=== PATIENT | female | born 1960 | race Caucasian/White ===

== ENCOUNTER 2021-12-14 20:55 | Emergency (ER) | payer SELFPAY ==
[2021-12-14 21:01] VITALS: BP 117/77; PULSE 108; RESP 16; TEMP 36.4; O2SAT 98
[2021-12-15 01:24] VITALS: BP 124/79; PULSE 97; RESP 16; TEMP 36.4; O2SAT 97
[2021-12-15 01:31] LABS: Basophils # 0.1 10^3/uL (0.0-0.1); Basophils % 0.5 %; Eosinophils # 0.2 10^3/uL (0.0-0.8); Eosinophils % 1.4 %; Hematocrit 46.3 % (37.0-47.0); Hemoglobin 15.1 g/dL (11.5-15.3); Lymphocytes # 2.2 10^3/uL (0.8-4.8); Lymphocytes % 14.5 %; Mean Corpuscular HGB Conc 32.6 g/dL (30.0-36.0); Mean Corpuscular Hemoglobin 29.4 pg (28.0-34.0); Mean Corpuscular Volume 90.3 fl (81-99); Mean Platelet Volume 8.7 fL (7.4-10.4); Monocytes # 1.1 10^3/uL (0.2-0.9); Neutrophils # 11.69 10^3/uL (1.8-7.7); Neutrophils % 76.3 %; Nucleated Red Blood Cells % 0 %; Platelet Count 501 10^3/cmm (130-400); Red Blood Count 5.13 10^6/uL (4.1-5.3); Red Cell Distribution Width 14.4 % (12.1-15.1); White Blood Count 15.3 10^3/uL (4.0-10.0)
--- NOTE | 2021-12-15 01:33 | ED_ITS ---
HPI - Abdominal Pain General: Chief Complaint: Abdominal Pain Stated Complaint: ABD Pain Time Seen by Provider: 12/15/21 01:08 History of Present Illness: Ms Monroy is a 61-year-old lady without reported significant past medical history presents to the emergency department due to abdominal pain. She reports a longstanding history of intermittent abdominal pain though this is perhaps become worse especially over the past few days. She endorses typically worse pain after eating mostly in the epigastric region though it sometimes in the flanks or other portions of her abdomen. Symptoms initially were intermittent however become more frequent and more intense and more constant recently. Associated nausea and change in bowel habits. Denies known history of abdominal surgeries or previous GI work-up. No other specific changes in health, exacerbating, or alleviating factors identified. Onset (ago): month(s) Pain Consistency: intermittent Location: Diffuse Severity: severe Quality: cramping and aching Exacerbating factors: eating Relieving factors: nothing Associated Symptoms: Reports change in bowel habits and nausea Review of Systems General: Reports: 10 or more systems reviewed and unremarkable except in HPI and below GI: Reports: nausea and change in bowel habits PFSH ED PFSH: Medical History No significant past medical history Surgical History No significant past surgical history Social History Smoking and tobacco status: current every day smoker Physical Exam Const: COMMON NORMALS: alert GENERAL APPEARANCE: cooperative and well de veloped HENMT: COMMON NORMALS: normocephalic and atraumatic HEAD & SCALP: normocephalic and atraumatic Eye: COMMON NORMALS: conjunctivae normal CONJUNCTIVA: Yes conjunctivae normal SCLERA: sclerae normal Neck/C-Spine: COMMON NORMALS: supple GENERAL: Yes trachea midline Resp: COMMON NORMALS: clear to auscultation bilaterally EFFORT & INSPECTION: Yes able to speak in complete sentences AUSCULTATION: clear to auscultation bilaterally Cardio: COMMON NORMALS: regular rhythm RATE: tachycardic RHYTHM: regular rhythm GI: COMMON NORMALS: Soft to palpation PALPATION: Yes Soft to palpation, Yes Tenderness to palpation present (GI), No Guarding due to palpation present (GI) and No Rigid due to palpation Extremity: GENERAL: Yes normal exam except as noted and No edema Neuro: COMMON NORMALS: moves all extremities SENSORIUM/ORIENTATION: Yes alert and No Orientation impaired Psych: COMMON NORMALS: mental status grossly normal and Normal thought process present THOUGHT PROCESS: Normal thought process present Course Vital Signs: Vital signs: Vital Signs Temperature 97.6 F 12/15/21 05:14 Pulse Rate 90 12/15/21 05:14 Respiratory Rate 16 12/15/21 05:14 Blood Pressure 115/70 12/15/21 05:14 Pulse Oximetry 98 12/15/21 05:14 Oxygen Delivery Me thod 12/15/21 01:24 MDM - Abdominal Pain Medical Decision Making 61-year-old lady presenting with abdominal pain. Exam as above. Mild tachycardia though patient is nontoxic in appearance. Leukocytosis, normal hemoglobin. Mild panel without acute electrolyte derangement. No UTI. CT with evidence of bowel thickening in the terminal ileum, ileocecal junction, and cecum. Discussed radiology read with general surgery on-call however given overall clinical picture and history is much more consistent with colitis and any other finding. Discussed results of ED evaluation with patient he was i mproved. Satisfactory for outpatient management with strict return precautions given. Patient comfortable with plan. Medical Records I reviewed the patient's medical records. Lab Data I reviewed the patient's lab results. : 12/15/21 01:16 12/15/21 02:22 Labs/Radiology: Radiology Impressions Abdomen/Pelvis CT 12/15/21 02:24 IMPRESSION: 1. There is enhancement and bowel wall thickening of the terminal ileum, ileocecal junction and cecum possibly representing inflammatory changes and typhlitis although an infiltrative mass such as lymphoma cannot be entirely excluded. 2. There are mildly dilated small bowel loops containing fluid and air fluid levels and some desiccated bowel contents distally may represent ileus although partial small bowel obstruction cannot be entirely excluded. Laboratory Results WBC 15.3 10^3/uL (4.0-10.0) H 12/15/21 01:16 RBC 5.13 10^6/uL (4.1-5.3) 12/15/21 01:16 Hgb 15.1 g/dL (11.5-15.3) 12/15/21 01:16 Hct 46.3 % (37.0-47.0) 12/15/21 01:16 MCV 90.3 fl (81-99) 12/15/21 01:16 MCH 29.4 pg (28.0-34.0) 12/15/21 01:16 MCHC 32.6 g/dL (30.0-36.0) 12/15/21 01:16 RDW 14.4 % (12.1-15.1) 12/15/21 01:16 Plt Count 501 10^3/cmm (130-400) H 12/15/21 01:16 MPV 8.7 fL (7.4-10.4) 12/15/21 01:16 Neut % (Auto) 76.3 % 12/15/21 01:16 Lymph % (Auto) 14.5 % 12/15/21 01:16 [place] % (Auto) 7.0 % 12/15/21 01:16 Eos % (Auto) 1.4 % 12/15/21 01:16 Baso % (Auto) 0.5 % 12/15/21 01:16 Neut # (Auto) 11.69 10^3/uL (1.8-7.7) H 12/15/21 01:16 Lymph # (Auto) 2.2 10^3/uL (0.8-4.8) 12/15/21 01:16 [place] # (Auto) 1.1 10^3/uL (0.2-0.9) H 12/15/21 01:16 Eos # (Auto) 0.2 10^3/uL (0.0-0.8) 12/15/21 01:16 Baso # (Auto) 0.1 10^3/uL (0.0-0.1) 12/15/21 01:16 Nucleated RBC % (auto) 0 % 12/15/21 01:16 Nucleated RBCs # 0.0 /100WBC 12/15/21 01:16 Sodium 136 mmol/L (136-145) 12/15/21 02:22 Potassium 3.9 mmol/L (3.5-5.1) 12/15/21 02:22 Chloride 104 mmol/L (98-107) 12/15/21 02:22 Carbon Dioxide 22 mmol/L (22-29) 12/15/21 02:22 Anion Gap 13.9 (5-19) 12/15/21 02:22 BUN 7 mg/dL (8-23) L 12/15/21 02:22 Creatinine 0.6 mg/dL (0.5-0.9) 12/15/21 02:22 GFR Calculation 101.6 mL/min (90-130) 12/15/21 02:22 Glucose 107 mg/dL (65-115) 12/15/21 02:22 Calculated Osmolality 280 mOsm/kg (285-295) L 12/15/21 02:22 Calcium 8.4 mg/dL (8.5-10.5) L 12/15/21 02:22 Total Bilirubin 0.3 mg/dL (0.15-1.2) 12/15/21 02:22 AST 14 U/L (0-32) 12/15/21 02:22 ALT 8 U/L (0-33) 12/15/21 02:22 Alkaline Phosphatase 99 U/L (35-105) 12/15/21 02:22 Total Protein 6.5 g/dL (6.6-8.7) L 12/15/21 02:22 Albumin 3.3 g/dL (3.5-5.2) L 12/15/21 02:22 Globulin 3.2 g/dL (1.3-4.6) 12/15/21 02:22 Lipase 12 U/L (13-60) L 12/15/21 02:22 Urine Color Yellow (Yellow) 12/15/21 03:33 Urine Appearance Clear (CLEAR) 12/15/21 03:33 Urine pH 5 (5-7) 12/15/21 03:33 Ur Specific [place] 1.015 (1.005-1.030) 12/15/21 03:33 Urine Protein Neg (Negative) 12/15/21 03:33 Urine Glucose (UA) Norm (Normal) 12/15/21 03:33 Urine Ketones 1+ (Negative) H 12/15/21 03:33 Urine Blood Neg (Negative) 12/15/21 03:33 Urine Nitrate Negative (Negative) 12/15/21 03:33 Urine Bilirubin Neg (Negative) 12/15/21 03:33 Urine Urobilinogen Norm mg/dL (Negative) 12/15/21 03:33 Ur Leukocyte Esterase Trace (Negative) H 12/15/21 03:33 Urine RBC 0-4 /hpf (0-2) H 12/15/21 03:33 Urine WBC 0-4 /hpf (0-5) H 12/15/21 03:33 Ur Squamous Epith Cells 0-4 /hpf (0-5) H 12/15/21 03:33 Amorphous Sediment 1+ /hpf 12/15/21 03:33 Urine Bacteria Trace /hpf (NONE) 12/15/21 03:33 Urine Mucus 1+ /hpf 12/15/21 03:33 Discharge Plan Discharge Patient Disposition: Home Clinical Impression: Abdominal pain, Colitis Prescriptions: New ondansetron 4 mg tablet,disintegrating 4 mg PO Q8H PRN (Reason: nausea and vomiting) Qty: 15 0RF oxycodone 5 mg tablet 5 mg PO Q4H PRN (Reason: pain) Qty: 24 0RF ciprofloxacin HCl 500 mg tablet 500 mg PO BID Qty: 20 0RF Discharge Orders: Discharge ED (Routine); Ordered 12/15/21 Ordered By: Blas Oseguera Discharge Diet: Clear Liquid Discharge Activity: Increase activity as tolerated Patient Instructions: Abdominal Pain (ED), Colitis (ED), Opioid Safety Activity Restrictions/Additional Instructions: Thank you for visiting the emergency department. You were seen and evaluated for abdominal pain. The exact cause of your symptoms is unclear though as discussed you do have inflammatory changes around the junction of the small and large intestine. These may be infectious given your worsening symptoms and therefore I will treat you with antibiotics. Additionally I will prescribe antinausea medication and pain medication. You may use [id number] medications as well however please do not exceed the daily recommended dosage and please keep in mind that many namebrand medications contain the same active ingredients. I will message case management for follow-up with primary care provider and follow-up with a physician for consideration of endoscopy. Return to the emergency department for worsening symptoms or anything else that you are concerned about a feel needs emergency department evaluation. Coding Level of Care Code ED Scientific Manager for [employer] Exam Comprehensive
[2021-12-15] MEDS: morphine 4 mg/mL SDV 1 mL IVP (01:54)
[2021-12-15] MEDS: sodium chloride 0.9% 1,000 ML 999 ML IV (01:54)
[2021-12-15] MEDS: ondansetron 2 mg/ML SDV 2 mL 4 MG IVP (01:54)
[2021-12-15] MEDS: lidocaine 2% viscous 15 ML, aluminum-mag hydrox-simethicon 30 ML, sucralfate oral liq 1 GM PO (01:55)
--- NOTE | 2021-12-15 02:24 | CTR_ITS ---
PROCEDURE INFORMATION: Exam: CT Abdomen And Pelvis With Contrast Exam date and time: 12/15/2021 3:03 AM Age: 61 years old Clinical indication: Abdominal pain; Generalized; Patient HX: C/O diffuse abd pain. Worsens in epigastric region after eating. ; Additional info: Generalized abd pain, worsened with eating, epigastric worse TECHNIQUE: Imaging protocol: Computed tomography of the abdomen and pelvis with contrast. Radiation optimization: All CT scans at this facility use at least one of these dose optimization techniques: automated exposure control; mA and/or kV adjustment per patient size (includes targeted exams where dose is matched to clinical indication); or iterative reconstruction. Contrast material: OMNI 350; Contrast volume: 80 ml; Contrast route: INTRAVENOUS (IV); COMPARISON: No relevant prior studies available. RADIATION DOSE METRICS: Total DLP (mGy-cm): 285.62 FINDINGS: Liver: Focal hypoattenuation seen adjacent to the falciform fissure compatible with focal fatty infiltration. Gallbladder and bile ducts: Normal. No calcified stones. No ductal dilation. Pancreas: Normal. No ductal dilation. Spleen: Normal. No splenomegaly. Adrenal glands: Normal. No mass. Kidneys and ureters: Normal. No hydronephrosis. Stomach and bowel: There are mildly dilated small bowel loops present containing fluid and air fluid levels and some desiccated bowel contents within the terminal ileum, findings compatible with ileus. An early partial small bowel obstruction cannot be entirely excluded. There is thickening and enhancement the cecal bowel wall possibly representing inflammatory mass and typhlitis. However a solid cecal mass cannot be excluded. Additionally, there is mild bowel wall thickening of the ileocecal junction. This finding raises some suspicion for an infiltrative mass such as lymphoma. Appendix: No evidence of appendicitis. Intraperitoneal space: Unremarkable. No free air. No significant fluid collection. Vasculature: Unremarkable. No abdominal aortic aneurysm. Lymph nodes: See Stomach and bowel finding. Urinary bladder: Unremarkable as visualized. Reproductive: Unremarkable as visualized. Bones/joints: Unremarkable. No acute fracture. Soft tissues: Unremarkable. CT/CT abdomen pelvis w con* [id number] IMPRESSION: 1. There is enhancement and bowel wall thickening of the terminal ileum, ileocecal junction and cecum possibly representing inflammatory changes and typhlitis although an infiltrative mass such as lymphoma cannot be entirely excluded. 2. There are mildly dilated small bowel loops containing fluid and air fluid levels and some desiccated bowel contents distally may represent ileus although partial small bowel obstruction cannot be entirely excluded.
[2021-12-15 02:54] LABS: Alanine Aminotransferase 8 U/L (0-33); Albumin Level 3.3 g/dL (3.5-5.2); Alkaline Phosphatase 99 U/L (35-105); Anion Gap 13.9 (5-19); Aspartate Amino Transferase 14 U/L (0-32); Blood Urea Nitrogen 7 mg/dL (8-23); Calcium 8.4 mg/dL (8.5-10.5); Carbon Dioxide 22 mmol/L (22-29); Chloride 104 mmol/L (98-107); Globulin 3.2 g/dL (1.3-4.6); Glomerular Filtration Rate 101.6 mL/min (90-130); Glucose 107 mg/dL (65-115); Lipase 12 U/L (13-60); Osmolality Calculated 280 mOsm/kg (285-295); Potassium 3.9 mmol/L (3.5-5.1); Sodium 136 mmol/L (136-145); Total Bilirubin 0.3 mg/dL (0.15-1.2); Total Protein 6.5 g/dL (6.6-8.7)
[2021-12-15] MEDS: iohexol 350 mg/mL 100 mL Btl IV (03:05)
[2021-12-15 03:55] LABS: Bilirubin Urine Neg (Negative); Blood Urine Neg (Negative); Glucose Urine UA Norm (Normal); Ketones Urine 1+ (Negative); Leukocyte Esterase Urine Trace (Negative); Nitrate Urine Negative (Negative); Protein Urine Neg (Negative); Specific Gravity, Urine 1.015 (1.005-1.030); Urine Appearance Clear (CLEAR); Urine Color Yellow (Yellow); Urobilinogen Urine Norm (Negative); pH Urine 5 (5-7)
[2021-12-15 03:56] LABS: Add Urine Culture? No; Add Urine Microscopic? YES; Amorphous Sediment Urine 1+ /hpf; Bacteria Urine TRACE /hpf; Mucus Urine 1+ /hpf; RBC Urine 0-4 /hpf (0-2); Squamous Epithelial Cell Urine 0-4 /hpf (0-5); WBC Urine 0-4 /hpf (0-5)
[2021-12-15 05:14] VITALS: BP 115/70; PULSE 90; RESP 16; TEMP 36.4; O2SAT 98
== END 2021-12-15 05:15 | disposition home or self-care (01) ==
PROVIDERS: Emergency Provider Emergency Medicine
DX: R10.9 Unspecified abdominal pain (principal); K52.9 Noninfective gastroenteritis and colitis, unspecified
CPT/HCPCS: 74177; 80053; 81001; 83690; 85025; 96361; 96374; 96375; 99285; J2270; J2405; J7030; Q9967

== ENCOUNTER 2022-01-21 22:22 | Emergency (ER) | payer SELFPAY ==
[2022-01-21 22:34] VITALS: BP 104/72; PULSE 111; RESP 18; TEMP 36.8; O2SAT 97; BMI 16.4
--- NOTE | 2022-01-21 23:06 | XRR_ITS ---
PROCEDURE INFORMATION: Exam: XR Abdomen Exam date and time: 01/21/2022 11:12 PM Age: 61 years old Clinical indication: Abdominal pain; Generalized; Additional info: Abd pain TECHNIQUE: Imaging protocol: Radiologic exam of the abdomen. Views: Frontal supine view of the abdomen. 1 View. COMPARISON: CT abdomen pelvis w con* [id number] 12/15/2021 3:03 AM FINDINGS: Gastrointestinal tract: Bowel gas pattern is unremarkable. No sign of obstruction. Intraperitoneal space: No gross free air. Evaluation for free air is limited in the supine position. Bones/joints: Bones are unremarkable. XR/XR KUB [id number] IMPRESSION: No acute findings.
--- NOTE | 2022-01-21 23:12 | W.ED.ABDPA2 ---
HPI - Abdominal Pain General: Chief Complaint: Abdominal Pain Stated Complaint: ABD Pain Time Seen by Provider: 01/21/22 23:02 History of Present Illness: 61-year-old female comes in today for complaints of generalized abdominal pain. Patient states she has had this abdominal pain for about 1 year but it is worsened over the last 2 months. Patient was seen last month and was diagnosed with colitis with recommendations for follow-up for further evaluation and treatment due to the abnormalities on her CT scan. Patient reports that she has been unable to get follow-up appointment due to lack of insurance. Patient appears nontoxic. Patient denies any chronic medical problems. Patient denies any alcohol or drug use. Patient does use Tylenol routinely for her pain. Associated Symptoms: Reports nausea; Denies constipation, diarrhea, fever(s) and vomiting Review of Systems Const: Denies: fever(s) Card: Denies: chest pain Resp: Denies: dyspnea GI: Reports: abdominal pain and nausea; Denies: vomiting, diarrhea or constipation : Denies: difficulty voiding PFSH ED PFSH: Medical History No significant past medical history Surgical History No significant past surgical history Social History Smoking and tobacco status: current every day smoker Physical Exam Const: COMMON NORMALS: alert HENMT: COMMON NORMALS: normocephalic HEAD & SCALP: normocephalic Neck/C-Spine: COMMON NORMALS: full ROM and no meningeal signs Resp: COMMON NORMALS: normal respiratory effort and clear to auscultation bilaterally AUSCULTATION: clear to auscultation bilaterally Cardio: COMMON NORMALS: regular rate and regular rhythm RATE: regular rate RHYTHM: regular rhythm GI: COMMON NORMALS: Soft to palpation AUSCULTATION: Yes normoactive bowel sounds PALPATION: Yes Soft to palpation and Yes Tenderness to palpation present (GI) (Generalized) : COMMON NORMALS: Yes no CVA tenderness BLADDER/KIDNEY EXAM: Yes no CVA tenderness Back/Pelvis: COMMON NORMALS: no CVA tenderness Extremity: COMMON NORMALS: no pedal edema Neuro: SENSORIUM/ORIENTATION: Yes alert MENINGEAL SIGNS: Yes no meningeal signs Skin: COMMON NORMALS: turgor normal GENERAL SKIN EXAM: turgor normal Course Vital Signs: Vital signs: Vital Signs Temperature 98.2 F 01/21/22 22:34 Pulse Rate 111 H 01/21/22 22:34 Respiratory Rate 15 01/21/22 23:33 Blood Pressure 104/72 01/21/22 22:34 Pulse Oximetry 97 01/21/22 22:34 Oxygen Delivery Me thod 01/21/22 22:34 MDM - Abdominal Pain Medical Decision Making Patient comes in tonight for complaints of abdominal pain. Patient been here about 1 month ago for similar pain. Patient reports no improvement or worsening pain. Patient states that when she come off the antibiotic she had gradual worsening of symptoms. On exam abdomen soft with some generalized tenderness. Normoactive bowel sounds. Vital signs are unremarkable. Differential diagnosis includes bowel obstruction, colitis, constipation, diverticulitis, obstruction. KUB noted no obstruction. CBC had some mild leukocytosis. CMP was unremarkable. Review of the abdominal CT from last night suggested possible colitis but a mass or carcinoma could not be ruled out. Recommend patient follow-up with specialist for colonoscopy for further evaluation and treatment. Patient has not had a colonoscopy since turning 50. Patient was written for Cipro for 7 more days, and given some hydrocodone for her pain. Patient reported understanding agreed to plan. Lab Data : 01/21/22 23:36 01/21/22 23:36 Labs/Radiology: Radiology Impressions KUB X-Ray 01/21/22 23:06 IMPRESSION: No acute findings. Laboratory Results WBC 12.8 10^3/uL (4.0-10.0) H 01/21/22 23:36 RBC 4.42 10^6/uL (4.1-5.3) 01/21/22 23:36 Hgb 13.0 g/dL (11.5-15.3) 01/21/22 23:36 Hct 39.2 % (37.0-47.0) 01/21/22 23:36 MCV 88.7 fl (81-99) 01/21/22 23:36 MCH 29.4 pg (28.0-34.0) 01/21/22 23:36 MCHC 33.2 g/dL (30.0-36.0) 01/21/22 23:36 RDW 13.3 % (12.1-15.1) 01/21/22 23:36 Plt Count 552 10^3/cmm (130-400) H 01/21/22 23:36 MPV 9.1 fL (7.4-10.4) 01/21/22 23:36 Neut % (Auto) 69.2 % 01/21/22 23:36 Lymph % (Auto) 19.3 % 01/21/22 23:36 [place] % (Auto) 8.7 % 01/21/22 23:36 Eos % (Auto) 1.8 % 01/21/22 23:36 Baso % (Auto) 0.5 % 01/21/22 23:36 Neut # (Auto) 8.86 10^3/uL (1.8-7.7) H 01/21/22 23:36 Lymph # (Auto) 2.5 10^3/uL (0.8-4.8) 01/21/22 23:36 [place] # (Auto) 1.1 10^3/uL (0.2-0.9) H 01/21/22 23:36 Eos # (Auto) 0.2 10^3/uL (0.0-0.8) 01/21/22 23:36 Baso # (Auto) 0.1 10^3/uL (0.0-0.1) 01/21/22 23:36 Nucleated RBC % (auto) 0 % 01/21/22 23:36 Nucleated RBCs # 0.0 /100WBC 01/21/22 23:36 Sodium 140 mmol/L (136-145) 01/21/22 23:36 Potassium 3.7 mmol/L (3.5-5.1) 01/21/22 23:36 Chloride 106 mmol/L (98-107) 01/21/22 23:36 Carbon Dioxide 21 mmol/L (22-29) L 01/21/22 23:36 Anion Gap 16.7 (5-19) 01/21/22 23:36 BUN 9 mg/dL (8-23) 01/21/22 23:36 Creatinine 0.5 mg/dL (0.5-0.9) 01/21/22 23:36 GFR Calculation 125.4 mL/min (90-130) 01/21/22 23:36 Glucose 115 mg/dL (65-115) 01/21/22 23:36 Calculated Osmolality 290 mOsm/kg (285-295) 01/21/22 23:36 Calcium 9.3 mg/dL (8.5-10.5) 01/21/22 23:36 Total Bilirubin 0.2 mg/dL (0.15-1.2) 01/21/22 23:36 AST 12 U/L (0-32) 01/21/22 23:36 ALT 6 U/L (0-33) 01/21/22 23:36 Alkaline Phosphatase 108 U/L (35-105) H 01/21/22 23:36 Total Protein 7.1 g/dL (6.6-8.7) 01/21/22 23:36 Albumin 3.4 g/dL (3.5-5.2) L 01/21/22 23:36 Globulin 3.7 g/dL (1.3-4.6) 01/21/22 23:36 Lipase 11 U/L (13-60) L 01/21/22 23:36 Discharge Plan Discharge Patient Disposition: Home Clinical Impression: Colitis Abdominal pain Qualifiers: Abdominal location: generalized Qualified Code(s): R10.84 - Generalized abdominal pain Condition: Stable Prescriptions: New hydrocodone-acetaminophen 5-325 mg tablet 1 tab PO Q6H PRN (Reason: pain) Qty: 10 0RF Continued ciprofloxacin HCl 500 mg tablet 500 mg PO BID Qty: 14 0RF ondansetron 4 mg tablet,disintegrating 4 mg PO Q8H PRN (Reason: nausea and vomiting) Qty: 15 0RF Discontinued oxycodone 5 mg tablet 5 mg PO Q4H PRN (Reason: pain) Qty: 24 0RF Discharge Orders: Discharge ED (Routine); Ordered 01/22/22 Ordered By: Juvenal Gee Discharge Diet: Advance as tolerated Discharge Activity: Increase activity as tolerated Patient Instructions: Abdominal Pain (ED), Opioid Safety Activity Restrictions/Additional Instructions: Start the clear liquid diet until the abdominal pain starts to resolve. Increase diet then as tolerated. Use hydrocodone as needed for severe pain. Follow-up with primary care in 1 week for recheck. Case management will contact you regarding follow-up appointment with surgeon or specialist for colonoscopy. Coding Level of Care Code ED Data Analytics Specialist for [facility] Exam Comprehensive
[2022-01-21 23:33] VITALS: RESP 15
[2022-01-21] MEDS: ondansetron 2 mg/ML SDV 2 mL 4 MG IVP (23:33)
[2022-01-21] MEDS: morphine 4 mg/mL SDV 1 mL IVP (23:33)
[2022-01-21] MEDS: sodium chloride 0.9% 500 ML 999 ML IV (23:34)
[2022-01-22 00:03] LABS: Basophils # 0.1 10^3/uL (0.0-0.1); Basophils % 0.5 %; Eosinophils # 0.2 10^3/uL (0.0-0.8); Eosinophils % 1.8 %; Hematocrit 39.2 % (37.0-47.0); Lymphocytes # 2.5 10^3/uL (0.8-4.8); Lymphocytes % 19.3 %; Mean Corpuscular HGB Conc 33.2 g/dL (30.0-36.0); Mean Corpuscular Hemoglobin 29.4 pg (28.0-34.0); Mean Corpuscular Volume 88.7 fl (81-99); Mean Platelet Volume 9.1 fL (7.4-10.4); Monocytes # 1.1 10^3/uL (0.2-0.9); Monocytes % 8.7 %; Neutrophils # 8.86 10^3/uL (1.8-7.7); Neutrophils % 69.2 %; Nucleated Red Blood Cells % 0 %; Platelet Count 552 10^3/cmm (130-400); Red Blood Count 4.42 10^6/uL (4.1-5.3); Red Cell Distribution Width 13.3 % (12.1-15.1); White Blood Count 12.8 10^3/uL (4.0-10.0)
[2022-01-22 00:06] LABS: Alanine Aminotransferase 6 U/L (0-33); Albumin Level 3.4 g/dL (3.5-5.2); Alkaline Phosphatase 108 U/L (35-105); Anion Gap 16.7 (5-19); Aspartate Amino Transferase 12 U/L (0-32); Blood Urea Nitrogen 9 mg/dL (8-23); Calcium 9.3 mg/dL (8.5-10.5); Carbon Dioxide 21 mmol/L (22-29); Chloride 106 mmol/L (98-107); Globulin 3.7 g/dL (1.3-4.6); Glomerular Filtration Rate 125.4 mL/min (90-130); Glucose 115 mg/dL (65-115); Lipase 11 U/L (13-60); Osmolality Calculated 290 mOsm/kg (285-295); Potassium 3.7 mmol/L (3.5-5.1); Sodium 140 mmol/L (136-145); Total Bilirubin 0.2 mg/dL (0.15-1.2); Total Protein 7.1 g/dL (6.6-8.7)
[2022-01-22 00:25] VITALS: BP 104/72; PULSE 88; RESP 17; O2SAT 95
--- NOTE | 2022-01-22 15:51 | DCPLANNER ---
Addendum entered by Erin Marroquin 02/22/22 07:33: resident services manager received the following message from the general surgery clinic regarding follow up appointment: Patient is in the process of FA as of right now. Patient Will contact us once everything goes thru Catie Deng completed item. On Mon 9:06a Jan 29, 2022 Catie Deng (Covering For: Family Law Paralegal Front Off) Wrote To: Family Law Paralegal Front Off Patient is aware to speak to FA prior to us scheduling an appointment. Transferred to patient financial 01/29 and she will call us to schedule an appointment Original Note: resident services manager had message to schedule a follow up appointment for patient with general surgery. resident services manager sent patients information to the front office of general surgery. Patients information will be printed and reviewed. Clinic will call patient with appointment information.
== END 2022-01-22 00:40 | disposition home or self-care (01) ==
PROVIDERS: Emergency Provider Nurse Practitioner Family
DX: K52.9 Noninfective gastroenteritis and colitis, unspecified (principal); F17.210 Nicotine dependence, cigarettes, uncomplicated
CPT/HCPCS: 74018; 80053; 83690; 85025; 96361; 96374; 96375; 99284; J2270; J2405; J7040

== ENCOUNTER 2022-12-03 17:20 | Emergency (ER) | payer BC, MEDICAID, SELFPAY ==
[2022-12-03 17:25] VITALS: BP 94/62; PULSE 105; RESP 16; TEMP 36.9; O2SAT 99; BMI 13.0
--- NOTE | 2022-12-03 17:42 | CTR_ITS ---
PROCEDURE INFORMATION: Exam: CT Abdomen And Pelvis With Contrast Exam date and time: 12/03/2022 6:47 PM Age: 62 years old Clinical indication: Abdominal tenderness; Abdominal pain; Generalized; Additional info: Abd pain, blood in stool TECHNIQUE: Imaging protocol: Computed tomography of the abdomen and pelvis with contrast. Radiation optimization: All CT scans at this facility use at least one of these dose optimization techniques: automated exposure control; mA and/or kV adjustment per patient size (includes targeted exams where dose is matched to clinical indication); or iterative reconstruction. Contrast material: OMNI 350; Contrast volume: 50 ml; Contrast route: INTRAVENOUS (IV); REPORTING DATA: Other reporting data: , a of CT and Cardiac NM exams in prior 12 months: This patient has received [address] and 0 known cardiac nuclear medicine studies in the 12 months prior to the current study. COMPARISON: No relevant prior studies available. RADIATION DOSE METRICS: Total DLP (mGy-cm): 274.27 FINDINGS: Lungs: Emphysematous changes. Bibasilar atelectasis. Liver: Hepatic steatosis. Gallbladder and bile ducts: Normal. No calcified stones. No ductal dilation. Pancreas: Normal. No ductal dilation. Spleen: Normal. No splenomegaly. Adrenal glands: Normal. No mass. Kidneys and ureters: Bilateral punctate non-obstructing hiatal calyceal stones. Stomach and bowel: Diffuse masslike wall thickening of the mid sigmoid colon along with a large soft tissue density mass in this area measuring up to 7.9 cm concerning for a malignant process, perhaps arising from the colon without associated bowel dilation to indicate obstruction. Prominent fluid in the small bowel without dilation suggestive of an enteritis. Appendix: No evidence of appendicitis. Intraperitoneal space: Unremarkable. No free air. No significant fluid collection. Vasculature: Unremarkable. No abdominal aortic aneurysm. Lymph nodes: Unremarkable. No enlarged lymph nodes. Urinary bladder: Unremarkable as visualized. Reproductive: Unremarkable as visualized. Bones/joints: Unremarkable. No acute fracture. Soft tissues: Unremarkable. Other findings: Small of amount nonspecific fluid in the pelvis. CT/CT abdomen pelvis w con* [id number] IMPRESSION: 1. Diffuse masslike wall thickening of the mid sigmoid colon along with a large soft tissue density mass in this area measuring up to 7.9 cm concerning for a malignant process, perhaps arising from the colon without associated bowel dilation to indicate obstruction. 2. Prominent fluid in the small bowel without dilation suggestive of an enteritis. 3. Bilateral punctate non-obstructing renal calyceal stones. 4. Small amount of nonspecific fluid in the pelvis. 5. Emphysematous changes. 6. Bibasilar atelectasis. 7. Hepatic steatosis.
--- NOTE | 2022-12-03 17:44 | W.ED.ABDPA2 ---
HPI - Abdominal Pain General: Chief Complaint: Abdominal Pain Stated Complaint: abd pain, blood in stool and urine Time Seen by Provider: 12/03/22 17:42 History of Present Illness: 62-year-old female comes in today with complaints of abdominal pain on and off for over 1 year. Patient was seen here 1 year ago and was diagnosed with a colitis at that time. Patient does not have any insurance and has only recently been able to get on some healthcare assistance. Patient does smoke cigarettes routinely. Patient does not drink alcohol or use any other drugs. Patient appears in mild to moderate pain. Patient appears nontoxic. Patient is very small build. Patient came in today mainly due to her increased pain. Patient did note a little blood in her stool today after straining. Patient was not able to be seen on follow-up from last year and has not received colonoscopy. Associated Symptoms: Reports constipation; Denies fever(s) Review of Systems Const: Denies: fever(s) Eyes: Denies: change in vision ENMT: Denies: throat pain GI: Reports: abdominal pain and constipation [facility] ED PFSH: Medical History No significant past medical history Surgical History No significant past surgical history Social History Smoking and tobacco status: current every day smoker Physical Exam Const: COMMON NORMALS: alert HENMT: COMMON NORMALS: normocephalic HEAD & SCALP: normocephalic MOUTH: Normal oral and palatal mucosa present Neck/C-Spine: COMMON NORMALS: full ROM Resp: COMMON NORMALS: normal respiratory effort and clear to auscultation bilaterally AUSCULTATION: clear to auscultation bilaterally Cardio: COMMON NORMALS: regular rate RATE: regular rate GI: COMMON NORMALS: Soft to palpation AUSCULTATION: Yes normoactive bowel sounds PALPATION: Yes Soft to palpation and Yes Tenderness to palpation present (GI) (Generalized) : COMMON NORMALS: Yes no CVA tenderness BLADDER/KIDNEY EXAM: Yes no CVA tenderness Back/Pelvis: COMMON NORMALS: no CVA tenderness Extremity: COMMON NORMALS: normal to inspection Neuro: SENSORIUM/ORIENTATION: Yes alert Skin: COMMON NORMALS: turgor normal GENERAL SKIN EXAM: turgor normal Course Vital Signs: Vital signs: Vital Signs Temperature 98.4 F 12/03/22 17:25 Pulse Rate 107 H 12/03/22 19:58 Respiratory Rate 20 H 12/03/22 19:58 Blood Pressure 109/73 12/03/22 19:58 Pulse Oximetry 96 12/03/22 19:58 Oxygen Delivery Me thod Room Air 12/03/22 19:58 MDM - Abdominal Pain Medical Decision Making Patient comes in today for complaints of abdominal discomfort and difficulty with urination and some blood when she wipes after urinating. On exam patient has tenderness in the right lower quadrant of abdomen. Bowel sounds are active. Vital signs are normal. Differential diagnosis includes but not limited to appendicitis, bowel obstruction, urinary tract infection, diverticulitis. Review of the record noted that patient did have similar pain last year at that time there was concern for a possible colitis with recommendations for colonoscopy follow-up. Patient did not have insurance at that time and was unable to follow-up. Patient reports he has had episodes of abdominal discomfort over the last year that she is treated with Tylenol. Patient denies any other significant history or concerns. Today laboratory values noted a white blood cell count of 20,000, hemoglobin 9.6, sodium of 135, normal liver enzymes. Urinalysis had a leukocyte esterase, increased white blood cells and red blood cells. CT of the abdomen and pelvis noted a mass in the right lower quadrant approximately 7+ centimeters. Believe the patient's has an infection in the urinary tract which is causing some of her symptoms but concern for the mass without signs of obstruction. I discussed this with Dr. Johnson who discussed talking with patient about need for follow-up and see if she was going to be able to follow-up or she would need admission to the hospital. Patient at this time understands the need for follow-up and believes that she will be able to follow-up after she talks with financial assistance tomorrow due to her recent ability to get on Medicaid. I will go ahead and request case management to help patient set up this colonoscopy and surgical evaluation along with setting patient up with primary care. Patient was instructed to return to the ER for worsening symptoms or new concerns. Lab Data 12/03/22 17:53 12/03/22 17:53 Labs/Radiology: Radiology Impressions Abdomen/Pelvis CT 12/03/22 17:42 IMPRESSION: 1. Diffuse masslike wall thickening of the mid sigmoid colon along with a large soft tissue density mass in this area measuring up to 7.9 cm concerning for a malignant process, perhaps arising from the colon without associated bowel dilation to indicate obstruction. 2. Prominent fluid in the small bowel without dilation suggestive of an enteritis. 3. Bilateral punctate non-obstructing renal calyceal stones. 4. Small amount of nonspecific fluid in the pelvis. 5. Emphysematous changes. 6. Bibasilar atelectasis. 7. Hepatic steatosis. Laboratory Results WBC 20.16 10^3/uL (3.29-11.43) H 12/03/22 17:53 RBC 3.87 10^6/uL (3.85-5.65) 12/03/22 17:53 Hgb 9.60 g/dL (11.27-16.99) L 12/03/22 17:53 Hct 30.9 % (36-47) L 12/03/22 17:53 MCV 79.8 fl (85-98) L 12/03/22 17:53 MCH 24.8 pg (27-33) L 12/03/22 17:53 MCHC 31.1 g/dL (30-55) 12/03/22 17:53 RDW 17.8 % (12.1-15.1) H 12/03/22 17:53 Plt Count 681 10^3/cmm (157-399) H 12/03/22 17:53 MPV 8.7 fL (7.4-10.4) 12/03/22 17:53 Neut % (Auto) 75.9 % 12/03/22 17:53 Lymph % (Auto) 13.1 % 12/03/22 17:53 [place] % (Auto) 9.6 % 12/03/22 17:53 Eos % (Auto) 0.7 % 12/03/22 17:53 Baso % (Auto) 0.3 % 12/03/22 17:53 Neut # (Auto) 15.30 10^3/uL (1.8-7.7) H 12/03/22 17:53 Lymph # (Auto) 2.6 10^3/uL (0.8-4.8) 12/03/22 17:53 [place] # (Auto) 1.9 10^3/uL (0.2-0.9) H 12/03/22 17:53 Eos # (Auto) 0.1 10^3/uL (0.0-0.8) 12/03/22 17:53 Baso # (Auto) 0.1 10^3/uL (0.0-0.1) 12/03/22 17:53 Nucleated RBC % (auto) 0 % 12/03/22 17:53 Nucleated RBCs # 0.0 /100WBC 12/03/22 17:53 Sodium 135 mmol/L (136-145) L 12/03/22 17:53 Potassium 4.9 mmol/L (3.5-5.1) 12/03/22 17:53 Chloride 99 mmol/L (98-107) 12/03/22 17:53 Carbon Dioxide 25 mmol/L (22-29) 12/03/22 17:53 Anion Gap 15.9 (5-19) 12/03/22 17:53 BUN 11 mg/dL (8-23) 12/03/22 17:53 Creatinine 0.4 mg/dL (0.5-0.9) L 12/03/22 17:53 GFR Calculation 161.7 mL/min (90-130) H 12/03/22 17:53 Glucose 94 mg/dL (65-115) 12/03/22 17:53 Calculated Osmolality 279 mOsm/kg (285-295) L 12/03/22 17:53 Lactic Acid 1.1 mmol/L (0.5-2.2) 12/03/22 17:53 Calcium 9.0 mg/dL (8.5-10.5) 12/03/22 17:53 Total Bilirubin 0.2 mg/dL (0.15-1.2) 12/03/22 17:53 AST 27 U/L (0-32) 12/03/22 17:53 ALT 11 U/L (0-33) 12/03/22 17:53 Alkaline Phosphatase 85 U/L (35-105) 12/03/22 17:53 C-Reactive Protein 67.1 mg/L (0.0-4.9) H 12/03/22 17:53 Total Protein 6.9 g/dL (6.6-8.7) 12/03/22 17:53 Albumin 3.5 g/dL (3.5-5.2) 12/03/22 17:53 Globulin 3.4 g/dL (1.3-4.6) 12/03/22 17:53 Lipase 11 U/L (13-60) L 12/03/22 17:53 Urine Color Yellow (Yellow) 12/03/22 19:00 Urine Appearance Cloudy (CLEAR) A 12/03/22 19:00 Urine pH 6 (5-7) 12/03/22 19:00 Ur Specific [place] 1.010 (1.005-1.030) 12/03/22 19:00 Urine Protein 3+ (Negative) H 12/03/22 19:00 Urine Glucose (UA) Norm (Normal) 12/03/22 19:00 Urine Ketones 1+ (Negative) H 12/03/22 19:00 Urine Blood 3+ (Negative) H 12/03/22 19:00 Urine Nitrate Positive (Negative) H 12/03/22 19:00 Urine Bilirubin Neg (Negative) 12/03/22 19:00 Urine Urobilinogen Norm mg/dL (Negative) 12/03/22 19:00 Ur Leukocyte Esterase 2+ (Negative) H 12/03/22 19:00 Urine RBC 80-100 /hpf (0-2) H 12/03/22 19:00 Urine WBC 80-100 /hpf (0-5) H 12/03/22 19:00 Ur Squamous Epith Cells 5-10 /hpf (0-5) H 12/03/22 19:00 Amorphous Sediment Not Reportable 12/03/22 19:00 Urine Bacteria 1+ /hpf (NONE) H 12/03/22 19:00 Urine Mucus 1+ /hpf 12/03/22 19:00 Discharge Plan Discharge Patient Disposition: Home Clinical Impression: UTI (urinary tract infection) due to Enterococcus Abdominal mass Qualifiers: Abdominal location: right lower quadrant Qualified Code(s): R19.03 - Right lower quadrant abdominal swelling, mass and lump Condition: Stable Prescriptions: New cephalexin 500 mg capsule 500 mg PO BID 7 Days Qty: 14 0RF hydrocodone-acetaminophen 5-325 mg tablet 1 tab PO Q6H PRN (Reason: pain (scale score 7-10)) Qty: 10 0RF Continued ondansetron 4 mg tablet,disintegrating 4 mg PO Q8H PRN (Reason: nausea and vomiting) Qty: 15 0RF Discontinued hydrocodone-acetaminophen 5-325 mg tablet 1 tab PO Q6H PRN (Reason: pain) Qty: 10 0RF ciprofloxacin HCl 500 mg tablet 500 mg PO BID Qty: 14 0RF Discharge Orders: Discharge ED (Routine); Ordered 12/03/22 Ordered By: Juvenal Gee Discharge Diet: Usual diet Discharge Activity: Increase activity as tolerated Patient Instructions: Abdominal Pain (ED), Opioid Safety Activity Restrictions/Additional Instructions: Take antibiotic as directed for urinary tract infection. You will need to follow-up with primary care for recheck of urine. Make sure to follow-up with financial assistance to help with previous bills so that you may be followed up with the surgeon for colonoscopy and further evaluation of abdominal mass. Return to ER for worsening symptoms such as no improvement in pain, increasing abdominal pain, inability to hold fluids down, fever greater than 100.4. Coding Level of Care Code ED [employer]st for [employer] [facility]
[2022-12-03 18:04] VITALS: RESP 16; O2SAT 94
[2022-12-03] MEDS: fentaNYL 50 mcg/mL INJ 2mL 25 MCG IVP ×2 (18:04→19:47)
[2022-12-03] MEDS: sodium chloride 0.9% 500 ML IV (18:04)
[2022-12-03 18:07] LABS: Basophils # 0.1 10^3/uL (0.0-0.1); Basophils % 0.3 %; Eosinophils # 0.1 10^3/uL (0.0-0.8); Eosinophils % 0.7 %; Hematocrit 30.9 % (36-47); Lymphocytes # 2.6 10^3/uL (0.8-4.8); Lymphocytes % 13.1 %; Mean Corpuscular HGB Conc 31.1 g/dL (30-55); Mean Corpuscular Hemoglobin 24.8 pg (27-33); Mean Corpuscular Volume 79.8 fl (85-98); Mean Platelet Volume 8.7 fL (7.4-10.4); Monocytes # 1.9 10^3/uL (0.2-0.9); Monocytes % 9.6 %; Neutrophils % 75.9 %; Nucleated Red Blood Cells % 0 %; Platelet Count 681 10^3/cmm (157-399); Red Blood Count 3.87 10^6/uL (3.85-5.65); Red Cell Distribution Width 17.8 % (12.1-15.1); White Blood Count 20.16 10^3/uL (3.29-11.43)
[2022-12-03 18:10] VITALS: BP 100/68; PULSE 110; RESP 18; O2SAT 98
[2022-12-03 18:33] LABS: Alanine Aminotransferase 11 U/L (0-33); Albumin Level 3.5 g/dL (3.5-5.2); Alkaline Phosphatase 85 U/L (35-105); Blood Urea Nitrogen 11 mg/dL (8-23); Carbon Dioxide 25 mmol/L (22-29); Chloride 99 mmol/L (98-107); Globulin 3.4 g/dL (1.3-4.6); Glomerular Filtration Rate 161.7 mL/min (90-130); Glucose 94 mg/dL (65-115); Lipase 11 U/L (13-60); Osmolality Calculated 279 mOsm/kg (285-295); Sodium 135 mmol/L (136-145); Total Bilirubin 0.2 mg/dL (0.15-1.2); Total Protein 6.9 g/dL (6.6-8.7)
[2022-12-03 18:36] LABS: Anion Gap 15.9 (5-19); Aspartate Amino Transferase 27 U/L (0-32); Potassium 4.9 mmol/L (3.5-5.1)
[2022-12-03] MEDS: iohexol 350 mg/mL 500 mL Btl (per mL) IV (18:55)
[2022-12-03 19:06] LABS: C Reactive Protein 67.1 mg/L (0.0-4.9); Lactic Sepsis W/Reflex 1.1 mmol/L (0.5-2.2)
[2022-12-03 19:18] LABS: Add Urine Microscopic? YES; Bilirubin Urine Neg (Negative); Blood Urine 3+ (Negative); Glucose Urine UA Norm (Normal); Ketones Urine 1+ (Negative); Leukocyte Esterase Urine 2+ (Negative); Nitrate Urine Positive (Negative); Protein Urine 3+ (Negative); RBC Urine 80-100 /hpf (0-2); Urine Appearance Cloudy (CLEAR); Urine Color Yellow (Yellow); Urobilinogen Urine Norm (Negative); WBC Urine 80-100 /hpf (0-5); pH Urine 6 (5-7)
[2022-12-03 19:19] LABS: Add Urine Culture? Yes; Bacteria Urine 1+ /hpf; Mucus Urine 1+ /hpf
[2022-12-03] MEDS: cefTRIAXone 1,000 MG in sodium chloride 0.9% (plus) 50 ML 100 MG IV (19:35)
[2022-12-03 19:58] VITALS: BP 109/73; PULSE 107; RESP 20; O2SAT 96
[2022-12-03 20:21] VITALS: BP 120/69; PULSE 110; RESP 20; O2SAT 99
--- NOTE | 2022-12-04 09:38 | DCPLANNER ---
optimization manager had message to speak with patient about getting established with a primary care physician. Patient stated that she would like help. optimization manager called [facility], a follow up appointment was scheduled for Sunday, November 06, 2022 at 2:[address] Reaves. optimization manager gave patient the appointment information.
== END 2022-12-03 20:23 | disposition home or self-care (01) ==
PROVIDERS: Emergency Provider Nurse Practitioner Family
DX: N39.0 Urinary tract infection, site not specified (principal); B95.2 Enterococcus as the cause of diseases classified elsewhere; R19.03 Right lower quadrant abdominal swelling, mass and lump; F17.210 Nicotine dependence, cigarettes, uncomplicated
CPT/HCPCS: 74177; 80053; 81001; 83605; 83690; 85025; 86140; 87077; 87086; 87186; 96365; 96375; 96376; 99285; J0696; J3010; J7040; Q9967

== ENCOUNTER 2022-12-09 22:11 | Emergency (ER) | payer BC, MEDICAID, SELFPAY ==
[2022-12-09 22:21] VITALS: BP 104/71; PULSE 98; RESP 18; TEMP 36.4; O2SAT 97; BMI 13.2
--- NOTE | 2022-12-09 22:40 | XRR_ITS ---
PROCEDURE INFORMATION: Exam: XR Abdomen Exam date and time: 12/09/2022 11:26 PM Age: 62 years old Clinical indication: Abdominal pain; Localized; Right; Prior surgery; Surgery date: 6+ months; Surgery type: Tubal; Patient HX: RT sided abd pain TECHNIQUE: Imaging protocol: Radiologic exam of the abdomen. Views: Frontal supine view of the abdomen. 1 View. COMPARISON: CT abdomen pelvis w con* [id number] 12/03/2022 6:47 PM FINDINGS: Gastrointestinal tract: No small bowel dilation or free air identified. There is gas in the colon. Bones/joints: Unremarkable. XR/XR KUB [id number] IMPRESSION: 1. The bowel-gas pattern is nonobstructing. 2. See the 12/03/2022 CT report as well.
[2022-12-09 23:12] LABS: Basophils # 0.1 10^3/uL (0.0-0.1); Basophils % 0.5 %; Eosinophils # 0.2 10^3/uL (0.0-0.8); Hematocrit 32.5 % (36-47); Lymphocytes # 2.3 10^3/uL (0.8-4.8); Mean Corpuscular HGB Conc 31.1 g/dL (30-55); Mean Corpuscular Hemoglobin 24.5 pg (27-33); Mean Corpuscular Volume 78.9 fl (85-98); Mean Platelet Volume 8.2 fL (7.4-10.4); Monocytes # 1.4 10^3/uL (0.2-0.9); Monocytes % 9.6 %; Neutrophils # 10.55 10^3/uL (1.8-7.7); Neutrophils % 72.6 %; Nucleated Red Blood Cells % 0 %; Platelet Count 760 10^3/cmm (157-399); Red Blood Count 4.12 10^6/uL (3.85-5.65); Red Cell Distribution Width 17.3 % (12.1-15.1); White Blood Count 14.54 10^3/uL (3.29-11.43)
[2022-12-09 23:36] LABS: Alanine Aminotransferase 8 U/L (0-33); Albumin Level 3.7 g/dL (3.5-5.2); Alkaline Phosphatase 83 U/L (35-105); Anion Gap 16.9 (5-19); Aspartate Amino Transferase 15 U/L (0-32); Blood Urea Nitrogen 13 mg/dL (8-23); Calcium 9.3 mg/dL (8.5-10.5); Carbon Dioxide 30 mmol/L (22-29); Chloride 93 mmol/L (98-107); Globulin 3.6 g/dL (1.3-4.6); Glomerular Filtration Rate 161.7 mL/min (90-130); Glucose 111 mg/dL (65-115); Osmolality Calculated 283 mOsm/kg (285-295); Potassium 3.9 mmol/L (3.5-5.1); Sodium 136 mmol/L (136-145); Total Bilirubin 0.2 mg/dL (0.15-1.2); Total Protein 7.3 g/dL (6.6-8.7)
--- NOTE | 2022-12-09 23:48 | CTR_ITS ---
PROCEDURE INFORMATION: Exam: CT Abdomen And Pelvis With Contrast Exam date and time: 12/10/2022 12:19 AM Age: 62 years old Clinical indication: Abdominal pain; Localized; Prior surgery; Surgery date: 6+ months; Surgery type: Tubal; Patient HX: Severe lower abd pain. Possible mid sigmoid mass noted on CT 12/03/2022. ; Additional info: Ab mass, pain, ? obstruction TECHNIQUE: Imaging protocol: Computed tomography of the abdomen and pelvis with contrast. Radiation optimization: All CT scans at this facility use at least one of these dose optimization techniques: automated exposure control; mA and/or kV adjustment per patient size (includes targeted exams where dose is matched to clinical indication); or iterative reconstruction. Contrast material: OMNI 350; Contrast volume: 70 ml; Contrast route: INTRAVENOUS (IV); REPORTING DATA: Count of CT and Cardiac NM exams in prior 12 months: This patient has received 2 known CTs and 0 known cardiac nuclear medicine studies in the 12 months prior to the current study. COMPARISON: CT abdomen pelvis w con* [id number] 12/03/2022 6:47 PM RADIATION DOSE METRICS: Total DLP (mGy-cm): 274.21 FINDINGS: Lungs: Mild lung base scarring with COPD. Liver: Liver is large. Gallbladder and bile ducts: No calcified gallstones or biliary dilation identified. Pancreas: Unremarkable with no suspicious mass. No ductal dilation. Spleen: The spleen is not enlarged. No suspicious enhancing mass is noted. Adrenal glands: Normal. No mass. Kidneys and ureters: No solid renal mass or hydronephrosis. Stomach and bowel: Very large and concerning pelvic bowel centered mass is present, measuring up to about 9 x 7 cm. The colon dilates up to about 6 cm. Multiple small bowel loops measure up to about 3 cm. The bowel is diffusely fluid-filled. Appendix: No evidence of appendicitis. Intraperitoneal space: See Urinary bladder finding. Vasculature: Advanced diffuse vascular calcification noted. Lymph nodes: No enlarged lymph nodes. Urinary bladder: The pelvic mass appears locally invasive, it may invade the bladder wall. See series 5, image 15. Reproductive: Not well seen. Bones/joints: No acute fracture. Soft tissues: No acute or suspicious finding noted. CT/CT abdomen pelvis w con* [id number] IMPRESSION: 1. Compared with 1 week ago, the findings are similar. 2. A very large pelvic bowel-centered mass is present, unclear whether this originates from the right or left colon. It probably involves/invades both structures. It may also involve the bladder. Trace pelvic free fluid has resolved. 3. Diffuse large and small bowel borderline dilation with fluid-filled appearance. An ileus remains likely. 4. No abscess, free air, or other change.
[2022-12-10] MEDS: iohexol 350 mg/mL 500 mL Btl (per mL) IV (00:20)
[2022-12-10] MEDS: sodium chloride 0.9% 1,000 ML 999 ML IV (00:44)
[2022-12-10] MEDS: ondansetron 2 mg/ML SDV 2 mL 4 MG IVP (00:45)
[2022-12-10 00:46] VITALS: RESP 16
[2022-12-10] MEDS: morphine 4 mg/mL SDV 1 mL IVP (00:46)
--- NOTE | 2022-12-10 01:03 | ED_ITS ---
HPI - Abdominal Pain General: Chief Complaint: Abdominal Pain Stated Complaint: right abdomen pain Time Seen by Provider: 12/09/22 23:09 Source: patient History of Present Illness: This is a 62-year-old female with a history of an abdominal mass diagnosed a week ago by CT. She returns to the ER tonight for worsening pain. Her pain was well controlled at home until this evening, when pain became much worse. She is nauseated. She has not vomited. She has not run a fever. She has noticed some blood in her stool. MD elicited complaint: abdominal pain Associated Symptoms: Reports nausea; Denies diarrhea, fever(s) and vomiting Review of Systems Const: Denies: fever(s) ENMT: Denies: throat pain Card: Denies: chest pain or palpitations Resp: Denies: dyspnea, productive cough or non-productive cough GI: Reports: abdominal pain and nausea; Denies: vomiting or diarrhea : Denies: flank pain or difficulty voiding PFSH ED PFSH: Medical History Chronic constipation Colitis Pyelonephritis of right kidney Surgical History History of bilateral ligation of fallopian tubes No significant past surgical history Family History Father Heart attack Mother Bipolar 1 disorder CAD (coronary artery disease) Social History Smoking and tobacco status: current every day smoker Quit status (tobacco): not considering quitting Alcohol intake: former Substance/Drug Use: never Physical Exam Const: COMMON NORMALS: no acute distress GENERAL APPEARANCE: cooperative; not ill appearing and not frail appearing HENMT: COMMON NORMALS: normocephalic, atraumatic and Normal external nose present HEAD & SCALP: normocephalic and atraumatic FACE & SINUS: normal facial exam and face symmetric NOSE: Normal external nose present Eye: COMMON NORMALS: Equal, round and reactive pupils present and EOMs intact bilaterally PUPIL: Yes Equal, round and reactive pupils present Neck/C-Spine: GENERAL: Yes trachea midline Chest: CHEST: Yes Symmetrical chest wall rise Resp: COMMON NORMALS: normal respiratory effort, No retractions, No use of accessory muscles and clear to auscultation bilaterally AUSCULTATION: clear to auscultation bilaterally Cardio: COMMON NORMALS: regular rate and regular rhythm RATE: regular rate RHYTHM: regular rhythm GI: COMMON NORMALS: Normal to inspection, nondistended, normoactive bowel sounds present PALPATION: Yes Tenderness to palpation present (GI) (Diffuse) Extremity: COMMON NORMALS: no pedal edema Neuro: ANN COMA SCALE: document GCS findings Ann coma scale eye opening: Spontaneous Ann coma scale verbal response: Orientated Ann coma scale motor response: Obey commands Ann coma scale total score: 15 SENSORY EXAM: Yes extremities (intact) Psych: COMMON NORMALS: speech normal SPEECH: Yes normal speech Skin: COMMON NORMALS: no rashes or lesions noted GENERAL SKIN EXAM: no rashes or lesions noted Course Vital Signs: Vital signs: Vital Signs Temperature 97.6 F 12/09/22 22:21 Pulse Rate 98 12/09/22 22:21 Respiratory Rate 16 12/10/22 00:46 Blood Pressure 104/71 12/09/22 22:21 Pulse Oximetry 97 12/09/22 22:21 Oxygen Delivery Me thod Room Air 12/09/22 22:21 MDM - Abdominal Pain Medical Decision Making The patient's vitals are stable. She is afebrile. White blood cell count is down to 14 from 20. Hemoglobin is 10. Platelet count is 760. BMP is not remarkable. Liver enzymes are not remarkable. Repeat CT scan shows similar findings of a very large pelvic bowel centered mass with trace pelvic free fluid. There is diffuse large and small bowel borderline dilatation with flui d?air filled appearance. Morphine has significantly helped this patient's pain. She will be dispensed to 15 mg tabs of morphine for use today. She will not take her hydrocodone today while on the morphine. She may go back to using her hydrocodone tomorrow. She has an appointment with surgery tomorrow for consultation regarding the mass. Since she is not vomiting, not obstructed, she will be allowed discharged on a liquid diet. To return for worsening symptoms. Lab Data 12/09/22 22:50 12/09/22 22:50 Labs/Radiology: Radiology Impressions KUB X-Ray 12/09/22 22:40 IMPRESSION: 1. The bowel-gas pattern is nonobstructing. 2. See the 12/03/2022 CT report as well. Abdomen/Pelvis CT 12/09/22 23:48 IMPRESSION: 1. Compared with 1 week ago, the findings are similar. 2. A very large pelvic bowel-centered mass is present, unclear whether this originates from the right or left colon. It probably involves/invades both structures. It may also involve the bladder. Trace pelvic free fluid has resolved. 3. Diffuse large and small bowel borderline dilation with fluid-filled appearance. An ileus remains likely. 4. No abscess, free air, or other change. Laboratory Results WBC 14.54 10^3/uL (3.29-11.43) H 12/09/22 22:50 RBC 4.12 10^6/uL (3.85-5.65) 12/09/22 22:50 Hgb 10.10 g/dL (11.27-16.99) L 12/09/22 22:50 Hct 32.5 % (36-47) L 12/09/22 22:50 MCV 78.9 fl (85-98) L 12/09/22 22:50 MCH 24.5 pg (27-33) L 12/09/22 22:50 MCHC 31.1 g/dL (30-55) 12/09/22 22:50 RDW 17.3 % (12.1-15.1) H 12/09/22 22:50 Plt Count 760 10^3/cmm (157-399) H 12/09/22 22:50 MPV 8.2 fL (7.4-10.4) 12/09/22 22:50 Neut % (Auto) 72.6 % 12/09/22 22:50 Lymph % (Auto) 16.0 % 12/09/22 22:50 [place] % (Auto) 9.6 % 12/09/22 22:50 Eos % (Auto) 1.0 % 12/09/22 22:50 Baso % (Auto) 0.5 % 12/09/22 22:50 Neut # (Auto) 10.55 10^3/uL (1.8-7.7) H 12/09/22 22:50 Lymph # (Auto) 2.3 10^3/uL (0.8-4.8) 12/09/22 22:50 [place] # (Auto) 1.4 10^3/uL (0.2-0.9) H 12/09/22 22:50 Eos # (Auto) 0.2 10^3/uL (0.0-0.8) 12/09/22 22:50 Baso # (Auto) 0.1 10^3/uL (0.0-0.1) 12/09/22 22:50 Nucleated RBC % (auto) 0 % 12/09/22 22:50 Nucleated RBCs # 0.0 /100WBC 12/09/22 22:50 Sodium 136 mmol/L (136-145) 12/09/22 22:50 Potassium 3.9 mmol/L (3.5-5.1) 12/09/22 22:50 Chloride 93 mmol/L (98-107) L 12/09/22 22:50 Carbon Dioxide 30 mmol/L (22-29) H 12/09/22 22:50 Anion Gap 16.9 (5-19) 12/09/22 22:50 BUN 13 mg/dL (8-23) 12/09/22 22:50 Creatinine 0.4 mg/dL (0.5-0.9) L 12/09/22 22:50 GFR Calculation 161.7 mL/min (90-130) H 12/09/22 22:50 Glucose 111 mg/dL (65-115) 12/09/22 22:50 Calculated Osmolality 283 mOsm/kg (285-295) L 12/09/22 22:50 Calcium 9.3 mg/dL (8.5-10.5) 12/09/22 22:50 Total Bilirubin 0.2 mg/dL (0.15-1.2) 12/09/22 22:50 AST 15 U/L (0-32) 12/09/22 22:50 ALT 8 U/L (0-33) 12/09/22 22:50 Alkaline Phosphatase 83 U/L (35-105) 12/09/22 22:50 Total Protein 7.3 g/dL (6.6-8.7) 12/09/22 22:50 Albumin 3.7 g/dL (3.5-5.2) 12/09/22 22:50 Globulin 3.6 g/dL (1.3-4.6) 12/09/22 22:50 Urine Color Yellow (Yellow) 12/10/22 01:55 Urine Appearance Hazy (CLEAR) A 12/10/22 01:55 Urine pH 7 (5-7) 12/10/22 01:55 Ur Specific [place] 1.005 (1.005-1.030) 12/10/22 01:55 Urine Protein 3+ (Negative) H 12/10/22 01:55 Urine Glucose (UA) Norm (Normal) 12/10/22 01:55 Urine Ketones Negative (Negative) 12/10/22 01:55 Urine Blood 3+ (Negative) H 12/10/22 01:55 Urine Nitrate Negative (Negative) 12/10/22 01:55 Urine Bilirubin Neg (Negative) 12/10/22 01:55 Urine Urobilinogen Neg mg/dL (Negative) 12/10/22 01:55 Ur Leukocyte Esterase 1+ (Negative) H 12/10/22 01:55 Urine RBC >100 /hpf (0-2) H 12/10/22 01:55 Urine WBC 25-40 /hpf (0-5) H 12/10/22 01:55 Ur Squamous Epith Cells 0-4 /hpf (0-5) H 12/10/22 01:55 Calcium Oxalate Crystal 10-15 /hpf H 12/10/22 01:55 Amorphous Sediment 1+ /hpf 12/10/22 01:55 Urine Bacteria Trace /hpf (NONE) 12/10/22 01:55 Discharge Plan Discharge Patient Disposition: Home Clinical Impression: Abdominal mass, Ileus Condition: Stable Prescriptions: No Action levofloxacin 750 mg tablet 750 mg PO DAILY Qty: 14 0RF hydrocodone-acetaminophen 7.5-325 mg tablet 1 tab PO Q6H PRN (Reason: pain) 15 Days Qty: 60 0RF docusate sodium 250 mg capsule 250 mg PO BID Qty: 60 3RF ondansetron 4 mg tablet,disintegrating 4 mg PO Q8H PRN (Reason: nausea and vomiting) Qty: 15 0RF cephalexin 500 mg capsule 500 mg PO BID 7 Days Qty: 14 0RF Discharge Orders: Discharge ED (Routine); Ordered 12/10/22 Ordered By: Kamari Jimenez Referrals: Darwin Reaves MD [Primary Care Provider] - 1-3 days Patient Instructions: Ileus (ED), Opioid Safety, Pain Management Activity Restrictions/Additional Instructions: Continue your stool softeners. You may use the morphine you were dispensed today for pain control. Do not take it with hydrocodone. Go back to your hydrocodone when finished with morphine. See your surgeon tomorrow as scheduled. Return for worsening pain despite treatment, vomiting liquids, other concerning symptoms. You should follow a liquid diet until you see your surgeon. 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
[2022-12-10 02:06] LABS: Add Urine Microscopic? YES; Bilirubin Urine Neg (Negative); Blood Urine 3+ (Negative); Glucose Urine UA Norm (Normal); Ketones Urine Negative (Negative); Leukocyte Esterase Urine 1+ (Negative); Nitrate Urine Negative (Negative); Protein Urine 3+ (Negative); Specific Gravity, Urine 1.005 (1.005-1.030); Urine Appearance Hazy (CLEAR); Urine Color Yellow (Yellow); Urobilinogen Urine Neg (Negative); pH Urine 7 (5-7)
[2022-12-10 02:07] LABS: Add Urine Culture? Yes; Amorphous Sediment Urine 1+ /hpf; Bacteria Urine TRACE /hpf; RBC Urine >100 /hpf (0-2); Squamous Epithelial Cell Urine 0-4 /hpf (0-5); WBC Urine 25-40 /hpf (0-5)
--- NOTE | 2022-12-10 02:20 | PC.NURSE ---
PT sent home with 2x 15mg tabs of Morphine per Dr. Jimenez orders.
[2022-12-10 02:28] VITALS: PULSE 90; RESP 16; O2SAT 98
== END 2022-12-10 02:26 | disposition home or self-care (01) ==
PROVIDERS: Nurse Practitioner Family; Emergency Provider Emergency Medicine; PCP Family Medicine Adult Medicine
DX: K56.7 Ileus, unspecified (principal); R19.00 Intra-abdominal and pelvic swelling, mass and lump, unspecified site; F17.210 Nicotine dependence, cigarettes, uncomplicated
CPT/HCPCS: 36415; 74018; 74177; 80053; 81001; 85025; 87086; 96374; 96375; 99285; J2270; J2405; J7030; Q9967

== ENCOUNTER 2023-01-07 20:58 | Emergency (ER) | payer BC, MEDICAID, SELFPAY ==
[2023-01-07 21:00] VITALS: BP 96/63; PULSE 99; RESP 17; TEMP 36.9; O2SAT 97; BMI 13.2
[2023-01-07 21:33] VITALS: BP 86/59; PULSE 113; RESP 16; O2SAT 92
[2023-01-07 21:36] LABS: Basophils # 0.1 10^3/uL (0.0-0.1); Basophils % 0.3 %; Eosinophils # 0.4 10^3/uL (0.0-0.8); Eosinophils % 2.3 %; Hematocrit 33.3 % (36-47); Lymphocytes # 1.8 10^3/uL (0.8-4.8); Lymphocytes % 9.8 %; Mean Corpuscular HGB Conc 31.2 g/dL (30-55); Mean Corpuscular Hemoglobin 25.5 pg (27-33); Mean Corpuscular Volume 81.6 fl (85-98); Mean Platelet Volume 8.8 fL (7.4-10.4); Monocytes # 1.8 10^3/uL (0.2-0.9); Monocytes % 10.1 %; Neutrophils # 13.86 10^3/uL (1.8-7.7); Neutrophils % 77.1 %; Nucleated Red Blood Cells % 0 %; Platelet Count 580 10^3/cmm (157-399); Red Blood Count 4.08 10^6/uL (3.85-5.65); Red Cell Distribution Width 17.6 % (12.1-15.1); White Blood Count 17.97 10^3/uL (3.29-11.43)
[2023-01-07 21:40] LABS: Alanine Aminotransferase 10 U/L (0-33); Albumin Level 3.9 g/dL (3.5-5.2); Alkaline Phosphatase 89 U/L (35-105); Aspartate Amino Transferase 18 U/L (0-32); Blood Urea Nitrogen 21 mg/dL (8-23); Calcium 9.2 mg/dL (8.5-10.5); Carbon Dioxide 27 mmol/L (22-29); Chloride 98 mmol/L (98-107); Globulin 3.3 g/dL (1.3-4.6); Glomerular Filtration Rate 101.3 mL/min (90-130); Glucose 119 mg/dL (65-115); Osmolality Calculated 286 mOsm/kg (285-295); Sodium 136 mmol/L (136-145); Total Bilirubin 0.2 mg/dL (0.15-1.2); Total Protein 7.2 g/dL (6.6-8.7)
[2023-01-07 21:44] LABS: Add Urine Microscopic? YES; Bilirubin Urine Neg (Negative); Blood Urine 3+ (Negative); Glucose Urine UA Norm (Normal); Ketones Urine Negative (Negative); Leukocyte Esterase Urine 2+ (Negative); Nitrate Urine Negative (Negative); Protein Urine 3+ (Negative); Specific Gravity, Urine 1.015 (1.005-1.030); Sulfosalicylic Acid Urine Positive (Negative); Urine Appearance Cloudy (CLEAR); Urine Color Red (Yellow); Urobilinogen Urine Neg (Negative); pH Urine 8 (5-7)
[2023-01-07 21:45] LABS: Add Urine Culture? Yes; Bacteria Urine 2+ /hpf; Mucus Urine 2+ /hpf; RBC Urine >100 /hpf (0-2); Squamous Epithelial Cell Urine 0-4 /hpf (0-5); WBC Urine 25-40 /hpf (0-5)
--- NOTE | 2023-01-07 21:48 | CTR_ITS ---
PROCEDURE INFORMATION: Exam: CT Abdomen And Pelvis With Contrast Exam date and time: 01/07/2023 10:12 PM Age: 62 years old Clinical indication: Abdominal pain; Acute; Prior surgery; Surgery date: 6+ months; Surgery type: Tubal; Additional info: Known pelvic mass, new passing stool in her urine TECHNIQUE: Imaging protocol: Computed tomography of the abdomen and pelvis with contrast. Radiation optimization: All CT scans at this facility use at least one of these dose optimization techniques: automated exposure control; mA and/or kV adjustment per patient size (includes targeted exams where dose is matched to clinical indication); or iterative reconstruction. Contrast material: OMNI 350; Contrast volume: 100 ml; Contrast route: INTRAVENOUS (IV); REPORTING DATA: Count of CT and Cardiac NM exams in prior 12 months: This patient has received 2 known CTs and 0 known cardiac nuclear medicine studies in the 12 months prior to the current study. COMPARISON: CT abdomen pelvis w con* [id number] 12/10/2022 12:19 AM RADIATION DOSE METRICS: Total DLP (mGy-cm): 282.77 FINDINGS: Liver: The mass is again noted to extend through the dome of the liver and best appreciated on (series 6, image 29). Gallbladder and bile ducts: Normal. No calcified stones. No ductal dilation. Pancreas: Normal. No ductal dilation. Spleen: Normal. No splenomegaly. Adrenal glands: Normal. No mass. Kidneys and ureters: Normal. No hydronephrosis. Stomach and bowel: There is a fistulous tract extending from the small bowel through the mass and extending into the bladder lumen best appreciated on the coronal views (series 6, image 27 through 34). Appendix: No evidence of appendicitis. Intraperitoneal space: Unremarkable. No free air. No significant fluid collection. Vasculature: Unremarkable. No abdominal aortic aneurysm. Lymph nodes: Unremarkable. No enlarged lymph nodes. Urinary bladder: See Stomach and bowel finding. Reproductive: The uterus is not visualized. The ovaries are not visualized. Bones/joints: Unremarkable. No acute fracture. Soft tissues: Unremarkable. Other findings: Complex lobulated heterogeneously attenuating mass in the pelvis is redemonstrated measuring to 9.1 x 7.8 cm on the sagittal plane, previously 8.[address]/CT abdomen pelvis w con* [id number] IMPRESSION: 1. Complex lobulated heterogeneously attenuating mass in the pelvis is redemonstrated measuring to 9.1 x 7.8 cm on the sagittal plane, previously 8.1 x 7.7 cm. There is a fistulous track from the adjacent loops of small bowel with stool, fluid and loculated air extending into the mass with associated enterocolonic fistula (series 3, image 55 through 46). Multiple dilated fluid-filled loops of small bowel are noted in the posterior pelvis consistent with partial small bowel obstruction. 2. The enterocolonic fistula also tracks into the bladder lumen best appreciated on the coronal views (series 6, image 27 through 34). 3. The mass is again noted to extend through the dome of the bladder and is best appreciated on (series 6, image 29).
--- NOTE | 2023-01-07 21:49 | ED_ITS ---
HPI - Female Genitourinary General: Chief complaint: Urogenital-Female Stated complaint: bowel movement in urine Time Seen by Provider: 01/07/23 21:15 History of Present Illness: Patient presents to the ER with new symptoms starting today of passing stool in her urine. Patient has a known pelvic mass that she is being referred to [facility] for. Patient always has low pelvic pain and pressure but now the pain is starting to go up into her upper abdomen and today was the first day she ever passed stool in her urine. Review of Systems General: Reports: 10 or more systems reviewed and unremarkable except in HPI and below PFSH ED PFSH: Medical History Abdominal mass, right lower quadrant Chronic constipation Colitis Cyanosis of tip of finger Finger devascularized Pyelonephritis of right kidney Weight loss of more than 10% body weight Surgical History History of bilateral ligation of fallopian tubes No significant past surgical history Family History Father Heart attack Mother Bipolar 1 disorder CAD (coronary artery disease) Social History Smoking and tobacco status: current every day smoker Quit status (tobacco): not considering quitting Alcohol intake: former Substance/Drug Use: never Physical Exam Const: COMMON NORMALS: no acute distress, average body habitus, patient oriented x3, no limitations, healthy appearing, alert and well nourished HENMT: COMMON NORMALS: normocephalic, atraumatic, hearing grossly normal bilaterally, Normal external nose present, moist oral mucous membranes and oropharynx normal HEAD & SCALP: normocephalic and atraumatic NOSE: Normal external nose present Neck/C-Spine: COMMON NORMALS: no JVD Chest: COMMONS NORMALS: normal inspection of the chest and normal palpation of entire chest wall Resp: COMMON NORMALS: normal respiratory effort, No retractions, No use of accessory muscles and clear to auscultation bilaterally AUSCULTATION: clear to auscultation bilaterally Cardio: COMMON NORMALS: no JVD, regular rate, regular rhythm, S1 normal heart sound present, S2 normal heart sound present, No gallops present (Cardio), No clicks present (Cardio), No murmurs present (Cardio) and No rub (Cardio) RATE: regular rate RHYTHM: regular rhythm HEART SOUNDS: S1 normal heart sound present and S2 normal heart sound present GI: COMMON NORMALS: Normal to inspection, nondistended, normoactive bowel sounds present, Soft to palpation and No hepatosplenomegaly present; negative for non-tender (Diffusely tender) PALPATION: Yes Soft to palpation and Yes No hepatosplenomegaly present : COMMON NORMALS: Yes no CVA tenderness BLADDER/KIDNEY EXAM: Yes no CVA tenderness Back/Pelvis: COMMON NORMALS: no CVA tenderness Neuro: COMMON NORMALS: patient oriented x3 SENSORIUM/ORIENTATION: Yes alert Course Vital Signs: Vital signs: Vital Signs Temperature 98.5 F 01/07/23 21:00 Pulse Rate 104 H 01/08/23 01:09 Respiratory Rate 16 01/08/23 01:09 Blood Pressure 93/62 01/08/23 01:09 Pulse Oximetry 97 01/08/23 01:09 Oxygen Delivery Me thod Room Air 01/07/23 21:00 MDM - Female Medical Decision Making Patient presents today with stool in her urine and worsening abdominal pain. Patient has a known abdominal pelvic mass. Patient had a teleconference today with Dr. Watts from [facility]. After this conference is when she noticed she was passing stool in her urine. And the pain increased. 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 Dr. Garfield post from colorectal surgery had [facility] was consulted and the case was discussed with her and she accepted the patient to the floor for Dr. Watts. Patient will be transferred to [facility] as soon as we get bed assignment. Differential Diagnosis Likely abdominal pain (Pelvic mass, colovesicular fistula) Lab Data I reviewed the patient's lab results. 01/07/23 21:19 01/07/23 21:19 Radiology Impressions Abdomen/Pelvis CT 01/07/23 21:48 IMPRESSION: 1. Complex lobulated heterogeneously attenuating mass in the pelvis is redemonstrated measuring to 9.1 x 7.8 cm on the sagittal plane, previously 8.1 x 7.7 cm. There is a fistulous track from the adjacent loops of small bowel with stool, fluid and loculated air extending into the mass with associated enterocolonic fistula (series 3, image 55 through 46). Multiple dilated fluid-filled loops of small bowel are noted in the posterior pelvis consistent with partial small bowel obstruction. 2. The enterocolonic fistula also tracks into the bladder lumen best appreciated on the coronal views (series 6, image 27 through 34). 3. The mass is again noted to extend through the dome of the bladder and is best appreciated on (series 6, image 29). Laboratory Results WBC 17.97 10^3/uL (3.29-11.43) H 01/07/23 21: RBC 4.08 10^6/uL (3.85-5.65) 01/07/23 21: Hgb 10.40 g/dL (11.27-16.99) L 01/07/23 21: Hct 33.3 % (36-47) L 01/07/23: MCV 81.6 fl (85-98) L 01/07/23: MCH 25.5 pg (27-33) L 01/07/23: MCHC 31.2 g/dL (30-55) 01/07/23 21: RDW 17.6 % (12.1-15.1) H 01/07/23: Plt Count 580 10^3/cmm (157-399) H 01/07/23 21:19 MPV 8.8 fL (7.4-10.4) 01/07/23: Neut % (Auto) 77.1 % 01/07/23: Lymph % (Auto) 9.8 % 01/07/23: Thayer % (Auto) 10.1 % 01/07/23: Eos % (Auto) 2.3 % 01/07/23: Baso % (Auto) 0.3 % 01/07/23: Neut # (Auto) 13.86 10^3/uL (1.8-7.7) H 01/07/23: Lymph # (Auto) 1.8 10^3/uL (0.8-4.8) 01/07/23: Thayer # (Auto) 1.8 10^3/uL (0.2-0.9) H 01/07/23 21:19 Eos # (Auto) 0.4 10^3/uL (0.0-0.8) 01/07/23 21:19 Baso # (Auto) 0.1 10^3/uL (0.0-0.1) 01/07/23 21:19 Nucleated RBC % (auto) 0 % 01/07/23 21:19 Nucleated RBCs # 0.0 /100WBC 01/07/23 21:19 Sodium 136 mmol/L (136-145) 01/07/23 21:19 Potassium 4.0 mmol/L (3.5-5.1) 01/07/23 21:19 Chloride 98 mmol/L (98-107) 01/07/23 21:19 Carbon Dioxide 27 mmol/L (22-29) 01/07/23 21:19 Anion Gap 15.0 (5-19) 01/07/23 21:19 BUN 21 mg/dL (8-23) 01/07/23 21:19 Creatinine 0.6 mg/dL (0.5-0.9) 01/07/23 21:19 GFR Calculation 101.3 mL/min (90-130) 01/07/23 21:19 Glucose 119 mg/dL (65-115) H 01/07/23 21:19 Calculated Osmolality 286 mOsm/kg (285-295) 01/07/23 21:19 Lactic Acid 1.7 mmol/L (0.5-2.2) 01/07/23 21:19 Calcium 9.2 mg/dL (8.5-10.5) 01/07/23 21:19 Total Bilirubin 0.2 mg/dL (0.15-1.2) 01/07/23 21:19 AST 18 U/L (0-32) 01/07/23 21:19 ALT 10 U/L (0-33) 01/07/23 21:19 Alkaline Phosphatase 89 U/L (35-105) 01/07/23 21:19 Total Protein 7.2 g/dL (6.6-8.7) 01/07/23 21:19 Albumin 3.9 g/dL (3.5-5.2) 01/07/23 21:19 Globulin 3.3 g/dL (1.3-4.6) 01/07/23 21:19 Procalcitonin 0.23 ng/mL (0-0.5) 01/07/23 21:19 Urine Color Red (Yellow) A 01/07/23 21:11 Urine Appearance Cloudy (CLEAR) A 01/07/23 21:11 Urine pH 8 (5-7) H 01/07/23 21:11 Ur Specific [place] 1.015 (1.005-1.030) 01/07/23 21:11 Urine Protein 3+ (Negative) H 01/07/23 21:11 Urine Glucose (UA) Norm (Normal) 01/07/23 21:11 Urine Ketones Negative (Negative) 01/07/23 21:11 Urine Blood 3+ (Negative) H 01/07/23 21:11 Urine Nitrate Negative (Negative) 01/07/23 21:11 Urine Bilirubin Neg (Negative) 01/07/23 21:11 Prot Sulfosalicylic Acd Positive (Negative) 01/07/23 21:11 Urine Urobilinogen Neg mg/dL (Negative) 01/07/23 21:11 Ur Leukocyte Esterase 2+ (Negative) H 01/07/23 21:11 Urine RBC >100 /hpf (0-2) H 01/07/23 21:11 Urine WBC 25-40 /hpf (0-5) H 01/07/23 21:11 Ur Squamous Epith Cells 0-4 /hpf (0-5) H 01/07/23 21:11 Amorphous Sediment Not Reportable 01/07/23 21:11 Urine Bacteria 2+ /hpf (NONE) H 01/07/23 21:11 Urine Mucus 2+ /hpf 01/07/23 21:11 All radiology interpretation(s) finalized by discharge Discharge Plan Discharge Patient Disposition: Xfer Short-Term Hosp Clinical Impression: Entero-colonic fistula, Pelvic mass, Partial small bowel obstruction Condition: Stable Referrals: Darwin Reaves MD [Primary Care Provider] - Coding Level of Care Code ED Director Of Infection Prevention for So [facility]
[2023-01-07] MEDS: sodium chloride 0.9% 1,000 ML 999 ML IV (21:58)
[2023-01-07] MEDS: ondansetron 2 mg/ML SDV 2 mL 4 MG IVP (21:58)
[2023-01-07] MEDS: iohexol 350 mg/mL 500 mL Btl (per mL) IV (22:15)
[2023-01-07 22:32] VITALS: BP 96/68; PULSE 101; RESP 16; O2SAT 100
[2023-01-07] MEDS: piperacillin-tazobactam 3.375 GM in sodium chloride 0.9% (plus) 50 ML IV (23:43)
[2023-01-07 23:52] LABS: Lactic Sepsis W/Reflex 1.7 mmol/L (0.5-2.2)
[2023-01-08] VITALS (38 sets, daily range): BP systolic 74–108; BP diastolic 47–70; PULSE 83–110; RESP 16–17; O2SAT 90–100
[2023-01-08 00:03] LABS: Procalcitonin 0.23 ng/mL (0-0.5)
[2023-01-08] MEDS: sodium chloride 0.9% 1,000 ML 999 ML IV (00:55)
--- NOTE | 2023-01-08 01:24 | PC.NURSE ---
Per verbal order Dr Mccall, Cheng 3.375 q 6 hrs. rbvo and placed to start 6 hrs post first admin.
[2023-01-08] MEDS: sodium chloride 0.9% 1,000 ML 150 ML IV ×2 (03:40→12:05)
[2023-01-08] MEDS: piperacillin-tazobactam 3.375 GM in sodium chloride 0.9% (plus) 50 ML IV ×2 (05:51→12:04)
[2023-01-08] MEDS: pantoprazole 40 mg SDV IVP (11:07)
[2023-01-08] MEDS: ondansetron 2 mg/ML SDV 2 mL 4 MG IVP (12:18)
[2023-01-08] MEDS: morphine 4 mg/mL SDV 1 mL IVP (12:18)
== END 2023-01-08 14:08 | disposition short-term general hospital (02) ==
PROVIDERS: Emergency Provider Emergency Medicine; PCP Family Medicine Adult Medicine
DX: K63.2 Fistula of intestine (principal); R19.00 Intra-abdominal and pelvic swelling, mass and lump, unspecified site; K56.600 Partial intestinal obstruction, unspecified as to cause; F17.210 Nicotine dependence, cigarettes, uncomplicated
CPT/HCPCS: 36415; 74177; 80053; 81001; 83605; 84145; 85025; 87040; 87086; 96365; 96366; 96375; 99285; C9113; J2270; J2405; J2543; J7030; Q9967

== ENCOUNTER 2023-02-18 09:45 | Day surgery (SDC) | payer BC, MEDICAID, SELFPAY ==
[2023-02-18] VITALS (8 sets, daily range): BP systolic 80–90; BP diastolic 62–69; PULSE 103–123; RESP 18–20; TEMP 36.1–36.7; O2SAT 94–98; BMI 12.0
--- NOTE | 2023-02-18 09:52 | SC_ITS ---
WS: [id number] INTRAOPERATIVE TECHNIQUE: 2 Spot fluoroscopic images for intraoperative purposes. FLUOROSCOPY TIME: 5.8 seconds CLINICAL INFORMATION: Mediport placement COMPARISON: None. FINDINGS: Images obtained for intraoperative purposes. LEFT Port-A-Cath with tip in the distal SVC. No visualiz ed pneumothorax. IMPRESSION: Images obtained for intraoperative purposes.
--- NOTE | 2023-02-18 09:52 | XRR_ITS ---
PROCEDURE INFORMATION: Exam: XR Chest Exam date and time: 02/18/2023 2:10 PM Age: 62 years old Clinical indication: Device placement; Other: Portacath; Prior surgery; Surgery date: Post-operative (0-2 days); Additional info: Postop mediport placement TECHNIQUE: Imaging protocol: Radiologic exam of the chest. Views: 1 view. COMPARISON: CT abdomen pelvis w con* [id number] 01/07/2023 10:12 PM FINDINGS: Tubes, catheters and devices: Port-A-Cath enters from the left and terminates near the atrial caval junction. 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 Pleural spaces: Unremarkable. No pleural effusion. No pneumothorax. Heart/Mediastinum: Unremarkable. No cardiomegaly. Bones/joints: Unremarkable. XR/XR chest 1V portable [id number] IMPRESSION: No acute cardiopulmonary disease.
[2023-02-18] MEDS: sodium chloride 0.9% 1,000 ML 30 ML IV (10:27)
--- NOTE | 2023-02-18 10:34 | PC.NURSE ---
patient has ostomy
--- NOTE | 2023-02-18 11:01 | W.PM.OPSUD ---
Surgery/Procedure H&P Update DATE OF PROCEDURE: February 18, 2023 DATE H&P PERFORMED: 02/14/23 H&P UPDATE INFORMATION: I have reviewed H&P completed within last 30 days, I have examined patient prior to procedure and No changes to prior documentation PLANNED PROCEDURE: Operation Date: 02/18/23 11:20 Proposed Procedures p [id number] port placement C18.9(Not Applicable) - Eddy Gaitan DO
[2023-02-18] MEDS: HYDROmorphone 1 mg/mL INJ 1 mL 0.5 MG IVP (11:08)
[2023-02-18] MEDS: ceFAZolin 2,000 MG in sodium chloride 0.9% (plus) 50 ML 100 MG IV (12:14)
--- NOTE | 2023-02-18 12:14 | ANES.PREANE2 ---
Pre-Anesthetic Assessment Height/Weight: Height 1.55 m Weight 29.03 kg Temp Pulse Resp BP Pulse Ox O2 Del Method 97.9 F 123 H 20 H 86/65 97 Room Air 02/18/23 10:05 02/18/23 10:05 02/18/23 10:05 02/18/23 10:05 02/18/23 10:05 02/18/23 10:29 Operation Date: 02/18/23 11:20 Proposed Procedures p [id number] port placement C18.9(Not Applicable) - Eddy Gaitan DO Familial anesthetic complications: none Was Beta Daniel taken within 24 hours: N/A Was Clonidine taken within 24 hours: N/A Last intake: Intake Last Liquid Date 02/17/23 Last Liquid Time 23:00 Last Solid Date 02/17/23 Last Solid Time 19:00 Social Tobacco and No alcohol Exam alert, oriented x 3 and regular rate & rhythm Airway Submandibular: within normal limits Cervical ROM: within normal limits Mallampati: Class II Dentition: false Pulmonary Chronic Obstructive Pulmonary Disease CV/HEM Anemia GI Gastroesophageal Reflux Disease Colon CA Metabolic Hyponatremia Neuropsych Chronic pain Anesthetic Plan ASA status: 3 Anesthesia: General Medications/Allergies Home Medications Medication Instructions Recorded Confirmed Last Taken Type naloxone 4 mg/actuation nasal 1 spray intranasal Q3M PRN Opioid 12/11/22 02/15/23 Unknown History spray (Narcan) Overdose ondansetron 4 mg disintegrating 4 mg PO Q8H PRN nausea and 12/11/22 02/15/23 02/17/23 Rx tablet vomiting #20 tabs aspirin 81 mg tablet,delayed 81 mg PO DAILY #90 tabs 12/21/22 02/15/23 02/16/23 Rx release melatonin 3 mg tablet 3 mg PO BEDTIME 01/08/23 02/15/23 02/17/23 History mmhgyhuu-xgi-gral-FA-Ca carb-vit K 1 tab PO DAILY 01/08/23 02/15/23 02/17/23 History 18 mg iron-400 mcg-500 mg tablet oxycodone-acetaminophen 5 mg-325 1 tab PO Q8H PRN cancer pain 30 01/31/23 02/15/23 02/18/23 05:00 Rx mg tablet days #90 tabs acetaminophen 500 mg capsule 1,000 mg PO Q6H 02/07/23 02/15/23 02/17/23 History enoxaparin 30 mg/0.3 mL 30 mg SUBCUT DAILY 02/07/23 02/15/23 02/16/23 History subcutaneous syringe (Lovenox) ferrous sulfate 325 mg (65 mg 325 mg PO BID 02/07/23 02/15/23 02/17/23 History iron) tablet miconazole nitrate 2 % topical 1 applic topical BID 02/07/23 02/15/23 Unknown History powder (Antifungal (miconazole)) naloxone 4 mg/actuation nasal 4 mg intranasal Q2M PRN Opioid 02/07/23 02/15/23 Unknown History spray (Narcan) Overdose cyclobenzaprine 5 mg tablet 5 mg PO TID PRN muscle spasm #30 02/14/23 02/15/23 02/17/23 Rx tabs oxybutynin chloride 15 mg 15 mg PO DAILY #30 tabs 02/14/23 02/15/23 02/18/23 05:00 Rx tablet,extended release 24 hr pantoprazole 20 mg tablet,delayed 20 mg PO DAILY stomack #90 tabs 02/14/23 02/15/23 02/17/23 Rx release phenazopyridine 200 mg tablet 200 mg PO TID PRN bladder pain 02/18/23 02/15/23 02/18/23 05:00 History (Pyridium) Allergies Allergy/AdvReac Type Severity Reaction Status Date / Time paroxetine [From Paxil] Allergy Unknown Verified 02/14/23 07:53 Current Medications Generic Name Dose Route Start Last Admin Trade Name Freq PRN Reason Stop Dose Admin Sodium Chloride 1,000 mls @ 30 mls/hr 02/18/23 10:00 02/18/23 10:27 Sodium Chloride 0.9% IV 02/19/23 09:59 30 mls/hr .Q24H CHARLES Administration PFSH Anesthesia Medical History Chronic constipation Colitis Colon adenocarcinoma Pelvic Mass, RLQ, Surg. Path 01/16/2023 mod differentiated, open ileostomy Dr. Liao, [facility] Cyanosis of tip of finger Finger devascularized Painful bladder spasm Pyelonephritis of right kidney Weight loss of more than 10% body weight Surgical History (Updated 02/14/23 @ 07:59 by ALEXIS Leblanc) History of bilateral ligation of fallopian tubes No significant past surgical history Family History Father Heart attack Mother Bipolar 1 disorder CAD (coronary artery disease) Social History Smoking and tobacco/nicotine status: current every day tobacco/nicotine user Quit status (tobacco/nicotine): not considering quitting Alcohol intake: former Substance/Drug Use: never Data Anesthesia Cardiac Studies: No Data to Display
[2023-02-18] MEDS: lidocaine-epi 2% 20 mL INJ INJECTION (12:40)
[2023-02-18] MEDS: heparin, porcine 1,000 unit/mL INJ 10 mL 10000 UNIT IRRIGATION (12:42)
--- NOTE | 2023-02-18 13:01 | P.OP_ITS ---
Operative Report Date of procedure: February 18, 2023 Pre-op diagnosis: Colon cancer Post-op diagnosis: same Procedure done: Mediport insertion Implants: PowerPort Specimens removed/disposition: None Surgeon: Eddy Gaitan DO Anesthesia: MAC and Local Estimated blood loss (mL): 5 Complications: None apparent Brief History: This a very pleasant 62-year-old female with colon cancer. Oncology requested a Mediport for chemotherapy infusions. The risk and benefits were explained and documented. Procedure: They put another order I will do right now things the patient was taken to the operating room and placed supine on the operating room table. All bony promine nces were padded. She was given IV sedation and monitored throughout the case by the anesthesia personnel. SCDs were placed and turned on. The arms were tucked to the side. Patient received Ancef 2 g preoperatively IV. The bilateral chest wall was prepped and draped in usual sterile fashion using chlorhexidine base prep. Sterile drapes were applied. We did procedure pause prior to beginning. An 18 gauge needle was placed in the left subclavian vein. Dark, nonpulsatile blood was aspirated. A guidewire was placed through the needle centrally toward the atrial/vena caval junction. Fluoroscopy visualized good placement. The needle was removed and the guidewire was clipped to the drape with a hemostat. Further local anesthetic was infiltrated in the soft tissues of the left chest wall and a #15 blade was used to make a horizontal skin incision. A subcutaneous Mediport pocket was created using Bovie cautery, dissecting down through the skin and subcutaneous tissues. Meticulous hemostasis was achieved. The Mediport was sutured in position using 3-0 vicryl suture x2 stitches. A #15 blade was used to make a small skin gui around the guidewire insertion area. The Mediport tubing was tunneled through the subcutaneous tissues up to the needle insertion location. A dilator with a peel-away sheath was placed over the guidewire and placed centrally. After measuring the Mediport tubing was cut to length so that the tip would end at the atrial/vena caval junction. The inner cannula and the guidewire were removed, leaving the dilator sheath in place. The Mediport was flushed. The tip of the catheter was inserted through the peel-away sheath and the peel-away sheath removed in the standard fashion. The Mediport was accessed with a straight Savage needle and dark, nonpulsatile blood was aspirated and flushed using heparinized saline to hep-lock the Mediport. Final fluoroscopy visualization showed no kink in the catheter and the tip of the Mediport tubing near the atrial/vena caval junction. Both skin incisions were thoroughly irrigated and suctioned dry. Meticulous hemostasis noted. The dermis was approximated with 3-0 Vicryl in an interrupted fashion. Skin was closed with Dermabond. Patient was awakened from anesthesia and transferred via her cart to the recovery room in stable condition. All needle, sponge, and instrument counts were correct per the operating personnel x2 counts.
--- NOTE | 2023-02-18 14:20 | ANE.PACU2 ---
Inpatient post-anesthesia follow up: Airway intact: Yes Vital signs: Temperature 98.1 F Pulse Rate 119 Respiratory Rate 18 Blood Pressure 81/62 Pulse Oximetry 97 Oxygen Delivery Me thod Room Air Oxygen Flow Rate Fraction of Inspir ed Oxygen Hydration adequate: Yes Nausea and vomiting: No Pain level: 2 Mental status: Baseline
== END 2023-02-18 13:43 | disposition home or self-care (01) ==
PROVIDERS: PCP Family Medicine Adult Medicine; Visit Provider Surgery
PROC: (CPT 36561; principal; 2023-02-18 11:20)
DX: C18.9 Malignant neoplasm of colon, unspecified (principal); J44.9 Chronic obstructive pulmonary disease, unspecified; K21.9 Gastro-esophageal reflux disease without esophagitis; Z79.82 Long term (current) use of aspirin; F17.200 Nicotine dependence, unspecified, uncomplicated
CPT/HCPCS: 36561; 71045; 76000; 77001; C1788; J0690; J1170; J1644; J2405; J2704; J3010; J7030

== ENCOUNTER 2023-02-20 15:00 | Oncology outpatient (recurring) (ONCR) | payer BC, MEDICAID, SELFPAY ==
[2023-02-11 17:35] LABS: Basophils # 0.1 10^3/uL (0.0-0.1); Basophils % 0.3 %; Eosinophils # 0.2 10^3/uL (0.0-0.8); Eosinophils % 0.7 %; Hematocrit 38.2 % (36-47); Lymphocytes # 2.5 10^3/uL (0.8-4.8); Lymphocytes % 8.8 %; Mean Corpuscular HGB Conc 30.6 g/dL (30-55); Mean Corpuscular Hemoglobin 25.5 pg (27-33); Mean Corpuscular Volume 83.4 fl (85-98); Mean Platelet Volume 9.2 fL (7.4-10.4); Monocytes # 1.9 10^3/uL (0.2-0.9); Monocytes % 6.8 %; Neutrophils # 23.18 10^3/uL (1.8-7.7); Neutrophils % 82.7 %; Nucleated Red Blood Cells % 0 %; Platelet Count 754 10^3/cmm (157-399); Red Blood Count 4.58 10^6/uL (3.85-5.65); Red Cell Distribution Width 16.8 % (12.1-15.1); White Blood Count 28.06 10^3/uL (3.29-11.43)
[2023-02-11 17:36] LABS: Reticulocyte % 1.2 % (0.5-2.0)
[2023-02-11 18:19] LABS: Alanine Aminotransferase 11 U/L (0-33); Albumin Level 3.9 g/dL (3.5-5.2); Alkaline Phosphatase 114 U/L (35-105); Anion Gap 19.7 (5-19); Aspartate Amino Transferase 15 U/L (0-32); Blood Urea Nitrogen 37 mg/dL (8-23); Calcium 9.8 mg/dL (8.5-10.5); Carbon Dioxide 19 mmol/L (22-29); Chloride 98 mmol/L (98-107); Ferritin 70 ng/mL (15-150); Glomerular Filtration Rate 84.8 mL/min (90-130); Glucose 102 mg/dL (65-115); Iron 33 ug/dL (37-145); Osmolality Calculated 283 mOsm/kg (285-295); Percent Saturation 10.1 % (20-50); Potassium 4.7 mmol/L (3.5-5.1); Sodium 132 mmol/L (136-145); Thyroid Stimulating Hormone 0.79 uIU/mL (0.27-4.20); Total Bilirubin 0.2 mg/dL (0.15-1.2); Total Iron Binding Capacity 325 mcg/dl; Total Protein 7.9 g/dL (6.6-8.7); Unsaturated Iron Binding 292 ug/dL (112-347); Vitamin B12 557 pg/mL (232-1245)
[2023-02-11 20:52] LABS: Carcinoembryonic Antigen 38.1 ng/mL (0.0-4.7); Free T4 Free Thyroxine 1.27 ng/dL (0.82-1.77)
[2023-02-12 08:36] LABS: Folate Level > 20.0 ng/mL (4.8-37.3)
[2023-02-15 17:49] LABS: Soluble Transferrin Receptor 3.25 mg/L (0.76-1.76)
[2023-02-16 15:45] LABS: Methylmalonic Acid 248 nmol/L (87-318)
[2023-02-20 14:43] VITALS: BP 97/70; PULSE 120; RESP 16; TEMP 36.5; O2SAT 95
== END 2023-02-28 23:59 | disposition home or self-care (01) ==
PROVIDERS: PCP Family Medicine Adult Medicine; Visit Provider Internal Medicine
DX: Z45.2 Encounter for adjustment and management of vascular access device (principal)
CPT/HCPCS: 36415; 36591; 80053; 82378; 82607; 82728; 82746; 83540; 83550; 83921; 84238; 84439; 84443; 85025; 85045; J1642

== ENCOUNTER 2023-02-26 14:21 | Outpatient (CLI) | payer BC, MEDICAID, SELFPAY ==
--- NOTE | 2023-02-26 11:30 | PETR_ITS ---
PROCEDURE INFORMATION: Exam: PET/CT Skull Base to Mid-thigh Exam date and time: 02/26/2023 12:36 PM Age: 62 years old Clinical indication: Condition or disease; Primary cancer: Malignant neoplasm of colon; Follow-up oncological assessment; Prior surgery; Surgery date: 6+ months; Surgery type: Tubal; Additional info: Colon adenocarcinoma. Provided patient weight of 29 kg was verified with the technologist. LABS AND CLINICAL REPORTS: Glucose: 95 mg/dl Treatment strategy for malignancy (PET staging): Initial Staging (PI) TECHNIQUE: Imaging protocol: Following at least four-hour fasting and following the injection of radiopharmaceutical, low dose CT images were obtained. Then, PET images were obtained. Attenuation corrected images were constructed using the CT scan. Fused images of PET and CT were reviewed. The standardized uptake values (SUV) reported below are maximum values within a region of interest, expressed in gm/ml. Exam includes orbital meatal line to mid-thigh. Radiopharmaceutical: 11.7 mCi F-18 FDG (Fluorodeoxyglucose), IV. Time of imaging post radiopharmaceutical administration: 1 hour Injection site: Right forearm COMPARISON: CT abdomen pelvis w con* [id number] 01/07/2023 10:12 PM FINDINGS: Tubes, catheters and devices: A left subclavian central venous port catheter terminates in the proximal right atrium. Brain: Visualized brain has normal physiologic uptake. Pharynx: No abnormal uptake. Larynx: No abnormal uptake. Lungs, pleura and trachea: No abnormal uptake. Moderate bilateral centrilobular emphysematous changes are noted. Non radiotracer avid biapical pleural scarring is noted. A calcified granuloma in the right lower lobe is present. Heart: Normal physiologic uptake. Mediastinal space: No abnormal uptake. Liver: No abnormal uptake. Gallbladder and bile ducts: No abnormal uptake. Pancreas: No abnormal uptake. Spleen: No abnormal uptake. Calcified granulomas in the spleen are present. Adrenal glands: No abnormal uptake. Kidneys and ureters: Normal physiologic uptake. Small, 1-2 mm in diameter nonobstructing bilateral renal calculi are noted. Stomach and bowel: There is an ostomy site in the anterior inferior right abdomen, new since the prior CT. A heterogeneous soft tissue density mass involving small bowel loops extending from the mid anterior right pelvis inferiorly along the anterior aspect of the urinary bladder to the level of the symphysis pubis is noted measuring up to approximately 7.6 x 7.7 cm in the axial plane on series 3, image 183 by 9.6 cm superior to inferior. The segment of colon in the right abdomen which also appear to be involved with this mass is not definitively identified however the bowel anatomy is not well assessed without intraluminal contrast. Uptake within the mass in the region of the urinary bladder is difficult to differentiate from physiologic uptake in the urinary bladder however the component of the mass superior to the urinary bladder demonstrates an SUV max 14.2 on PET series 12, image 179. Vasculature: No abnormal uptake. There are diffuse atherosclerotic changes. Lymph nodes: No abnormal uptake. No lymphadenopathy in the head, neck, chest, abdomen, pelvis, and extremities. Calcified mediastinal lymph nodes are present. Bones/joints: No abnormal uptake.There is mild diffuse vertebral body spondylosis. Soft tissues: No abnormal uptake in the visualized head, neck, chest, abdomen, pelvis, and extremities. METRICS: Mediastinal blood pool: SUV max 1.3 PET[facility] INITIAL [id number] IMPRESSION: 1. Elevated uptake is identified within a mass in the pelvis which appears to involve at least small bowel loops with invasion of the urinary bladder compatible with malignancy. 2. No additional areas of radiotracer avid malignancy. 3. Bilateral nonobstructing nephrolithiasis. 4. Old granulomatous changes. 5. Moderate bilateral centrilobular emphysematous changes. 6. Additional nonurgent findings as detailed above.
== END 2023-02-26 14:22 | disposition home or self-care (01) ==
LOC: RAD 14:21
PROVIDERS: PCP Family Medicine Adult Medicine; Visit Provider Internal Medicine
DX: C18.9 Malignant neoplasm of colon, unspecified (principal); N20.0 Calculus of kidney; J43.2 Centrilobular emphysema; Z98.890 Other specified postprocedural states
CPT/HCPCS: 78815; A9552

== ENCOUNTER 2023-03-07 09:52 | Outpatient (CLI) | payer BC, MEDICAID, SELFPAY ==
--- NOTE | 2023-03-07 12:15 | P.DIET_ITS ---
Reason for Visit: 53341 R63.4 C18.9 Person Interviewed: Patient and Family Medical History, Labs and Background: Pt stated she is starting chemo soon for colon cancer and she wanted to optimize her diet. Height: 5 ft Weight: 69 lb BMI: 13.5 kg/m2 UBW: Pt weighed 60 lbs 1 month ago. IBW: Prior to wt loss, Pt stayed between 95-105 lbs Weight History: Over the past year, Pt said she has lost 30 lbs, but gained 10 lbs back in this past month. Concerns and Goals: She would like to optimize her diet prior to chemo and also have more variety. Sleep Hygiene: no comment Physical Activity: no comment Other Feeding Issues: Pt currently follows ileostomy nutrition therapy, low fiber/residue diet. Food Allergies and Sensitivities: She used to react to strawberries, but not so much anymore. 24 Hour Recall: Breakfast Time: 9-10 am bowl cereal/ whole milk/ coffee Snack Time: Lunch Time: 11-12 sandwhich w/lunchmeat + cheese Snack Time: 1-2pm Ensure drink Dinner Time: 4-6pm chicken thighs+MP and gravy Snack Time: 6-10pm sandwich or bagel or dessert Eating Out: She doesn't eat out a lot because of needing to be near a bathroom. Soda vs Milk vs Water: She likes milk, has maybe 1 cup coffee/day and tries to drink 2-4 glasses of water/day. Additional Comments: Liliana and her daughter Geovanna were very pleasant and informed regarding Liliana's condition and options. She seems determined to do what she can to have herself in the best shape possible prior to chemo. We looked at her materials she already had and discussed some additional strategies. Recommendations: Assessment: Liliana has lost significant wt, but in past month has regained 10 lbs. In talking with her she seems educated on her condition and what her limitations are. Because she wants to gain wt prior to chemo she is very motivated to follow all recommendations. Diagnosis: PCM r/t colon caner AEB severe wt loss and eating <75% meals. Intervention: Liliana is following the prescribed 5-6 small meals/day and is trying to make choices that work with her ilieostomy. We discussed 3 additions to her current plan. First, she would save liquids til the end of the meal and focus on getting the calorie/protein dense foods in first. Next we discussed ways to add calories to everything she eats whether it is peanut butter, cream cheese, gravy, butter, etc. Third we discussed smoothies or milkshakes where she could pack in a lot of calories and protein by adding whole milk, ice cream, bananas, peanut butter, chocolate, etc. Lastly, she loves sweets which I did not discourage, but pointed out that chocolate milk would be a good alternative as it also adds protein/kcals/fat and not just empty calories. Because she loves vegetables, we talked about adding in 1 from the allowed foods list and making sure it was cooked enough to be crushed with a fork. If she didn't react adver sely after 2 times, she could include it in her regular rotation. Monitoring and Evaluation: I gave them an additional handout with my number and extension as well as my email should they have additional questions. She seems to have good support from her daughter and she seems motivated so I believe compliance will be high. Coding Level of Care Code Nutrition/Individ/Init 60 min Time Spent (min) 60
== END 2023-03-07 09:53 | disposition home or self-care (01) ==
LOC: DIET 09:52
PROVIDERS: PCP Family Medicine Adult Medicine; Visit Provider Internal Medicine
DX: R63.4 Abnormal weight loss (principal); C18.9 Malignant neoplasm of colon, unspecified; Z68.1 Body mass index [BMI] 19.9 or less, adult; Z93.2 Ileostomy status
CPT/HCPCS: 97802

== ENCOUNTER 2023-03-21 22:54 | Emergency (ER) | payer BC, MEDICAID, SELFPAY ==
[2023-03-21 23:00] VITALS: BP 93/62; PULSE 122; RESP 18; TEMP 36.6; O2SAT 94
--- NOTE | 2023-03-21 23:08 | ECG_ITS ---
[facility] Test Date: 2023-03-21 Pat Name: Liliana Monroy Department: Room: Gender: Female Range Manager: : 1960 Requested By: Davi Johnson Order Number: [id number] Emili MD: Tevin Frederick M.D. Measurements Intervals [place] Rate: 116 P: 80 VT: 106 QRS: 81 QRSD: 73 T: 79 QT: 295 QTc: 410 Interpretive Statements SINUS TACHYCARDIA WITH SHORT VT INTERVAL RIGHT ATRIAL ENLARGEMENT [0.3mV P-WAVE] POSSIBLE LEFT ATRIAL ENLARGEMENT [-0.1mV P-WAVE IN V1/V2] MINIMAL ST DEPRESSION [0.025+ mV ST DEPRESSION] No previous ECG available for comparison Electronically Signed On 03-22-2023 19:23:41 PSYCHOLOGY PHYSICIAN by Tevin Frederick M.D. [id number] f
--- NOTE | 2023-03-21 23:45 | W.ED.SOB ---
HPI - SOB/Dyspnea General: Chief Complaint: Shortness of Breath/Dyspnea Stated Complaint: sob cant catch breath Time Seen by Provider: 03/21/23 23:45 History of Present Illness: HPI Narrative: Patient presents to the ER with complaints of shortness of breath off and on for the last 2 weeks. Patient denies any history of COPD and asthma. She does smoke 2 packs/day. Does not use home oxygen. Has intermittent nonproductive cough. And recent sore throat. Patient states that is been going on off and on for 2 weeks you have a good day here bad day there but today was bad enough that she wanted to come in to be checked out. Patient does have a history of cancer and history of chronic tachycardia and chronic leukocytosis, anemia, Review of Systems General: Reports: 10 or more systems reviewed and unremarkable except in HPI and below PFSH ED PFSH: Medical History Chronic constipation Pyelonephritis of right kidney Abdominal pain Port-A-Cath in place Painful bladder spasm Colon adenocarcinoma Pelvic Mass, RLQ, Surg. Path 01/16/2023 mod differentiated, open ileostomy Dr. Liao, [facility] Cyanosis of tip of finger Finger devascularized Weight loss of more than 10% body weight Colitis Surgical History Hx of ileostomy History of bilateral ligation of fallopian tubes No significant past surgical history Family History Father Heart attack Mother Bipolar 1 disorder CAD (coronary artery disease) Social History Smoking and tobacco/nicotine status: current every day tobacco/nicotine user Quit status (tobacco/nicotine): not considering quitting Alcohol intake: former Substance/Drug Use: never Physical Exam Const: COMMON NORMALS: no acute distress, average body habitus, patient oriented x3, no limitations, healthy appearing, alert and well nourished HENMT: COMMON NORMALS: normocephalic, atraumatic, hearing grossly normal bilaterally, external ears normal, Normal external nose present, moist oral mucous membranes and oropharynx normal HEAD & SCALP: normocephalic and atraumatic NOSE: Normal external nose present EXTERNAL EAR: Yes external ears normal Neck/C-Spine: COMMON NORMALS: no JVD Chest: COMMONS NORMALS: normal inspection of the chest and normal palpation of entire chest wall Resp: COMMON NORMALS: normal respiratory effort, No retractions, No use of accessory muscles and clear to auscultation bilaterally AUSCULTATION: clear to auscultation bilaterally Cardio: COMMON NORMALS: no JVD, regular rhythm, S1 normal heart sound present, S2 normal heart sound present, No gallops present (Cardio), No clicks present (Cardio), No murmurs present (Cardio) and No rub (Cardio); negative for regular rate (Tachycardic) RATE: abnormal rate (Tachycardic) RHYTHM: regular rhythm HEART SOUNDS: S1 normal heart sound present and S2 normal heart sound present GI: COMMON NORMALS: Normal to inspection, nondistended, normoactive bowel sounds present, Soft to palpation, non-tender, No hepatosplenomegaly present and no masses PALPATION: Yes Soft to palpation and Yes No hepatosplenomegaly present Neuro: COMMON NORMALS: patient oriented x3 SENSORIUM/ORIENTATION: Yes alert Course Vital Signs: Vital signs: Vital Signs Temperature 97.9 F 03/21/23 23:00 Pulse Rate 106 H 03/22/23 00:03 Respiratory Rate 18 03/22/23 00:03 Blood Pressure 116/66 03/22/23 00:03 Pulse Oximetry 93 03/22/23 00:03 Oxygen Delivery Me thod Room Air 03/22/23 00:03 MDM - SOB/Dyspnea Medical Decision Making Patient presents to the ER with shortness of breath over the last 2 weeks off and on. Patient had lab work and chest x-ray. All of which was essentially benign for her, lab work did show an elevated white count of 21.9 which is consistent with her prior labs as well as hemoglobin hematocrit of 8.6/28.6 and elevated platelets at 569. Chest x-ray showed emphysematous changes. Patient was on room air satting 9394% for the entire visit. Patient be discharged home Differential Diagnosis Unlikely acute exacerbation of chronic obstructive airways disease, congestive heart failure, community acquired pneumonia, asthma with exacerbation or pulmonary embolism Medical Records I reviewed the patient's medical records. Lab Data I reviewed the patient's lab results. 03/22/23 00:05 03/22/23 00:05 Labs/Radiology: Radiology Impressions Chest X-Ray 03/21/23 23:46 IMPRESSION: 1. Emphysematous changes. 2. Left-sided Port-A-Cath. Laboratory Results WBC 21.92 10^3/uL (3.29-11.43) H 03/22/23 00:05 RBC 3.41 10^6/uL (3.85-5.65) L 03/22/23 00:05 Hgb 8.60 g/dL (11.27-16.99) L 03/22/23 00:05 Hct 28.6 % (36-47) L 03/22/23 00:05 MCV 83.9 fl (85-98) L 03/22/23 00:05 MCH 25.2 pg (27-33) L 03/22/23 00:05 MCHC 30.1 g/dL (30-55) 03/22/23 00:05 RDW 19.5 % (12.1-15.1) H 03/22/23 00:05 Plt Count 569 10^3/cmm (157-399) H 03/22/23 00:05 MPV 8.1 fL (7.4-10.4) 03/22/23 00:05 Neut % (Auto) 83.8 % 03/22/23 00:05 Lymph % (Auto) 11.7 % 03/22/23 00:05 [place] % (Auto) 3.1 % 03/22/23 00:05 Eos % (Auto) 0.6 % 03/22/23 00:05 Baso % (Auto) 0.2 % 03/22/23 00:05 Neut # (Auto) 18.36 10^3/uL (1.8-7.7) H 03/22/23 00:05 Lymph # (Auto) 2.6 10^3/uL (0.8-4.8) 03/22/23 00:05 [place] # (Auto) 0.7 10^3/uL (0.2-0.9) 03/22/23 00:05 Eos # (Auto) 0.1 10^3/uL (0.0-0.8) 03/22/23 00:05 Baso # (Auto) 0.1 10^3/uL (0.0-0.1) 03/22/23 00:05 Nucleated RBC % (auto) 0 % 03/22/23 00:05 Nucleated RBCs # 0.0 /100WBC 03/22/23 00:05 Sodium 141 mmol/L (136-145) 03/22/23 00:05 Potassium 4.8 mmol/L (3.5-5.1) 03/22/23 00:05 Chloride 104 mmol/L (98-107) 03/22/23 00:05 Carbon Dioxide 26 mmol/L (22-29) 03/22/23 00:05 Anion Gap 15.8 (5-19) 03/22/23 00:05 BUN 15 mg/dL (8-23) 03/22/23 00:05 Creatinine 0.5 mg/dL (0.5-0.9) 03/22/23 00:05 GFR Calculation 125.0 mL/min (90-130) 03/22/23 00:05 Glucose 113 mg/dL (65-115) 03/22/23 00:05 Calculated Osmolality 294 mOsm/kg (285-295) 03/22/23 00:05 Calcium 8.9 mg/dL (8.5-10.5) 03/22/23 00:05 Total Bilirubin < 0.2 mg/dL (0.15-1.2) 03/22/23 00:05 AST 19 U/L (0-32) 03/22/23 00:05 ALT 20 U/L (0-33) 03/22/23 00:05 Alkaline Phosphatase 96 U/L (35-105) 03/22/23 00:05 Total Protein 6.9 g/dL (6.6-8.7) 03/22/23 00:05 Albumin 3.0 g/dL (3.5-5.2) L 03/22/23 00:05 Globulin 3.9 g/dL (1.3-4.6) 03/22/23 00:05 All radiology interpretation(s) finalized by discharge EKG Data EKG 1: I personally reviewed and interpreted this EKG as follows: EKG Interpretation Date: 03/21/23 EKG interpretation time: 23:08 Prior EKG tracings: not available for review Interpretation: EKG shows ventricular rate 116 bpm, OH interval 106, QRS duration 73, QTc 364, sinus tachycardia with short OH interval, Discharge Plan Discharge Patient Disposition: Home Clinical Impression: Chronic shortness of breath, Leukocytosis, Tachycardia, Anemia in chronic illness Condition: Stable Prescriptions: No Action naloxone [Narcan] 4 mg/actuation spray,non-aerosol 1 spray intranasal Q3M PRN (Reason: Opioid Overdose) loperamide 2 mg tablet 2 mg PO .COMPLEX PRN (Reason: loose stool) Qty: 30 1RF Rx Instructions: take 2 tabs after first loose stool then 1 tab after each loose stool, no more than 4 tablets in 24 hours lidocaine-prilocaine 2.5-2.5 % cream 1 applic topical .COMPLEX Qty: 30 3RF Rx Instructions: Apply quarter size amount 30-45 minutes prior to port access, cover with cellophane naloxone [Narcan] 4 mg/actuation spray,non-aerosol 4 mg intranasal Q2M PRN (Reason: Opioid Overdose) Rx Instructions: spray 1 dose into ONE nostril; alternate nostrils w each dose until help arrives pantoprazole 20 mg tablet,delayed release (DR/EC) 20 mg PO DAILY Qty: 90 1RF oxybutynin chloride 15 mg tablet extended release 24hr 15 mg PO DAILY Qty: 30 3RF ferrous sulfate 325 mg (65 mg iron) tablet 325 mg PO ONCE Qty: 100 3RF ondansetron 4 mg tablet,disintegrating 4 mg PO Q8H PRN (Reason: nausea and vomiting) Qty: 20 1RF aspirin 81 mg tablet,delayed release (DR/EC) 81 mg PO DAILY Qty: 90 3RF acetaminophen 500 mg capsule 1,000 mg PO Q6H Qty: 300 5RF prochlorperazine maleate [Compazine] 10 mg tablet 10 mg PO Q6H PRN (Reason: nausea and vomiting) Qty: 30 3RF baclofen 10 mg tablet 10 mg PO .q 6 PRN (Reason: muscle spasm) Qty: 120 2RF oxycodone-acetaminophen 5-325 mg tablet 1 tab PO Q8H PRN (Reason: cancer pain) 30 Days Qty: 90 0RF Pyridium 200 mg tablet 200 mg PO TID Qty: 90 2RF melatonin 3 mg Tablet 3 mg PO BEDTIME Discharge Orders: Discharge ED (Routine); Ordered 03/22/23 Ordered By: Davi Johnson Referrals: Darwin Reaves MD [Primary Care Provider] - 1 week Patient Instructions: Shortness of Breath (ED) Activity Restrictions/Additional Instructions: Your lab work and chest x-ray did not reveal any acute causes of your shortness of breath. Your white count was high, your red blood cell count was low, your platelets were high, these are consistent with your previous labs in the past. If your symptoms worsen please feel free to return to the ER otherwise follow-up with your family physician within the next 7 days for further evaluation and treatment. Coding Level of Care Code ED Transformer Molder for So Lowery
--- NOTE | 2023-03-21 23:46 | XRR_ITS ---
PROCEDURE INFORMATION: Exam: XR Chest Exam date and time: 03/21/2023 11:51 PM Age: 62 years old Clinical indication: Dyspnea TECHNIQUE: Imaging protocol: Radiologic exam of the chest. Views: 1 view. COMPARISON: CR XR chest 1V portable [id number] 02/18/2023 2:10 PM FINDINGS: Tubes, catheters and devices: Left-sided Port-A-Cath. Lungs: Emphysematous changes. Pleural spaces: Unremarkable. No pleural effusion. No pneumothorax. Heart/Mediastinum: Unremarkable. No cardiomegaly. Bones/joints: Unremarkable. XR/XR chest 1V portable [id number] IMPRESSION: 1. Emphysematous changes. 2. Left-sided Port-A-Cath.
[2023-03-22 00:03] VITALS: BP 116/66; PULSE 106; RESP 18; O2SAT 93
[2023-03-22 00:11] LABS: Basophils # 0.1 10^3/uL (0.0-0.1); Basophils % 0.2 %; Eosinophils # 0.1 10^3/uL (0.0-0.8); Eosinophils % 0.6 %; Hematocrit 28.6 % (36-47); Lymphocytes # 2.6 10^3/uL (0.8-4.8); Lymphocytes % 11.7 %; Mean Corpuscular HGB Conc 30.1 g/dL (30-55); Mean Corpuscular Hemoglobin 25.2 pg (27-33); Mean Corpuscular Volume 83.9 fl (85-98); Mean Platelet Volume 8.1 fL (7.4-10.4); Monocytes # 0.7 10^3/uL (0.2-0.9); Monocytes % 3.1 %; Neutrophils # 18.36 10^3/uL (1.8-7.7); Neutrophils % 83.8 %; Nucleated Red Blood Cells % 0 %; Platelet Count 569 10^3/cmm (157-399); Red Blood Count 3.41 10^6/uL (3.85-5.65); Red Cell Distribution Width 19.5 % (12.1-15.1); White Blood Count 21.92 10^3/uL (3.29-11.43)
[2023-03-22 00:30] LABS: Alanine Aminotransferase 20 U/L (0-33); Alkaline Phosphatase 96 U/L (35-105); Anion Gap 15.8 (5-19); Aspartate Amino Transferase 19 U/L (0-32); Carbon Dioxide 26 mmol/L (22-29); Chloride 104 mmol/L (98-107); Globulin 3.9 g/dL (1.3-4.6); Glucose 113 mg/dL (65-115); Potassium 4.8 mmol/L (3.5-5.1); Sodium 141 mmol/L (136-145); Total Protein 6.9 g/dL (6.6-8.7)
[2023-03-22 00:40] LABS: Blood Urea Nitrogen 15 mg/dL (8-23); Osmolality Calculated 294 mOsm/kg (285-295)
[2023-03-22 00:42] LABS: Total Bilirubin < 0.2 mg/dL (0.15-1.2)
[2023-03-22 00:58] LABS: Calcium 8.9 mg/dL (8.5-10.5)
[2023-03-22 01:50] VITALS: BP 116/66; BP 166/66; PULSE 123; PULSE 93; O2SAT 93
== END 2023-03-22 01:54 | disposition home or self-care (01) ==
PROVIDERS: Emergency Provider Emergency Medicine; PCP Family Medicine Adult Medicine
DX: R06.02 Shortness of breath (principal); D72.829 Elevated white blood cell count, unspecified; R00.0 Tachycardia, unspecified; D63.8 Anemia in other chronic diseases classified elsewhere; Z79.82 Long term (current) use of aspirin; Z72.0 Tobacco use
CPT/HCPCS: 36415; 71045; 80053; 85025; 93005; 99284

== ENCOUNTER 2023-03-28 09:59 | Oncology outpatient (recurring) (ONCR) | payer BC, MEDICAID, SELFPAY ==
[2023-03-18 07:56] VITALS: BP 106/72; PULSE 100; RESP 18; TEMP 36.6; O2SAT 93
[2023-03-18 08:15] LABS: Basophils # 0.1 10^3/uL (0.0-0.1); Basophils % 0.4 %; Eosinophils # 0.3 10^3/uL (0.0-0.8); Eosinophils % 1.2 %; Hematocrit 30.6 % (36-47); Lymphocytes # 3.7 10^3/uL (0.8-4.8); Lymphocytes % 16.2 %; Mean Corpuscular HGB Conc 30.4 g/dL (30-55); Mean Corpuscular Hemoglobin 25.3 pg (27-33); Mean Corpuscular Volume 83.4 fl (85-98); Monocytes # 1.9 10^3/uL (0.2-0.9); Monocytes % 8.3 %; Neutrophils # 16.46 10^3/uL (1.8-7.7); Neutrophils % 72.8 %; Nucleated Red Blood Cells % 0 %; Platelet Count 785 10^3/cmm (157-399); Red Blood Count 3.67 10^6/uL (3.85-5.65); Red Cell Distribution Width 19.8 % (12.1-15.1); White Blood Count 22.61 10^3/uL (3.29-11.43)
[2023-03-18 08:56] LABS: Alanine Aminotransferase 15 U/L (0-33); Albumin Level 3.1 g/dL (3.5-5.2); Alkaline Phosphatase 114 U/L (35-105); Aspartate Amino Transferase 18 U/L (0-32); Chloride 105 mmol/L (98-107); Globulin 3.9 g/dL (1.3-4.6); Glucose 141 mg/dL (65-115); Potassium 4.5 mmol/L (3.5-5.1); Sodium 135 mmol/L (136-145)
[2023-03-18 09:54] LABS: Blood Urea Nitrogen 12 mg/dL (8-23); Calcium 8.6 mg/dL (8.5-10.5); Osmolality Calculated 282 mOsm/kg (285-295); Total Bilirubin 0.2 mg/dL (0.15-1.2)
[2023-03-18 10:05] LABS: Anion Gap 13.5 (5-19); Carbon Dioxide 21 mmol/L (22-29)
[2023-03-18] MEDS: dextrose 5% 250 ML 75 ML IV (10:31)
[2023-03-18] MEDS: palonosetron 0.25 mg/5 mL SDV IVP (10:33)
[2023-03-18] MEDS: DEXTROSE 5% IV (11:12)
[2023-03-18] MEDS: LEUCOVORIN IV (11:12)
[2023-03-18 15:00] VITALS: BP 91/59; PULSE 116; RESP 14; TEMP 36.9; O2SAT 97
[2023-03-18] MEDS: fluorouraciL 2,850 MG, elastomeric pump 1 PUMP in sodium chloride 0.9% (100 ml) 35 ML IV (15:07)
[2023-03-28 10:24] VITALS: RESP 18; TEMP 36.7
[2023-03-28 10:36] VITALS: BP 113/72; PULSE 72; RESP 18; TEMP 36.6; O2SAT 94
[2023-03-28 10:51] LABS: Basophils # 0.1 10^3/uL (0.0-0.1); Basophils % 0.3 %; Eosinophils # 0.1 10^3/uL (0.0-0.8); Eosinophils % 0.5 %; Hematocrit 28.6 % (36-47); Lymphocytes # 2.7 10^3/uL (0.8-4.8); Lymphocytes % 14.3 %; Mean Corpuscular HGB Conc 29.7 g/dL (30-55); Mean Corpuscular Hemoglobin 24.9 pg (27-33); Mean Corpuscular Volume 83.9 fl (85-98); Mean Platelet Volume 8.1 fL (7.4-10.4); Monocytes % 10.4 %; Neutrophils # 14.01 10^3/uL (1.8-7.7); Neutrophils % 73.9 %; Nucleated Red Blood Cells % 0 %; Platelet Count 584 10^3/cmm (157-399); Red Blood Count 3.41 10^6/uL (3.85-5.65); Red Cell Distribution Width 19.7 % (12.1-15.1); White Blood Count 18.97 10^3/uL (3.29-11.43)
[2023-03-28 10:58] VITALS: BP 107/47; PULSE 74; RESP 18; TEMP 37; O2SAT 98
[2023-03-28 11:08] LABS: Alanine Aminotransferase 11 U/L (0-33); Albumin Level 3.1 g/dL (3.5-5.2); Alkaline Phosphatase 99 U/L (35-105); Anion Gap 15.5 (5-19); Aspartate Amino Transferase 13 U/L (0-32); Blood Urea Nitrogen 8 mg/dL (8-23); Calcium 8.8 mg/dL (8.5-10.5); Carbon Dioxide 22 mmol/L (22-29); Chloride 106 mmol/L (98-107); Globulin 3.6 g/dL (1.3-4.6); Glomerular Filtration Rate 161.7 mL/min (90-130); Glucose 102 mg/dL (65-115); Osmolality Calculated 289 mOsm/kg (285-295); Potassium 3.5 mmol/L (3.5-5.1); Sodium 140 mmol/L (136-145); Total Bilirubin 0.2 mg/dL (0.15-1.2); Total Protein 6.7 g/dL (6.6-8.7)
== END 2023-03-31 23:59 | disposition home or self-care (01) ==
PROVIDERS: Nurse Practitioner Family; PCP Family Medicine Adult Medicine; Visit Provider Internal Medicine
DX: Z53.9 Procedure and treatment not carried out, unspecified reason (principal); C18.9 Malignant neoplasm of colon, unspecified; D64.9 Anemia, unspecified; R53.1 Weakness; Z79.899 Other long term (current) drug therapy
CPT/HCPCS: 80053; 85025; 96367; 96368; 96375; 96413; 96415; 96416; 96523; J0640; J1100; J1642; J2469; J7060; J9190; J9263

== ENCOUNTER 2023-04-05 17:04 | Emergency (ER) | payer BC, MEDICAID, SELFPAY ==
[2023-04-05 17:24] VITALS: BP 84/58; PULSE 115; RESP 16; TEMP 37.7; O2SAT 88
[2023-04-05 17:59] VITALS: BP 81/66; PULSE 115; RESP 21; O2SAT 94
--- NOTE | 2023-04-05 18:18 | XRR_ITS ---
PROCEDURE INFORMATION: Exam: XR Chest Exam date and time: 04/05/2023 6:34 PM Age: 62 years old Clinical indication: Prior surgery; Surgery date: 1-6 months; Surgery type: Lt port placement; Patient HX: Cough; Weakness; Smoker; Colon CA; Port placement x 3 mo ago TECHNIQUE: Imaging protocol: Radiologic exam of the chest. Views: 1 view. COMPARISON: CR (CHEST, ) 03/21/2023 11:51 PM FINDINGS: Tubes, catheters and devices: Left subclavian Port-A-Cath appears unchanged, with tip projecting near the cavoatrial junction. Lungs: No consolidation, mass, or pulmonary edema. Pleural spaces: No pneumothorax or pleural effusion. Heart/Mediastinum: Cardiomediastinal silhouette is within normal limits. Bones/joints: No acute osseous abnormality. XR/XR chest 1V portable [id number] IMPRESSION: 1. No acute findings. 2. Left subclavian Port-A-Cath appears unchanged, with tip projecting near the cavoatrial junction.
--- NOTE | 2023-04-05 18:19 | ECG_ITS ---
[facility] Test Date: 2023-04-05 Pat Name: Liliana Monroy Department: Room: Gender: Female Rayon Tester: : 1960 Requested By: Kamari Irving Order Number: [id number] Emili MD: Alessio Sanchez M.D. Measurements Intervals [place] Rate: 102 P: 70 OK: 96 QRS: -20 QRSD: 70 T: -12 QT: 325 QTc: 424 Interpretive Statements SINUS TACHYCARDIA WITH SHORT OK INTERVAL MODERATE VOLTAGE CRITERIA FOR LVH, CONSIDER NORMAL VARIANT [MEETS CRITERIA IN ONE OF: R(aVL), S(V1), R(V5), R(V5/V6)+S(V1)] ABNORMAL RHYTHM ECG Compared to ECG 03/21/2023 23:08:18 Atrial abnormality no longer present ST (T wave) deviation no longer present Electronically Signed On 04-06-2023 3:54:51 COIN MACHINE COLLECTOR by Alessio Sanchez M.D. [id number]
--- NOTE | 2023-04-05 18:24 | W.ED.WEAKNES ---
HPI - Weakness General: Chief complaint: Weakness Stated complaint: weakness, falling frequently Time Seen by Provider: 04/05/23 18:18 History of Present Illness: 62-year-old female with a history of colorectal cancer. She has a mass in her pelvis appearing to invade her bladder wall. She has had her second round of chemotherapy for this, ending yesterday. She believes she received a Neulasta shot yesterday as well. She reports a temperature today, and aches. She has had a cough today. She has had worsening generalized weakness for the last couple of days. Associated symptoms: Reports chills and fever(s); Denies chest pain, confusion, headache(s), nausea or vomiting Review of Systems Const: Reports: fever(s), chills and change in appetite; Denies: body aches Eyes: Denies: change in vision ENMT: Reports: mouth pain; Denies: throat pain, nasal discharge or nasal congestion Card: Denies: chest pain or palpitations Resp: Reports: dyspnea and non-productive cough (today only); Denies: productive cough or wheezing GI: Reports: diarrhea (increased loose stools); Denies: abdominal pain, nausea, vomiting or hematochezia : Denies: difficulty voiding Skin/Breast: Denies: rash Neuro: Reports: weakness in extremities; Denies: headache(s), numbness in extremities, dizziness or confusion PFSH ED PFSH: Medical History Chronic constipation Pyelonephritis of right kidney Abdominal pain Port-A-Cath in place Painful bladder spasm Colon adenocarcinoma Pelvic Mass, RLQ, Surg. Path 01/16/2023 mod differentiated, open ileostomy Dr. Liao [facility] Cyanosis of tip of finger Finger devascularized Weight loss of more than 10% body weight Colitis Surgical History Hx of ileostomy History of bilateral ligation of fallopian tubes No significant past surgical history Family History Father Heart attack Mother Bipolar 1 disorder CAD (coronary artery disease) Social History Smoking and tobacco/nicotine status: current every day tobacco/nicotine user Quit status (tobacco/nicotine): not considering quitting Alcohol intake: former Substance/Drug Use: never Physical Exam Const: COMMON NORMALS: no acute distress GENERAL APPEARANCE: cooperative and frail appearing NUTRITIONAL APPEARANCE: cachectic ORIENTATION/CONSCIOUSNESS: Yes awake, Yes oriented to place and Yes oriented to time HENMT: COMMON NORMALS: normocephalic, atraumatic and Normal external nose present HEAD & SCALP: normocephalic and atraumatic FACE & SINUS: normal facial exam and face symmetric NOSE: Normal external nose present Eye: COMMON NORMALS: Equal, round and reactive pupils present and EOMs intact bilaterally PUPIL: Yes Equal, round and reactive pupils present Neck/C-Spine: GENERAL: Yes trachea midline Chest: CHEST: Yes Symmetrical chest wall rise Resp: COMMON NORMALS: No retractions, No use of accessory muscles and clear to auscultation bilaterally EFFORT & INSPECTION: Yes tachypneic AUSCULTATION: clear to auscultation bilaterally Cardio: COMMON NORMALS: regular rate and regular rhythm RATE: regular rate RHYTHM: regular rhythm GI: COMMON NORMALS: Normal to inspection, nondistended, normoactive bowel sounds present OTHER: increased gas and liquid stool in ileostomy bag. skin irritation around stoma, mild stomatitis present. Extremity: COMMON NORMALS: no pedal edema Neuro: SVETA COMA SCALE: document GCS findings [place] coma scale eye opening: Spontaneous [place] coma scale verbal response: Orientated [place] coma scale motor response: Obey commands [place] coma scale total score: 15 SENSORIUM/ORIENTATION: Yes oriented to place and Yes oriented to time SENSORY EXAM: Yes extremities (intact) Psych: COMMON NORMALS: speech normal SPEECH: Yes normal speech Skin: COMMON NORMALS: no rashes or lesions noted GENERAL SKIN EXAM: no rashes or lesions noted Course Vital Signs: Vital signs: Vital Signs Temperature 99.8 F H 04/05/23 17:24 Pulse Rate 119 H 04/05/23 20:19 Respiratory Rate 18 04/05/23 19:21 Blood Pressure 89/59 04/05/23 20:19 Pulse Oximetry 91 04/05/23 22:06 Oxygen Delivery Me thod Nasal Cannula 04/05/23 22:06 Oxygen Flow Rate 2 04/05/23 22:06 MDM - Weakness Medical Decision Making Discussed the potential of admission with this patient. Her blood pressure was low on arrival. She has received a liter bolus, with continued mild low blood pressure. She has low blood pressure at baseline anyway, as she is quite small in stature. She reports blood pressures in the 80s systolic are normal for her. She is a temperature of 99.8. She has white blood cell count of 12, potentially complicated by Neulasta. She has a negative chest x-ray. Abdominal CT performed due to significant urinary tract infection with hematuria, shows no real change in the mass. No definite obstructing stone. She is given IV Zosyn here. Again, we discussed potential admission due to low blood pressure and generalized weakness. Spoke briefly with the hospitalist who rightfully is concerned about her lack of urology at this facility should she worsen. The patient would really like to go home. She does not want to be admitted or transferred. She feels improved after fluid bolus, and less weak. We will allow home on antibiotics. Close outpatient follow-up. She is also quite anemic, and will require repeat hemoglobin testing. Lab Data 04/05/23 18:58 04/05/23 18:58 Radiology Impressions Chest X-Ray 04/05/23 18:18 IMPRESSION: 1. No acute findings. 2. Left subclavian Port-A-Cath appears unchanged, with tip projecting near the cavoatrial junction. Abdomen/Pelvis CT 04/05/23 20:18 IMPRESSION: 1. No appreciable change in the heterogeneous right pelvic mass. Difficult to separate out the mass from adjacent bowel loops, but appears to measure about 7.6 cm on axial imaging and 10 cm on coronal imaging. 2. No evidence of bowel obstruction. 3. Mass lesion is again bulging into the roof of the urinary bladder, with no discernible fat plane between the two. 4. At least 3 new small hypodense lesions within the liver, raising concern for metastases. 5. Small calcified gallstone. No evidence of acute cholecystitis or biliary dilatation. 6. Small bilateral nonobstructive renal calculi. Laboratory Results WBC 12.08 10^3/uL (3.29-11.43) H 04/05/23 18:58 RBC 3.12 10^6/uL (3.85-5.65) L 04/05/23 18:58 Hgb 7.80 g/dL (11.27-16.99) L 04/05/23 18:58 Hct 26.2 % (36-47) L 04/05/23 18:58 MCV 84.0 fl (85-98) L 04/05/23 18:58 MCH 25.0 pg (27-33) L 04/05/23 18:58 MCHC 29.8 g/dL (30-55) L 04/05/23 18:58 RDW 19.9 % (12.1-15.1) H 04/05/23 18:58 Plt Count 531 10^3/cmm (157-399) H 04/05/23 18:58 MPV 8.4 fL (7.4-10.4) 04/05/23 18:58 Neut % (Auto) 87.5 % 04/05/23 18:58 Lymph % (Auto) 7.9 % 04/05/23 18:58 [place] % (Auto) 3.6 % 04/05/23 18:58 Eos % (Auto) 0.2 % 04/05/23 18:58 Baso % (Auto) 0.1 % 04/05/23 18:58 Neut # (Auto) 10.58 10^3/uL (1.8-7.7) H 04/05/23 18:58 Lymph # (Auto) 1.0 10^3/uL (0.8-4.8) 04/05/23 18:58 [place] # (Auto) 0.4 10^3/uL (0.2-0.9) 04/05/23 18:58 Eos # (Auto) 0.0 10^3/uL (0.0-0.8) 04/05/23 18:58 Baso # (Auto) 0.0 10^3/uL (0.0-0.1) 04/05/23 18:58 Nucleated RBC % (auto) 0 % 04/05/23 18:58 Nucleated RBCs # 0.0 /100WBC 04/05/23 18:58 Sodium 137 mmol/L (136-145) 04/05/23 18:58 Potassium 3.8 mmol/L (3.5-5.1) 04/05/23 18:58 Chloride 102 mmol/L (98-107) 04/05/23 18:58 Carbon Dioxide 24 mmol/L (22-29) 04/05/23 18:58 Anion Gap 14.8 (5-19) 04/05/23 18:58 BUN 13 mg/dL (8-23) 04/05/23 18:58 Creatinine 0.5 mg/dL (0.5-0.9) 04/05/23 18:58 GFR Calculation 125.0 mL/min (90-130) 04/05/23 18:58 Glucose 157 mg/dL (65-115) H 04/05/23 18:58 Calculated Osmolality 287 mOsm/kg (285-295) 04/05/23 18:58 Lactic Acid 1.5 mmol/L (0.5-2.2) 04/05/23 18:58 Calcium 8.5 mg/dL (8.5-10.5) 04/05/23 18:58 Total Bilirubin 0.2 mg/dL (0.15-1.2) 04/05/23 18:58 AST 23 U/L (0-32) 04/05/23 18:58 ALT 14 U/L (0-33) 04/05/23 18:58 Alkaline Phosphatase 92 U/L (35-105) 04/05/23 18:58 C-Reactive Protein 59.1 mg/L (0.0-4.9) H 04/05/23 18:58 Total Protein 6.7 g/dL (6.6-8.7) 04/05/23 18:58 Albumin 3.0 g/dL (3.5-5.2) L 04/05/23 18:58 Globulin 3.7 g/dL (1.3-4.6) 04/05/23 18:58 Procalcitonin 0.15 ng/mL (0-0.5) 04/05/23 18:58 Urine Color [place] (Yellow) A 04/05/23 18:40 Urine Appearance Cloudy (CLEAR) A 04/05/23 18:40 Urine pH 5 (5-7) 04/05/23 18:40 Ur Specific [place] 1.025 (1.005-1.030) 04/05/23 18:40 Urine Protein 3+ (Negative) H 04/05/23 18:40 Urine Glucose (UA) Norm (Normal) 04/05/23 18:40 Urine Ketones Negative (Negative) 04/05/23 18:40 Urine Blood 3+ (Negative) H 04/05/23 18:40 Urine Nitrate Positive (Negative) H 04/05/23 18:40 Urine Bilirubin 2+ (Negative) H 04/05/23 18:40 Urine Urobilinogen 4 mg/dL (Negative) H 04/05/23 18:40 Ur Leukocyte Esterase 2+ (Negative) H 04/05/23 18:40 Urine RBC 80-100 /hpf (0-2) H 04/05/23 18:40 Urine WBC >100 /hpf (0-5) H 04/05/23 18:40 Ur Squamous Epith Cells 15-25 /hpf (0-5) H 04/05/23 18:40 Amorphous Sediment 1+ /hpf 04/05/23 18:40 Urine Bacteria 3+ /hpf (NONE) H 04/05/23 18:40 Urine Mucus 2+ /hpf 04/05/23 18:40 Influenza Type A Ag negative (Negative) 04/05/23 18:25 Influenza Type B Ag negative (Negative) 04/05/23 18:25 SARS-CoV-2 Ag (Rapid) negative (Negative) 04/05/23 18:25 All radiology interpretation(s) finalized by discharge Discharge Plan Discharge Patient Disposition: Home Clinical Impression: Acute dehydration, Urinary tract infection Condition: Stable Prescriptions: New ciprofloxacin HCl 250 mg tablet 250 mg PO BID Qty: 14 0RF No Action naloxone [Narcan] 4 mg/actuation spray,non-aerosol 1 spray intranasal Q3M PRN (Reason: Opioid Overdose) loperamide 2 mg tablet 2 mg PO .COMPLEX PRN (Reason: loose stool) Qty: 30 1RF Rx Instructions: take 2 tabs after first loose stool then 1 tab after each loose stool, no more than 4 tablets in 24 hours naloxone [Narcan] 4 mg/actuation spray,non-aerosol 4 mg intranasal Q2M PRN (Reason: Opioid Overdose) Rx Instructions: spray 1 dose into ONE nostril; alternate nostrils w each dose until help arrives pantoprazole 20 mg tablet,delayed release (DR/EC) 20 mg PO DAILY Qty: 90 1RF oxybutynin chloride 15 mg tablet extended release 24hr 15 mg PO DAILY Qty: 30 3RF ferrous sulfate 325 mg (65 mg iron) tablet 325 mg PO ONCE Qty: 100 3RF aspirin 81 mg tablet,delayed release (DR/EC) 81 mg PO DAILY Qty: 90 3RF acetaminophen 500 mg capsule 1,000 mg PO Q6H Qty: 300 5RF prochlorperazine maleate [Compazine] 10 mg tablet 10 mg PO Q6H PRN (Reason: nausea and vomiting) Qty: 30 3RF baclofen 10 mg tablet 10 mg PO .q 6 PRN (Reason: muscle spasm) Qty: 120 2RF oxycodone-acetaminophen 5-325 mg tablet 1 tab PO Q8H PRN (Reason: cancer pain) 30 Days Qty: 90 0RF Pyridium 200 mg tablet 200 mg PO TID Qty: 90 2RF ondansetron 4 mg tablet,disintegrating 4 mg PO Q8H PRN (Reason: nausea and vomiting) Qty: 20 1RF lidocaine-prilocaine 2.5-2.5 % cream 1 applic topical .COMPLEX Qty: 30 3RF Rx Instructions: Apply quarter size amount 30-45 minutes prior to port access, cover with cellophane melatonin 3 mg Tablet 3 mg PO BEDTIME Discharge Orders: Discharge ED (Routine); Ordered 04/05/23 Ordered By: Kamari Jimenez Referrals: Darwin Reaves MD [Primary Care Provider] - 1-3 days Patient Instructions: Opioid Safety, Pain Management Activity Restrictions/Additional Instructions: Return for continued fever despite 2-3 doses of antibiotics, worsening weakness despite treatment with oral hydration, mental status changes, vomiting, any other concerning symptoms. 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
[2023-04-05 18:44] LABS: Influenza A by IFA negative (Negative); Influenza B by IFA negative (Negative); SARS Covid-2 Antigen negative (Negative)
[2023-04-05 19:05] LABS: Add Urine Microscopic? YES; Bilirubin Urine 2+ (Negative); Blood Urine 3+ (Negative); Glucose Urine UA Norm (Normal); Ketones Urine Negative (Negative); Leukocyte Esterase Urine 2+ (Negative); Nitrate Urine Positive (Negative); Protein Urine 3+ (Negative); Specific Gravity, Urine 1.025 (1.005-1.030); Urine Appearance Cloudy (CLEAR); Urine Color Orange (Yellow); Urobilinogen Urine 4 mg/dL (Negative); pH Urine 5 (5-7)
[2023-04-05 19:11] LABS: Bacteria Urine 3+ /hpf; RBC Urine 80-100 /hpf (0-2); Squamous Epithelial Cell Urine 15-25 /hpf (0-5); WBC Urine >100 /hpf (0-5)
[2023-04-05 19:12] LABS: Amorphous Sediment Urine 1+ /hpf; Mucus Urine 2+ /hpf
[2023-04-05 19:20] LABS: Basophils % 0.1 %; Eosinophils % 0.2 %; Hematocrit 26.2 % (36-47); Lymphocytes % 7.9 %; Mean Corpuscular HGB Conc 29.8 g/dL (30-55); Mean Platelet Volume 8.4 fL (7.4-10.4); Monocytes # 0.4 10^3/uL (0.2-0.9); Monocytes % 3.6 %; Neutrophils # 10.58 10^3/uL (1.8-7.7); Neutrophils % 87.5 %; Nucleated Red Blood Cells % 0 %; Platelet Count 531 10^3/cmm (157-399); Red Blood Count 3.12 10^6/uL (3.85-5.65); Red Cell Distribution Width 19.9 % (12.1-15.1); White Blood Count 12.08 10^3/uL (3.29-11.43)
[2023-04-05 19:21] VITALS: BP 82/58; PULSE 112; RESP 18; O2SAT 94
[2023-04-05] MEDS: lidocaine-prilocaine cream 5 gm 1 APPLIC TOPICAL (19:23)
[2023-04-05 19:42] LABS: Alanine Aminotransferase 14 U/L (0-33); Alkaline Phosphatase 92 U/L (35-105); Anion Gap 14.8 (5-19); Aspartate Amino Transferase 23 U/L (0-32); Blood Urea Nitrogen 13 mg/dL (8-23); C Reactive Protein 59.1 mg/L (0.0-4.9); Calcium 8.5 mg/dL (8.5-10.5); Carbon Dioxide 24 mmol/L (22-29); Chloride 102 mmol/L (98-107); Globulin 3.7 g/dL (1.3-4.6); Glucose 157 mg/dL (65-115); Osmolality Calculated 287 mOsm/kg (285-295); Potassium 3.8 mmol/L (3.5-5.1); Sodium 137 mmol/L (136-145); Total Bilirubin 0.2 mg/dL (0.15-1.2); Total Protein 6.7 g/dL (6.6-8.7)
[2023-04-05 19:43] LABS: Lactic Sepsis W/Reflex 1.5 mmol/L (0.5-2.2)
[2023-04-05 19:49] LABS: Procalcitonin 0.15 ng/mL (0-0.5)
--- NOTE | 2023-04-05 20:18 | CTR_ITS ---
PROCEDURE INFORMATION: Exam: CT Abdomen And Pelvis With Contrast Exam date and time: 04/05/2023 8:49 PM Age: 62 years old Clinical indication: Abdominal pain; Generalized; Patient HX: 2.2 ml/s flow rate; Additional info: Abd pain, leukocytosis. Previous PET-CT report notes history of colon cancer. TECHNIQUE: Imaging protocol: Computed tomography of the abdomen and pelvis with contrast. Radiation optimization: All CT scans at this facility use at least one of these dose optimization techniques: automated exposure control; mA and/or kV adjustment per patient size (includes targeted exams where dose is matched to clinical indication); or iterative reconstruction. Contrast material: OMNI 350; Contrast volume: 70 ml; Contrast route: INTRAVENOUS (IV); COMPARISON: 1. PT PET skulltothigh INITIAL [id number] 02/26/2023 12:[address] abdomen pelvis w con* [id number] 01/07/2023 10:12 PM RADIATION DOSE METRICS: Total DLP (mGy-cm): 270.31 FINDINGS: Lungs: Stable chronic emphysematous changes seen at the lung bases with minimal peribronchial thickening. No focal consolidation. Small calcified granuloma at the right lung base. Heart: No cardiomegaly. No pericardial effusion. Liver: A new 1 cm hypodense lesion in the anterior segment of the right lobe of the liver, seen on series 3, image 14. A new 6 mm hypodense lesion in the posterior segment of the right lobe of the liver, seen on series 3, image 15. A new 5 mm subcapsular hypodense lesion in the anterior segment of the right lobe of the liver, seen on series 3, image 23. Gallbladder and bile ducts: Small calcified gallstone. No evidence of acute cholecystitis or biliary dilatation. Pancreas: Normal pancreas. No ductal dilation. Spleen: Tiny calcified granulomas in the spleen. No splenomegaly. Adrenal glands: Adrenal glands are normal. Kidneys and ureters: No hydronephrosis or obstructing calculus. Small bilateral nonobstructive renal calculi. Stomach and bowel: No appreciable change in the heterogeneous right pelvic mass. Difficult to separate out the mass from adjacent bowel loops, but appears to measure about 7.6 cm on axial imaging and 10 cm on coronal imaging. Right ostomy again noted. No evidence of bowel obstruction. Appendix: Not visualized, but no definite evidence of appendicitis. Intraperitoneal space: No free fluid or free air. Vasculature: No abdominal aortic aneurysm or dissection. Portal vein and mesenteric vessels appear grossly patent. Lymph nodes: No adenopathy. Urinary bladder: Mass lesion is again bulging into the roof of the urinary bladder, with no discernible fat plane between the two. Reproductive: Uterus not clearly visualized, and possibly surgically absent. Bones/joints: No acute osseous abnormality or evidence of osseous metastatic disease. Soft tissues: Unremarkable. CT/CT abdomen pelvis w con* [id number] IMPRESSION: 1. No appreciable change in the heterogeneous right pelvic mass. Difficult to separate out the mass from adjacent bowel loops, but appears to measure about 7.6 cm on axial imaging and 10 cm on coronal imaging. 2. No evidence of bowel obstruction. 3. Mass lesion is again bulging into the roof of the urinary bladder, with no discernible fat plane between the two. 4. At least 3 new small hypodense lesions within the liver, raising concern for metastases. 5. Small calcified gallstone. No evidence of acute cholecystitis or biliary dilatation. 6. Small bilateral nonobstructive renal calculi.
[2023-04-05 20:19] VITALS: BP 89/59; PULSE 119; O2SAT 91
[2023-04-05] MEDS: iohexol 350 mg/mL 500 mL Btl (per mL) IV (20:53)
--- NOTE | 2023-04-05 21:25 | PC.NURSE ---
O2 saturations noted to be in the 80s. Upon rounding, this nurse found patient with O2 off. Patient was educated to leave O2 on, despite patient's statements that the nasal cannula was uncomfortable; educated why O2 was important. 2L nasal cannula re-applied to patient, O2 sats back in the 90s.
[2023-04-05] MEDS: piperacillin-tazobactam 3.375 GM in sodium chloride 0.9% (plus) 50 ML IV (21:58)
[2023-04-05 22:06] VITALS: O2SAT 91
[2023-04-05] MEDS: sodium chloride 0.9% 500 ML 999 ML IV (22:50)
[2023-04-05 23:39] VITALS: BP 101/74; PULSE 129; RESP 18
== END 2023-04-05 23:41 | disposition home or self-care (01) ==
PROVIDERS: Emergency Provider Emergency Medicine; PCP Family Medicine Adult Medicine
DX: N39.0 Urinary tract infection, site not specified (principal); E86.0 Dehydration; Z79.82 Long term (current) use of aspirin; Z11.52 Encounter for screening for COVID-19; N20.0 Calculus of kidney; Z72.0 Tobacco use; Z85.038 Personal history of other malignant neoplasm of large intestine; Z79.60 Long term (current) use of unspecified immunomodulators and immunosuppressants
CPT/HCPCS: 36415; 71045; 74177; 80053; 81001; 83605; 84145; 85025; 86140; 87040; 87426; 87804; 93005; 96361; 96374; 96375; 99285; J1642; J2543; J7030; J7040; Q9967

== ENCOUNTER 2023-04-08 08:30 | Oncology outpatient (recurring) (ONCR) | payer BC, MEDICAID, SELFPAY ==
[2023-04-02 09:39] VITALS: BMI 13.6
[2023-04-02 09:43] LABS: Basophils # 0.1 10^3/uL (0.0-0.1); Basophils % 0.4 %; Eosinophils # 0.2 10^3/uL (0.0-0.8); Hematocrit 28.4 % (36-47); Lymphocytes # 2.9 10^3/uL (0.8-4.8); Lymphocytes % 18.9 %; Mean Corpuscular HGB Conc 29.6 g/dL (30-55); Mean Corpuscular Hemoglobin 24.9 pg (27-33); Mean Corpuscular Volume 84.3 fl (85-98); Mean Platelet Volume 8.1 fL (7.4-10.4); Monocytes # 1.4 10^3/uL (0.2-0.9); Monocytes % 9.1 %; Neutrophils # 10.75 10^3/uL (1.8-7.7); Neutrophils % 69.9 %; Nucleated Red Blood Cells % 0 %; Platelet Count 725 10^3/cmm (157-399); Red Blood Count 3.37 10^6/uL (3.85-5.65); Red Cell Distribution Width 19.7 % (12.1-15.1); White Blood Count 15.35 10^3/uL (3.29-11.43)
[2023-04-02 10:11] LABS: Alanine Aminotransferase 9 U/L (0-33); Alkaline Phosphatase 130 U/L (35-105); Anion Gap 14.2 (5-19); Aspartate Amino Transferase 14 U/L (0-32); Blood Urea Nitrogen 9 mg/dL (8-23); Calcium 8.9 mg/dL (8.5-10.5); Carbon Dioxide 23 mmol/L (22-29); Chloride 110 mmol/L (98-107); Globulin 3.8 g/dL (1.3-4.6); Glucose 137 mg/dL (65-115); Osmolality Calculated 297 mOsm/kg (285-295); Potassium 4.2 mmol/L (3.5-5.1); Sodium 143 mmol/L (136-145); Total Bilirubin 0.2 mg/dL (0.15-1.2); Total Protein 6.8 g/dL (6.6-8.7)
[2023-04-02] MEDS: dextrose 5% 250 ML 75 ML IV (11:48)
[2023-04-02] MEDS: palonosetron 0.25 mg/5 mL SDV IVP (11:49)
[2023-04-02] MEDS: LEUCOVORIN IV (12:38)
[2023-04-02] MEDS: DEXTROSE 5% IV (12:38)
[2023-04-02] MEDS: fluorouraciL 2,850 MG, elastomeric pump 1 PUMP in sodium chloride 0.9% (100 ml) 35 ML IV (16:45)
[2023-04-02 17:09] VITALS: BP 90/64; PULSE 93; RESP 17; TEMP 36.8; O2SAT 93
[2023-04-04 14:20] VITALS: BP 101/72; PULSE 130; RESP 16; TEMP 37.5; O2SAT 93
[2023-04-04 14:21] VITALS: BP 101/72; PULSE 121; RESP 16; TEMP 37.5; O2SAT 93
[2023-04-08 09:48] VITALS: BP 69/53; PULSE 101; RESP 18; TEMP 37; O2SAT 92
[2023-04-08 10:02] LABS: Basophils % 0.1 %; Hematocrit 24.1 % (36-47); Lymphocytes # 1.1 10^3/uL (0.8-4.8); Lymphocytes % 4.2 %; Mean Corpuscular HGB Conc 29.9 g/dL (30-55); Mean Corpuscular Hemoglobin 25.1 pg (27-33); Mean Platelet Volume 9.1 fL (7.4-10.4); Monocytes # 0.6 10^3/uL (0.2-0.9); Monocytes % 2.2 %; Neutrophils # 24.66 10^3/uL (1.8-7.7); Neutrophils % 92.2 %; Nucleated Red Blood Cells % 0.1 %; Platelet Count 377 10^3/cmm (157-399); Red Blood Count 2.87 10^6/uL (3.85-5.65); Red Cell Distribution Width 19.5 % (12.1-15.1); White Blood Count 26.76 10^3/uL (3.29-11.43)
--- NOTE | 2023-04-08 10:10 | PC.NURSE ---
Dr. allen informed of patient vitals and requiring O2 at this time. Md orders for patient to go to ER for further evaluation.
== END 2023-05-01 23:59 | disposition home or self-care (01) ==
PROVIDERS: Nurse Practitioner Family; PCP Family Medicine Adult Medicine; Visit Provider Internal Medicine
DX: D64.9 Anemia, unspecified (principal); Z53.9 Procedure and treatment not carried out, unspecified reason
CPT/HCPCS: 80053; 85025; 96365; 96366; 96367; 96375; 96413; 96415; 96416; 96523; J0640; J1100; J1642; J2469; J7060; J9190; J9263

== ENCOUNTER 2023-04-08 10:24 | Inpatient (IN) | payer BC, SELFPAY ==
[2023-04-08] VITALS (16 sets, daily range): BP systolic 69–114; BP diastolic 51–67; PULSE 84–108; RESP 9–20; TEMP 36.8–37.3; O2SAT 84–98; BMI 13.6; BMI 14.6
--- NOTE | 2023-04-08 10:49 | XRR_ITS ---
PROCEDURE INFORMATION: Exam: XR Chest Exam date and time: 04/08/2023 11:34 AM Age: 62 years old Clinical indication: Shortness of breath; Additional info: SOB TECHNIQUE: Imaging protocol: Radiologic exam of the chest. Views: 1 view. COMPARISON: CR (CHEST, ) 04/05/2023 6:34 PM FINDINGS: Tubes, catheters and devices: A Port-A-Cath overlies the left upper chest with catheter tip projected over the cavoatrial junction. Lungs: The lungs are hyperinflated. There is patchy opacity at the left lung base. Pleural spaces: Unremarkable. No pleural effusion. No pneumothorax. Heart/Mediastinum: Unremarkable. No cardiomegaly. Bones/joints: The bones are osteopenic. XR/XR chest 1V portable [id number] IMPRESSION: Left basilar pneumonia.
--- NOTE | 2023-04-08 10:50 | ECG_ITS ---
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 [email or web address]
--- NOTE | 2023-04-08 11:07 | ED_ITS ---
HPI - Weakness 2 General: Chief complaint: Weakness Stated complaint: Sent from oncology, hypertensive, needs oxygen Time Seen by Provider: 04/08/23 11:02 Source: patient Mode of arrival: ambulatory Limitations: no limitations History of Present Illness: 62-year-old female with a history of col on cancer currently on treatment she states that she has had increasing weakness dehydrational shortness of breath she has been seen in the ER for the same. Was seen over at oncology today was hypoxic and hypotensive. She states she is just felt very weak she has had some shortness of breath denies any fever denies any cough denies any vomiting or diarrhea Associated symptoms: Denies chest pain, chills, dysuria, fever(s), headache(s), nausea or vomiting Review of Systems 2 Const: Reports: change in appetite, fatigue and malaise; Denies: fever(s), chills or body aches ENMT: Denies: throat pain or dental pain Card: Denies: chest pain Resp: Reports: dyspnea GI: Denies: abdominal pain, nausea, vomiting or diarrhea : Denies: dysuria Musc: Denies: neck pain or back pain Skin/Breast: Denies: rash Neuro: Denies: headache(s) PFSH ED 2 PFSH: Medical History Chronic constipation Pyelonephritis of right kidney Abdominal pain Port-A-Cath in place Painful bladder spasm Colon adenocarcinoma Pelvic Mass, RLQ, Surg. Path 01/16/2023 mod differentiated, open ileostomy Dr. Liao, [facility] Cyanosis of tip of finger Finger devascularized Weight loss of more than 10% body weight Colitis Surgical History Hx of ileostomy History of bilateral ligation of fallopian tubes No significant past surgical history Family History Father Heart attack Mother Bipolar 1 disorder CAD (coronary artery disease) Social History Smoking and tobacco/nicotine status: current every day tobacco/nicotine user Quit status (tobacco/nicotine): not considering quitting Alcohol intake: former Substance/Drug Use: never Physical Exam 2 Const: COMMON NORMALS: patient oriented x3 GENERAL APPEARANCE: ill appearing HENMT: COMMON NORMALS: normocephalic and atraumatic HEAD & SCALP: n ormocephalic and atraumatic Eye: COMMON NORMALS: Equal, round and reactive pupils present and EOMs intact bilaterally PUPIL: Yes Equal, round and reactive pupils present Neck/C-Spine: COMMON NORMALS: full ROM and supple Chest: COMMONS NORMALS: normal inspection of the chest and normal palpation of entire chest wall Resp: COMMON NORMALS: normal respiratory effort, No retractions, No use of accessory muscles and clear to auscultation bilaterally AUSCULTATION: clear to auscultation bilaterally Cardio: COMMON NORMALS: regular rate, regular rhythm and No murmurs present (Cardio) RATE: regular rate RHYTHM: regular rhythm GI: COMMON NORMALS: Normal to inspection, nondistended, normoactive bowel sounds present, Soft to palpation, non-tender and no masses PALPATION: Yes Soft to palpation Extremity: COMMON NORMALS: normal to inspection and full ROM Neuro: COMMON NORMALS: patient oriented x3, moves all extremities and no focal motor deficits Psych: COMMON NORMALS: mental status grossly normal, Normal thought process present and cooperative THOUGHT PROCESS: Normal thought process present Skin: COMMON NORMALS: no rashes or lesions noted and no wounds GENERAL SKIN EXAM: no rashes or lesions noted Course 2 Vital Signs: Vital signs: Vital Signs Temperature 98.2 F 04/08/23 10:51 Pulse Rate 95 04/08/23 10:51 Respiratory Rate 16 04/08/23 10:51 Blood Pressure 69/51 04/08/23 10:51 Pulse Oximetry 84 L 04/08/23 10:51 Oxygen Delivery Me thod Nasal Cannula 04/08/23 10:51 Oxygen Flow Rate 2 04/08/23 10:51 MDM - Weakness Medical Decision Making Patient presents here with pneumonia along with anemia with her history of cancer she is requiring new onset oxygen I spoke to hospitalist and will admit at this time. Medical Records I reviewed the patient's medical records. Lab Data I reviewed the patient's lab results. 04/08/23 11:06 04/08/23 11:06 Radiology Impressions Chest X-Ray 04/08/23 10:49 IMPRESSION: Left basilar pneumonia. Laboratory Results WBC 27.53 10^3/uL (3.29-11.43) H 04/08/23 11:06 RBC 2.79 10^6/uL (3.85-5.65) L 04/08/23 11:06 Hgb 7.00 g/dL (11.27-16.99) L 04/08/23 11:06 Hct 23.9 % (36-47) L 04/08/23 11:06 MCV 85.7 fl (85-98) 04/08/23 11:06 MCH 25.1 pg (27-33) L 04/08/23 11:06 MCHC 29.3 g/dL (30-55) L 04/08/23 11:06 RDW 19.7 % (12.1-15.1) H 04/08/23 11:06 Plt Count 343 10^3/cmm (157-399) 04/08/23 11:06 MPV 9.0 fL (7.4-10.4) 04/08/23 11:06 Neut % (Auto) 93.5 % 04/08/23 11:06 Lymph % (Auto) 3.1 % 04/08/23 11:06 [place] % (Auto) 2.0 % 04/08/23 11:06 Eos % (Auto) 0.0 % 04/08/23 11:06 Baso % (Auto) 0.1 % 04/08/23 11:06 Neut # (Auto) 25.75 10^3/uL (1.8-7.7) H 04/08/23 11:06 Lymph # (Auto) 0.9 10^3/uL (0.8-4.8) 04/08/23 11:06 [place] # (Auto) 0.5 10^3/uL (0.2-0.9) 04/08/23 11:06 Eos # (Auto) 0.0 10^3/uL (0.0-0.8) 04/08/23 11:06 Baso # (Auto) 0.0 10^3/uL (0.0-0.1) 04/08/23 11:06 Nucleated RBC % (auto) 0.1 % 04/08/23 11:06 Nucleated RBCs # 0.0 /100WBC 04/08/23 11:06 Sodium 132 mmol/L (136-145) L 04/08/23 11:06 Potassium 3.8 mmol/L (3.5-5.1) 04/08/23 11:06 Chloride 100 mmol/L (98-107) 04/08/23 11:06 Carbon Dioxide 20 mmol/L (22-29) L 04/08/23 11:06 Anion Gap 15.8 (5-19) 04/08/23 11:06 BUN 10 mg/dL (8-23) 04/08/23 11:06 Creatinine 0.5 mg/dL (0.5-0.9) 04/08/23 11:06 GFR Calculation 125.0 mL/min (90-130) 04/08/23 11:06 Glucose 145 mg/dL (65-115) H 04/08/23 11:06 Calculated Osmolality 276 mOsm/kg (285-295) L 04/08/23 11:06 Lactic Acid 1.7 mmol/L (0.5-2.2) 04/08/23 11:15 Calcium 8.5 mg/dL (8.5-10.5) 04/08/23 11:06 Total Bilirubin 0.2 mg/dL (0.15-1.2) 04/08/23 11:06 AST 47 U/L (0-32) H 04/08/23 11:06 ALT 21 U/L (0-33) 04/08/23 11:06 Alkaline Phosphatase 88 U/L (35-105) 04/08/23 11:06 NT-Pro-B Natriuret Pep 164 pg/mL (0-125) H 04/08/23 11:06 Total Protein 6.4 g/dL (6.6-8.7) L 04/08/23 11:06 Albumin 2.6 g/dL (3.5-5.2) L 04/08/23 11:06 Globulin 3.8 g/dL (1.3-4.6) 04/08/23 11:06 Blood Type O Negative 04/08/23 09:20 Rho(D) Type Negative 04/08/23 09:20 Antibody Screen Negative 04/08/23 09:20 Crossmatch See Detail 04/08/23 09:20 All radiology interpretation(s) finalized by discharge EKG Data EKG 1: I personally reviewed and interpreted this EKG as follows: EKG interpretation date: 04/08/23 EKG interpretation time: 11:11 Interpretation: nsr hr [address] or t wave abnormalities qrs 72 qtc 415 Discharge Plan Discharge Admit Provider: Christie Grant Condition: Stable Prescriptions: No Action loperamide 2 mg tablet 2 mg PO .COMPLEX PRN (Reason: loose stool) Qty: 30 1RF Rx Instructions: take 2 tabs after first loose stool then 1 tab after each loose stool, no more than 4 tablets in 24 hours naloxone [Narcan] 4 mg/actuation spray,non-aerosol 4 mg intranasal Q2M PRN (Reason: Opioid Overdose) Rx Instructions: spray 1 dose into ONE nostril; alternate nostrils w each dose until help arrives oxybutynin chloride 15 mg tablet extended release 24hr 15 mg PO DAILY Qty: 30 3RF ferrous sulfate 325 mg (65 mg iron) tablet 325 mg PO ONCE Qty: 100 3RF aspirin 81 mg tablet,delayed release (DR/EC) 81 mg PO DAILY Qty: 90 3RF acetaminophen 500 mg capsule 1,000 mg PO Q6H Qty: 300 5RF prochlorperazine maleate [Compazine] 10 mg tablet 10 mg PO Q6H PRN (Reason: nausea and vomiting) Qty: 30 3RF oxycodone-acetaminophen 5-325 mg tablet 1 tab PO Q8H PRN (Reason: cancer pain) 30 Days Qty: 90 0RF Pyridium 200 mg tablet 200 mg PO TID Qty: 90 2RF ondansetron 4 mg tablet,disintegrating 4 mg PO Q8H PRN (Reason: nausea and vomiting) Qty: 20 1RF lidocaine-prilocaine 2.5-2.5 % cream 1 applic topical .COMPLEX Qty: 30 3RF Rx Instructions: Apply quarter size amount 30-45 minutes prior to port access, cover with cellophane pantoprazole 20 mg tablet,delayed release (DR/EC) 20 mg PO DAILY baclofen 10 mg tablet 10 mg PO Q6H PRN (Reason: muscle spasm) cyclobenzaprine 5 mg tablet 5 mg PO TID PRN (Reason: Muscle Spasm) melatonin 3 mg Tablet 3 mg PO BEDTIME ciprofloxacin HCl 250 mg tablet 250 mg PO BID Qty: 14 0RF Coding Level of Care Code ED Glass Vial Bending Conveyor Feeder for Chg Fwd
[2023-04-08 11:12] LABS: Basophils % 0.1 %; Hematocrit 23.9 % (36-47); Lymphocytes # 0.9 10^3/uL (0.8-4.8); Lymphocytes % 3.1 %; Mean Corpuscular HGB Conc 29.3 g/dL (30-55); Mean Corpuscular Hemoglobin 25.1 pg (27-33); Mean Corpuscular Volume 85.7 fl (85-98); Monocytes # 0.5 10^3/uL (0.2-0.9); Neutrophils # 25.75 10^3/uL (1.8-7.7); Neutrophils % 93.5 %; Nucleated Red Blood Cells % 0.1 %; Platelet Count 343 10^3/cmm (157-399); Red Blood Count 2.79 10^6/uL (3.85-5.65); Red Cell Distribution Width 19.7 % (12.1-15.1); White Blood Count 27.53 10^3/uL (3.29-11.43)
[2023-04-08 11:29] LABS: Alanine Aminotransferase 21 U/L (0-33); Albumin Level 2.6 g/dL (3.5-5.2); Alkaline Phosphatase 88 U/L (35-105); Aspartate Amino Transferase 47 U/L (0-32); Chloride 100 mmol/L (98-107); Globulin 3.8 g/dL (1.3-4.6); Glucose 145 mg/dL (65-115); Potassium 3.8 mmol/L (3.5-5.1); Sodium 132 mmol/L (136-145); Total Protein 6.4 g/dL (6.6-8.7)
[2023-04-08 11:43] LABS: Lactic Sepsis W/Reflex 1.7 mmol/L (0.5-2.2)
[2023-04-08] MEDS: sodium chloride 0.9% 1,000 ML 999 ML IV (11:54)
[2023-04-08 11:58] LABS: Blood Urea Nitrogen 10 mg/dL (8-23); Calcium 8.5 mg/dL (8.5-10.5); NT Pro B Type Natriuretic Pept 164 pg/mL (0-125); Osmolality Calculated 276 mOsm/kg (285-295); Total Bilirubin 0.2 mg/dL (0.15-1.2)
[2023-04-08 12:10] LABS: Anion Gap 15.8 (5-19); Carbon Dioxide 20 mmol/L (22-29)
[2023-04-08] MEDS: cefTRIAXone 1,000 MG in sodium chloride 0.9% (plus) 50 ML 100 MG IV (12:11)
--- NOTE | 2023-04-08 12:29 | P.HP_ITS ---
Providers/Chief Complaint 2 Admitting Physician: Christie Grant MD Primary Care Provider: Darwin Reaves MD Chief Complaint: Sent from oncology, hypertensive, needs oxygen History of Present Illness Liliana Monroy is a 62 year old female who went to the oncology walk-in clinic today because she did not feel well. She knew her primary doctor was closed today and she did not want to present to the emergency room because she was afraid they would send her to to [place] for surgery. Mrs. Almanzar has a history of adenocarcinoma of the colon with high-grade dysplasia which was diagnosed in the fall of last year. She started on modified FOLFOX treatment on March 18. She is being followed by [facility] and receiving chemo at [facility]. Last dose of chemotherapy was administered on April 02 and included oxaliplatin and 5-FU with leucovorin. She had a rough night last night and did not sleep well because of how bad she felt. This morning she was extremely weak, could not eat, and was in a lot of pain. She felt like she needed either an iron shot or a transfusion. She described being short of breath. She has had iron deficiency anemia that has been followed on an outpatient basis progressively worsening over the last couple of months. After being seen at the clinic, she was subsequently sent to the emergency room because her blood pressure and oxygen were noted to be very low. Repeat blood pressures here initially showed continued low blood pressures but subsequent values with appropriate sized cuff and setting showed pressures 80s to 90s systolic. Patient's weight is around 32 kg with a BMI of 14. In the emergency room she was found to have evidence of left lower lobe infiltrate. White count was noted to be elevated. She received empiric antibiotics and request was made for admission. She has a cough, but her daughter states she has not coughed anything up. No hemoptysis. She has not had influenza shot, Pneumovax or COVID shot and does not want them. She has had a bit of a sore throat and some runny nose. She had a fever on 04/05/2023 when she pressented to ER, but she has not had a fever since then. On that date she was found to have evidence of UTI and was prescribed antibiotics, though has not gotten them filled yet. She received antibiotics IV x 1 dose in the ER on 04/05. She continues to have urinary symptoms of bladder spasms. She was instructed to take Azo sometime back and has been on it for a while. Her urine is since orange. Today in the emergency room she was noted to be hypoxic and was placed on 2 L of oxygen by nasal cannula. The nasal cannula has been irritating her. She is not normally on oxygen. She does have a longtime history of smoking and continues to smoke though lately only a few cigarettes a day. When she is feeling well she will smoke 20 to 30 cigarettes a day. No personal history of COPD. She denies any new nausea, vomiting, or diarrhea with the chemotherapy. She denies any numbness, tingling, aches, or pains related to chemotherapy. She takes nausea medication regularly, but she has been able to skip some pain medication. She has gained a little bit of weight since she started chemotherapy in 03/2023. Her throat is really sore. She denies any COPD or breathing problems in the past. Her cancer has some invasion of the bladder which is led to issues with urinary symptoms particularly bladder spasms. As stated, she started the chemotherapy in 03/2023. She has only had 2 treatments to date and and next is scheduled on 04/16/2023. After that, plan is for a PET CT scan and see how treatment is going. A decision for additional surgery has not been decided on yet so consideration for transfer to [facility] is premature presently. She had ileostomy in 12/2022 and is doing okay with that. Her weakness has been progressively worse over time. Recent Antibiotics: Zosyn IV one dose in ED on 04/05 DC script for oral cipro written 04/05 but not picked up TODAY in ED rocephin and azithromycin LAST CHEMO 04/02/23 mFOLFOX Labs/Diagnositics to note: New left infilatrate today compared to images from 04/05 UA abnl 04/05 but no urine culture done as 15-25 squamous cells (> 100 WBC and RBC noted) Urinalysis today continues to have greater than 100,000 white blood cells per high-powered field though RBCs have improved. Nitrites and leukocyte esterase are positive. Squamous cells and 0-4 Influenza AMB and rapid COVID antigen were negative Blood culture done today Urine culture pending today Review of Systems 2 General: Reports: Other (ROS as per HPI or as otherwise noted here) Medications/Allergies Home Medications Medication Instructions Recorded Confirmed Last Taken Type melatonin 3 mg tablet 3 mg PO BEDTIME 01/08/23 04/08/23 02/17/23 History naloxone 4 mg/actuation nasal 4 mg intranasal Q2M PRN Opioid 02/07/23 04/08/23 Unknown History spray (Narcan) Overdose oxybutynin chloride 15 mg 15 mg PO DAILY #30 tabs 02/14/23 04/08/23 02/18/23 05:00 Rx tablet,extended release 24 hr acetaminophen 500 mg capsule 1,000 mg (2 x 500 mg) PO Q6H #300 03/13/23 04/08/23 Unknown Rx caps aspirin 81 mg tablet,delayed 81 mg PO DAILY #90 tabs 03/13/23 04/08/23 Unknown Rx release ferrous sulfate 325 mg (65 mg 325 mg PO ONCE #100 tabs 03/13/23 04/08/23 Unknown Rx iron) tablet prochlorperazine maleate 10 mg 10 mg PO Q6H PRN nausea and 03/13/23 04/08/23 Unknown Rx tablet (Compazine) vomiting #30 tabs loperamide 2 mg tablet 2 mg PO .COMPLEX PRN loose stool 03/18/23 04/08/23 Unknown Rx #30 tabs oxycodone-acetaminophen 5 mg-325 1 tab PO Q8H PRN cancer pain 30 03/21/23 04/08/23 Unknown Rx mg tablet days #90 tabs phenazopyridine 200 mg tablet 200 mg PO TID bladder pain #90 tabs 03/21/23 04/08/23 Unknown Rx (Pyridium) ondansetron 4 mg disintegrating 4 mg PO Q8H PRN nausea and 03/27/23 04/08/23 Unknown Rx tablet vomiting #20 tabs lidocaine-prilocaine 2.5 %-2.5 % 1 applic topical .COMPLEX #30 grams 03/28/23 04/08/23 Unknown Rx topical cream ciprofloxacin HCl 250 mg tablet 250 mg PO BID #14 tabs 04/05/23 04/08/23 Unknown Rx baclofen 10 mg tablet 10 mg PO Q6H PRN muscle spasm 04/08/23 04/08/23 Unknown History cyclobenzaprine 5 mg tablet 5 mg PO TID PRN Muscle Spasm 04/08/23 04/08/23 Unknown History pantoprazole 20 mg tablet,delayed 20 mg PO DAILY ACID REFLUX 04/08/23 04/08/23 Unknown History release Allergies Allergy/AdvReac Type Severity Reaction Status Date / Time paroxetine [From Paxil] Allergy Unknown Verified 04/08/23 10:51 PFSH Acute 2 PFSH: Medical History (Updated 04/08/23 @ 18:31 by Christie Grant MD) 8 Para 7 (1 miscarriage, 1 ectopic, 1 twin ) Chronic constipation Pyelonephritis of right kidney Painful bladder spasm Colon adenocarcinoma Pelvic Mass, RLQ, Surg. Path 01/16/2023 mod differentiated, open ileostomy Dr. Liao, [facility]; small bowel and bladder noted via PET 02/26/23; mFOLFOX started 03/18/23 Cyanosis of tip of finger Colitis Surgical History (Updated 04/08/23 @ 14:00 by Chrisite Grant MD) Port-A-Cath in place Hx of ileostomy History of bilateral ligation of fallopian tubes Family History Father Heart attack Mother Bipolar 1 disorder CAD (coronary artery disease) Social History Smoking and tobacco/nicotine status: current every day tobacco/nicotine user Quit status (tobacco/nicotine): not considering quitting Alcohol intake: former Substance/Drug Use: never Vitals/I&O/Wt Last Vital Signs Temp 98.2 F 04/08/23 10:51 Pulse 95 04/08/23 10:51 Resp 16 04/08/23 10:51 BP 69/51 04/08/23 10:51 Pulse Ox 84 L 04/08/23 10:51 O2 Del Method Nasal Cannula 04/08/23 10:51 O2 Flow Rate 2 04/08/23 10:51 Weight last 48 hrs Weight 31.751 kg Physical Exam 2 Narrative: Blood pressure at the time of my evaluation 98 systolic, heart rate upper 80s, oxygen saturation 89% on 2 L by nasal cannula Patient is awake and alert. Able to provide history. Thin build. Mild bitemporal wasting noted. Skin is dry. Extraocular movements are intact. Oropharynx with very dry mucous membranes. She has sores at the angles of the mouth bilaterally. No other mucosal sores noted currently. Nasopharynx is clear presently. Neck is supple. Lungs are remarkable for coarse breath sounds bilateral bases left more so than right. Scattered wheeze on the left. Cardiovascular exam reveals a regular rate and rhythm. Abdomen is soft. Ostomy bag is noted. Tissue pink. Normal output. Positive bowel sounds. No pitting edema to the lower extremities. Some muscle wasting is noted. 2+ pulses x 4. Generally weak but strength equal in both upper and lower extremities. No abnormal movements. Patient occasionally dozes off but is oriented to person and place and situation. Data 04/08/23 11:06 04/08/23 11:06 Other Labs: Radiology Impressions Chest X-Ray 04/08/23 10:49 IMPRESSION: Left basilar pneumonia. Laboratory Results WBC 27.53 10^3/uL (3.29-11.43) H 04/08/23 11:06 RBC 2.79 10^6/uL (3.85-5.65) L 04/08/23 11:06 Hgb 7.00 g/dL (11.27-16.99) L 04/08/23 11:06 Hct 23.9 % (36-47) L 04/08/23 11:06 MCV 85.7 fl (85-98) 04/08/23 11:06 MCH 25.1 pg (27-33) L 04/08/23 11:06 MCHC 29.3 g/dL (30-55) L 04/08/23 11:06 RDW 19.7 % (12.1-15.1) H 04/08/23 11:06 Plt Count 343 10^3/cmm (157-399) 04/08/23 11:06 MPV 9.0 fL (7.4-10.4) 04/08/23 11:06 Neut % (Auto) 93.5 % 04/08/23 11:06 Lymph % (Auto) 3.1 % 04/08/23 11:06 [place] % (Auto) 2.0 % 04/08/23 11:06 Eos % (Auto) 0.0 % 04/08/23 11:06 Baso % (Auto) 0.1 % 04/08/23 11:06 Neut # (Auto) 25.75 10^3/uL (1.8-7.7) H 04/08/23 11:06 Lymph # (Auto) 0.9 10^3/uL (0.8-4.8) 04/08/23 11:06 [place] # (Auto) 0.5 10^3/uL (0.2-0.9) 04/08/23 11:06 Eos # (Auto) 0.0 10^3/uL (0.0-0.8) 04/08/23 11:06 Baso # (Auto) 0.0 10^3/uL (0.0-0.1) 04/08/23 11:06 Nucleated RBC % (auto) 0.1 % 04/08/23 11:06 Nucleated RBCs # 0.0 /100WBC 04/08/23 11:06 Sodium 132 mmol/L (136-145) L 04/08/23 11:06 Potassium 3.8 mmol/L (3.5-5.1) 04/08/23 11:06 Chloride 100 mmol/L (98-107) 04/08/23 11:06 Carbon Dioxide 20 mmol/L (22-29) L 04/08/23 11:06 Anion Gap 15.8 (5-19) 04/08/23 11:06 BUN 10 mg/dL (8-23) 04/08/23 11:06 Creatinine 0.5 mg/dL (0.5-0.9) 04/08/23 11:06 GFR Calculation 125.0 mL/min (90-130) 04/08/23 11:06 Glucose 145 mg/dL (65-115) H 04/08/23 11:06 Calculated Osmolality 276 mOsm/kg (285-295) L 04/08/23 11:06 Lactic Acid 1.7 mmol/L (0.5-2.2) 04/08/23 11:15 Calcium 8.5 mg/dL (8.5-10.5) 04/08/23 11:06 Total Bilirubin 0.2 mg/dL (0.15-1.2) 04/08/23 11:06 AST 47 U/L (0-32) H 04/08/23 11:06 ALT 21 U/L (0-33) 04/08/23 11:06 Alkaline Phosphatase 88 U/L (35-105) 04/08/23 11:06 NT-Pro-B Natriuret Pep 164 pg/mL (0-125) H 04/08/23 11:06 Total Protein 6.4 g/dL (6.6-8.7) L 04/08/23 11:06 Albumin 2.6 g/dL (3.5-5.2) L 04/08/23 11:06 Globulin 3.8 g/dL (1.3-4.6) 04/08/23 11:06 Urine Color [place] (Yellow) A 04/08/23 11:57 Urine Appearance Cloudy (CLEAR) A 04/08/23 11:57 Urine pH 5 (5-7) 04/08/23 11:57 Ur Specific [place] 1.020 (1.005-1.030) 04/08/23 11:57 Urine Protein 3+ (Negative) H 04/08/23 11:57 Urine Glucose (UA) Norm (Normal) 04/08/23 11:57 Urine Ketones 1+ (Negative) H 04/08/23 11:57 Urine Blood 3+ (Negative) H 04/08/23 11:57 Urine Nitrate Positive (Negative) H 04/08/23 11:57 Urine Bilirubin 2+ (Negative) H 04/08/23 11:57 Urine Urobilinogen 8 mg/dL (Negative) H 04/08/23 11:57 Ur Leukocyte Esterase 2+ (Negative) H 04/08/23 11:57 Urine RBC 0-4 /hpf (0-2) H 04/08/23 11:57 Urine WBC >100 /hpf (0-5) H 04/08/23 11:57 Ur Squamous Epith Cells 0-4 /hpf (0-5) H 04/08/23 11:57 Amorphous Sediment Not Reportable 04/08/23 11:57 Urine Bacteria 4+ /hpf (NONE) H 04/08/23 11:57 Influenza Type A Ag negative (Negative) 04/08/23 11:57 Influenza Type B Ag negative (Negative) 04/08/23 11:57 SARS-CoV-2 Ag (Rapid) negative (Negative) 04/08/23 11:57 Blood Type O Negative 04/08/23 09:20 Rho(D) Type Negative 04/08/23 09:20 Antibody Screen Negative 04/08/23 09:20 Crossmatch See Detail 04/08/23 09:20 Micro: Blood culture x 2 received and pending Urine culture received and pending A&P Assessment and plan (1) Left lower lobe pneumonia: Present on admission. Was not noted when patient was seen in the emergency room on April 05. Organism currently unknown. She received antibiotics in the form of Zosyn a few days ago when in the ER On April 05. Currently on chemotherapy. She is a known smoker. Currently hypoxic but no prior history of needing oxygen. No pleuritic type chest pain. Does complain of cough and shortness of breath. Leukocytosis is noted with a left shift but with timing of recent medications, difficult to know significance. That said, current WBC higher than since before she started chemotherapy. Lactic acid 1.7. Vitals are stable at present after fluids. Not currently demonstrating evidence end organ damage consistent with sepsis/septic shock but at risk for developing sepsis given comborbidities and presentation. (2) Urinary tract infection: Present on admission, organism unknown. Clinically appears to be cystitis. It may be partially treated at this point in time with her having received a dose of Zosyn a few days ago in the emergency room. Although prescribed Cipro she has not picked up that prescription. Today empirically received Rocephin and azithromycin in the emergency room for coverage of above. Some of her urinary symptoms likely related to malignant infiltration of the bladder. Qualifiers: Urinary tract infection type: acute cystitis Hematuria presence: w [facility] hematuria Qualified Code(s): N30.00 - Acute cystitis without hematuria (3) Iron deficiency anemia: From chronic blood loss/inflammation and chemotherapy . Has been progressively worsening over time. Hemoglobin today at its lowest point of 7. No gross bleeding reported. She did require transfusion of 1 unit of packed red blood cells at [facility] previously in the last few months and is agreeable to receive additional blood transfusion if needed. Likely a contributing factor to her weakness in addition to hypoxemia. Qualifiers: Iron deficiency anemia type: other iron deficiency Qualified Code(s): D 50.8 - Other iron deficiency anemias (4) On antineoplastic chemotherapy: Currently on modified FOLFOX regimen (Oxiplatinin, 5FU and Leucovorin) with last dose of chemotherapy received on April 02. (5) Moderate protein-calorie malnutrition: Current BMI up to 14.6 from a low of around 12. Pre-cancer diagnosis weight ranged from 95 to 105 pounds. (6) Generalized weakness: Multifactorial related to progressively worsening anemia, acutely exacerbated with the hypoxia from pneumonia, and overall poor reserves in a patient with known cancer, currently undergoing chemotherapy with at least moderate if not severe protein calorie malnutrition in the months preceding this visit. (7) Colon adenocarcinoma: Stage IIc, cT4b, cN0c, cM0 with PET scan from January of last year showing elevated uptake in the small bowel loops with invasion of the urinary bladder, currently on chemotherapy as described above. Has nausea, muscle relaxers and pain medicine for associated symptoms (8) Painful bladder spasm: On chronic oxybutynin and has been taking Azo Standard for quite some time (9) Nicotine dependence, cigarettes, uncomplicated: (10) Presence of ileostomy: (11) Port-A-Cath in place: Left upper chest without any acute issues appreciated Plan Inpatient admission Broaden antibiotic coverage presently to include meropenem and vancomycin given healthcare exposure and current chemotherapy plus recent antibiotic administration IVFs Follow-up pending blood and urine cultures Continue breathing treatments Continue oxygen therapy, weaning as able Discussed with patient the importance of wearing oxygen even though it is irritating her Incentive spirometer and flutter device PT and OT evaluation Check TIBC and repeat hemoglobin Continue oral iron for now If has further drop will plan for blood transfusion Pending TIBC may benefit from iron infusion as well Private room secondary to recent chemotherapy Routine Port-A-Cath management Routine ileostomy management Nicotine patch if needed Continue home oxybutinin and melatonin if available VTE prophylaxis: SCD, no pharmacological DVT prophylaxis secondary to progressively worsening and likely symptomatic anemia along with potential need for blood in the next 24 hours GI Prophylaxis: chronically on PPI which I have continued Telemetry: not currently indicated Clifford: not currently indicated Line(s): Port-A-Cath in place Disposition plan: Home with outpatient follow up to oncology and primary care provider. Anticipate continuation of antibiotics and need for repeat blood work. Next chemotherapy appointment is scheduled for April 16 presently. Code Status: Patient does not wish to have CPR or other acute life-saving measures if her heart stops because she is dying. She would be okay with intubation and mechanical ventilation for short period of time particularly around any surgical procedure and the level of care that that might necessitate. Should Mrs. Monroy not be able to make her own decisions she would like her daughter Geovanna to be the primary 1 to make those decisions for her. This has not been formalized and paperwork and Geovanna is a second from youngest child but the one most actively involved. Geovanna Monroy can be reached at [phone] Supportive care otherwise Findings, concerns and plans were discussed with patient and her daughter in the room and they were given an opportunity to ask questions Attestations 2 Medical Necessity Statement*: Anticipated stay greater than two midnights and this 62-year-old patient currently undergoing chemotherapy with last dose 6 days ago now presenting with a left lower lobe infiltrate, leukocytosis, hypoxemia, symptomatic weakness, worsening anemia Clinically she looks to have pneumonia plus or minus urinary tract infection. Presentation is complicated by previously received antibiotics within the last few days. Presently requires IV antibiotics, pulmonary toilet, likely blood transfusion, oxygen therapy and other workup as described with close monitoring in hospital setting. At high risk of rapid clinical decline without such care. and High Time for a total of 85 minutes, includes reviewing past or interval history, examining/interviewing patient, placing orders, updating patient/family/other support and documenting encounter Diagnoses Left lower lobe pneumonia J18.9 Acute cystitis without hematuria N30.00 Urinary tract infection type: acute cystitis Hematuria presence: without hematuria Other iron deficiency anemia D50.8 Iron deficiency anemia type: other iron deficiency On antineoplastic chemotherapy Z79.899 Moderate protein-calorie malnutrition E44.0 Generalized weakness R53.1 Colon adenocarcinoma C18.9 Painful bladder spasm R30.1 Nicotine dependence, cigarettes, uncomplicated F17.210 Presence of ileostomy Z93.2 Port-A-Cath in place Z95.828
[2023-04-08 12:41] LABS: Influenza A by IFA negative (Negative); Influenza B by IFA negative (Negative); SARS Covid-2 Antigen negative (Negative)
[2023-04-08 12:44] LABS: Add Urine Culture? Yes; Add Urine Microscopic? YES; Bacteria Urine 4+ /hpf; Bilirubin Urine 2+ (Negative); Blood Urine 3+ (Negative); Glucose Urine UA Norm (Normal); Ketones Urine 1+ (Negative); Leukocyte Esterase Urine 2+ (Negative); Nitrate Urine Positive (Negative); Protein Urine 3+ (Negative); RBC Urine 0-4 /hpf (0-2); Squamous Epithelial Cell Urine 0-4 /hpf (0-5); Urine Appearance Cloudy (CLEAR); Urine Color Orange (Yellow); Urobilinogen Urine 8 mg/dL (Negative); WBC Urine >100 /hpf (0-5); pH Urine 5 (5-7)
[2023-04-08] MEDS: azithromycin 500 MG in sodium chloride 0.9% 250 ML 250 MG IV (13:31)
[2023-04-08] MEDS: sodium chlor 0.9% + KCl 20 mEq 20 MEQ/1,000 ML BAG 50 MEQ IV (17:15)
[2023-04-08] MEDS: meropenem 1,000 MG in sodium chloride 0.9% (plus) 50 ML 100 MG IV ×2 (17:16→22:14)
[2023-04-08] MEDS: oxybutynin 5 mg Tablet PO ×2 (17:17→20:39)
--- NOTE | 2023-04-08 18:41 | PC.NURSE ---
pts bp was 87/58, notified no new orders received
[2023-04-08] MEDS: sodium chloride 0.9% (100 ml) 100 ML 10 ML (19:38)
[2023-04-08] MEDS: vancomycin 500 MG in sodium chloride 0.9% (plus) 100 ML 200 MG IV (21:23)
--- NOTE | 2023-04-08 21:24 | PC.NURSE ---
Vancomycin was started at 2124 instead of the scheduled time because blood was infusing. Running vancomycin and when it is done, will infuse the last order of blood.
[2023-04-09] VITALS (13 sets, daily range): BP systolic 95–120; BP diastolic 61–81; PULSE 88–122; RESP 16–19; TEMP 36.9–39.4; O2SAT 88–94
[2023-04-09] MEDS: acetaminophen 325 mg Tablet 650 MG PO (01:10)
[2023-04-09] MEDS: nicotine 7 mg Patch 1 PATCH TRANSDERMA (01:17)
[2023-04-09] MEDS: sodium chloride 0.9% 100 mL Bag IV (01:29)
[2023-04-09 05:28] LABS: Basophils % 0.1 %; Hematocrit 32.1 % (36-47); Lymphocytes # 1.3 10^3/uL (0.8-4.8); Lymphocytes % 7.4 %; Mean Corpuscular HGB Conc 31.5 g/dL (30-55); Mean Corpuscular Hemoglobin 26.1 pg (27-33); Mean Corpuscular Volume 82.9 fl (85-98); Mean Platelet Volume 8.8 fL (7.4-10.4); Monocytes # 0.4 10^3/uL (0.2-0.9); Monocytes % 2.2 %; Neutrophils # 15.21 10^3/uL (1.8-7.7); Neutrophils % 89.6 %; Nucleated Red Blood Cells % 0.2 %; Platelet Count 244 10^3/cmm (157-399); Red Blood Count 3.87 10^6/uL (3.85-5.65); Red Cell Distribution Width 18.6 % (12.1-15.1); White Blood Count 16.98 10^3/uL (3.29-11.43)
[2023-04-09 05:45] LABS: Estmated Average Glucose 105; Hemoglobin A1C 5.3 % (4.0-6.0)
[2023-04-09 05:51] LABS: Alanine Aminotransferase 15 U/L (0-33); Albumin Level 2.3 g/dL (3.5-5.2); Alkaline Phosphatase 95 U/L (35-105); Anion Gap 14.4 (5-19); Aspartate Amino Transferase 41 U/L (0-32); Blood Urea Nitrogen 6 mg/dL (8-23); Calcium 7.9 mg/dL (8.5-10.5); Carbon Dioxide 21 mmol/L (22-29); Chloride 105 mmol/L (98-107); Globulin 3.3 g/dL (1.3-4.6); Glomerular Filtration Rate 161.7 mL/min (90-130); Glucose 142 mg/dL (65-115); Magnesium 1.5 mg/dL (1.7-2.3); Osmolality Calculated 284 mOsm/kg (285-295); Phosphorus 2.5 mg/dL (2.5-4.5); Potassium 3.4 mmol/L (3.5-5.1); Sodium 137 mmol/L (136-145); Total Bilirubin 0.2 mg/dL (0.15-1.2); Total Protein 5.6 g/dL (6.6-8.7)
[2023-04-09 05:54] LABS: Iron 10 ug/dL (37-145); Percent Saturation 6.4 % (20-50); Total Iron Binding Capacity 156 mcg/dl; Unsaturated Iron Binding 146 ug/dL (112-347)
[2023-04-09] MEDS: meropenem 1,000 MG in sodium chloride 0.9% (plus) 50 ML 100 MG IV ×3 (06:06→21:36)
[2023-04-09] MEDS: ferrous sulfate EC 325 mg Tablet PO ×2 (08:48→17:14)
[2023-04-09] MEDS: oxybutynin 5 mg Tablet PO ×3 (08:48→21:34)
[2023-04-09] MEDS: pantoprazole DR 40 mg Tablet PO (08:48)
[2023-04-09] MEDS: aspirin 81 mg EC Tablet PO (08:48)
--- NOTE | 2023-04-09 09:31 | PC.CHAP ---
Pastoral Care Encounter/Spiritual Assessment Type of Contact [] Declined oxygen equipment preparer visit [] Patient/Family/Request visit [] Outpatient visit [] Follow-up visit [] Physician referral [] Code/Alert [] Routine visit [] Staff referral [] Actively dying [] Patient sleeping [] Family support [] [] Out of room [] Palliative care [] [x] Receiving care in room [] Pre-surgical visit [] Trauma [] Long length of stay [] ICU visit [] Other: Relational/Emotional Strength [] Patient feels connected with others/family/visitors/staff [] Distress [] Loneliness/isolation [] Abandonment Spirituality of Patient [] Person of Ifeoma [] Attends Pentecostal of their Ifeoma [] Believes in Prayer [] Reads Bible or Anabaptism materials [] There are Spiritual issues to be addressed Director Work Interventions [] Prayer [] Active listening [] Non-anxious presence [] Spiritual/emotional support [] Crisis/trauma care [] Spiritual counseling [] Bereavement support [] Provided bereavement packet [] Provided Bible/devotional materials [] Provided toy/stuffed animal, coloring book to patient or family member [] Provided Communion [] Anointing/[place] [] Salvation [] Completed spiritual assessment [] Other: Impact on Illness or Injury [] Angry [] Fearful [] Anxious [] Often cries [] Exhaustion [] Unable to work [] Unable to attend muslim [] Unable to walk/stand [] Unable to read [] Unable to drive [] Unable to eat/drink [] Unable to sleep [] Unable to be with family [] Patient intubated [] Other: Summary Time spent with patient
--- NOTE | 2023-04-09 10:04 | PC.CHAP ---
Pastoral Care Encounter/Spiritual Assessment Type of Contact [] Declined jr. systems administrator visit [] Patient/Family/Request visit [] Outpatient visit [] Follow-up visit [] Physician referral [] Code/Alert [x] Routine visit [] Staff referral [] Actively dying [] Patient sleeping [] Family support [] [] Out of room [] Palliative care [] [] Receiving care in room [] Pre-surgical visit [] Trauma [] Long length of stay [] ICU visit [] Other: Relational/Emotional Strength [x] Patient feels connected with others/family/visitors/staff [] Distress [] Loneliness/isolation [] Abandonment Spirituality of Patient [x] Person of Ifeoma [] Attends Gnosticist of their Ifeoma [] Believes in Prayer [] Reads Bible or Yazidism materials [] There are Spiritual issues to be addressed Uniform Cap Operator Interventions [x] Prayer [] Active listening [x] Non-anxious presence [x] Spiritual/emotional support [] Crisis/trauma care [] Spiritual counseling [] Bereavement support [] Provided bereavement packet [] Provided Bible/devotional materials [] Provided toy/stuffed animal, coloring book to patient or family member [] Provided Communion [] Anointing/[place] [] Salvation [x] Completed spiritual assessment [] Other: Impact on Illness or Injury [] Angry [] Fearful [] Anxious [] Often cries [] Exhaustion [] Unable to work [] Unable to attend nondenominational [] Unable to walk/stand [] Unable to read [] Unable to drive [] Unable to eat/drink [] Unable to sleep [] Unable to be with family [] Patient intubated [] Other: Summary Time spent with patient 5 min
[2023-04-09] MEDS: vancomycin 500 MG in sodium chloride 0.9% (plus) 100 ML 200 MG IV (12:06)
--- NOTE | 2023-04-09 12:11 | P.PN_ITS ---
Subjective 2 Subjective: Leukocytosis trending down Patient has pneumonia and UTI Currently on 3 L Facemask Very anxious Patient is stating that on 04/05 she was upset with the ER for because she was not being treated for what she came for she was just given antibiotics which her daughter was not able to pickling drum operator because she was busy with her work Vitals/I&O/Wt Last Vital Signs Temp 99.3 F 04/09/23 11:34 Pulse 108 H 04/09/23 11:34 Resp 17 04/09/23 11:34 BP 114/75 04/09/23 11:34 Pulse Ox 94 04/09/23 11:34 O2 Del Method Aerosol Mask 04/09/23 11:34 O2 Flow Rate 3 04/09/23 08:00 04/08/23 04/09/23 04/09/23 22:59 06:59 14:59 Intake Total 1325.473 / 2375.473 400 / 2775.473 120 / 120 Output Total 410 / 410 450 / 860 250 / 250 Balance 915.473 / 1965.473 -50 / 1915.473 -130 / -130 Weight last 48 hrs Weight 28.985 kg Weight 33.929 kg Weight 31.751 kg Physical Exam 2 Narrative: Awake and alert GCS 15 Euvolemic Dehydrated Cachectic, malnourished Currently on 3 L facemask No conversational dyspnea Very anxious appearing Ileostomy bag in place Lower extremity no swelling Nonfocal neuroexam Data 04/09/23 05:14 04/09/23 05:14 Micro: Microbiology 04/08/23 11:57 Urine Culture - Preliminary Urine,Clean Catch Gram Negative Rods 04/08/23 20:40 Legionella Urinary Antigen - Final Urine,Clean Catch A&P Assessment and plan (1) Port-A-Cath in place: (2) Weight loss of more than 10% body weight: (3) Moderate protein-calorie malnutrition: (4) Presence of ileostomy: (5) Urinary tract infection: Qualifiers: Hematuria presence: without hematuria Urinary tract infection type: a cute cystitis Qualified Code(s): N30.00 - Acute cystitis without hematuria (6) Iron deficiency anemia: Qualifiers: Iron deficiency anemia type: other iron deficiency Qualified Code(s): D 50.8 - Other iron deficiency anemias (7) Colon adenocarcinoma: (8) On antineoplastic chemotherapy: (9) Left lower lobe pneumonia: (10) Generalized weakness: Plan Pneumonia and UTI Continue antibiotics Patient is immunocompromise Acute hypoxia requiring 3 L does not use oxygen at home Patient is stating that she is not interested in going to [facility] where her surgeon is Currently she is on antibiotics for her infection Will add vancomycin to her meropenem regimen Goals of care discussed with the patient patient is stating that she has not discussed with the family but in case of cardiac arrest or respiratory distress she does not want heroic measures CPR defibrillation or chest compression will change CODE STATUS to DNR/DNI I have encouraged patient to discuss that with her family as well Patient has history of colon cancer, recently had chemotherapy There is invasion of roof of urinary bladder no hydronephrosis as per recent CT abdomen pelvis done on 04/05 creatinine normal Will replenish her potassium and magnesium Attestations 2 Medical Necessity Statement*: Continue medical management Diagnoses Port-A-Cath in place Z95.828 Weight loss of more than 10% body weight R63.4 Moderate protein-calorie malnutrition E44.0 Presence of ileostomy Z93.2 Acute cystitis without hematuria N30.00 Hematuria presence: without hematuria Urinary tract infection type: acute cystitis Other iron deficiency anemia D50.8 Iron deficiency anemia type: other iron deficiency Colon adenocarcinoma C18.9 On antineoplastic chemotherapy Z79.899 Left lower lobe pneumonia J18.9 Generalized weakness R53.1
[2023-04-09] MEDS: potassium chloride ER 20 mEq Tablet 40 MEQ PO (13:23)
[2023-04-09] MEDS: magnesium oxide 400 mg tablet PO (17:14)
[2023-04-10] VITALS (8 sets, daily range): BP systolic 101–129; BP diastolic 69–88; PULSE 84–103; RESP 16–20; TEMP 36.3–37.5; O2SAT 90–94
[2023-04-10 04:17] LABS: Basophils % 0.1 %; Hematocrit 37.4 % (36-47); Lymphocytes # 1.6 10^3/uL (0.8-4.8); Lymphocytes % 19.1 %; Mean Corpuscular HGB Conc 31.6 g/dL (30-55); Mean Corpuscular Hemoglobin 25.8 pg (27-33); Mean Corpuscular Volume 81.8 fl (85-98); Mean Platelet Volume 8.7 fL (7.4-10.4); Monocytes # 0.4 10^3/uL (0.2-0.9); Monocytes % 5.3 %; Neutrophils # 6.23 10^3/uL (1.8-7.7); Neutrophils % 74.9 %; Nucleated Red Blood Cells % 0.2 %; Platelet Count 202 10^3/cmm (157-399); Red Blood Count 4.57 10^6/uL (3.85-5.65); Red Cell Distribution Width 18.5 % (12.1-15.1); White Blood Count 8.32 10^3/uL (3.29-11.43)
[2023-04-10 04:41] LABS: Blood Urea Nitrogen 8 mg/dL (8-23); Calcium 8.6 mg/dL (8.5-10.5); Carbon Dioxide 24 mmol/L (22-29); Chloride 102 mmol/L (98-107); Glomerular Filtration Rate 225.4 mL/min (90-130); Glucose 99 mg/dL (65-115); Osmolality Calculated 282 mOsm/kg (285-295); Sodium 137 mmol/L (136-145)
[2023-04-10 05:11] LABS: Slide Review Slide Review Perform
[2023-04-10] MEDS: vancomycin 500 MG in sodium chloride 0.9% (plus) 100 ML 200 MG IV ×2 (05:40→22:31)
[2023-04-10] MEDS: meropenem 1,000 MG in sodium chloride 0.9% (plus) 50 ML 100 MG IV ×3 (06:12→21:32)
[2023-04-10] MEDS: magnesium oxide 400 mg tablet PO ×2 (08:00→17:36)
[2023-04-10] MEDS: oxybutynin 5 mg Tablet PO ×3 (08:00→20:38)
[2023-04-10] MEDS: docusate sodium 100 mg Capsule PO ×2 (08:00→17:36)
[2023-04-10] MEDS: ferrous sulfate EC 325 mg Tablet PO ×2 (08:00→17:36)
[2023-04-10] MEDS: aspirin 81 mg EC Tablet PO (08:00)
[2023-04-10] MEDS: pantoprazole DR 40 mg Tablet PO (08:00)
--- NOTE | 2023-04-10 11:57 | P.PN_ITS ---
Subjective 2 Subjective: Patient was very emotional today stating that she is not gaining weight and she was worried about it I assured her that she is not spiking fevers since midnight, her oxygen requirement is not worsening She will improve but gradually and slowly she should give herself some time She was asking for DuoNeb treatment Urine showing gram-negative warner Vitals/I&O/Wt Last Vital Signs Temp 98.2 F 04/10/23 11:29 Pulse 101 H 04/10/23 11:29 Resp 18 04/10/23 11:29 BP 115/76 04/10/23 11:29 Pulse Ox 91 04/10/23 11:29 O2 Del Method Aerosol Mask 04/10/23 11:29 O2 Flow Rate 2 04/10/23 10:39 04/09/23 04/10/23 04/10/23 22:59 06:59 14:59 Intake Total 460 / 1546.667 150 / 1696.667 120 / 120 Output Total 150 / 400 100 / 100 Balance 460 / 1296.667 0 / 1296.667 20 / 20 Weight last 48 hrs Weight 31.922 kg Weight 28.985 kg Weight 33.929 kg Physical Exam 2 Narrative: Awake and alert Dehydrated No active wheezing or crackles In place without any abdominal pain Lower extremity no edema Pleasant and cooperative Emotionally labile Nonfocal neuroexam Currently on room air S1, S2 Data 04/10/23 03:58 04/10/23 03:58 Micro: Microbiology 04/08/23 11:57 Urine Culture - Final Urine,Clean Catch Citrobacter Freundii Complex 04/08/23 12:21 Blood Culture - Preliminary Blood 04/08/23 12:14 Blood Culture - Preliminary Blood A&P Assessment and plan (1) Port-A-Cath in place: (2) Weight loss of more than 10% body weight: (3) Moderate protein-calorie malnutrition: (4) Presence of ileostomy: (5) Urinary tract infection: Qualifiers: Hematuria presence: without hematuria Urinary tract infection type: a cute cystitis Qualified Code(s): N30.00 - Acute cystitis without hematuria (6) Iron deficiency anemia: Qualifiers: Iron deficiency anemia type: other iron deficiency Qualified Code(s): D 50.8 - Other iron deficiency anemias (7) Colon adenocarcinoma: (8) On antineoplastic chemotherapy: (9) Left lower lobe pneumonia: (10) Generalized weakness: (11) Hypoxia: Plan UTI: Gram-negative warner Continue antibiotics Hypoxia: Wean oxygen to room air Had DuoNeb treatment and prednisone Will need home oxygen evaluation before discharge tomorrow If she remains afebrile, plan is to discharge her home with antibiotics No fever since last night Significant weight loss I have her on Ensure Plus She will follow-up with her oncologist at [place] for chemotherapy She is struggling to gain weight DVT prophylaxis on board Disposition plan: Discharge tomorrow if remains afebrile Continue regular diet Anorexia and depression I will add mirtazapine low-dose Attestations 2 Medical Necessity Statement*: Possible discharge tomorrow Diagnoses Port-A-Cath in place Z95.828 Weight loss of more than 10% body weight R63.4 Moderate protein-calorie malnutrition E44.0 Presence of ileostomy Z93.2 Acute cystitis without hematuria N30.00 Hematuria presence: without hematuria Urinary tract infection type: acute cystitis Other iron deficiency anemia D50.8 Iron deficiency anemia type: other iron deficiency Colon adenocarcinoma C18.9 On antineoplastic chemotherapy Z79.899 Left lower lobe pneumonia J18.9 Generalized weakness R53.1 Hypoxia R09.02
[2023-04-10] MEDS: predniSONE 20 mg Tablet PO (13:16)
[2023-04-10] MEDS: mirtazapine 15 mg Tablet 7.5 MG PO (20:38)
[2023-04-10 22:47] LABS: Vancomycin Trough < 4.0 ug/mL (10-15)
[2023-04-11 03:09] VITALS: BP 115/73; PULSE 67; RESP 14; TEMP 36.7; O2SAT 93
[2023-04-11 05:40] LABS: Hematocrit 36.3 % (36-47); Lymphocytes # 1.8 10^3/uL (0.8-4.8); Lymphocytes % 38.6 %; Mean Corpuscular HGB Conc 31.4 g/dL (30-55); Mean Corpuscular Hemoglobin 26.3 pg (27-33); Mean Corpuscular Volume 83.6 fl (85-98); Mean Platelet Volume 9.3 fL (7.4-10.4); Monocytes # 0.7 10^3/uL (0.2-0.9); Monocytes % 15.5 %; Neutrophils % 45.7 %; Nucleated Red Blood Cells % 0.4 %; Platelet Count 209 10^3/cmm (157-399); Red Blood Count 4.34 10^6/uL (3.85-5.65); Red Cell Distribution Width 18.5 % (12.1-15.1); White Blood Count 4.59 10^3/uL (3.29-11.43)
[2023-04-11] MEDS: meropenem 1,000 MG in sodium chloride 0.9% (plus) 50 ML 100 MG IV (05:51)
[2023-04-11 06:00] VITALS: BMI 13.2
[2023-04-11 06:02] LABS: Blood Urea Nitrogen 10 mg/dL (8-23); Calcium 8.5 mg/dL (8.5-10.5); Carbon Dioxide 30 mmol/L (22-29); Chloride 106 mmol/L (98-107); Glomerular Filtration Rate 225.4 mL/min (90-130); Glucose 94 mg/dL (65-115); Osmolality Calculated 295 mOsm/kg (285-295); Sodium 143 mmol/L (136-145)
[2023-04-11 06:20] LABS: Slide Review Slide Review Perform
[2023-04-11 07:52] VITALS: BP 111/73; PULSE 79; RESP 16; TEMP 36.9; O2SAT 86
--- NOTE | 2023-04-11 07:53 | PC.NURSE ---
patient keeps taking oxygen off after being informed several times her oxygen keeps gets low without it.
[2023-04-11 09:25] VITALS: PULSE 90; RESP 16; O2SAT 3; O2SAT 86; O2SAT 93
--- NOTE | 2023-04-11 09:55 | P.DS_ITS ---
Discharge Providers Date of Admission: 04/08/23 15:41 Date of Discharge: April 11, 2023 Attending Provider at Admission: Christie Grant MD Attending Provider at Discharge: Blake Torres MD Primary Care Provider: Darwin Reaves MD Diagnoses at Discharge Discharge Diagnosis (1) Port-A-Cath in place: Status: Chronic (2) Weight loss of more than 10% body weight: Status: Acute (3) Moderate protein-calorie malnutrition: Status: Acute (4) Presence of ileostomy: Status: Chronic (5) Urinary tract infection: Status: Acute Qualifiers: Hematuria presence: without hematuria Urinary tract infection type: acute cystitis Qualified Code(s): N30.00 - Acute cystitis without hematuria (6) Iron deficiency anemia: Status: Acute Qualifiers: Iron deficiency anemia type: other iron deficiency Qualified Code(s): D50.8 - Other iron deficiency anemias (7) Colon adenocarcinoma: Status: Acute Permanent problem details: Pelvic Mass, RLQ, Surg. Path 01/16/2023 mod differentiated, open ileostomy Dr. Liao, [facility]; small bowel and bladder noted via PET 02/26/23; mFOLFOX started 03/18/23 (8) On antineoplastic chemotherapy: Status: Acute (9) Left lower lobe pneumonia: Status: Acute (10) Generalized weakness: Status: Acute (11) Hypoxia: Status: Acute Reason for Visit Reason for Visit: Sent from oncology, hypertensive, needs oxygen Hospital Course Hospital Course 62-year-old female who has history of colon cancer with mets to liver and invasion to urinary bladder, presented to the hospital for worsening of weakness fatigue fever and shortness of breath. She was diagnosed with pneumonia and UTI. CT scan abdomen pelvis did not show any hydronephrosis or worsening of her underlying cancer. She follows up at [facility] still undergoing chemotherapy. Patient is extremely thin and frail not able to gain weight which is her main concern. During hospitalization she was put on broad-spectrum antibiotics which subsided her fever. No leukocytosis or worsening of febrile events. Urine culture showed Citrobacter sensitive to levofloxacin, I will discharge her on levofloxacin 750 mg 10-day regimen, she was requiring 2 L of oxygen during hospitalization, requested home O2 eval before discharge. Patient is DNR/DNI goals of care discussed with the patient. I encouraged her to let her family know as well. She was given Ensure 3 times a day during hospitalization. Physical Exam Narrative: Awake and alert Euvolemic GCS [address] Nonfocal neuroexam Currently on 2 L Family at the bedside S1, S2 Discharge Data Studies Completed and Pending Completed Studies During Hospitalization Category Date Time Status XR chest 1V portable [id number] Stat Exams 04/08/23 10:49 Completed Pending at discharge Category Date Time Status Blood Cultures ([facility]) Routine Lab 04/08/23 12:14 Results Blood Cultures ([facility]) Routine Lab 04/08/23 12:21 Results Methicillin Resistant S.aureu Routine Lab 04/10/23 10:50 Received Radiology Impressions Chest X-Ray 04/08/23 10:49 IMPRESSION: Left basilar pneumonia. Laboratory Results WBC 4.59 10^3/uL (3.29-11.43) 04/11/23 05:04 RBC 4.34 10^6/uL (3.85-5.65) 04/11/23 05:04 Hgb 11.40 g/dL (11.27-16.99) 04/11/23 05:04 Hct 36.3 % (36-47) 04/11/23 05:04 MCV 83.6 fl (85-98) L 04/11/23 05:04 MCH 26.3 pg (27-33) L 04/11/23 05:04 MCHC 31.4 g/dL (30-55) 04/11/23 05:04 RDW 18.5 % (12.1-15.1) H 04/11/23 05:04 Plt Count 209 10^3/cmm (157-399) 04/11/23 05:04 MPV 9.3 fL (7.4-10.4) 04/11/23 05:04 Neut % (Auto) 45.7 % 04/11/23 05:04 Lymph % (Auto) 38.6 % 04/11/23 05:04 [place] % (Auto) 15.5 % 04/11/23 05:04 Eos % (Auto) 0.0 % 04/11/23 05:04 Baso % (Auto) 0.0 % 04/11/23 05:04 Neut # (Auto) 2.10 10^3/uL (1.8-7.7) 04/11/23 05:04 Lymph # (Auto) 1.8 10^3/uL (0.8-4.8) 04/11/23 05:04 [place] # (Auto) 0.7 10^3/uL (0.2-0.9) 04/11/23 05:04 Eos # (Auto) 0.0 10^3/uL (0.0-0.8) 04/11/23 05:04 Baso # (Auto) 0.0 10^3/uL (0.0-0.1) 04/11/23 05:04 Nucleated RBC % (auto) 0.4 % 04/11/23 05:04 Nucleated RBCs # 0.0 /100WBC 04/11/23 05:04 Sodium 143 mmol/L (136-145) 04/11/23 05:04 Potassium 3.0 mmol/L (3.5-5.1) L 04/11/23 05:04 Chloride 106 mmol/L (98-107) 04/11/23 05:04 Carbon Dioxide 30 mmol/L (22-29) H 04/11/23 05:04 Anion Gap 10.0 (5-19) 04/11/23 05:04 BUN 10 mg/dL (8-23) 04/11/23 05:04 Creatinine 0.3 mg/dL (0.5-0.9) L 04/11/23 05:04 GFR Calculation 225.4 mL/min (90-130) H 04/11/23 05:04 Glucose 94 mg/dL (65-115) 04/11/23 05:04 Estimat Average Glucose 105 04/09/23 05:14 Hemoglobin A1c 5.3 % (4.0-6.0) 04/09/23 05:14 Calculated Osmolality 295 mOsm/kg (285-295) 04/11/23 05:04 Lactic Acid 1.7 mmol/L (0.5-2.2) 04/08/23 11:15 Calcium 8.5 mg/dL (8.5-10.5) 04/11/23 05:04 Phosphorus 2.5 mg/dL (2.5-4.5) 04/09/23 05:14 Magnesium 1.5 mg/dL (1.7-2.3) L 04/09/23 05:14 Iron 10 ug/dL (37-145) L 04/09/23 05:14 TIBC 156 mcg/dl 04/09/23 05:14 % Saturation 6.4 % (20-50) L 04/09/23 05:14 Unsat Iron Binding 146 ug/dL (112-347) 04/09/23 05:14 Total Bilirubin 0.2 mg/dL (0.15-1.2) 04/09/23 05:14 AST 41 U/L (0-32) H 04/09/23 05:14 ALT 15 U/L (0-33) 04/09/23 05:14 Alkaline Phosphatase 95 U/L (35-105) 04/09/23 05:14 NT-Pro-B Natriuret Pep 164 pg/mL (0-125) H 04/08/23 11:06 Total Protein 5.6 g/dL (6.6-8.7) L 04/09/23 05:14 Albumin 2.3 g/dL (3.5-5.2) L 04/09/23 05:14 Globulin 3.3 g/dL (1.3-4.6) 04/09/23 05:14 Urine Color [place] (Yellow) A 04/08/23 11:57 Urine Appearance Cloudy (CLEAR) A 04/08/23 11:57 Urine pH 5 (5-7) 04/08/23 11:57 Ur Specific [place] 1.020 (1.005-1.030) 04/08/23 11:57 Urine Protein 3+ (Negative) H 04/08/23 11:57 Urine Glucose (UA) Norm (Normal) 04/08/23 11:57 Urine Ketones 1+ (Negative) H 04/08/23 11:57 Urine Blood 3+ (Negative) H 04/08/23 11:57 Urine Nitrate Positive (Negative) H 04/08/23 11:57 Urine Bilirubin 2+ (Negative) H 04/08/23 11:57 Urine Urobilinogen 8 mg/dL (Negative) H 04/08/23 11:57 Ur Leukocyte Esterase 2+ (Negative) H 04/08/23 11:57 Urine RBC 0-4 /hpf (0-2) H 04/08/23 11:57 Urine WBC >100 /hpf (0-5) H 04/08/23 11:57 Ur Squamous Epith Cells 0-4 /hpf (0-5) H 04/08/23 11:57 Amorphous Sediment Not Reportable 04/08/23 11:57 Urine Bacteria 4+ /hpf (NONE) H 04/08/23 11:57 Vancomycin Trough < 4.0 ug/mL (10-15) L 04/10/23 22:26 Influenza Type A Ag negative (Negative) 04/08/23 11:57 Influenza Type B Ag negative (Negative) 04/08/23 11:57 SARS-CoV-2 Ag (Rapid) negative (Negative) 04/08/23 11:57 Blood Type O Negative 04/08/23 09:20 Rho(D) Type Negative 04/08/23 09:20 Antibody Screen Negative 04/08/23 09:20 Crossmatch See Detail 04/08/23 09:20 Vitals Last Vital Signs Temp 98.5 F 04/11/23 07:52 Pulse 90 04/11/23 09:25 Resp 16 04/11/23 09:25 BP 111/73 04/11/23 07:52 Pulse Ox 86 L 04/11/23 09:25 O2 Del Method Nasal Cannula 04/11/23 09:25 O2 Flow Rate 94 04/11/23 09:25 Discharge Plan Discharge Patient Disposition: Home Condition: Stable Prescriptions: New albuterol sulfate 90 mcg/actuation HFA aerosol inhaler 2 inh inhalation Q8H PRN (Reason: shortness of breath or wheezing) Qty: 6.7 3RF levofloxacin 750 mg tablet 750 mg PO DAILY 10 Days Qty: 10 0RF Continued loperamide 2 mg tablet 2 mg PO .COMPLEX PRN (Reason: loose stool) Qty: 30 1RF Rx Instructions: take 2 tabs after first loose stool then 1 tab after each loose stool, no more than 4 tablets in 24 hours naloxone [Narcan] 4 mg/actuation spray,non-aerosol 4 mg intranasal Q2M PRN (Reason: Opioid Overdose) Rx Instructions: spray 1 dose into ONE nostril; alternate nostrils w each dose until help arrives oxybutynin chloride 15 mg tablet extended release 24hr 15 mg PO DAILY Qty: 30 3RF ferrous sulfate 325 mg (65 mg iron) tablet 325 mg PO ONCE Qty: 100 3RF aspirin 81 mg tablet,delayed release (DR/EC) 81 mg PO DAILY Qty: 90 3RF acetaminophen 500 mg capsule 1,000 mg PO Q6H Qty: 300 5RF prochlorperazine maleate [Compazine] 10 mg tablet 10 mg PO Q6H PRN (Reason: nausea and vomiting) Qty: 30 3RF oxycodone-acetaminophen 5-325 mg tablet 1 tab PO Q8H PRN (Reason: cancer pain) 30 Days Qty: 90 0RF Pyridium 200 mg tablet 200 mg PO TID Qty: 90 2RF ondansetron 4 mg tablet,disintegrating 4 mg PO Q8H PRN (Reason: nausea and vomiting) Qty: 20 1RF lidocaine-prilocaine 2.5-2.5 % cream 1 applic topical .COMPLEX Qty: 30 3RF Rx Instructions: Apply quarter size amount 30-45 minutes prior to port access, cover with c ellophane pantoprazole 20 mg tablet,delayed release (DR/EC) 20 mg PO DAILY baclofen 10 mg tablet 10 mg PO Q6H PRN (Reason: muscle spasm) cyclobenzaprine 5 mg tablet 5 mg PO TID PRN (Reason: Muscle Spasm) melatonin 3 mg Tablet 3 mg PO BEDTIME Discontinued ciprofloxacin HCl 250 mg tablet 250 mg PO BID Qty: 14 0RF Discharge Orders: Discharge Order (Routine); Ordered 04/11/23 Ordered By: Blake Torres Referrals: Darwin Reaves MD [Primary Care Provider] - 7-10 days Discharge Diet: Regular Discharge Activity: Increase activity as tolerated Patient Instructions: Opioid Safety, Pain Management Discharge Attestations Time Spent in Discharge Care*: greater than 30 min Quality Metrics Clinical Quality Measures [ No reported AMI, CVA or VTE this stay] Coding Level of Care Code Acute Code for Chg Fwd Diagnoses Port-A-Cath in place Z95.828 Weight loss of more than 10% body weight R63.4 Moderate protein-calorie malnutrition E44.0 Presence of ileostomy Z93.2 Acute cystitis without hematuria N30.00 Hematuria presence: without hematuria Urinary tract infection type: acute cystitis Other iron deficiency anemia D50.8 Iron deficiency anemia type: other iron deficiency Colon adenocarcinoma C18.9 On antineoplastic chemotherapy Z79.899 Left lower lobe pneumonia J18.9 Generalized weakness R53.1 Hypoxia R09.02
[2023-04-11] MEDS: magnesium oxide 400 mg tablet PO (10:03)
[2023-04-11] MEDS: pantoprazole DR 40 mg Tablet PO (10:03)
[2023-04-11] MEDS: aspirin 81 mg EC Tablet PO (10:03)
[2023-04-11] MEDS: docusate sodium 100 mg Capsule PO (10:04)
[2023-04-11] MEDS: predniSONE 20 mg Tablet PO (10:04)
[2023-04-11] MEDS: ferrous sulfate EC 325 mg Tablet PO (10:04)
[2023-04-11] MEDS: oxybutynin 5 mg Tablet PO (10:04)
[2023-04-11 11:40] VITALS: BP 124/86; PULSE 89; RESP 17; TEMP 36.7; O2SAT 94
--- NOTE | 2023-04-11 12:06 | PC.PHAR ---
Use this page to adjust dose, Tinf, or tau when only a TROUGH is taken. VANCOMYCIN or AMINOGLYCOSIDE: VANCO mg/kg Last Name [facility] Dose(mg) 500 15.63 First Name Liliana Tinf (hrs) 1 hrs : 60 Tau=freq (hrs) 18 hrs Location: Cmax (calculated) 23.6 mcg/ml Cpeak (calculated) 21.3 mcg/ml Sex (M/F) F Cmin (trough): 4 mcg/ml AGE (yrs) 62 Calculated Vd: 24.0 liters Ht (inches) 60.0 Calculated Ke: 0.101 hrs-1 ABW (Kg) 32.0 Calculated T1/2: 6.83 hrs IBW (Kg) 45.5 mg/kg DW (Kg) 32.0 NEW Dose (mg) 750 23.44 NEW Tinf (hrs) 1 NEW Tau (hrs) 12 VANCO GENT TARGETS Expected Cmax: 42.2 Targets Standard Dosing High Dose Expected Cpeak: 38.1 25 to 40 6 - 12 mcg/ml 20 - 24 mcg/ml Expected Cmin: 13.8 10 to 20 0.5 - 2 mcg/ml < 1 mcg/ml WHEN DO I GIVE THE NEXT DOSE? When will the Blood Conc. Be Equal to my New Expected Cmin? If Dose was HELD If Dose was GIVEN Give Next Dose In: (From time trough drawn) REINA 6 hrs Where will the Conc. Be if I wait : 0.6 mcg/ml 4.0 mcg/ml 18 hrs
[2023-04-11 12:53] VITALS: BP 124/86; PULSE 89; RESP 17; TEMP 36.7; O2SAT 94
[2023-04-11 15:24] LABS: Methicillin-Resist S.aureu PCR NOT DETECTED (NOT DETECTED)
== END 2023-04-11 11:55 | disposition home or self-care (01) | DRG 194 ==
LOC: ER 11:08 → ER IP 04-09 06:45 → MEDSURG 04-09 06:45
PROVIDERS: Admitting Provider Hospitalist; Emergency Provider Emergency Medicine; PCP Family Medicine Adult Medicine; Visit Provider Internal Medicine
DX: J18.9 Pneumonia, unspecified organism (principal); C18.9 Malignant neoplasm of colon, unspecified; E44.0 Moderate protein-calorie malnutrition; N30.00 Acute cystitis without hematuria; Z68.1 Body mass index [BMI] 19.9 or less, adult; R63.4 Abnormal weight loss; Z93.2 Ileostomy status; D50.8 Other iron deficiency anemias; Z79.899 Other long term (current) drug therapy; R09.02 Hypoxemia; R53.1 Weakness; Z95.828 Presence of other vascular implants and grafts; B96.89 Other specified bacterial agents as the cause of diseases classified elsewhere; F17.210 Nicotine dependence, cigarettes, uncomplicated
CPT/HCPCS: 36415; 36430; 36591; 71045; 80048; 80053; 80202; 81001; 83036; 83540; 83550; 83605; 83735; 83880; 84100; 85025; 86850; 86900; 86920; 87040; 87077; 87086; 87186; 87426; 87449; 87641; 87804; 93005; 94760; 96365; 96367; 97110; 97162; 99285; J0456; J0696; J2185; J3370; J3480; J7030; J7050; J7512; P9016

== ENCOUNTER 2023-04-15 16:09 | Inpatient (IN) | payer BC, SELFPAY ==
--- NOTE | 2023-04-15 16:10 | XRR_ITS ---
PROCEDURE INFORMATION: Exam: XR Chest Exam date and time: 04/15/2023 4:41 PM Age: 62 years old Clinical indication: Pain; Angina pectoris; Additional info: Cp TECHNIQUE: Imaging protocol: Radiologic exam of the chest. Views: 1 view. COMPARISON: CR XR chest 1V portable [id number] 04/08/2023 11:34 AM FINDINGS: Tubes, catheters and devices: Right anterior chest wall infusion port with the tip terminating in the right atrium. Lungs: Diffuse curvilinear opacities more pronounced at the lower lung bases consistent with emphysema. Pleural spaces: No pneumothorax, or pleural effusion. Heart/Mediastinum: Unremarkable. No cardiomegaly. Bones/joints: No acute fracture. Diffuse degenerative changes of the thoracic spine. XR/XR chest 1V portable [id number] IMPRESSION: 1. No acute interval changes. 2. Diffuse curvilinear opacities more pronounced at the lower lung bases consistent with emphysema.
[2023-04-15 16:20] VITALS: BP 90/59; PULSE 68; RESP 12; TEMP 36.8; O2SAT 100; BMI 12.9
--- NOTE | 2023-04-15 17:01 | W.ED.COVID ---
Documented by User: Watson Corona DO 04/15/23 18:07 HPI - COVID General: Chief Complaint: COVID symptoms Stated Complaint: chest pain, colon cancer Time Seen by Provider: 04/15/23 16:46 Source: patient Mode of arrival: ambulatory History of Present Illness: 62-year-old female presents emergency room with complaint of cough generalized weakness. Patient has a known history of colon cancer she has mets to the bladder however the last discharge hemorrhagic, the lower back to the liver she told me she was only noted to have met to the bladder. I looked at the previous PET scan from January 2023 the liver is read as normal. In April 08 of this year she was admitted to the hospital for left basilar pneumonia noted on chest x-ray. She was treated with antibiotics and discharged home on oral antibiotics. Prior to that she had not been on oxygen. She was discharged home on 2 L/min oxygen by nasal cannula she is now using 3 L/min. She is persistent cough nonproductive and right-sided chest pain. She denies any hemoptysis or fever. She was tested for COVID during her last hospitalization and was negative Prior covid testing: no COVID Results: SARS-CoV-2 Antigen (Rapid) negative (Negative) 04/08/23 11:57 SARS-CoV-2 (PCR) Not detected (NOT DETECT) 04/15/23 18:14 Coronavirus Type 229E (PCR) Not detected (NOT DETECT) 04/15/23 18:14 [facility] ED PFS: Medical History (Updated 04/15/23 @ 20:22 by Davi Johnson DO) Hypoxia Presence of ileostomy Nicotine dependence, cigarettes, uncomplicated Generalized weakness On antineoplastic chemotherapy Moderate protein-calorie malnutrition Left lower lobe pneumonia Iron deficiency anemia Urinary tract infection Weight loss of more than 10% body weight 8 Para 7 (1 miscarriage, 1 ectopic, 1 twin ) Chronic constipation Pyelonephritis of right kidney Painful bladder spasm Colon adenocarcinoma Pelvic Mass, RLQ, Surg. Path 01/16/2023 mod differentiated, open ileostomy Dr. Liao, [facility]; small bowel and bladder noted via PET 02/26/23; mFOLFOX started 03/18/23 Cyanosis of tip of finger Colitis Surgical History (Updated 04/12/23 @ 00:01 by SHELBY Patrick) Port-A-Cath in place Hx of ileostomy History of bilateral ligation of fallopian tubes Family History Father Heart attack Mother Bipolar 1 disorder CAD (coronary artery disease) Social History Smoking and tobacco/nicotine status: current every day tobacco/nicotine user Quit status (tobacco/nicotine): not considering quitting Alcohol intake: former Substance/Drug Use: never Course Vital Signs: Vital signs: Vital Signs Temperature 98.2 F 04/15/23 16:20 Pulse Rate 120 H 04/15/23 18:38 Respiratory Rate 16 04/15/23 18:38 Blood Pressure 110/69 04/15/23 18:38 Pulse Oximetry 97 04/15/23 18:38 Oxygen Delivery Me thod Room Air 04/15/23 18:38 Oxygen Flow Rate 3 04/15/23 16:20 [facility] - COVID Medical Decision Making Care signed out to Dr. Johnson at change of shift. See final notes for diagnosis and disposition. Medical Records I reviewed the patient's medical records. Lab Data I reviewed the patient's lab results. 04/15/23 17:07 04/15/23 17:07 Radiology Impressions Chest X-Ray 04/15/23 16:10 IMPRESSION: 1. No acute interval changes. 2. Diffuse curvilinear opacities more pronounced at the lower lung bases consistent with emphysema. Chest CTA 04/15/23 17:22 IMPRESSION: Multifocal subsegmental pulmonary embolism in the right lung. Partial collapse of the right middle lobe due to a consolidation. Marked emphysema. COMMENTS: The presence of pulmonary emphysema on CT is an independent risk factor for lung cancer. In the absence of a history or active diagnosis of lung cancer, it is recommended that this patient with emphysema be evaluated for enrollment in a low dose CT lung cancer screening program. ADDENDUM: 04/15/231912 THIS REPORT CONTAINS FINDINGS THAT MAY BE CRITICAL TO PATIENT CARE. The findings were verbally communicated via telephone conference with Dr. Johnson at 7:11 PM STOCK TURNER on 04/15/2023. The findings were acknowledged and understood. Laboratory Results WBC 16.72 10^3/uL (3.29-11.43) H 04/15/23 17:07 RBC 4.56 10^6/uL (3.85-5.65) 04/15/23 17:07 Hgb 11.80 g/dL (11.27-16.99) 04/15/23 17:07 Hct 39.0 % (36-47) 04/15/23 17:07 MCV 85.5 fl (85-98) 04/15/23 17:07 MCH 25.9 pg (27-33) L 04/15/23 17:07 MCHC 30.3 g/dL (30-55) 04/15/23 17:07 RDW 18.0 % (12.1-15.1) H 04/15/23 17:07 Plt Count 414 10^3/cmm (157-399) H 04/15/23 17:07 MPV 9.0 fL (7.4-10.4) 04/15/23 17:07 Neut % (Auto) 83.6 % 04/15/23 17:07 Lymph % (Auto) 6.0 % 04/15/23 17:07 Polk % (Auto) 9.4 % 04/15/23 17:07 Eos % (Auto) 0.1 % 04/15/23 17:07 Baso % (Auto) 0.2 % 04/15/23 17:07 Neut # (Auto) 13.97 10^3/uL (1.8-7.7) H 04/15/23 17:07 Lymph # (Auto) 1.0 10^3/uL (0.8-4.8) 04/15/23 17:07 Polk # (Auto) 1.6 10^3/uL (0.2-0.9) H 04/15/23 17:07 Eos # (Auto) 0.0 10^3/uL (0.0-0.8) 04/15/23 17:07 Baso # (Auto) 0.0 10^3/uL (0.0-0.1) 04/15/23 17:07 Nucleated RBC % (auto) 0 % 04/15/23 17:07 Nucleated RBCs # 0.0 /100WBC 04/15/23 17:07 PT 14.00 SECONDS (12.1-14.9) 04/15/23 17:07 INR 1.05 (0.8-1.2) 04/15/23 17:07 Sodium 137 mmol/L (136-145) 04/15/23 17:07 Potassium 3.9 mmol/L (3.5-5.1) 04/15/23 17:07 Chloride 101 mmol/L (98-107) 04/15/23 17:07 Carbon Dioxide 24 mmol/L (22-29) 04/15/23 17:07 Anion Gap 15.9 (5-19) 04/15/23 17:07 BUN 11 mg/dL (8-23) 04/15/23 17:07 Creatinine 0.5 mg/dL (0.5-0.9) 04/15/23 17:07 GFR Calculation 125.0 mL/min (90-130) 04/15/23 17:07 Glucose 136 mg/dL (65-115) H 04/15/23 17:07 Calculated Osmolality 285 mOsm/kg (285-295) 04/15/23 17:07 Calcium 9.2 mg/dL (8.5-10.5) 04/15/23 17:07 Total Bilirubin 0.2 mg/dL (0.15-1.2) 04/15/23 17:07 AST 26 U/L (0-32) 04/15/23 17:07 ALT 27 U/L (0-33) 04/15/23 17:07 Alkaline Phosphatase 110 U/L (35-105) H 04/15/23 17:07 Creatine Kinase 37 U/L (26-192) 04/15/23 17:07 Troponin T Baseline 11 ng/L (0-10) H 04/15/23 17:07 Troponin T 120 Minute 10.27 ng/L (0-10) H 04/15/23 19:28 Delta Troponin T -0.73 ABS# (0-10) L 04/15/23 19:28 Total Protein 6.6 g/dL (6.6-8.7) 04/15/23 17:07 Albumin 3.2 g/dL (3.5-5.2) L 04/15/23 17:07 Globulin 3.4 g/dL (1.3-4.6) 04/15/23 17:07 Lipase 20 U/L (13-60) 04/15/23 17:07 Coronavirus 229E (PCR) Not detected (NOT DETECT) 04/15/23 18:14 Influenza Type A Ag negative (Negative) 04/15/23 18:14 Influenza Type B Ag negative (Negative) 04/15/23 18:14 SARS-CoV-2 (PCR) Not detected (NOT DETECT) 04/15/23 18:14 SARS-CoV-2 Antigen (Rapid) negative (Negative) 04/08/23 11:57 SARS-CoV-2 (PCR) Not detected (NOT DETECT) 04/15/23 18:14 Coronavirus Type 229E (PCR) Not detected (NOT DETECT) 04/15/23 18:14 XR interpretation done by ED provider, pending radiology final review Discharge Plan Discharge Patient Disposition: Admitted As Inpatient Clinical Impression: Chronic hypoxemic respiratory failure Pulmonary embolism Qualifiers: Pulmonary embolism type: multiple subsegmental (without acute cor pulmonale) Qualified Code(s): I26.94 - Multiple subsegmental pulmonary emboli without acute cor pulmonale Colon cancer Qualifiers: Colon location: unspecified part of colon Qualified Code(s): C18.9 - Malignant neoplasm of colon, unspecified Condition: Stable Coding Level of Care Code 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 Documented by User: Davi Johnson DO 04/15/23 20:23 HPI - COVID General: Chief Complaint: COVID symptoms Stated Complaint: chest pain, colon cancer Time Seen by Provider: 04/15/23 16:46 COVID Results: SARS-CoV-2 Antigen (Rapid) negative (Negative) 04/08/23 11:57 SARS-CoV-2 (PCR) Not detected (NOT DETECT) 04/15/23 18:14 Coronavirus Type 229E (PCR) Not detected (NOT DETECT) 04/15/23 18:14 [facility] ED PFSH: Medical History (Updated 04/15/23 @ 20:22 by Davi Johnson DO) Hypoxia Presence of ileostomy Nicotine dependence, cigarettes, uncomplicated Generalized weakness On antineoplastic chemotherapy Moderate protein-calorie malnutrition Left lower lobe pneumonia Iron deficiency anemia Urinary tract infection Weight loss of more than 10% body weight 8 Para 7 (1 miscarriage, 1 ectopic, 1 twin ) Chronic constipation Pyelonephritis of right kidney Painful bladder spasm Colon adenocarcinoma Pelvic Mass, RLQ, Surg. Path 01/16/2023 mod differentiated, open ileostomy Dr. Liao [facility]; small bowel and bladder noted via PET 02/26/23; mFOLFOX started 03/18/23 Cyanosis of tip of finger Colitis Surgical History (Updated 04/12/23 @ 00:01 by SHELBY Patrick) Port-A-Cath in place Hx of ileostomy History of bilateral ligation of fallopian tubes Family History Father Heart attack Mother Bipolar 1 disorder CAD (coronary artery disease) Social History Smoking and tobacco/nicotine status: current every day tobacco/nicotine user Quit status (tobacco/nicotine): not considering quitting Alcohol intake: former Substance/Drug Use: never Physical Exam Const: COMMON NORMALS: no acute distress, average body habitus, patient oriented x3, no limitations, alert and well nourished HENMT: COMMON NORMALS: normocephalic, atraumatic, hearing grossly normal bilaterally, external ears normal, Normal external nose present, moist oral mucous membranes and oropharynx normal HEAD & SCALP: normocephalic and atraumatic NOSE: Normal external nose present EXTERNAL EAR: Yes external ears normal Neck/C-Spine: COMMON NORMALS: full ROM, no lymphadenopathy, supple, no meningeal signs, no JVD and Thyroid normal THYROID: Thyroid normal Chest: COMMONS NORMALS: normal inspection of the chest and normal palpation of entire chest wall Resp: COMMON NORMALS: normal respiratory effort, No retractions, No use of accessory muscles and clear to auscultation bilaterally AUSCULTATION: clear to auscultation bilaterally Cardio: COMMON NORMALS: no JVD, regular rate, regular rhythm, S1 normal heart sound present, S2 normal heart sound present, No gallops present (Cardio), No clicks present (Cardio), No murmurs present (Cardio) and No rub (Cardio) RATE: regular rate RHYTHM: regular rhythm HEART SOUNDS: S1 normal heart sound present and S2 normal heart sound present GI: COMMON NORMALS: Normal to inspection, nondistended, normoactive bowel sounds present, Soft to palpation, non-tender, No hepatosplenomegaly present and no masses PALPATION: Yes Soft to palpation and Yes No hepatosplenomegaly present Neuro: COMMON NORMALS: patient oriented x3 SENSORIUM/ORIENTATION: Yes alert MENINGEAL SIGNS: Yes no meningeal signs Course Vital Signs: Vital signs: Vital Signs Temperature 98.2 F 04/15/23 16:20 Pulse Rate 120 H 04/15/23 18:38 Respiratory Rate 16 04/15/23 18:38 Blood Pressure 110/69 04/15/23 18:38 Pulse Oximetry 97 04/15/23 18:38 Oxygen Delivery Me thod Room Air 04/15/23 18:38 Oxygen Flow Rate 3 04/15/23 16:20 [facility] Medical Decision Making Care signed out to Dr. Johnson at change of shift. See final notes for diagnosis and disposition. CT revealed new right sided subsegmental PE with no heart strain. Lab work revealed a white count of 16.7. These findings was discussed with the patient patient would like inpatient mission secondary to living far away. Since patient has secondary risk factors such as metastatic colon cance patient will be admitted placed on a heparin drip. Dr. Ca was consulted who agreed with for inpatient evaluation and treatment. Patient be placed up on MedSurg. Lab Data 04/15/23 17:07 04/15/23 17:07 Radiology Impressions Chest X-Ray 04/15/23 16:10 IMPRESSION: 1. No acute interval changes. 2. Diffuse curvilinear opacities more pronounced at the lower lung bases consistent with emphysema. Chest CTA 04/15/23 17:22 IMPRESSION: Multifocal subsegmental pulmonary embolism in the right lung. Partial collapse of the right middle lobe due to a consolidation. Marked emphysema. COMMENTS: The presence of pulmonary emphysema on CT is an independent risk factor for lung cancer. In the absence of a history or active diagnosis of lung cancer, it is recommended that this patient with emphysema be evaluated for enrollment in a low dose CT lung cancer screening program. ADDENDUM: 04/15/23 1913 THIS REPORT CONTAINS FINDINGS THAT MAY BE CRITICAL TO PATIENT CARE. The findings were verbally communicated via telephone conference with Dr. Johnson at 7:11 PM STOCK TURNER on 04/15/2023. The findings were acknowledged and understood. Laboratory Results WBC 16.72 10^3/uL (3.29-11.43) H 04/15/23 17:07 RBC 4.56 10^6/uL (3.85-5.65) 04/15/23 17:07 Hgb 11.80 g/dL (11.27-16.99) 04/15/23 17:07 Hct 39.0 % (36-47) 04/15/23 17:07 MCV 85.5 fl (85-98) 04/15/23 17:07 MCH 25.9 pg (27-33) L 04/15/23 17:07 MCHC 30.3 g/dL (30-55) 04/15/23 17:07 RDW 18.0 % (12.1-15.1) H 04/15/23 17:07 Plt Count 414 10^3/cmm (157-399) H 04/15/23 17:07 MPV 9.0 fL (7.4-10.4) 04/15/23 17:07 Neut % (Auto) 83.6 % 04/15/23 17:07 Lymph % (Auto) 6.0 % 04/15/23 17:07 Polk % (Auto) 9.4 % 04/15/23 17:07 Eos % (Auto) 0.1 % 04/15/23 17:07 Baso % (Auto) 0.2 % 04/15/23 17:07 Neut # (Auto) 13.97 10^3/uL (1.8-7.7) H 04/15/23 17:07 Lymph # (Auto) 1.0 10^3/uL (0.8-4.8) 04/15/23 17:07 Polk # (Auto) 1.6 10^3/uL (0.2-0.9) H 04/15/23 17:07 Eos # (Auto) 0.0 10^3/uL (0.0-0.8) 04/15/23 17:07 Baso # (Auto) 0.0 10^3/uL (0.0-0.1) 04/15/23 17:07 Nucleated RBC % (auto) 0 % 04/15/23 17:07 Nucleated RBCs # 0.0 /100WBC 04/15/23 17:07 PT 14.00 SECONDS (12.1-14.9) 04/15/23 17:07 INR 1.05 (0.8-1.2) 04/15/23 17:07 Sodium 137 mmol/L (136-145) 04/15/23 17:07 Potassium 3.9 mmol/L (3.5-5.1) 04/15/23 17:07 Chloride 101 mmol/L (98-107) 04/15/23 17:07 Carbon Dioxide 24 mmol/L (22-29) 04/15/23 17:07 Anion Gap 15.9 (5-19) 04/15/23 17:07 BUN 11 mg/dL (8-23) 04/15/23 17:07 Creatinine 0.5 mg/dL (0.5-0.9) 04/15/23 17:07 GFR Calculation 125.0 mL/min (90-130) 04/15/23 17:07 Glucose 136 mg/dL (65-115) H 04/15/23 17:07 Calculated Osmolality 285 mOsm/kg (285-295) 04/15/23 17:07 Calcium 9.2 mg/dL (8.5-10.5) 04/15/23 17:07 Total Bilirubin 0.2 mg/dL (0.15-1.2) 04/15/23 17:07 AST 26 U/L (0-32) 04/15/23 17:07 ALT 27 U/L (0-33) 04/15/23 17:07 Alkaline Phosphatase 110 U/L (35-105) H 04/15/23 17:07 Creatine Kinase 37 U/L (26-192) 04/15/23 17:07 Troponin T Baseline 11 ng/L (0-10) H 04/15/23 17:07 Troponin T 120 Minute 10.27 ng/L (0-10) H 04/15/23 19:28 Delta Troponin T -0.73 ABS# (0-10) L 04/15/23 19:28 Total Protein 6.6 g/dL (6.6-8.7) 04/15/23 17:07 Albumin 3.2 g/dL (3.5-5.2) L 04/15/23 17:07 Globulin 3.4 g/dL (1.3-4.6) 04/15/23 17:07 Lipase 20 U/L (13-60) 04/15/23 17:07 Coronavirus 229E (PCR) Not detected (NOT DETECT) 04/15/23 18:14 Influenza Type A Ag negative (Negative) 04/15/23 18:14 Influenza Type B Ag negative (Negative) 04/15/23 18:14 SARS-CoV-2 (PCR) Not detected (NOT DETECT) 04/15/23 18:14 SARS-CoV-2 Antigen (Rapid) negative (Negative) 04/08/23 11:57 SARS-CoV-2 (PCR) Not detected (NOT DETECT) 04/15/23 18:14 Coronavirus Type 229E (PCR) Not detected (NOT DETECT) 04/15/23 18:14 Discharge Plan Discharge Patient Disposition: Admitted As Inpatient Clinical Impression: Chronic hypoxemic respiratory failure Pulmonary embolism Qualifiers: Pulmonary embolism type: multiple subsegmental (without acute cor pulmonale) Qualified Code(s): I26.94 - Multiple subsegmental pulmonary emboli without acute cor pulmonale Colon cancer Qualifiers: Colon location: unspecified part of colon Qualified Code(s): C18.9 - Malignant neoplasm of colon, unspecified Condition: Stable Coding Level of Care Code 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
--- NOTE | 2023-04-15 17:13 | ECG_ITS ---
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 Measurements Intervals [place] Rate: 116 P: -3 IA: 110 QRS: 79 QRSD: 70 T: 63 QT: 297 QTc: 414 Interpretive Statements SINUS TACHYCARDIA WITH SHORT IA INTERVAL ABNORMAL RHYTHM ECG Compared to ECG 04/08/2023 11:11:32 Short IA interval now present Supraventricular rhythm no longer present Electronically Signed On 04-16-2023 19:41:49 ALCOHOL RUBBER by Tevin Frederick M.D. [email or web address] Distributorsmerit health woman's hospitalMicroVisionuniversity hospitals st. [facility].Dining [email or web address]/[id number]
--- NOTE | 2023-04-15 17:22 | CTR_ITS ---
PROCEDURE INFORMATION: Exam: CTA Chest With Contrast Exam date and time: 04/15/2023 6:16 PM Age: 62 years old Clinical indication: Pain; Chest pressure; Prior surgery; Surgery date: 6+ months; Surgery type: Port a cath; Additional info: Chest pain increased hypoxia history colon cancer TECHNIQUE: Imaging protocol: Computed tomographic angiography of the chest with contrast. Exam focused on the arteries. 3D rendering (Not supervised by radiologist): MIP and/or 3D reconstructed images were created by the technologist. Radiation optimization: All CT scans at this facility use at least one of these dose optimization techniques: automated exposure control; mA and/or kV adjustment per patient size (includes targeted exams where dose is matched to clinical indication); or iterative reconstruction. Contrast material: OMNI 350; Contrast volume: 100 ml; Contrast route: INTRAVENOUS (IV); COMPARISON: PT PET [facility] INITIAL [id number] 02/26/2023 12:36 PM RADIATION DOSE METRICS: Total DLP (mGy-cm): 109 FINDINGS: Pulmonary arteries: Adequate visualization of the pulmonary arteries to the subsegmental level. Nonobstructive filling defect is seen along the distal subsegmental branches of the right lower lobe, and a small branch of the right upper lobe. (coronal image 17, and image 23). Aorta: Ascending aorta is normal in caliber. Lungs: Marked centrilobular emphysema. Partial collapse of the right middle lobe. Fibrotic lung changes seen of the left lung base. 1.1 centimeters right peripheral upper lobe density. Pleural spaces: Unremarkable. No pneumothorax. No pleural effusion. Heart: Right ventricle/left ventricle ratio = 0.9. No evidence of right heart strain, no pericardial effusion. Coronary arteries: There is moderate atherosclerotic calcification of the coronary arteries. Lymph nodes: Multiple calcified mediastinal lymph nodes. Intraperitoneal space: The visualized intra-abdominal structures are normal. Bones/joints: Unremarkable. No acute fracture. Soft tissues: Unremarkable. CT/CT angio chest PE protcl [id number] IMPRESSION: Multifocal subsegmental pulmonary embolism in the right lung. Partial collapse of the right middle lobe due to a consolidation. Marked emphysema. COMMENTS: The presence of pulmonary emphysema on CT is an independent risk factor for lung cancer. In the absence of a history or active diagnosis of lung cancer, it is recommended that this patient with emphysema be evaluated for enrollment in a low dose CT lung cancer screening program.
[2023-04-15 17:25] LABS: Basophils % 0.2 %; Eosinophils % 0.1 %; Mean Corpuscular HGB Conc 30.3 g/dL (30-55); Mean Corpuscular Hemoglobin 25.9 pg (27-33); Mean Corpuscular Volume 85.5 fl (85-98); Monocytes # 1.6 10^3/uL (0.2-0.9); Monocytes % 9.4 %; Neutrophils # 13.97 10^3/uL (1.8-7.7); Neutrophils % 83.6 %; Nucleated Red Blood Cells % 0 %; Platelet Count 414 10^3/cmm (157-399); Red Blood Count 4.56 10^6/uL (3.85-5.65); White Blood Count 16.72 10^3/uL (3.29-11.43)
[2023-04-15 17:40] LABS: INR 1.05 (0.8-1.2)
[2023-04-15 17:45] LABS: Troponin(5th) Baseline 11 ng/L (0-10)
[2023-04-15 17:46] LABS: Alanine Aminotransferase 27 U/L (0-33); Albumin Level 3.2 g/dL (3.5-5.2); Alkaline Phosphatase 110 U/L (35-105); Anion Gap 15.9 (5-19); Aspartate Amino Transferase 26 U/L (0-32); Blood Urea Nitrogen 11 mg/dL (8-23); Calcium 9.2 mg/dL (8.5-10.5); Carbon Dioxide 24 mmol/L (22-29); Chloride 101 mmol/L (98-107); Creatine Phosphokinase 37 U/L (26-192); Globulin 3.4 g/dL (1.3-4.6); Glucose 136 mg/dL (65-115); Lipase 20 U/L (13-60); Osmolality Calculated 285 mOsm/kg (285-295); Potassium 3.9 mmol/L (3.5-5.1); Sodium 137 mmol/L (136-145); Total Bilirubin 0.2 mg/dL (0.15-1.2); Total Protein 6.6 g/dL (6.6-8.7)
[2023-04-15] MEDS: iohexol 350 mg/mL 500 mL Btl (per mL) IV (18:00)
[2023-04-15] MEDS: sodium chloride 0.9% 1,000 ML 999 ML IV (18:06)
[2023-04-15] MEDS: ondansetron 2 mg/ML SDV 2 mL 4 MG IVP (18:06)
[2023-04-15 18:14] VITALS: O2SAT 98
[2023-04-15 18:38] VITALS: BP 110/69; PULSE 120; RESP 16; O2SAT 97
[2023-04-15 18:39] LABS: Influenza A by IFA negative (Negative); Influenza B by IFA negative (Negative)
[2023-04-15 19:58] LABS: Troponin 5 2HR 10.27 ng/L (0-10)
[2023-04-15 20:01] LABS: Troponin 5 2HR Delta -0.73 ABS# (0-10)
[2023-04-15 20:04] LABS: Adenovirus Not Detected (NOT DETECT); Chlamydia Pneumoniae Not Detected (NOT DETECT); Coronavirus 229E,HKU1,NL63,OC4 Not Detected (NOT DETECT); Human Metapneumovirus Not Detected (NOT DETECT); Human Rhinovirus/Enterovirus Not Detected (NOT DETECT); Influenza A Not Detected (NOT DETECT); Influenza A H1 Not Detected (NOT DETECT); Influenza A H1-2009 Not Detected (NOT DETECT); Influenza A H3 Not Detected (NOT DETECT); Influenza B Not Detected (NOT DETECT); Mycoplasma Pneumoniae Not Detected (NOT DETECT); Parainfluenza Virus Type 1 Not Detected (NOT DETECT); Parainfluenza Virus Type 2 Not Detected (NOT DETECT); Parainfluenza Virus Type 3 Not Detected (NOT DETECT); Parainfluenza Virus Type 4 Not Detected (NOT DETECT); Respiratory Syncytial Virus A Not Detected (NOT DETECT); Respiratory Syncytial Virus B Not Detected (NOT DETECT); SARS-COV-2 Not Detected (NOT DETECT)
[2023-04-15 21:00] VITALS: BP 110/75; PULSE 125; RESP 18; O2SAT 95
--- NOTE | 2023-04-15 21:13 | PM.HP ---
Providers/Chief Complaint Admitting Physician: Keaton Guillaume MD Primary Care Provider: Darwin Reaves MD Chief Complaint: chest pain, colon cancer History of Present Illness Liliana Monroy is a 62 year old female with a past medical history of colon Cancer, with invasion to bladder, currently on chemotherapy, recent hospitalization for pneumonia, history of low body weight BMI 12.9, cancer cachexia, moderate protein calorie malnutrition, due to shortness of breath, and right-sided chest pain. Patient tells me that she has been feeling short of breath since she got to the hospital, has a nonproductive cough, no fevers, no chills, increased shortness of breath with exertion, today she noticed that she had right-sided chest pain, chest pain with taking a deep breath in, she is chronically 2 L of oxygen now using 3 L, current smoker, no formal diagnosis of COPD Review of Systems Const: Denies: fever(s) or chills Card: Reports: chest pain Resp: Reports: dyspnea GI: Denies: abdominal pain : Denies: flank pain Neuro: Denies: headache(s) Medications/Allergies Home Medications Medication Instructions Recorded Confirmed Last Taken Type melatonin 3 mg tablet 3 mg PO BEDTIME 01/08/23 04/08/23 02/17/23 History naloxone 4 mg/actuation nasal 4 mg intranasal Q2M PRN Opioid 02/07/23 04/08/23 Unknown History spray (Narcan) Overdose oxybutynin chloride 15 mg 15 mg PO DAILY #30 tabs 02/14/23 04/08/23 02/18/23 05:00 Rx tablet,extended release 24 hr acetaminophen 500 mg capsule 1,000 mg (2 x 500 mg) PO Q6H #300 03/13/23 04/08/23 Unknown Rx caps aspirin 81 mg tablet,delayed 81 mg PO DAILY #90 tabs 03/13/23 04/08/23 Unknown Rx release ferrous sulfate 325 mg (65 mg 325 mg PO ONCE #100 tabs 03/13/23 04/08/23 Unknown Rx iron) tablet prochlorperazine maleate 10 mg 10 mg PO Q6H PRN nausea and 03/13/23 04/08/23 Unknown Rx tablet (Compazine) vomiting #30 tabs loperamide 2 mg tablet 2 mg PO .COMPLEX PRN loose stool 03/18/23 04/08/23 Unknown Rx #30 tabs oxycodone-acetaminophen 5 mg-325 1 tab PO Q8H PRN cancer pain 30 03/21/23 04/08/23 Unknown Rx mg tablet days #90 tabs phenazopyridine 200 mg tablet 200 mg PO TID bladder pain #90 tabs 03/21/23 04/08/23 Unknown Rx (Pyridium) ondansetron 4 mg disintegrating 4 mg PO Q8H PRN nausea and 03/27/23 04/08/23 Unknown Rx tablet vomiting #20 tabs lidocaine-prilocaine 2.5 %-2.5 % 1 applic topical .COMPLEX #30 grams 03/28/23 04/08/23 Unknown Rx topical cream baclofen 10 mg tablet 10 mg PO Q6H PRN muscle spasm 04/08/23 04/08/23 Unknown History cyclobenzaprine 5 mg tablet 5 mg PO TID PRN Muscle Spasm 04/08/23 04/08/23 Unknown History pantoprazole 20 mg tablet,delayed 20 mg PO DAILY ACID REFLUX 04/08/23 04/08/23 Unknown History release albuterol sulfate 90 mcg/actuation 2 inh inhalation Q8H PRN shortness 04/11/23 Unknown Rx aerosol inhaler of breath or wheezing #6.7 grams levofloxacin 750 mg tablet 750 mg PO DAILY 10 days #10 tabs 04/11/23 Unknown Rx Allergies Allergy/AdvReac Type Severity Reaction Status Date / Time paroxetine [From Paxil] Allergy Unknown Verified 04/08/23 10:51 PFSH Acute PFSH: Medical History (Updated 04/15/23 @ 21:21 by Keaton Guillaume MD) Hypoxia Presence of ileostomy Nicotine dependence, cigarettes, uncomplicated Generalized weakness On antineoplastic chemotherapy Moderate protein-calorie malnutrition Left lower lobe pneumonia Iron deficiency anemia Urinary tract infection Weight loss of more than 10% body weight 8 Para 7 (1 miscarriage, 1 ectopic, 1 twin ) Chronic constipation Pyelonephritis of right kidney Painful bladder spasm Colon adenocarcinoma Pelvic Mass, RLQ, Surg. Path 01/16/2023 mod differentiated, open ileostomy [facility]; small bowel and bladder noted via PET 02/26/23; mFOLFOX started 03/18/23 Cyanosis of tip of finger Colitis Surgical History (Updated 04/12/23 @ 00:01 by SHELBY Patrick) Port-A-Cath in place Hx of ileostomy History of bilateral ligation of fallopian tubes Family History Father Heart attack Mother Bipolar 1 disorder CAD (coronary artery disease) Social History Smoking and tobacco/nicotine status: current every day tobacco/nicotine user Quit status (tobacco/nicotine): not considering quitting Alcohol intake: former Substance/Drug Use: never Vitals/I&O/Wt Last Vital Signs Temp 98.2 F 04/15/23 16:20 Pulse 125 H 04/15/23 21:00 Resp 18 04/15/23 21:00 BP 110/75 04/15/23 21:00 Pulse Ox 95 04/15/23 21:00 O2 Del Method Nasal Cannula 04/15/23 21:00 O2 Flow Rate 3 04/15/23 16:20 04/15/23 04/15/23 04/15/23 06:59 14:59 22:59 Intake Total 1000 / 1000 Balance 1000 / 1000 Weight last 48 hrs Weight 29.937 kg Physical Exam Const: COMMON NORMALS: no acute distress and patient oriented x3 OTHER: Severe muscle wasting, bilateral temporal muscle wasting, bilateral arms, bilateral thighs, bilateral legs HENMT: COMMON NORMALS: normocephalic HEAD & SCALP: normocephalic Eye: COMMON NORMALS: Equal, round and reactive pupils present Neck/C-Spine: COMMON NORMALS: no JVD Lymph: LYMPHATIC: no lymphadenopathy noted Resp: COMMON NORMALS: normal respiratory effort, No retractions and No use of accessory muscles AUSCULTATION: wheezes Cardio: COMMON NORMALS: no JVD, regular rhythm, S1 normal heart sound present and S2 normal heart sound present RATE: tachycardic RHYTHM: regular rhythm HEART SOUNDS: S1 normal heart sound present and S2 normal heart sound present GI: COMMON NORMALS: Normal to inspection, nondistended, normoactive bowel sounds present, Soft to palpation and non-tender Extremity: COMMON NORMALS: no calf tenderness and no pedal edema Neuro: COMMON NORMALS: patient oriented x3, CN's II-XII intact bilaterally, moves all extremities and no focal motor deficits Psych: COMMON NORMALS: mental status grossly normal Data 04/15/23 17:07 04/15/23 17:07 A&P Assessment and plan (1) Pulmonary embolism: Qualifiers: Pulmonary embolism type: multiple subsegmental (without acute cor pulmonale) Qualified Code(s): I26.94 - Multiple subsegmental pulmonary emboli without acute cor pulmonale (2) Consolidation of middle lobe of lung: (3) PNA (pneumonia): Plan Multifocal subsegmental pulmonary embolism in the right lung ? Started on heparin drip can ? Can transition to Eliquis tomorrow, ? Serial EKGs, serial troponins, telemetry monitoring, ? Telemetry monitoring, ? Cardiac echo, ? Venous ultrasound Patient has partial collapse of right middle lobe due to consolidation ? Due to leukocytosis, immunocompromise state, recent hospitalization for pneumonia ? I will treat her for recurrence of pneumonia, concerns for postobstructive pneumonia, ? Concerns for possible malignancy related? -History of follow-up with pulmonary as outpatient, ? Continue Rocephin ?continue azithromycin -Follow sputum cultures, bacterial antigens History of colon cancer, with bladder invasion, -On active chemotherapy Low body weight, severe protein calorie malnutrition, cancer cachexia, muscle wasting history of smoking, no formal diagnosis of copd dnr/dni wilian batista Attestations Medical Necessity Statement*: Patient requires hospitalization, for pneumonia, concerns for postobstructive pneumonia, PE, inpatient, greater than 2 midnights, history of colon cancer Coding Level of Care Code 09887 Diagnoses Pulmonary embolism I26.94 Pulmonary embolism type: multiple subsegmental (without acute cor pulmonale) Consolidation of middle lobe of lung J18.1 PNA (pneumonia) J18.9
[2023-04-15 21:46] LABS: Procalcitonin 0.12 ng/mL (0-0.5)
[2023-04-15 21:49] LABS: Lactic Sepsis W/Reflex 2.1 mmol/L (0.5-2.2)
[2023-04-15 21:59] VITALS: BP 89/59; PULSE 120; RESP 19; TEMP 37.2; O2SAT 98
--- NOTE | 2023-04-15 22:34 | USCV_ITS ---
Porfirio Liliana Age: 62 Gender: F : 1960 Exam Date: 04/15/2023 23:01 Ordering Phys: Keaton Guillaume MD Technologist: JESUS Exam Location: [facility] [place] Indication: colon cancer with mets to the bladder. No history of DVT per patient. HISTORY: colon cancer with mets to the bladder. No history of DVT per patient. No LE edema. No LE erythema. PROCEDURES: Venous duplex imaging was performed in bilateral lower extremities. The following venous structures were evaluated: common femoral vein, profunda vein, proximal portion of the greater saphenous vein, superficial femoral vein, and the popliteal vein. In addition, the posterior tibial and peroneal veins were evaluated. FINDINGS: Normal 2-D Doppler and augmentation and compressibility throughout the lower extremity venous structures. Additional imaging through the proximal calf veins also reveals no thrombus. Limited evaluation of the greater saphenous vein is patent with no thrombus. CONCLUSIONS No DVT bilateral lower extremities. Dr. Leanne Arevalo DO (Electronically Signed) Final Date: 16 April 2023 08:01 S
[2023-04-15 22:50] LABS: D Dimer 1.94 ug/mLFEU (0-0.59)
[2023-04-15 22:58] LABS: C Reactive Protein 43.2 mg/L (0.0-4.9)
[2023-04-15] MEDS: acetaminophen 500 mg Tablet 1000 MG PO (23:07)
[2023-04-15 23:12] LABS: Troponin 5 6HR 13.97 ng/L (0-10); Troponin 5 6HR Delta 2.97 ng/L (0-12)
[2023-04-15 23:18] LABS: Reflex Lactate Order REFLEX LACTIC ORDERD
[2023-04-15] MEDS: enoxaparin 30 mg/0.3 mL Syringe SUBCUT (23:22)
[2023-04-15] MEDS: azithromycin 500 MG in sodium chloride 0.9% 250 ML 250 MG IV (23:34)
[2023-04-15 23:49] VITALS: PULSE 128
[2023-04-16] VITALS (8 sets, daily range): BP systolic 107–140; BP diastolic 70–80; PULSE 106–128; RESP 17–18; TEMP 37.1–37.7; O2SAT 94–98
[2023-04-16] MEDS: cefTRIAXone 1,000 MG in sodium chloride 0.9% (plus) 50 ML 100 MG IV (00:44)
[2023-04-16 01:30] LABS: Basophils % 0.3 %; Eosinophils # 0.1 10^3/uL (0.0-0.8); Eosinophils % 0.3 %; Hematocrit 34.4 % (36-47); Lymphocytes # 1.3 10^3/uL (0.8-4.8); Lymphocytes % 9.1 %; Mean Corpuscular HGB Conc 30.2 g/dL (30-55); Mean Corpuscular Hemoglobin 25.9 pg (27-33); Mean Corpuscular Volume 85.6 fl (85-98); Monocytes # 1.6 10^3/uL (0.2-0.9); Monocytes % 10.9 %; Neutrophils # 11.55 10^3/uL (1.8-7.7); Neutrophils % 78.9 %; Nucleated Red Blood Cells % 0 %; Platelet Count 403 10^3/cmm (157-399); Red Blood Count 4.02 10^6/uL (3.85-5.65); Red Cell Distribution Width 17.9 % (12.1-15.1); White Blood Count 14.66 10^3/uL (3.29-11.43)
[2023-04-16 01:55] LABS: Lactic Acid level (Lactate) 1.6 mmol/L (0.5-2.2)
[2023-04-16 01:56] LABS: Alanine Aminotransferase 21 U/L (0-33); Albumin Level 2.6 g/dL (3.5-5.2); Alkaline Phosphatase 106 U/L (35-105); Anion Gap 12.5 (5-19); Aspartate Amino Transferase 20 U/L (0-32); Blood Urea Nitrogen 8 mg/dL (8-23); Calcium 8.3 mg/dL (8.5-10.5); Carbon Dioxide 24 mmol/L (22-29); Chloride 107 mmol/L (98-107); Globulin 3.6 g/dL (1.3-4.6); Glomerular Filtration Rate 161.7 mL/min (90-130); Glucose 95 mg/dL (65-115); Magnesium 1.5 mg/dL (1.7-2.3); Osmolality Calculated 288 mOsm/kg (285-295); Phosphorus 1.8 mg/dL (2.5-4.5); Potassium 3.5 mmol/L (3.5-5.1); Sodium 140 mmol/L (136-145); Total Bilirubin 0.2 mg/dL (0.15-1.2); Total Protein 6.2 g/dL (6.6-8.7)
--- NOTE | 2023-04-16 03:07 | ECG_ITS ---
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 Measurements Intervals [place] Rate: 122 P: 27 OR: 150 QRS: 76 QRSD: 72 T: 47 QT: 291 QTc: 415 Interpretive Statements Possible SINUS TACHYCARDIA NONSPECIFIC T-WAVE ABNORMALITY ABNORMAL RHYTHM ECG Compared to ECG 04/15/2023 17:13:21 T-wave abnormality now present Short OR interval no longer present Electronically Signed On 04-16-2023 10:10:35 MATERNAL FETAL PHYSICIAN by Tevin Frederick M.D. [id number]
[2023-04-16] MEDS: acetaminophen 500 mg Tablet 1000 MG PO (05:54)
--- NOTE | 2023-04-16 09:15 | PC.CHAP ---
Pastoral Care Encounter/Spiritual Assessment Type of Contact [] Declined snow groomer visit [] Patient/Family/Request visit [] Outpatient visit [] Follow-up visit [] Physician referral [] Code/Alert [] Routine visit [] Staff referral [] Actively dying [] Patient sleeping [] Family support [] [] Out of room [] Palliative care [] [x] Receiving care in room [] Pre-surgical visit [] Trauma [] Long length of stay [] ICU visit [] Other: Relational/Emotional Strength [] Patient feels connected with others/family/visitors/staff [] Distress [] Loneliness/isolation [] Abandonment Spirituality of Patient [] Person of Ifeoma [] Attends Voodoo of their Ifeoma [] Believes in Prayer [] Reads Bible or Yazidism materials [] There are Spiritual issues to be addressed Chief Credit Officer Interventions [] Prayer [] Active listening [] Non-anxious presence [] Spiritual/emotional support [] Crisis/trauma care [] Spiritual counseling [] Bereavement support [] Provided bereavement packet [] Provided Bible/devotional materials [] Provided toy/stuffed animal, coloring book to patient or family member [] Provided Communion [] Anointing/[place] [] Salvation [] Completed spiritual assessment [] Other: Impact on Illness or Injury [] Angry [] Fearful [] Anxious [] Often cries [] Exhaustion [] Unable to work [] Unable to attend restoration [] Unable to walk/stand [] Unable to read [] Unable to drive [] Unable to eat/drink [] Unable to sleep [] Unable to be with family [] Patient intubated [] Other: Summary Time spent with patient
[2023-04-16] MEDS: aspirin 81 mg EC Tablet PO (09:43)
[2023-04-16] MEDS: pantoprazole DR 40 mg Tablet PO (09:44)
[2023-04-16] MEDS: oxybutynin chloride XL 5 MG TABLET 15 MG PO (09:45)
--- NOTE | 2023-04-16 09:50 | P.PN_ITS ---
Documented by User: JUSTINA Shaffer STDKELLEE 04/16/23 10:22 Subjective 2 Subjective: Patient resting in bed this morning with her daughter at bedside. She denies pain, she is currently on 3 L nasal cannula. Medications: Reviewed: Yes Vitals/I&O/Wt Last Vital Signs Temp 99.8 F H 04/16/23 04:00 Pulse 110 H 04/16/23 09:26 Resp 18 04/16/23 09:26 BP 140/80 04/16/23 07:31 Pulse Ox 98 04/16/23 09:26 O2 Del Method Nasal Cannula 04/16/23 09:26 O2 Flow Rate 3 04/16/23 09:26 04/15/23 04/16/23 04/16/23 22:59 06:59 14:59 Intake Total 1240 / 1240 300 / 1540 240 / 240 Output Total 450 / 450 Balance 1240 / 1240 -150 / 1090 240 / 240 Weight last 48 hrs Weight 69 lb 1.6 oz Weight 66 lb Weight 66 lb Physical Exam 2 Narrative: General exam is a conversant female slightly confused, in no distress on 3L NC. HEENT: Atraumatic normocephalic. Oropharynx clear. Neck is supple, no lymphadenopathy, no thyromegaly. Cardiovascular HR noted to be 105, regular rhythm without murmur Lungs sounds noted to be diminished throughout on auscultation. Abdomen is soft with positive bowel sounds. Abd nontender. exam was deferred Extremities show no cyanosis or clubbing. No edema. Skin no rash Neuro no obvious focal deficits Data 04/16/23 01:24 04/16/23 01:24 A&P Assessment and plan (1) Pulmonary embolism: Multifocal subsegmental pulmonary embolism in the right lung Started on lovenox EKG 04/16/23 demonstrated sinus tachycardia with a HR of 122. Telemetry monitoring. Cardiac echo, pending Venous ultrasound noted to be negative for DVT to bilateral lower extremities. 04/15/23 Qualifiers: Pulmonary embolism type: multiple subsegmental (without acute cor pulmonale) Qualified Code(s): I26.94 - Multiple subsegmental pulmonary emboli without acute cor pulmonale (2) Consolidation of middle lobe of lung: Patient has partial collapse of right middle lobe due to consolidation Due to leukocytosis, immunocompromise state, recent hospitalization for pneumonia Treat for recurrence of pneumonia. (3) PNA (pneumonia): History of follow-up with pulmonary as outpatient Discontinue Rocephin and azithromycin due to recent hospital stay. Urine culture on 04/08/23 was positive for CITROBACTER FREUNDII COMPLEX and was also recently hospitalized for pneumonia on same hospitalization stay. Start patient on IV antibiotics of vancomycin and meropenem. Sputum cultures, bacterial antigens ordered. Plan History of colon cancer, with bladder invasion, on active chemotherapy. Low body weight, severe protein calorie malnutrition, cancer cachexia, muscle wasting. History of smoking, no formal diagnosis of copd AND Lovenox Coding Level of Care Code 00324 Diagnoses Pulmonary embolism I26.94 Pulmonary embolism type: multiple subsegmental (without acute cor pulmonale) Consolidation of middle lobe of lung J18.1 PNA (pneumonia) J18.9 Time Spent (min) 31 Documented by User: Rob Vazquez MD 04/16/23 10:31 Data 04/16/23 01:24 04/16/23 01:24 A&P Assessment and plan (1) Pulmonary embolism: Multifocal subsegmental pulmonary embolism in the right lung Started on lovenox EKG 04/16/23 demonstrated sinus tachycardia with a HR of 122. Telemetry monitoring indicates heart rate is currently around 105 Cardiac echo, pending Venous ultrasound noted to be negative for DVT to bilateral lower extremities. 04/15/23 Convert to Eliquis Qualifiers: Pulmonary embolism type: multiple subsegmental (without acute cor pulmonale) Qualified Code(s): I26.94 - Multiple subsegmental pulmonary emboli without acute cor pulmonale (2) Consolidation of middle lobe of lung: (3) PNA (pneumonia): History of follow-up with pulmonary as outpatient Discontinue Rocephin and azithromycin due to recent hospital stay. Urine culture on 04/08/23 was positive for CITROBACTER FREUNDII COMPLEX and was also recently hospitalized for pneumonia on same hospitalization stay. Start patient on IV antibiotics of vancomycin and meropenem. Discontinue Rocephin and azithromycin Sputum cultures, bacterial antigens ordered. Close follow-up of renal function on vancomycin with vancomycin troughs as this is a potentially renal toxic medication. Plan History of colon cancer, with bladder invasion, on active chemotherapy. Was to have chemotherapy today, obviously on hold Low body weight, severe protein calorie malnutrition, cancer cachexia, muscle wasting. Dietary to see History of smoking, no formal diagnosis of copd AND Lovenox Attestations 2 Medical Necessity Statement*: Needs continued hospital stay for IV antibiotics secondary to pneumonia Diagnoses Pulmonary embolism I26.94 Pulmonary embolism type: multiple subsegmental (without acute cor pulmonale) Consolidation of middle lobe of lung J18.1 PNA (pneumonia) J18.9 Time Spent (min) 31
[2023-04-16] MEDS: meropenem 1,000 MG in sodium chloride 0.9% (plus) 50 ML 100 MG IV ×2 (11:37→18:24)
[2023-04-16] MEDS: apixaban 5 mg Tablet 10 MG PO ×2 (11:38→21:01)
[2023-04-16] MEDS: vancomycin 500 MG in sodium chloride 0.9% (plus) 100 ML 200 MG IV (13:16)
--- NOTE | 2023-04-16 22:34 | USCV_ITS ---
Liliana Monroy Age: 62 Gender: F : 1960 Exam Date: 04/16/2023 15:55 Ordering Phys: Keaton Guillaume MD Technologist: PATTY Exam Location: [facility] [place] Indication: PE BP: 89 / 59 HR: 105 Rhythm: Sinus Technical Quality: Suboptimal MEASUREMENTS (Male / Female) Normal Values 2D ECHO LVOT Diameter 1.7 cm LV Ejection Fraction MOD 2C 68.2 % LV Ejection Fraction 2C AL 66.8 % LA Diameter 1.8 cm LA Width 2.0 cm LA Height 2.5 cm RA Width 2.2 cm RA Height 2.8 cm Aorta at Sinotubular Diameter 1.3 cm IVC Diameter 1.7 cm M-MODE Aortic Annulus Diameter 2.2 cm LA Ao Ratio MM 0.8 MV E Point Septal Separation 0.3 cm DOPPLER AV Peak Velocity 120.0 cm/s LVOT Peak Velocity 110.0 cm/s AV Area Cont Eq vti 2.1 cm squared AV Area Cont Eq pk 2.1 cm squared MV Peak Velocity 100.0 cm/s MV Area PHT 3.3 cm squared Mitral E to A Ratio 1.1 MV E' Velocity 58.0 cm/s Mitral E to MV E' Ratio 7.3 Mitral E to LV E' Lateral Ratio 6.7 Mitral E to LV E' Septal Ratio 8.2 TR Peak Velocity 152.2 cm/s TR Peak Gradient 9.3 mmHg TR Mean Velocity 127.1 cm/s TR Mean Gradient 6.7 mmHg TR Velocity Time Integral 39.7 cm TV Peak E Velocity 62.0 cm/s Right Atrial Pressure 3.0 mmHg Pulmonary Artery Systolic Pressu 12.3 mmHg PV Peak Velocity 73.0 cm/s RV Acceleration Time 0.1 s RV Ejection Time 0.3 s RV AcT/ET 0.4 FINDINGS Left Ventricle The views are limited but adequate for interpretation. The left ventricle is normal in size and function. Ejection fraction 60%. No wall motion disturbances. Diastolic function is normal. Right Ventricle Normal right ventricular size and systolic function. Normal right ventricular systolic pressure. Right Atrium The right atrium is normal in size. Left Atrium The left atrium is normal in size. Mitral Valve Structurally normal mitral valve without significant stenosis or prolapse. There is no mitral regurgitation. Aortic Valve Structurally normal aortic valve without significant sclerosis or stenosis. There is no aortic regurgitation. Tricuspid Valve Structurally normal tricuspid valve without significant stenosis or regurgitation. Pulmonary artery systolic pressure is normal. Pulmonic Valve Pulmonic valve not well visualized. Pericardium Normal pericardium without effusion. Aorta Normal ascending aorta dimension. IVC The inferior vena cava appears normal. CONCLUSIONS The views are limited but adequate for interpretation. The left ventricle is normal in size and function. Ejection fraction 60%. No wall motion disturbances. Diastolic function is normal. There are no prior echocardiogram studies to compare. Dr. Eyal Valdez MD (Electronically Signed) Final Date: 16 April 2023 18:45 S
[2023-04-17] VITALS (10 sets, daily range): BP systolic 100–120; BP diastolic 66–85; PULSE 82–107; RESP 14–18; TEMP 36.6–37; O2SAT 92–98
[2023-04-17] MEDS: vancomycin 500 MG in sodium chloride 0.9% (plus) 100 ML 200 MG IV ×2 (01:15→13:55)
[2023-04-17] MEDS: meropenem 1,000 MG in sodium chloride 0.9% (plus) 50 ML 100 MG IV ×3 (03:10→17:38)
[2023-04-17 05:25] LABS: Basophils % 0.3 %; Eosinophils # 0.1 10^3/uL (0.0-0.8); Eosinophils % 0.7 %; Hematocrit 33.6 % (36-47); Lymphocytes # 1.7 10^3/uL (0.8-4.8); Lymphocytes % 13.1 %; Mean Corpuscular HGB Conc 29.8 g/dL (30-55); Mean Corpuscular Hemoglobin 25.8 pg (27-33); Mean Corpuscular Volume 86.8 fl (85-98); Mean Platelet Volume 9.2 fL (7.4-10.4); Monocytes # 1.9 10^3/uL (0.2-0.9); Monocytes % 14.4 %; Neutrophils # 9.28 10^3/uL (1.8-7.7); Neutrophils % 70.8 %; Nucleated Red Blood Cells % 0 %; Platelet Count 462 10^3/cmm (157-399); Red Blood Count 3.87 10^6/uL (3.85-5.65); Red Cell Distribution Width 17.6 % (12.1-15.1)
[2023-04-17 05:49] LABS: Alanine Aminotransferase 16 U/L (0-33); Albumin Level 2.5 g/dL (3.5-5.2); Alkaline Phosphatase 109 U/L (35-105); Anion Gap 13.5 (5-19); Aspartate Amino Transferase 20 U/L (0-32); Blood Urea Nitrogen 9 mg/dL (8-23); Calcium 8.1 mg/dL (8.5-10.5); Carbon Dioxide 26 mmol/L (22-29); Chloride 103 mmol/L (98-107); Globulin 3.6 g/dL (1.3-4.6); Glomerular Filtration Rate 225.4 mL/min (90-130); Glucose 91 mg/dL (65-115); Osmolality Calculated 286 mOsm/kg (285-295); Potassium 3.5 mmol/L (3.5-5.1); Sodium 139 mmol/L (136-145); Total Bilirubin 0.2 mg/dL (0.15-1.2); Total Protein 6.1 g/dL (6.6-8.7)
[2023-04-17] MEDS: aspirin 81 mg EC Tablet PO (07:45)
[2023-04-17] MEDS: apixaban 5 mg Tablet 10 MG PO ×2 (07:45→21:01)
[2023-04-17] MEDS: pantoprazole DR 40 mg Tablet PO (07:45)
[2023-04-17] MEDS: oxybutynin chloride XL 5 MG TABLET 15 MG PO (07:47)
--- NOTE | 2023-04-17 08:55 | P.PN_ITS ---
Documented by User: JUSTINA Shaffer STDEKLLEE 04/17/23 09:03 Subjective 2 Subjective: Patient sitting up on side of bed this morning on 2L NC, she dose not wear oxygen at home. Denies pain at this time. Mrs. Monroy states she is feeling rather weak this morning. Plans to get up and move a bit more this morning. Medications: Reviewed: Yes Vitals/I&O/Wt Last Vital Signs Temp 98.6 F 04/17/23 07:35 Pulse 107 H 04/17/23 07:35 Resp 16 04/17/23 07:35 BP 120/85 04/17/23 07:35 Pulse Ox 92 04/17/23 07:35 O2 Del Method Nasal Cannula 04/17/23 07:35 O2 Flow Rate 3 04/16/23 21:03 04/16/23 04/17/23 04/17/23 22:59 06:59 14:59 Intake Total 510 / 800 150 / 950 120 / 120 Balance 510 / 200 150 / 350 120 / 120 Weight last 48 hrs Weight 69 lb 3.2 oz Weight 69 lb 1.6 oz Weight 66 lb Weight 66 lb Physical Exam 2 Narrative: General exam is a conversant female, in no distress on 2L NC. HEENT: Atraumatic normocephalic. Oropharynx clear. Neck is supple, no lymphadenopathy, no thyromegaly. Cardiovascular HR noted to be 108, regular rhythm without murmur Lungs sounds noted to be diminished throughout on auscultation. Abdomen is soft with positive bowel sounds. Abd non-tender. exam was deferred Extremities show no cyanosis or clubbing. No edema. Skin no rash Neuro no obvious focal deficits Data 04/17/23 04:42 04/17/23 04:42 A&P Assessment and plan (1) Pulmonary embolism: Multifocal subsegmental pulmonary embolism in the right lung Discontinued lovenox, started Eliqus 04/16/23. EKG 04/16/23 demonstrated sinus tachycardia with a HR of 122. Telemetry monitoring indicates heart rate is currently around 108 this morning. Cardiac echo 04/16/23 indicated an EF of 60% Venous ultrasound noted to be negative for DVT to bilateral lower extremities. 04/15/23 Qualifiers: Pulmonary embolism type: multiple subsegmental (without acute cor pulmonale) Qualified Code(s): I26.94 - Multiple subsegmental pulmonary emboli without acute cor pulmonale (2) Consolidation of middle lobe of lung: Patient has partial collapse of right middle lobe due to consolidation Due to leukocytosis, immunocompromise state, recent hospitalization for pneumonia Treat for recurrence of pneumonia. (3) PNA (pneumonia): History of follow-up with pulmonary as outpatient Discontinue Rocephin and azithromycin due to recent hospital stay. Urine culture on 04/08/23 was positive for CITROBACTER FREUNDII COMPLEX and was also recently hospitalized for pneumonia on same hospitalization stay. Start patient on IV antibiotics of vancomycin and meropenem. Sputum cultures, bacterial antigens ordered. Close follow-up of renal function on vancomycin with vancomycin troughs as this is a potentially renal toxic medication. Plan History of colon cancer, with bladder invasion, on active chemotherapy. Was to have chemotherapy today, obviously on hold Low body weight, severe protein calorie malnutrition, cancer cachexia, muscle wasting. Dietary to see History of smoking, no formal diagnosis of copd AND Lovenox Coding Level of Care Code 75641 Diagnoses Pulmonary embolism I26.94 Pulmonary embolism type: multiple subsegmental (without acute cor pulmonale) Consolidation of middle lobe of lung J18.1 PNA (pneumonia) J18.9 Time Spent (min) 23 Documented by User: Rob Vazquez MD 04/17/23 11:43 Data 04/17/23 04:42 04/17/23 04:42 A&P Assessment and plan (1) Pulmonary embolism: Qualifiers: Pulmonary embolism type: multiple subsegmental (without acute cor pulmonale) Qualified Code(s): I26.94 - Multiple subsegmental pulmonary emboli without acute cor pulmonale (2) Consolidation of middle lobe of lung: (3) PNA (pneumonia): Attestations 2 Medical Necessity Statement*: Needs continued hospital stay for IV antibiotics secondary to pneumonia. Diagnoses Pulmonary embolism I26.94 Pulmonary embolism type: multiple subsegmental (without acute cor pulmonale) Consolidation of middle lobe of lung J18.1 PNA (pneumonia) J18.9 Time Spent (min) 23
[2023-04-17] MEDS: acetaminophen 500 mg Tablet 1000 MG PO ×2 (10:12→17:39)
--- NOTE | 2023-04-17 19:12 | PC.NURSE ---
SHIFT SUMMARY Patient has done well today. Cough is becoming more loose, but not productive at this time. Specimen cup at bedside. Patient walked in the younger today and sat up in the chair for awhile. Currently on 2L NC. Eating well. Patient has mild hematuria. Ostomy changed twice and is now sealed and not leaking. Optifoam placed to bony prominence of sacrum. Very red, not blanching, but not open at this time. Encouraging to sit up and ambulate more. Currently resting in bed watching TV eating snacks.
[2023-04-17] MEDS: oxyCODONE-APAP 5-325 mg Tablet 1 TAB PO (21:14)
[2023-04-17] MEDS: baclofen 10 mg Tablet PO (21:14)
[2023-04-17] MEDS: phenazopyridine 100 mg Tablet 200 MG PO (22:03)
[2023-04-18] VITALS (12 sets, daily range): BP systolic 99–137; BP diastolic 66–87; PULSE 70–120; RESP 15–20; TEMP 36.6–37.1; O2SAT 93–97
[2023-04-18] MEDS: acetaminophen 500 mg Tablet 1000 MG PO ×4 (00:14→23:04)
[2023-04-18] MEDS: vancomycin 500 MG in sodium chloride 0.9% (plus) 100 ML 200 MG IV (00:14)
[2023-04-18] MEDS: meropenem 1,000 MG in sodium chloride 0.9% (plus) 50 ML 100 MG IV ×3 (03:03→18:37)
[2023-04-18 06:02] LABS: Basophils # 0.1 10^3/uL (0.0-0.1); Basophils % 0.4 %; Eosinophils # 0.1 10^3/uL (0.0-0.8); Eosinophils % 0.8 %; Hematocrit 34.8 % (36-47); Lymphocytes # 1.5 10^3/uL (0.8-4.8); Lymphocytes % 9.5 %; Mean Corpuscular HGB Conc 30.2 g/dL (30-55); Mean Corpuscular Hemoglobin 26.4 pg (27-33); Mean Corpuscular Volume 87.4 fl (85-98); Mean Platelet Volume 8.8 fL (7.4-10.4); Monocytes % 12.5 %; Neutrophils # 11.93 10^3/uL (1.8-7.7); Neutrophils % 76.2 %; Nucleated Red Blood Cells % 0 %; Platelet Count 512 10^3/cmm (157-399); Red Blood Count 3.98 10^6/uL (3.85-5.65); Red Cell Distribution Width 17.3 % (12.1-15.1); White Blood Count 15.65 10^3/uL (3.29-11.43)
[2023-04-18 06:20] LABS: Anion Gap 11.7 (5-19); Blood Urea Nitrogen 10 mg/dL (8-23); Calcium 8.8 mg/dL (8.5-10.5); Carbon Dioxide 27 mmol/L (22-29); Chloride 104 mmol/L (98-107); Glomerular Filtration Rate 225.4 mL/min (90-130); Glucose 133 mg/dL (65-115); Osmolality Calculated 289 mOsm/kg (285-295); Potassium 3.7 mmol/L (3.5-5.1); Sodium 139 mmol/L (136-145)
[2023-04-18] MEDS: phenazopyridine 100 mg Tablet 200 MG PO (08:11)
[2023-04-18] MEDS: apixaban 5 mg Tablet 10 MG PO ×2 (08:11→23:04)
[2023-04-18] MEDS: pantoprazole DR 40 mg Tablet PO (08:11)
[2023-04-18] MEDS: aspirin 81 mg EC Tablet PO (08:11)
[2023-04-18] MEDS: oxybutynin chloride XL 5 MG TABLET 15 MG PO (08:15)
--- NOTE | 2023-04-18 08:36 | P.PN_ITS ---
Documented by User: Sima Alvarez, JUSTINA STDNT 04/18/23 09:57 Subjective 2 Subjective: Patient sitting on edge of bed this morning on 3L NC stating she was feeling short of breath and that she has felt this way since about 4am. She continues to check her pulse ox and O2 remains WNL around 94%. Mrs. Paniagua reported that she is feeling panicked and requested a breathing treatment noted to be very tearful. Medications: Reviewed: Yes Vitals/I&O/Wt Last Vital Signs Temp 97.9 F 04/18/23 07:35 Pulse 99 04/18/23 07:35 Resp 16 04/18/23 07:35 BP 119/80 04/18/23 07:35 Pulse Ox 94 04/18/23 07:35 O2 Del Method Nasal Cannula 04/18/23 07:35 O2 Flow Rate 3 04/18/23 00:00 04/17/23 04/18/23 04/18/23 22:59 06:59 14:59 Intake Total 150 / 800 150 / 950 Output Total 200 / 200 575 / 775 Balance -50 / 600 -425 / 175 Weight last 48 hrs Weight 69 lb 2 oz Weight 69 lb 3.2 oz Physical Exam 2 Narrative: General exam is a conversant female, in distress on 3L NC. Tearful. HEENT: Atraumatic normocephalic. Oropharynx clear. Neck is supple, no lymphadenopathy, no thyromegaly. Cardiovascular HR noted to be 106, regular rhythm without murmur Lungs sounds noted to be diminished throughout on auscultation. Abdomen is soft with positive bowel sounds. Abd non-tender. exam was deferred Extremities show no cyanosis or clubbing. No edema. Skin no rash Neuro no obvious focal deficits Data 04/18/23 05:38 04/18/23 05:38 A&P Assessment and plan (1) Pulmonary embolism: Multifocal subsegmental pulmonary embolism in the right lung Discontinued lovenox, started Eliqus 04/16/23. EKG 04/16/23 demonstrated sinus tachycardia with a HR of 122. Telemetry monitoring indicates heart rate is currently around 106 this morning. Cardiac echo 04/16/23 indicated an EF of 60% Venous ultrasound noted to be negative for DVT to bilateral lower extremities. 04/15/23 Patient very anxious and tearful this morning, reporting difficulty breathing. Breathing treatment administered. May order prn ativan to assist with anxiety. Qualifiers: Pulmonary embolism type: multiple subsegmental (without acute cor pulmonale) Qualified Code(s): I26.94 - Multiple subsegmental pulmonary emboli without acute cor pulmonale (2) Consolidation of middle lobe of lung: Patient has partial collapse of right middle lobe due to consolidation Due to leukocytosis, immunocompromise state, recent hospitalization for pneumonia Treat for recurrence of pneumonia. (3) PNA (pneumonia): History of follow-up with pulmonary as outpatient Discontinue Rocephin and azithromycin due to recent hospital stay. Urine culture on 04/08/23 was positive for CITROBACTER FREUNDII COMPLEX and was also recently hospitalized for pneumonia on same hospitalization stay. Continue antibiotics of vancomycin and meropenem. Sputum cultures, bacterial antigens pending. Close follow-up of renal function on vancomycin with vancomycin troughs as this is a potentially renal toxic medication. Plan History of colon cancer, with bladder invasion, on active chemotherapy. Was to have chemotherapy today, obviously on hold Low body weight, severe protein calorie malnutrition, cancer cachexia, muscle wasting. Dietary to see History of smoking, no formal diagnosis of copd AND Lovenox Coding Level of Care Code 07100 Diagnoses Pulmonary embolism I26.94 Pulmonary embolism type: multiple subsegmental (without acute cor pulmonale) Consolidation of middle lobe of lung J18.1 PNA (pneumonia) J18.9 Time Spent (min) 24 Documented by User: Rob Vazquez MD 04/18/23 10:11 Subjective 2 Subjective: Patient sitting on edge of bed this morning on 3L NC stating she was feeling short of breath and that she has felt this way since about 4am. She continues to check her pulse ox and O2 remains WNL around 94%. Mrs. Paniagua reported that she is feeling panicked and requested a breathing treatment noted to be very tearful. She feels very anxious. Data 04/18/23 05:38 04/18/23 05:38 A&P Assessment and plan (1) Pulmonary embolism: Multifocal subsegmental pulmonary embolism in the right lung Discontinued lovenox, started Eliqus 04/16/23. EKG 04/16/23 demonstrated sinus tachycardia with a HR of 122. Telemetry monitoring indicates heart rate is currently around 106 this morning. Cardiac echo 04/16/23 indicated an EF of 60%. No obvious right heart strain Venous ultrasound noted to be negative for DVT to bilateral lower extremities. 04/15/23 Patient very anxious and tearful this morning, reporting difficulty breathing. Breathing treatment administered. May order prn ativan to assist with anxiety. Qualifiers: Pulmonary embolism type: multiple subsegmental (without acute cor pulmonale) Qualified Code(s): I26.94 - Multiple subsegmental pulmonary emboli without acute cor pulmonale (2) Consolidation of middle lobe of lung: Patient has partial collapse of right middle lobe due to consolidation Due to leukocytosis, immunocompromise state, recent hospitalization for pneumonia Treat for recurrence of pneumonia. MRSA PCR negative. Discontinue vancomycin. Changed to doxycycline p.o. Continue meropenem currently. (3) PNA (pneumonia): History of follow-up with pulmonary as outpatient Discontinue Rocephin and azithromycin due to recent hospital stay. Urine culture on 04/08/23 was positive for CITROBACTER FREUNDII COMPLEX and was also recently hospitalized for pneumonia on same hospitalization stay. See above Sputum cultures, bacterial antigens pending. Plan History of colon cancer, with bladder invasion, on active chemotherapy. Was to have chemotherapy this week, obviously on hold Low body weight, severe protein calorie malnutrition, cancer cachexia, muscle wasting. Dietary to see History of smoking, no formal diagnosis of copd Severe anxiety. Discussed potential treatments. For now Ativan as needed. She does not want a daily antidepressant/antianxiety type medicine currently. AND Lovenox Attestations 2 Medical Necessity Statement*: Needs continued hospital stay for IV antibiotics related to pneumonia Diagnoses Pulmonary embolism I26.94 Pulmonary embolism type: multiple subsegmental (without acute cor pulmonale) Consolidation of middle lobe of lung J18.1 PNA (pneumonia) J18.9 Time Spent (min) 24
[2023-04-18] MEDS: ipratropium-albuterol 3 mL Neb INHALATION ×3 (08:59→20:08)
[2023-04-18] MEDS: LORazepam 0.5 mg Tablet 0.25 MG PO ×2 (12:18→23:04)
[2023-04-18] MEDS: oxyCODONE-APAP 5-325 mg Tablet 1 TAB PO (18:27)
[2023-04-18] MEDS: doxycycline 100 mg Tablet PO (18:27)
[2023-04-18] MEDS: budesonide 0.5 mg/2 mL Neb INHALATION (20:08)
[2023-04-18] MEDS: baclofen 10 mg Tablet PO (23:04)
--- NOTE | 2023-04-18 23:11 | PC.NURSE ---
Patient endorses anxiety, appears shaky. Swallows all pills except tylenol, stating she can't swallow the tylenol even after splitting them in half. Provided pudding, administered antianxiety meds. Patient repeatedly asks about breathing treatments. Educated pt that RT administers breathing treatments.
[2023-04-19] VITALS (13 sets, daily range): BP systolic 87–126; BP diastolic 58–84; PULSE 90–149; RESP 16–18; TEMP 36–37.1; O2SAT 88–98; BMI 13.5
--- NOTE | 2023-04-19 00:32 | XRR_ITS ---
PROCEDURE INFORMATION: Exam: XR Chest Exam date and time: 04/19/2023 12:52 AM Age: 62 years old Clinical indication: Shortness of breath and tachypnea; Additional info: Increased sob/tachycardia TECHNIQUE: Imaging protocol: Radiologic exam of the chest. Views: 1 view. COMPARISON: CT angio chest PE protcl [id number] 04/15/2023 6:16 PM FINDINGS: Tubes, catheters and devices: Click port left Lungs: Hyperinflated lungs. Increasing bibasilar airspace opacities could represent pneumonia or changes of aspiration. Opacities have worsened when compared to CT topogram several days prior. Pleural spaces: No pleural effusion. No pneumothorax. Heart/Mediastinum: Cardiac silhouette is normal in size for technique. Bones/joints: Age appropriate. XR/XR chest 1V portable [id number] IMPRESSION: Worsening bibasilar airspace opacities are worrisome for pneumonia, but aspiration is not excluded.
--- NOTE | 2023-04-19 00:42 | ECG_ITS ---
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 Measurements Intervals [place] Rate: 140 P: 67 MS: 80 QRS: 75 QRSD: 70 T: 69 QT: 267 QTc: 409 Interpretive Statements SINUS TACHYCARDIA WITH SHORT MS INTERVAL Compared to ECG 04/16/2023 03:14:41 T-wave abnormality no longer present Electronically Signed On 04-19-2023 12:18:45 PHLEBOTOMY SPECIALIST by Alessio Sanchez M.D. [email or web address].[email or web address]/store/[id number]
[2023-04-19 01:06] LABS: Basophils # 0.1 10^3/uL (0.0-0.1); Basophils % 0.4 %; Eosinophils # 0.1 10^3/uL (0.0-0.8); Eosinophils % 0.2 %; Hematocrit 33.7 % (36-47); Lymphocytes # 1.5 10^3/uL (0.8-4.8); Lymphocytes % 6.3 %; Mean Corpuscular HGB Conc 30.9 g/dL (30-55); Mean Corpuscular Volume 84.3 fl (85-98); Mean Platelet Volume 8.6 fL (7.4-10.4); Monocytes # 2.1 10^3/uL (0.2-0.9); Monocytes % 9.1 %; Neutrophils # 19.42 10^3/uL (1.8-7.7); Neutrophils % 83.1 %; Nucleated Red Blood Cells % 0 %; Platelet Count 562 10^3/cmm (157-399); Red Cell Distribution Width 17.2 % (12.1-15.1); White Blood Count 23.36 10^3/uL (3.29-11.43)
--- NOTE | 2023-04-19 01:22 | PC.NURSE ---
Notified Dr. Guillaume of patient's sinus tach and complaint of shortness of breath. Orders received for stat ekg, chest xray, and labs. Patient educated on importance of wearing telemetry and patient agreed to wear it again. Patient is sustaining sinus tachycardia with a rate of 120-140. Notified Dr Guillaume of telemetry findings, Dr Guillaume stated Just watch for now, it might evolve into afib or flutter. Overall the patient has been very anxious this evening to the point of trembling and requesting multiple times for anti-anxiety medications. Pt also began yelling at her daughter while in the room.
[2023-04-19 01:25] LABS: Blood Urea Nitrogen 7 mg/dL (8-23); Calcium 8.9 mg/dL (8.5-10.5); Carbon Dioxide 26 mmol/L (22-29); Chloride 99 mmol/L (98-107); Glomerular Filtration Rate 225.4 mL/min (90-130); Glucose 109 mg/dL (65-115); Osmolality Calculated 283 mOsm/kg (285-295); Sodium 137 mmol/L (136-145)
[2023-04-19 01:31] LABS: NT Pro B Type Natriuretic Pept 269 pg/mL (0-125); Procalcitonin 0.12 ng/mL (0-0.5)
[2023-04-19 01:44] LABS: C Reactive Protein 81.5 mg/L (0.0-4.9)
--- NOTE | 2023-04-19 02:23 | ECG_ITS ---
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 Measurements Intervals [place] Rate: 139 P: 72 AR: 80 QRS: 78 QRSD: 64 T: 60 QT: 265 QTc: 403 Interpretive Statements SINUS TACHYCARDIA WITH SHORT AR INTERVAL MINIMAL ST DEPRESSION [0.025+ mV ST DEPRESSION] Compared to ECG 04/19/2023 00:42:01 ST (T wave) deviation now present Electronically Signed On 04-19-2023 12:17:59 BRICK SORTER by Alessio Sanchez M.D. [email or web address]/[id number]
[2023-04-19] MEDS: LORazepam 0.5 mg Tablet 0.25 MG PO (02:30)
--- NOTE | 2023-04-19 02:39 | PC.NURSE ---
Pt's heart rate went up to 150 and higher but did not sustain. Heart rate remains in the 120-140s. Notified Dr Guillaume. Dr Guillaume ordered repeat EKG, magnesium, BMP, and serial troponin labs and gave order to continue monitoring as the rhythm is sinus tachycardia. Pt complains of anxiety about her situation and what is happening to her health overall. Provided reassurance and education to patient and notified Aundrea of patient's increased anxiety. Dr Guillaume ordered repeat dose of ativan 0.25mg PO.
[2023-04-19 02:55] LABS: Troponin(5th) Baseline 13 ng/L (0-10)
[2023-04-19 03:18] LABS: Troponin 5 2HR 13.71 ng/L (0-10); Troponin 5 2HR Delta 0.71 ABS# (0-10)
[2023-04-19 03:23] LABS: Anion Gap 13.9 (5-19); Blood Urea Nitrogen 7 mg/dL (8-23); Calcium 9.1 mg/dL (8.5-10.5); Carbon Dioxide 27 mmol/L (22-29); Chloride 98 mmol/L (98-107); Glomerular Filtration Rate 161.7 mL/min (90-130); Glucose 101 mg/dL (65-115); Magnesium 1.5 mg/dL (1.7-2.3); Osmolality Calculated 278 mOsm/kg (285-295); Potassium 3.9 mmol/L (3.5-5.1); Sodium 135 mmol/L (136-145)
--- NOTE | 2023-04-19 04:58 | PC.RESP ---
Checked on patient o2 off spo2 88-90% patient refusing to wear o2 at this time. Patient states she is dying, she spoke to God. Notified nurse and charge nurse.
--- NOTE | 2023-04-19 05:13 | PC.NURSE ---
RT told this nurse pt stated she was going to . This nurse went to assess patient; pt laying in bed awake, alert, and oriented. This nurse performed suicide risk assessment, patient stated she would like to go to sleep and not wake up but that she has no wish to perform suicide as, in her words, suicide is selfish. She states it would just be easier to go to sleep and that she believes it's her time to and that she's okay with that because she has God. This nurse assisted pt to bedside commode, upon getting up her heart rate went up to a peak of 165. Notified Dr. Guillaume.
[2023-04-19] MEDS: meropenem 1,000 MG in sodium chloride 0.9% (plus) 50 ML 100 MG IV ×3 (05:28→20:37)
[2023-04-19 07:43] LABS: Troponin 5 6HR 15.76 ng/L (0-10); Troponin 5 6HR Delta 2.76 ng/L (0-12)
[2023-04-19] MEDS: budesonide 0.5 mg/2 mL Neb INHALATION ×2 (08:25→20:11)
[2023-04-19] MEDS: ipratropium-albuterol 3 mL Neb INHALATION ×5 (08:25→23:59)
--- NOTE | 2023-04-19 08:26 | CT_ITS ---
WS: [id number] CT CHEST, ABDOMEN AND PELVIS WITH CONTRAST HISTORY: worsening WBC count TECHNIQUE: Contiguous 5 mm axial imaging performed through the chest, abdomen and pelvis with IV cont rast, oral contrast has not been provided. Coronal and sagittal reformats chest. Coronal and sagittal reformats through the abdomen and pelvis. All CT scans at [facility] use at least one of the se dose optimization techniques: automated exposure control; mA and/or kV adjustment per patient size (includes targeted exams where dose is matched to clinical indication); or iterative reconstruction. CONTRAST: Omnipaque 350; 70 mL IV. DLP: 404.90 mGy.cm COMPARISON: 04/15/2023 and 04/05/[address]: Severe chronic centrilobular emphysema. Pulmonary hyperexpansion. Increasing opacifications and interstitial thickening in the mid to lower lung verdin, greatest at the lung bases. These areas of consolidation have increased since 04/15/2023 especially at the LEFT lung base. The focal wedge-sh aped consolidation reidentified in the RIGHT middle lobe is probably atelectasis. No pneumothorax or pleural effusions. Small mediastinal and hilar lymph nodes may be reactive. Heart is normal size. Nor mal size pulmonary artery. Abdomen CT: Reidentified are the very small hypodense nodules within the enlarged liver. The largest nodule measures 7 mm in the central RIGHT lobe. These nodules are new since 12/03/2022 and 01/07/2023. N o bile duct dilatation. Gallbladder is mildly dilated. No adjacent inflammation. Normal spleen. Limit ed visualization of the pancreas due to lack of fat. No adrenal gland mass. Mild atherosclerosis aort a. Normal enhancement of each kidney. Nonobstructing calcification each kidney. GI tract is very difficult to evaluate. Very little fat separate in the bowel loops and no oral contr ast. Stomach is not dilated. No small bowel obstruction. There is increased fluid in the colon. There is a large soft tissue mass in the pelvis which has been previously described. There is mixed densit y with fluid and abnormal soft tissue enhancement. This mass has been present on multiple prior exami nations. Mass measures approximately 7.4 x 5.6 x 10.5 cm. It is very difficult to distinguish the exa ct location of this mass and its involvement with surrounding structures. This is probably involvemen t of the colon, possible small bowel and the urinary bladder. There may be fistulous communications. Pelvic CT: Heterogeneous soft tissue mass in the pelvis distorting and possibly invading the urinary bladder and the GI tract. IMPRESSION: 1. Increasing consolidation at the lung bases consistent with worsening pneumonia superimposed on se anna centrilobular emphysema. 2. Partial collapse RIGHT middle lobe unchanged. 3. Large necrotic invasive heterogeneous mass mass in the pelvis is reidentified. Probably invading the adjacent structures such as GI tract and the bladder. This has been previously described on multi ple examinations. 4. No renal obstruction. 5. New hypodense nodules in the RIGHT lobe of the liver. With the patient's known colon cancer this probably represents metastatic disease.
--- NOTE | 2023-04-19 08:42 | P.PN_ITS ---
Subjective 2 Subjective: [place] very anxious last night. Still anxious currently. White blood cell count seem to be increasing. She reports her cough, and breathing is about the same this morning. Tachycardia is noted. Vitals/I&O/Wt Last Vital Signs Temp 98 F 04/19/23 08:11 Pulse 131 H 04/19/23 08:18 Resp 17 04/19/23 08:18 BP 107/77 04/19/23 08:11 Pulse Ox 95 04/19/23 08:18 O2 Del Method Nasal Cannula 04/19/23 08:18 O2 Flow Rate 3 04/19/23 08:18 04/18/23 04/19/23 04/19/23 22:59 06:59 14:59 Intake Total 170 / 580 50 / 630 Output Total 200 / 200 Balance 170 / 580 -150 / 430 Weight last 48 hrs Weight 31.355 kg Weight 31.355 kg Physical Exam 2 Narrative: General exam no distress currently, on 3 L, occasional cough Neck is supple, no lymphadenopathy, no thyromegaly. Cardiovascular tachycardic, regular, telemetry indicates sinus tachycardia, rate 120, no murmur Lungs sounds noted to be diminished throughout on auscultation. Abdomen is soft with positive bowel sounds. Abd non-tender. Ostomy pink, stool noted in bag. Extremities show no cyanosis or clubbing. No edema. Data 04/19/23 00:53 04/19/23 02:55 Micro: Microbiology 04/15/23 23:21 Bacterial Antigens - Final Urine,Voided A&P Assessment and plan (1) Pulmonary embolism: Multifocal subsegmental pulmonary embolism in the right lung Discontinued lovenox, started Eliqus 04/16/23. More tachycardic this morning but concerned with infection with elevating white count. Secondary to past history of urinary bladder invasion concerns we will discontinue p.o. Eliquis and go back to Lovenox 1 mg/kg every 12 hours in case any surgical procedures needed Cardiac echo 04/16/23 indicated an EF of 60%. No obvious right heart strain Venous ultrasound noted to be negative for DVT to bilateral lower extremities. 04/15/23 Qualifiers: Pulmonary embolism type: multiple subsegmental (without acute cor pulmonale) Qualified Code(s): I26.94 - Multiple subsegmental pulmonary emboli without acute cor pulmonale (2) Consolidation of middle lobe of lung: Patient has partial collapse of right middle lobe due to consolidation Due to leukocytosis, immunocompromise state, recent hospitalization for pneumonia Currently on meropenem. Vancomycin was changed to Doxy yesterday. Changed back. Secondary to elevated heart rate, increasing white blood cell count check blood cultures, urinalysis, urine culture, CT chest abdomen and pelvis, COVID and flu, C. difficile CBC, CMP in the morning (3) PNA (pneumonia): See notations above. Bacterial antigens were negative Sputum culture pending Fluconazole, nystatin initiated with low tolerance for starting micafungin if she worsens. Beta D glucan ordered. Speech therapy evaluation, concern for aspiration as well. Plan History of colon cancer, with bladder invasion. Was to have chemotherapy this week. I believe her last treatment was April 02. Overall her performance status looks poor. Low body weight, severe protein calorie malnutrition, cancer cachexia, muscle wasting. Dietary to see History of smoking, no formal diagnosis of copd Severe anxiety. Discussed potential treatments. For now Ativan as needed. She does not want a daily antidepressant/antianxiety type medicine currently. AND Lovenox Attestations 2 Medical Necessity Statement*: Needs continued hospitalization for IV antibiotics secondary to pneumonia, with concern of failure to improve. Diagnoses Pulmonary embolism I26.94 Pulmonary embolism type: multiple subsegmental (without acute cor pulmonale) Consolidation of middle lobe of lung J18.1 PNA (pneumonia) J18.9 Time Spent (min) 40
[2023-04-19] MEDS: iohexol 350 mg/mL 500 mL Btl (per mL) IV (08:56)
[2023-04-19] MEDS: enoxaparin 30 mg/0.3 mL Syringe SUBCUT ×2 (09:46→20:37)
[2023-04-19] MEDS: magnesium sulfate premix 2 GM/50 ML PIGGYBACK IV (09:47)
[2023-04-19] MEDS: nystatin 100,000 unit/mL UDC 5 mL 500000 UNIT PO ×2 (10:16→20:37)
[2023-04-19] MEDS: vancomycin 500 MG in sodium chloride 0.9% (plus) 100 ML 200 MG IV ×2 (10:16→21:56)
[2023-04-19] MEDS: aspirin 81 mg EC Tablet PO (10:19)
[2023-04-19] MEDS: metoprolol tartrate 25 mg Tablet 12.5 MG PO (10:19)
[2023-04-19] MEDS: pantoprazole DR 40 mg Tablet PO (10:19)
[2023-04-19] MEDS: oxybutynin chloride XL 5 MG TABLET 15 MG PO (10:28)
[2023-04-19] MEDS: fluconazole premix 200 MG/100 ML PREMIX 100 MG IV (11:05)
[2023-04-19 17:29] LABS: Bacteria Urine 1+ /hpf; Bilirubin Urine Neg (Negative); Blood Urine 3+ (Negative); Glucose Urine UA Norm (Normal); Ketones Urine 1+ (Negative); Leukocyte Esterase Urine 2+ (Negative); Nitrate Urine Negative (Negative); Protein Urine 3+ (Negative); RBC Urine TOO NUMEROUS TO CNT /hpf (0-2); Urine Appearance Cloudy (CLEAR); Urine Color Yellow (Yellow); Urobilinogen Urine Neg (Negative); WBC Urine TOO NUMEROUS TO CNT /hpf (0-5); pH Urine 7 (5-7)
[2023-04-19 17:30] LABS: Add Urine Culture? No
[2023-04-19] MEDS: baclofen 10 mg Tablet PO (20:37)
[2023-04-19] MEDS: acetaminophen 500 mg Tablet 1000 MG PO (22:04)
[2023-04-19] MEDS: LORazepam 0.5 mg Tablet PO (22:04)
[2023-04-20] VITALS (20 sets, daily range): BP systolic 96–122; BP diastolic 67–83; PULSE 94–115; RESP 15–20; TEMP 36.4–37.1; O2SAT 90–98
[2023-04-20] MEDS: oxyCODONE-APAP 5-325 mg Tablet 1 TAB PO ×2 (02:38→17:14)
[2023-04-20] MEDS: phenazopyridine 100 mg Tablet 200 MG PO (02:39)
[2023-04-20] MEDS: baclofen 10 mg Tablet PO ×2 (02:40→17:14)
[2023-04-20 03:29] LABS: Adenovirus Detected (NOT DETECT); Chlamydia Pneumoniae Not Detected (NOT DETECT); Coronavirus 229E,HKU1,NL63,OC4 Not Detected (NOT DETECT); Human Metapneumovirus Not Detected (NOT DETECT); Human Rhinovirus/Enterovirus Not Detected (NOT DETECT); Influenza A Not Detected (NOT DETECT); Influenza A H1 Not Detected (NOT DETECT); Influenza A H1-2009 Not Detected (NOT DETECT); Influenza A H3 Not Detected (NOT DETECT); Influenza B Not Detected (NOT DETECT); Mycoplasma Pneumoniae Not Detected (NOT DETECT); Parainfluenza Virus Type 1 Not Detected (NOT DETECT); Parainfluenza Virus Type 2 Not Detected (NOT DETECT); Parainfluenza Virus Type 3 Not Detected (NOT DETECT); Parainfluenza Virus Type 4 Not Detected (NOT DETECT); Respiratory Syncytial Virus A Not Detected (NOT DETECT); Respiratory Syncytial Virus B Not Detected (NOT DETECT); SARS-COV-2 Not Detected (NOT DETECT)
[2023-04-20] MEDS: ipratropium-albuterol 3 mL Neb INHALATION ×4 (03:29→20:21)
[2023-04-20 03:32] LABS: Adenovirus Detected (NOT DETECT); Results from Genmark
[2023-04-20] MEDS: acetaminophen 500 mg Tablet 1000 MG PO ×3 (04:44→23:57)
[2023-04-20] MEDS: meropenem 1,000 MG in sodium chloride 0.9% (plus) 50 ML 100 MG IV ×3 (04:48→23:57)
[2023-04-20 05:07] LABS: Basophils # 0.1 10^3/uL (0.0-0.1); Basophils % 0.5 %; Eosinophils # 0.1 10^3/uL (0.0-0.8); Eosinophils % 0.7 %; Hematocrit 32.3 % (36-47); Lymphocytes # 2.5 10^3/uL (0.8-4.8); Lymphocytes % 16.1 %; Mean Corpuscular Hemoglobin 25.7 pg (27-33); Mean Corpuscular Volume 85.7 fl (85-98); Mean Platelet Volume 9.2 fL (7.4-10.4); Monocytes # 1.8 10^3/uL (0.2-0.9); Monocytes % 11.2 %; Neutrophils % 70.5 %; Nucleated Red Blood Cells % 0 %; Platelet Count 550 10^3/cmm (157-399); Red Blood Count 3.77 10^6/uL (3.85-5.65); Red Cell Distribution Width 17.2 % (12.1-15.1)
[2023-04-20 05:26] LABS: Alanine Aminotransferase 18 U/L (0-33); Albumin Level 2.4 g/dL (3.5-5.2); Alkaline Phosphatase 123 U/L (35-105); Anion Gap 13.5 (5-19); Aspartate Amino Transferase 19 U/L (0-32); Blood Urea Nitrogen 12 mg/dL (8-23); C Reactive Protein 122.5 mg/L (0.0-4.9); Calcium 8.3 mg/dL (8.5-10.5); Carbon Dioxide 25 mmol/L (22-29); Chloride 105 mmol/L (98-107); Glucose 152 mg/dL (65-115); Magnesium 2.2 mg/dL (1.7-2.3); Osmolality Calculated 293 mOsm/kg (285-295); Potassium 3.5 mmol/L (3.5-5.1); Sodium 140 mmol/L (136-145); Total Bilirubin 0.2 mg/dL (0.15-1.2); Total Protein 6.4 g/dL (6.6-8.7)
[2023-04-20] MEDS: budesonide 0.5 mg/2 mL Neb INHALATION ×2 (08:07→20:21)
[2023-04-20] MEDS: oxybutynin chloride XL 5 MG TABLET 15 MG PO (10:19)
[2023-04-20] MEDS: aspirin 81 mg EC Tablet PO (10:19)
[2023-04-20] MEDS: nystatin 100,000 unit/mL UDC 5 mL 500000 UNIT PO ×4 (10:19→21:52)
[2023-04-20] MEDS: pantoprazole DR 40 mg Tablet PO (10:20)
[2023-04-20] MEDS: enoxaparin 30 mg/0.3 mL Syringe SUBCUT ×2 (10:20→21:52)
[2023-04-20] MEDS: fluconazole premix 200 MG/100 ML PREMIX 100 MG IV (10:20)
[2023-04-20] MEDS: vancomycin 500 MG in sodium chloride 0.9% (plus) 100 ML 200 MG IV ×2 (11:21→21:53)
--- NOTE | 2023-04-20 14:29 | P.PN_ITS ---
Subjective 2 Subjective: Seen this morning. She is unhappy about the food. She also states no one brought her Ensure or boost as a supplement. She says she has strict diet and cannot eat the hospital food. Otherwise she says she feels possibly slightly better than yesterday however cannot say for sure. Vitals/I&O/Wt Last Vital Signs Temp 98.7 F 04/20/23 12:00 Pulse 114 H 04/20/23 12:00 Resp 18 04/20/23 12:00 BP 106/71 04/20/23 12:00 Pulse Ox 92 04/20/23 11:54 O2 Del Method Nasal Cannula 04/20/23 11:54 O2 Flow Rate 2 04/20/23 11:33 04/19/23 04/20/23 04/20/23 22:59 06:59 14:59 Intake Total 240 / 1260 440 / 1700 440 / 440 Output Total 550 / 550 450 / 450 Balance 240 / 1260 -110 / 1150 -10 / -10 Weight last 48 hrs Weight 31.355 kg Weight 31.355 kg Physical Exam 2 Narrative: General exam no distress currently, on 3 L, occasional cough Neck is supple, no lymphadenopathy, no thyromegaly. Cardiovascular tachycardic, regular, telemetry indicates sinus tachycardia, rate 120, no murmur Lungs sounds noted to be diminished throughout on auscultation. Abdomen is soft with positive bowel sounds. Abd non-tender. Ostomy pink, stool noted in bag. Extremities show no cyanosis or clubbing. No edema. Data 04/20/23 04:24 04/20/23 04:24 Micro: Microbiology 04/18/23 19:00 Gram Stain - Final Sputum - Expectorated Sputum Sputum Culture - Preliminary 04/19/23 15:58 Urine Culture - Preliminary Urine,Clean Catch 04/15/23 19:28 Blood Culture - Preliminary Blood 04/15/23 19:15 Blood Culture - Preliminary Blood A&P Assessment and plan (1) Pulmonary embolism: Multifocal subsegmental pulmonary embolism in the right lung Discontinued lovenox, started Eliqus 04/16/23. More tachycardic this morning but concerned with infection with elevating white count. Secondary to past history of urinary bladder invasion concerns we will discontinue p.o. Eliquis and go back to Lovenox 1 mg/kg every 12 hours in case any surgical procedures needed Cardiac echo 04/16/23 indicated an EF of 60%. No obvious right heart strain Venous ultrasound noted to be negative for DVT to bilateral lower extremities. 04/15/23 Qualifiers: Pulmonary embolism type: multiple subsegmental (without acute cor pulmonale) Qualified Code(s): I26.94 - Multiple subsegmental pulmonary emboli without acute cor pulmonale (2) Consolidation of middle lobe of lung: Patient has partial collapse of right middle lobe due to consolidation Due to leukocytosis, immunocompromise state, recent hospitalization for pneumonia Currently on meropenem. Vancomycin was changed to Doxy yesterday. Changed back. Secondary to elevated heart rate, increasing white blood cell count check blood cultures, urinalysis, urine culture, CT chest abdomen and pelvis, COVID and flu, C. difficile CBC, CMP in the morning CT chest and pelvis shows increasing consolidation in lung bases consistent with worsening pneumonia superimposed on severe centrilobular emphysema. Partial collapse right middle lobe unchanged. New hypodense nodules in right lobe of liver most likely metastasis. (3) PNA (pneumonia): See notations above. Bacterial antigens were negative Sputum culture pending Fluconazole, nystatin initiated with low tolerance for starting micafungin if she worsens. Beta D glucan ordered. Speech therapy evaluation, concern for aspiration as well. Plan History of colon cancer, with bladder invasion. Was to have chemotherapy this week. I believe her last treatment was April 02. Overall her performance status looks poor. Low body weight, severe protein calorie malnutrition, cancer cachexia, muscle wasting. Will add Ensure supplements. She likes chocolate flavor. History of smoking, no formal diagnosis of copd Severe anxiety. Discussed potential treatments. For now Ativan as needed. She does not want a daily antidepressant/antianxiety type medicine currently. AND Lovenox Attestations 2 Medical Necessity Statement*: Needs continued hospitalization for IV antibiotics secondary to pneumonia, with concern of failure to improve. Diagnoses Pulmonary embolism I26.94 Pulmonary embolism type: multiple subsegmental (without acute cor pulmonale) Consolidation of middle lobe of lung J18.1 PNA (pneumonia) J18.9
[2023-04-20] MEDS: LORazepam 0.5 mg Tablet PO (17:15)
[2023-04-20 21:36] LABS: Vancomycin Trough 8.6 ug/mL (10-15)
[2023-04-21] VITALS (16 sets, daily range): BP systolic 96–119; BP diastolic 60–79; PULSE 101–127; RESP 16–22; TEMP 36.6–37.3; O2SAT 92–96
[2023-04-21] MEDS: ipratropium-albuterol 3 mL Neb INHALATION ×6 (00:09→21:31)
[2023-04-21] MEDS: LORazepam 0.5 mg Tablet PO ×3 (02:09→18:08)
[2023-04-21] MEDS: oxyCODONE-APAP 5-325 mg Tablet 1 TAB PO (02:09)
[2023-04-21] MEDS: baclofen 10 mg Tablet PO ×3 (05:57→18:08)
[2023-04-21] MEDS: acetaminophen 500 mg Tablet 1000 MG PO ×4 (05:57→22:11)
[2023-04-21 06:39] LABS: Basophils # 0.1 10^3/uL (0.0-0.1); Basophils % 0.8 %; Eosinophils # 0.1 10^3/uL (0.0-0.8); Hematocrit 32.4 % (36-47); Lymphocytes # 2.8 10^3/uL (0.8-4.8); Lymphocytes % 19.3 %; Mean Corpuscular HGB Conc 29.6 g/dL (30-55); Mean Corpuscular Hemoglobin 25.6 pg (27-33); Mean Corpuscular Volume 86.4 fl (85-98); Mean Platelet Volume 8.6 fL (7.4-10.4); Monocytes # 1.5 10^3/uL (0.2-0.9); Monocytes % 10.1 %; Neutrophils # 9.63 10^3/uL (1.8-7.7); Neutrophils % 67.2 %; Nucleated Red Blood Cells % 0 %; Platelet Count 603 10^3/cmm (157-399); Red Blood Count 3.75 10^6/uL (3.85-5.65); Red Cell Distribution Width 17.2 % (12.1-15.1); White Blood Count 14.32 10^3/uL (3.29-11.43)
[2023-04-21 07:06] LABS: Blood Urea Nitrogen 9 mg/dL (8-23); Calcium 8.5 mg/dL (8.5-10.5); Carbon Dioxide 26 mmol/L (22-29); Chloride 104 mmol/L (98-107); Glomerular Filtration Rate 225.4 mL/min (90-130); Glucose 99 mg/dL (65-115); Magnesium 2.1 mg/dL (1.7-2.3); Osmolality Calculated 283 mOsm/kg (285-295); Sodium 137 mmol/L (136-145)
[2023-04-21] MEDS: budesonide 0.5 mg/2 mL Neb INHALATION ×2 (08:31→21:31)
[2023-04-21] MEDS: pantoprazole DR 40 mg Tablet PO (09:31)
[2023-04-21] MEDS: aspirin 81 mg EC Tablet PO (09:31)
[2023-04-21] MEDS: oxybutynin chloride XL 5 MG TABLET 15 MG PO (09:31)
[2023-04-21] MEDS: meropenem 1,000 MG in sodium chloride 0.9% (plus) 50 ML 100 MG IV ×3 (09:32→23:08)
[2023-04-21] MEDS: nystatin 100,000 unit/mL UDC 5 mL 500000 UNIT PO ×4 (09:32→20:23)
[2023-04-21] MEDS: enoxaparin 30 mg/0.3 mL Syringe SUBCUT ×2 (09:32→20:23)
[2023-04-21] MEDS: vancomycin 750 MG in sodium chloride 0.9% 250 ML 250 MG IV ×2 (10:12→20:23)
[2023-04-21] MEDS: fluconazole premix 200 MG/100 ML PREMIX 100 MG IV (12:13)
--- NOTE | 2023-04-21 12:56 | P.PN_ITS ---
Subjective 2 Subjective: Seen this morning. Requesting for gravy with her food. Does desaturate on ambulation. Vitals/I&O/Wt Last Vital Signs Temp 98.0 F 04/21/23 12:12 Pulse 115 H 04/21/23 12:12 Resp 20 H 04/21/23 12:12 BP 112/67 04/21/23 12:12 Pulse Ox 96 04/21/23 12:14 O2 Del Method Nasal Cannula 04/21/23 12:14 O2 Flow Rate 2 04/21/23 12:14 04/20/23 04/21/23 04/21/23 22:59 06:59 14:59 Intake Total 630 / 1550 50 / 1600 660 / 660 Output Total 200 / 650 100 / 750 200 / 200 Balance 430 / 900 -50 / 850 460 / 460 Weight last 48 hrs Weight 32.46 kg Weight 31.355 kg Physical Exam 2 Narrative: General exam no distress currently, on 3 L, occasional cough Neck is supple, no lymphadenopathy, no thyromegaly. Cardiovascular tachycardic, regular, telemetry indicates sinus tachycardia, rate 115, no murmur Lungs sounds noted to be diminished throughout on auscultation. Abdomen is soft with positive bowel sounds. Abd non-tender. Ostomy pink, stool noted in bag. Extremities show no cyanosis or clubbing. No edema. Data 04/21/23 06:18 04/21/23 06:18 Micro: Microbiology 04/18/23 19:00 Gram Stain - Final Sputum - Expectorated Sputum Sputum Culture - Final 04/19/23 15:58 Urine Culture - Final Urine,Clean Catch 04/15/23 19:28 Blood Culture - Preliminary Blood 04/15/23 19:15 Blood Culture - Preliminary Blood A&P Assessment and plan (1) Pulmonary embolism: Multifocal subsegmental pulmonary embolism in the right lung Discontinued lovenox, started Eliqus 04/16/23. More tachycardic this morning but concerned with infection with elevating white count. Secondary to past history of urinary bladder invasion concerns we will discontinue p.o. Eliquis and go back to Lovenox 1 mg/kg every 12 hours in case any surgical procedures needed Cardiac echo 04/16/23 indicated an EF of 60%. No obvious right heart strain Venous ultrasound noted to be negative for DVT to bilateral lower extremities. 04/15/23 Qualifiers: Pulmonary embolism type: multiple subsegmental (without acute cor pulmonale) Qualified Code(s): I26.94 - Multiple subsegmental pulmonary emboli without acute cor pulmonale (2) Consolidation of middle lobe of lung: Patient has partial collapse of right middle lobe due to consolidation Due to leukocytosis, immunocompromise state, recent hospitalization for pneumonia Currently on meropenem. Vancomycin was changed to Doxy yesterday. Changed back. Secondary to elevated heart rate, increasing white blood cell count check blood cultures, urinalysis, urine culture, CT chest abdomen and pelvis, COVID and flu, C. difficile CBC, CMP in the morning CT chest and pelvis shows increasing consolidation in lung bases consistent with worsening pneumonia superimposed on severe centrilobular emphysema. Partial collapse right middle lobe unchanged. New hypodense nodules in right lobe of liver most likely metastasis. (3) PNA (pneumonia): See notations above. Bacterial antigens were negative Sputum culture pending Fluconazole, nystatin initiated with low tolerance for starting micafungin if she worsens. Beta D glucan ordered. Speech therapy evaluation, concern for aspiration as well. Plan History of colon cancer, with bladder invasion. Was to have chemotherapy this week. I believe her last treatment was April 02. Overall her performance status looks poor. Low body weight, severe protein calorie malnutrition, cancer cachexia, muscle wasting. Will add Ensure supplements. She likes chocolate flavor. History of smoking, no formal diagnosis of copd Severe anxiety. Discussed potential treatments. For now Ativan as needed. She does not want a daily antidepressant/antianxiety type medicine currently. AND Lovenox Patient desats on exertion. She is extremely anxious. This will be a barrier to discharge most likely. She feels she is not ready to go home. She is unrealistic about her medical condition and asked me today what exactly is wrong with me and how bad is it. Is it really that bad? She is more worried about her adenovirus being positive than her metastatic colon cancer. I explained to her she has pneumonia, PE, tumor invading her GI tract and bladder and went over all of these medical issues and she then asked me it is all very bad?. She is requesting for more anxiety medication. She states I cannot cope without it. She would like to be on a scheduled medicine. She also states her bladder spasms have worsened and would like her baclofen to be scheduled as opposed to as needed. Attestations 2 Medical Necessity Statement*: Needs continued hospitalization for IV antibiotics secondary to pneumonia, with concern of failure to improve. Diagnoses Pulmonary embolism I26.94 Pulmonary embolism type: multiple subsegmental (without acute cor pulmonale) Consolidation of middle lobe of lung J18.1 PNA (pneumonia) J18.9
[2023-04-22] VITALS (11 sets, daily range): BP systolic 104–114; BP diastolic 67–75; PULSE 114–128; RESP 17–20; TEMP 36.7–37.4; O2SAT 94–96
[2023-04-22] MEDS: ipratropium-albuterol 3 mL Neb INHALATION ×4 (00:24→15:42)
[2023-04-22] MEDS: acetaminophen 500 mg Tablet 1000 MG PO (05:04)
[2023-04-22] MEDS: LORazepam 0.5 mg Tablet PO ×3 (05:16→20:38)
[2023-04-22 05:52] LABS: Basophils # 0.1 10^3/uL (0.0-0.1); Basophils % 0.9 %; Eosinophils # 0.1 10^3/uL (0.0-0.8); Eosinophils % 0.8 %; Hematocrit 32.5 % (36-47); Lymphocytes # 2.7 10^3/uL (0.8-4.8); Lymphocytes % 21.1 %; Mean Corpuscular HGB Conc 29.8 g/dL (30-55); Mean Corpuscular Hemoglobin 26.1 pg (27-33); Mean Corpuscular Volume 87.6 fl (85-98); Mean Platelet Volume 8.6 fL (7.4-10.4); Monocytes # 1.4 10^3/uL (0.2-0.9); Monocytes % 10.7 %; Neutrophils # 8.29 10^3/uL (1.8-7.7); Neutrophils % 64.6 %; Nucleated Red Blood Cells % 0 %; Platelet Count 603 10^3/cmm (157-399); Red Blood Count 3.71 10^6/uL (3.85-5.65); Red Cell Distribution Width 17.2 % (12.1-15.1); White Blood Count 12.83 10^3/uL (3.29-11.43)
[2023-04-22 06:13] LABS: Anion Gap 12.7 (5-19); Blood Urea Nitrogen 9 mg/dL (8-23); Calcium 8.8 mg/dL (8.5-10.5); Carbon Dioxide 26 mmol/L (22-29); Chloride 102 mmol/L (98-107); Glomerular Filtration Rate 161.7 mL/min (90-130); Glucose 147 mg/dL (65-115); Magnesium 1.9 mg/dL (1.7-2.3); Osmolality Calculated 285 mOsm/kg (285-295); Potassium 3.7 mmol/L (3.5-5.1); Sodium 137 mmol/L (136-145)
[2023-04-22] MEDS: enoxaparin 30 mg/0.3 mL Syringe SUBCUT ×2 (07:42→20:37)
[2023-04-22] MEDS: meropenem 1,000 MG in sodium chloride 0.9% (plus) 50 ML 100 MG IV ×2 (07:42→17:36)
[2023-04-22 08:19] LABS: Vancomycin Trough 11.6 ug/mL (10-15)
[2023-04-22] MEDS: aspirin 81 mg EC Tablet PO (10:29)
[2023-04-22] MEDS: pantoprazole DR 40 mg Tablet PO (10:29)
[2023-04-22] MEDS: oxybutynin chloride XL 5 MG TABLET 15 MG PO (10:29)
[2023-04-22] MEDS: vancomycin 750 MG in sodium chloride 0.9% 250 ML 250 MG IV ×2 (10:30→20:38)
[2023-04-22] MEDS: nystatin 100,000 unit/mL UDC 5 mL 500000 UNIT PO ×4 (10:30→20:36)
[2023-04-22] MEDS: baclofen 10 mg Tablet PO ×2 (10:34→17:36)
[2023-04-22] MEDS: oxyCODONE-APAP 5-325 mg Tablet 1 TAB PO (11:58)
[2023-04-22] MEDS: fluconazole premix 200 MG/100 ML PREMIX 100 MG IV (11:59)
[2023-04-22] MEDS: phenazopyridine 100 mg Tablet 200 MG PO (20:36)
--- NOTE | 2023-04-22 23:30 | P.PN_ITS ---
Subjective 2 Subjective: Patient is very anxious. Objectively has similar oxygen requirements but requesting standing anxiety medications. No new events otherwise Medications: Reviewed: Yes Vitals/I&O/Wt Last Vital Signs Temp 99.3 F 04/22/23 20:00 Pulse 118 H 04/22/23 20:00 Resp 18 04/22/23 20:00 BP 109/72 04/22/23 20:00 Pulse Ox 96 04/22/23 20:00 O2 Del Method Nasal Cannula 04/22/23 20:00 O2 Flow Rate 2 04/22/23 20:00 04/22/23 04/22/23 04/23/23 14:59 22:59 06:59 Intake Total 760 / 760 780 / 1540 Output Total 150 / 150 Balance 760 / 760 630 / 1390 Weight last 48 hrs Weight 34.501 kg Weight 32.46 kg Physical Exam 2 Narrative: General: No acute distress, AO x3, cachexic HEENT: PERRLA, pupils bilaterally equal and reactive, pallors not present Chest: Normal vesicular breath sounds, no added sounds, equal good air entry bilaterally CVS: S1-S2 regular, no murmurs, no tachycardia, no gallops, no rubs Abdomen: Soft, nontender, no organomegaly, bowel sounds present Neuro: No focal deficits, no facial deformity, AO x3, power 5/5 in all limbs Data 04/22/23 05:40 04/22/23 05:40 Micro: Microbiology 04/15/23 19:28 Blood Culture - Final Blood 04/15/23 19:15 Blood Culture - Final Blood A&P Assessment and plan (1) Pulmonary embolism: Multifocal subsegmental pulmonary embolism in the right lung Discontinued lovenox, started Eliqus 04/16/23. More tachycardic this morning but concerned with infection with elevating white count. Secondary to past history of urinary bladder invasion concerns we will discontinue p.o. Eliquis and go back to Lovenox 1 mg/kg every 12 hours in case any surgical procedures needed Cardiac echo 04/16/23 indicated an EF of 60%. No obvious right heart strain Venous ultrasound noted to be negative for DVT to bilateral lower extremities. 04/15/23 Qualifiers: Pulmonary embolism type: multiple subsegmental (without acute cor pulmonale) Qualified Code(s): I26.94 - Multiple subsegmental pulmonary emboli without acute cor pulmonale (2) Consolidation of middle lobe of lung: Patient has partial collapse of right middle lobe due to consolidation Due to leukocytosis, immunocompromise state, recent hospitalization for pneumonia Currently on meropenem. Vancomycin was changed to Doxy yesterday. Changed back. Secondary to elevated heart rate, increasing white blood cell count check blood cultures, urinalysis, urine culture, CT chest abdomen and pelvis, COVID and flu, C. difficile CBC, CMP in the morning CT chest and pelvis shows increasing consolidation in lung bases consistent with worsening pneumonia superimposed on severe centrilobular emphysema. Partial collapse right middle lobe unchanged. New hypodense nodules in right lobe of liver most likely metastasis. (3) PNA (pneumonia): See notations above. Bacterial antigens were negative Sputum culture pending Fluconazole, nystatin initiated with low tolerance for starting micafungin if she worsens. Beta D glucan ordered. Speech therapy evaluation, concern for aspiration as well. Plan History of colon cancer, with bladder invasion. Was to have chemotherapy this week. I believe her last treatment was April 02. Overall her performance status looks poor. Low body weight, severe protein calorie malnutrition, cancer cachexia, muscle wasting. Will add Ensure supplements. She likes chocolate flavor. History of smoking, no formal diagnosis of copd Severe anxiety. Discussed potential treatments. For now Ativan as needed. She does not want a daily antidepressant/antianxiety type medicine currently. AND Lovenox Patient desats on exertion. She is extremely anxious. This will be a barrier to discharge most likely. She feels she is not ready to go home. She is unrealistic about her medical condition and asked me today what exactly is wrong with me and how bad is it. Is it really that bad? She is more worried about her adenovirus being positive than her metastatic colon cancer. I explained to her she has pneumonia, PE, tumor invading her GI tract and bladder and went over all of these medical issues and she then asked me it is all very bad?. She is requesting for more anxiety medication. She states I cannot cope without it. She would like to be on a scheduled medicine. She also states her bladder spasms have worsened and would like her baclofen to be scheduled as opposed to as needed. Plan for today April 22, 2023.: Extremely anxious again today. Started on standing lorazepam. Discussed with her initiation of SSRIs, however chart notes a prior allergy to paroxetine. Patient does not remember what it was. Plan to continue anticoagulation, add standing anxiety medication, continue antibiotics, anticipate discharge in the upcoming 24 hours if patient's oxygen requirements remained stable Attestations 2 Medical Necessity Statement*: Continued need for anticoagulation, antibiotics, monitoring respiratory status Coding Level of Care Code Acute Code for Chg Fwd Diagnoses Pulmonary embolism I26.94 Pulmonary embolism type: multiple subsegmental (without acute cor pulmonale) Consolidation of middle lobe of lung J18.1 PNA (pneumonia) J18.9
[2023-04-23] VITALS (9 sets, daily range): BP systolic 98–117; BP diastolic 67–80; PULSE 106–131; RESP 16–20; TEMP 36.6–36.9; O2SAT 92–96; BMI 14.6
[2023-04-23] MEDS: acetaminophen 500 mg Tablet 1000 MG PO ×3 (00:01→14:50)
[2023-04-23] MEDS: baclofen 10 mg Tablet PO (00:53)
[2023-04-23] MEDS: ipratropium-albuterol 3 mL Neb INHALATION ×2 (07:58→11:32)
[2023-04-23] MEDS: budesonide 0.5 mg/2 mL Neb INHALATION (07:58)
[2023-04-23] MEDS: nystatin 100,000 unit/mL UDC 5 mL 500000 UNIT PO ×2 (08:50→12:38)
[2023-04-23] MEDS: oxybutynin chloride XL 5 MG TABLET 15 MG PO (08:50)
[2023-04-23] MEDS: meropenem 1,000 MG in sodium chloride 0.9% (plus) 50 ML 100 MG IV ×3 (08:51→15:36)
[2023-04-23] MEDS: phenazopyridine 100 mg Tablet 200 MG PO ×2 (08:53→14:52)
[2023-04-23] MEDS: LORazepam 0.5 mg Tablet PO ×2 (08:53→14:53)
[2023-04-23] MEDS: pantoprazole DR 40 mg Tablet PO (08:54)
[2023-04-23] MEDS: aspirin 81 mg EC Tablet PO (08:54)
[2023-04-23] MEDS: enoxaparin 30 mg/0.3 mL Syringe SUBCUT (08:55)
[2023-04-23] MEDS: vancomycin 750 MG in sodium chloride 0.9% 250 ML 250 MG IV (10:42)
[2023-04-23] MEDS: fluconazole premix 200 MG/100 ML PREMIX 100 MG IV (12:37)
--- NOTE | 2023-04-23 15:06 | PM.DCS ---
Discharge Providers Date of Admission: 04/15/23 21:03 Date of Discharge: April 23, 2023 Attending Provider at Admission: Keaton Guillaume MD Attending Provider at Discharge: Venessa Hurt MD Primary Care Provider: Darwin Reaves MD Diagnoses at Discharge Discharge Diagnosis (1) Pulmonary embolism: Status: Acute Qualifiers: Pulmonary embolism type: multiple subsegmental (without acute cor pulmonale) Qualified Code(s): I26.94 - Multiple subsegmental pulmonary emboli without acute cor pulmonale (2) Consolidation of middle lobe of lung: Status: Acute (3) PNA (pneumonia): Status: Acute (4) Adenovirus pneumonia: Status: Acute (5) Cancer cachexia: Status: Acute Reason for Visit Reason for Visit: chest pain, colon cancer Brief History: 62-year-old lady with a past medical history of chronic tobacco use, diagnosed with adenocarcinoma of the colon with local invasion to the urinary bladder and metastatic spread to the liver, originally diagnosed in November 2022 status post diverting loop ileostomy at [facility], currently on chemotherapy with FOLFOX with last dose on April 02, 2022. 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 She presented to the emergency room on April 15, 2022 with chief complaints of dyspnea, right-sided chest pain, and worsening hypoxia over baseline. She was diagnosed with bilateral PE based on a CTA. Additionally she also had adenovirus pneumonitis, possibly also with superadded bacterial pneumonia given progression of lung infiltrates during the course of admission. For her PE she was treated with anticoagulation with Lovenox which has been converted to Eliquis at the time of discharge. For adenovirus pneumonitis she received supportive management with hydration, oxygen supplementation, as needed nebulization with DuoNeb and budesonide. For possibility of bacterial pneumonia she received an extended course of meropenem and vancomycin since admission till day of discharge which is today. She has completed overall 8 days of IV antibiotics and these have been discontinued at the time of discharge as she has completed adequate therapy. CT of the chest abdomen and pelvis was performed on this admission which showed redemonstration of a large necrotic invasive heterogeneous mass in the pelvis which was invading the adjacent structures such as GI tract and gallbladder. New hypodense lesions were noted in the right lobe of the liver suspected to be metastatic disease. At her baseline severe emphysema was noted, possible that patient has underlying COPD additionally. Patient is very anxious about her cancer diagnosis. She is extremely worried about her ongoing weight loss. She has intermittent episodes of panic attacks as a result of the same. She has been started on low-dose mirtazapine 7.5 mg daily with recommendation to follow-up with PCP in the next 7 to 10 days to assess for response to treatment and titration of dose as needed. Additionally started on as needed Xanax twice daily as needed. Please follow-up with oncology in the next 1 to [address] findings to assess response to treatment. She remains a high risk for readmission to the hospital due to her various comorbidities. Physical Exam Narrative: General: No acute distress, AO x3 HEENT: PERRLA, pupils bilaterally equal and reactive, pallors not present Chest: Normal vesicular breath sounds, no added sounds, equal good air entry bilaterally CVS: S1-S2 regular, no murmurs, no tachycardia, no gallops, no rubs Abdomen: Soft, nontender, no organomegaly, bowel sounds present Neuro: No focal deficits, no facial deformity, AO x3, power 5/5 in all limbs Discharge Data Studies Completed and Pending Completed Studies During Hospitalization Category Date Time Status CT angio chest PE protcl [id number] Stat Cat Scan 04/15/23 17:[address] chest abdomen pelvis [CT chest abdpel w/*[id number] Cat Scan 04/19/23 08:26 Completed ] Routine CXRP [XR chest 1V portable [id number]] Stat Exams 04/19/23 00:32 Completed XR chest 1V portable [id number] Stat Exams 04/15/23 16:10 Completed Blood Cultures ([facility]) Routine Lab 04/15/23 19:15 Completed Blood Cultures ([facility]) Routine Lab 04/15/23 19:28 [place] [id number] Routine Ultrasound 04/15/23 22:34 Completed CV. echo complete* [id number] Routine Ultrasound 04/16/23 22:34 Completed Pending at discharge Category Date Time Status 1-3 Beta D Glucan [Fungitell Glucan Assay (Blood)] Lab 04/19/23 09:08 Received Routine Blood Cultures ([facility]) Routine Lab 04/19/23 09:58 Results Blood Cultures ([facility]) Routine Lab 04/19/23 10:03 Results Clostridium Difficile PCR Routine Lab 04/23/23 03:13 Received Radiology Impressions Chest CTA 04/15/23 17:22 IMPRESSION: Multifocal subsegmental pulmonary embolism in the right lung. Partial collapse of the right middle lobe due to a consolidation. Marked emphysema. COMMENTS: The presence of pulmonary emphysema on CT is an independent risk factor for lung cancer. In the absence of a history or active diagnosis of lung cancer, it is recommended that this patient with emphysema be evaluated for enrollment in a low dose CT lung cancer screening program. ADDENDUM: 04/15/231912 THIS REPORT CONTAINS FINDINGS THAT MAY BE CRITICAL TO PATIENT CARE. The findings were verbally communicated via telephone conference with Dr. Johnson at 7:11 PM RETURNED TELEPHONE EQUIPMENT [employer]IS[employer] on 04/15/2023. The findings were acknowledged and understood. Chest X-Ray 04/19/23 00:32 IMPRESSION: Worsening bibasilar airspace opacities are worrisome for pneumonia, but aspiration is not excluded. Laboratory Results WBC 12.83 10^3/uL (3.29-11.43) H 04/22/23 05:40 RBC 3.71 10^6/uL (3.85-5.65) L 04/22/23 05:40 Hgb 9.70 g/dL (11.27-16.99) L 04/22/23 05:40 Hct 32.5 % (36-47) L 04/22/23 05:40 MCV 87.6 fl (85-98) 04/22/23 05:40 MCH 26.1 pg (27-33) L 04/22/23 05:40 MCHC 29.8 g/dL (30-55) L 04/22/23 05:40 RDW 17.2 % (12.1-15.1) H 04/22/23 05:40 Plt Count 603 10^3/cmm (157-399) H 04/22/23 05:40 MPV 8.6 fL (7.4-10.4) 04/22/23 05:40 Neut % (Auto) 64.6 % 04/22/23 05:40 Lymph % (Auto) 21.1 % 04/22/23 05:40 [place] % (Auto) 10.7 % 04/22/23 05:40 Eos % (Auto) 0.8 % 04/22/23 05:40 Baso % (Auto) 0.9 % 04/22/23 05:40 Neut # (Auto) 8.29 10^3/uL (1.8-7.7) H 04/22/23 05:40 Lymph # (Auto) 2.7 10^3/uL (0.8-4.8) 04/22/23 05:40 [place] # (Auto) 1.4 10^3/uL (0.2-0.9) H 04/22/23 05:40 Eos # (Auto) 0.1 10^3/uL (0.0-0.8) 04/22/23 05:40 Baso # (Auto) 0.1 10^3/uL (0.0-0.1) 04/22/23 05:40 Nucleated RBC % (auto) 0 % 04/22/23 05:40 Nucleated RBCs # 0.0 /100WBC 04/22/23 05:40 PT 14.00 SECONDS (12.1-14.9) 04/15/23 17:07 INR 1.05 (0.8-1.2) 04/15/23 17:07 D-Dimer 1.94 ug/mLFEU (0-0.59) H 04/15/23 17:07 Sodium 137 mmol/L (136-145) 04/22/23 05:40 Potassium 3.7 mmol/L (3.5-5.1) 04/22/23 05:40 Chloride 102 mmol/L (98-107) 04/22/23 05:40 Carbon Dioxide 26 mmol/L (22-29) 04/22/23 05:40 Anion Gap 12.7 (5-19) 04/22/23 05:40 BUN 9 mg/dL (8-23) 04/22/23 05:40 Creatinine 0.4 mg/dL (0.5-0.9) L 04/22/23 05:40 GFR Calculation 161.7 mL/min (90-130) H 04/22/23 05:40 Glucose 147 mg/dL (65-115) H 04/22/23 05:40 Calculated Osmolality 285 mOsm/kg (285-295) 04/22/23 05:40 Lactic Acid 2.1 mmol/L (0.5-2.2) 04/15/23 21:28 Lactic Acid (Sepsis) 1.6 mmol/L (0.5-2.2) 04/15/23 01:24 Calcium 8.8 mg/dL (8.5-10.5) 04/22/23 05:40 Phosphorus 1.8 mg/dL (2.5-4.5) L 04/16/23 01:24 Magnesium 1.9 mg/dL (1.7-2.3) 04/22/23 05:40 Total Bilirubin 0.2 mg/dL (0.15-1.2) 04/20/23 04:24 AST 19 U/L (0-32) 04/20/23 04:24 ALT 18 U/L (0-33) 04/20/23 04:24 Alkaline Phosphatase 123 U/L (35-105) H 04/20/23 04:24 Creatine Kinase 37 U/L (26-192) 04/15/23 17:07 Troponin T Baseline 13 ng/L (0-10) H 04/19/23 00:53 Troponin T 120 Minute 13.71 ng/L (0-10) H 04/19/23 02:55 Delta Troponin T 0.71 ABS# (0-10) 04/19/23 02:55 Troponin T Hi Sens 6Hr 15.76 ng/L (0-10) H 04/19/23 07:05 Troponin T Hi Sens 6Hr Delta 2.76 ng/L (0-12) 04/19/23 07:05 C-Reactive Protein 122.5 mg/L (0.0-4.9) H 04/20/23 04:24 NT-Pro-B Natriuret Pep 269 pg/mL (0-125) H 04/19/23 00:53 Total Protein 6.4 g/dL (6.6-8.7) L 04/20/23 04:24 Albumin 2.4 g/dL (3.5-5.2) L 04/20/23 04:24 Globulin 4.0 g/dL (1.3-4.6) 04/20/23 04:24 Lipase 20 U/L (13-60) 04/15/23 17:07 Procalcitonin 0.12 ng/mL (0-0.5) 04/19/23 00:53 Urine Color Yellow (Yellow) 04/19/23 15:58 Urine Appearance Cloudy (CLEAR) A 04/19/23 15:58 Urine pH 7 (5-7) 04/19/23 15:58 Ur Specific [place] 1.010 (1.005-1.030) 04/19/23 15:58 Urine Protein 3+ (Negative) H 04/19/23 15:58 Urine Glucose (UA) Norm (Normal) 04/19/23 15:58 Urine Ketones 1+ (Negative) H 04/19/23 15:58 Urine Blood 3+ (Negative) H 04/19/23 15:58 Urine Nitrate Negative (Negative) 04/19/23 15:58 Urine Bilirubin Neg (Negative) 04/19/23 15:58 Urine Urobilinogen Neg mg/dL (Negative) 04/19/23 15:58 Ur Leukocyte Esterase 2+ (Negative) H 04/19/23 15:58 Urine RBC Too numerous to cnt /hpf (0-2) H 04/19/23 15:58 Urine WBC Too numerous to cnt /hpf (0-5) H 04/19/23 15:58 Ur Squamous Epith Cells None /hpf (0-5) 04/19/23 15:58 Amorphous Sediment Not Reportable 04/19/23 15:58 Urine Bacteria 1+ /hpf (NONE) H 04/19/23 15:58 Vancomycin Trough 11.6 ug/mL (10-15) 04/22/23 07:53 Adenovirus (PCR) Detected (NOT DETECT) A 04/20/23 03:32 C. pneumoniae DNA (PCR) Not detected (NOT DETECT) 04/19/23 08:04 C. difficile Tox (PCR) Cancelled 04/19/23 20:15 Coronavirus 229E (PCR) Not detected (NOT DETECT) 04/19/23 08:04 Human Metapneumovir PCR Not detected (NOT DETECT) 04/19/23 08:04 Influenza A (H1) PCR Not detected (NOT DETECT) 04/19/23 08:04 Influ A (H1/09) PCR Not detected (NOT DETECT) 04/19/23 08:04 Influenza A (H3) PCR Not detected (NOT DETECT) 04/19/23 08:04 Influenza Type A Ag negative (Negative) 04/15/23 18:14 Influenza Type A (PCR) Not detected (NOT DETECT) 04/19/23 08:04 Influenza Type B Ag negative (Negative) 04/15/23 18:14 Influenza Type B (PCR) Not detected (NOT DETECT) 04/19/23 08:04 M. pneumoniae (PCR) Not detected (NOT DETECT) 04/19/23 08:04 Parainfluenza 1 (PCR) Not detected (NOT DETECT) 04/19/23 08:04 Parainfluenza 2 (PCR) Not detected (NOT DETECT) 04/19/23 08:04 Parainfluenza 3 (PCR) Not detected (NOT DETECT) 04/19/23 08:04 Parainfluenza 4 (PCR) Not detected (NOT DETECT) 04/19/23 08:04 RSV Type A (PCR) Not detected (NOT DETECT) 04/19/23 08:04 RSV Type B (PCR) Not detected (NOT DETECT) 04/19/23 08:04 Entero/Rhino (PCR) Not detected (NOT DETECT) 04/19/23 08:04 SARS-CoV-2 (PCR) Not detected (NOT DETECT) 04/19/23 08:04 Vitals Last Vital Signs Temp 97.9 F 04/23/23 08:23 Pulse 114 H 04/23/23 11:34 Resp 18 04/23/23 11:34 BP 117/80 04/23/23 08:23 Pulse Ox 95 04/23/23 11:34 O2 Del Method Nasal Cannula 04/23/23 11:34 O2 Flow Rate 2 04/23/23 11:34 Discharge Plan Discharge Patient Disposition: Home Condition: Stable Prescriptions: New albuterol sulfate 2.5 mg/0.5 mL solution for nebulization 2.5 mg inhalation Q6H PRN (Reason: shortness of breath or wheezing) 30 Days Qty: 30 2RF budesonide 0.5 mg/2 mL Suspension For Nebulization 0.5 mg inhalation BID.RESPIRATORY 30 Days Qty: 120 0RF Eliquis 5 mg tablet 5 mg PO BID 90 Days Qty: 180 0RF mirtazapine 7.5 mg tablet 7.5 mg PO BID 14 Days Qty: 28 0RF Xanax 0.25 mg tablet 0.25 mg PO BID PRN (Reason: anxiety) 7 Days Qty: 7 0RF Continued loperamide 2 mg tablet 2 mg PO .COMPLEX PRN (Reason: loose stool) Qty: 30 1RF Rx Instructions: take 2 tabs after first loose stool then 1 tab after each loose stool, no more than 4 tablets in 24 hours naloxone [Narcan] 4 mg/actuation spray,non-aerosol 4 mg intranasal Q2M PRN (Reason: Opioid Overdose) Rx Instructions: spray 1 dose into ONE nostril; alternate nostrils w each dose until help arrives ferrous sulfate 325 mg (65 mg iron) tablet 325 mg PO ONCE Qty: 100 3RF aspirin 81 mg tablet,delayed release (DR/EC) 81 mg PO DAILY Qty: 90 3RF acetaminophen 500 mg capsule 1,000 mg PO Q6H Qty: 300 5RF prochlorperazine maleate [Compazine] 10 mg tablet 10 mg PO Q6H PRN (Reason: nausea and vomiting) Qty: 30 3RF oxycodone-acetaminophen 5-325 mg tablet 1 tab PO Q8H PRN (Reason: cancer pain) 30 Days Qty: 90 0RF Pyridium 200 mg tablet 200 mg PO TID Qty: 90 2RF ondansetron 4 mg tablet,disintegrating 4 mg PO Q8H PRN (Reason: nausea and vomiting) Qty: 20 1RF lidocaine-prilocaine 2.5-2.5 % cream 1 applic topical .COMPLEX Qty: 30 3RF Rx Instructions: Apply quarter size amount 30-45 minutes prior to port access, cover with cellophane pantoprazole 20 mg tablet,delayed release (DR/EC) 20 mg PO DAILY baclofen 10 mg tablet 10 mg PO Q6H PRN (Reason: muscle spasm) cyclobenzaprine 5 mg tablet 5 mg PO TID PRN (Reason: Muscle Spasm) oxybutynin chloride 5 mg tablet 5 mg PO TID melatonin 3 mg Tablet 3 mg PO BEDTIME Discontinued levofloxacin 750 mg tablet 750 mg PO DAILY 10 Days Qty: 10 0RF albuterol sulfate 90 mcg/actuation HFA aerosol inhaler 2 inh inhalation Q8H PRN (Reason: shortness of breath or wheezing) Qty: 6.7 3RF Discharge Orders: Discharge Order (Routine); Ordered 04/23/23 Ordered By: Venessa Hurt Other Ambulatory Orders: DME: Nebulizer with Neb Kit (Order) Location: None Selected Ordered By: Venessa Hurt Referrals: State In Home Service Set Up [Other] (Please call this number to see if you qualify for in home services. You will need your HANNA number. You will be asked a series of questions and based off your answers they will determine if you qualify for services. ) Darwin Reaves MD [Primary Care Provider] - 1 week (hospital follow up for PE, reports severe anxiety with cancer diagnosis, started mirtazipine and prn xanax as new medications ) Rehana Chamberlain MD [Hospitalist] - 1 week Discharge Diet: Usual diet Discharge Activity: Resume usual activity Patient Instructions: Opioid Safety Discharge Attestations Time Spent in Discharge Care*: greater than 30 min Quality Metrics Clinical Quality Measures [ Venous Thromboembolism { Contraindication to Overlap Therapy: None; Overlap threrpy ordered; VTE Discharge Education: Education about anticoagulant therapy/Care Notes given, Education about treatment options/disease process, Medication side effects education; Deep Vein Thrombosis/Pulmonary Embolism Present on Admission: Yes;}] Coding Level of Care Code Acute Code for [facility] Fwd Diagnoses Pulmonary embolism I26.94 Pulmonary embolism type: multiple subsegmental (without acute cor pulmonale) Consolidation of middle lobe of lung J18.1 PNA (pneumonia) J18.9 Adenovirus pneumonia J12.0 Cancer cachexia R64
[2023-04-24 13:59] LABS: Clostridium Difficile PCR NOT DETECTED (NOT DETECTED)
[2023-04-24 17:39] LABS: Fungitell 1-3-B Glucan Assay 176 pg/mL; Interpretation POSITIVE
--- NOTE | 2023-04-26 11:11 | PC.SOCIAL ---
Attempted to reach patient to update of blood work and Dr. Hurt's request for a sputum specimen. I am unable to reach her by phone. Dr. Hurt has called and updated Dr. Reaves, who she is to see at 2:00 PM today.
== END 2023-04-23 16:45 | disposition home or self-care (01) | DRG 175 ==
LOC: ER 20:22 → MEDSURG 21:03
PROVIDERS: Emergency Medicine; Internal Medicine; Admitting Provider Family Medicine; Emergency Provider Family Medicine; PCP Family Medicine Adult Medicine; Visit Provider Student in an Organized Health Care Education/Training Program
DX: I26.94 Multiple subsegmental thrombotic pulmonary emboli without acute cor pulmonale (principal); E43 Unspecified severe protein-calorie malnutrition; J12.0 Adenoviral pneumonia; J15.9 Unspecified bacterial pneumonia; C18.9 Malignant neoplasm of colon, unspecified; C78.7 Secondary malignant neoplasm of liver and intrahepatic bile duct; C79.11 Secondary malignant neoplasm of bladder; J96.11 Chronic respiratory failure with hypoxia; Z68.1 Body mass index [BMI] 19.9 or less, adult; D84.9 Immunodeficiency, unspecified; J98.19 Other pulmonary collapse; Z99.81 Dependence on supplemental oxygen; R00.0 Tachycardia, unspecified; E88.A Wasting disease (syndrome) due to underlying condition; M62.50 Muscle wasting and atrophy, not elsewhere classified, unspecified site; F41.0 Panic disorder [episodic paroxysmal anxiety]; J43.2 Centrilobular emphysema; F17.210 Nicotine dependence, cigarettes, uncomplicated; Z93.2 Ileostomy status; Z79.01 Long term (current) use of anticoagulants; Z87.01 Personal history of pneumonia (recurrent)
CPT/HCPCS: 36415; 36591; 71045; 71260; 71275; 74177; 80048; 80053; 80202; 81001; 82550; 83605; 83690; 83735; 83880; 84100; 84145; 84484; 85025; 85378; 85610; 86140; 86403; 87040; 87070; 87086; 87205; 87449; 87486; 87493; 87581; 87633; 87635; 87798; 87804; 92526; 92610; 93005; 93306; 93970; 94640; 94664; 96365; 96372; 96375; 99285; J0456; J0696; J1450; J1650; J2185; J2405; J3370; J3475; J7030; J7050; J7626; Q9967

== ENCOUNTER → 2023-04-26 17:10 | Outpatient (BNVA) | payer BC, MEDICAID, SELFPAY | PROVIDERS: PCP Family Medicine Adult Medicine; Visit Provider Family Medicine Adult Medicine | DX: J84.89 Other specified interstitial pulmonary diseases | CPT/HCPCS: 87798 ==

== ENCOUNTER 2023-04-27 21:11 | Inpatient (IN) | payer BC, SELFPAY ==
[2023-04-27 21:24] VITALS: BP 111/77; PULSE 133; RESP 17; TEMP 36.6; O2SAT 97; BMI 12.8
--- NOTE | 2023-04-27 21:46 | ECG_ITS ---
[facility] Test Date: 2023-04-27 Pat Name: Liliana Monroy Department: Room: Gender: Female Digital Account Director: : 1960 Requested By: Kamari Irving Order Number: [id number] Emili MD: Tevin Frederick M.D. Measurements Intervals [place] Rate: 122 P: 14 AK: 90 QRS: 76 QRSD: 74 T: 59 QT: 287 QTc: 410 Interpretive Statements SINUS TACHYCARDIA WITH SHORT AK INTERVAL MINIMAL VOLTAGE CRITERIA FOR LVH, CONSIDER NORMAL VARIANT [MEETS CRITERIA IN ONE OF: R(aVL), S(V1), R(V5), R(V5/V6)+S(V1)] MINIMAL ST DEPRESSION [0.025+ mV ST DEPRESSION] ABNORMAL RHYTHM ECG Compared to ECG 04/19/2023 02:23:39 No significant changes Electronically Signed On 04-28-2023 21:22:48 SHORTS SIFTER by Tevin Frederick M.D. [id number]
[2023-04-27 22:43] VITALS: BP 82/65; PULSE 127; RESP 18; O2SAT 99
--- NOTE | 2023-04-27 23:43 | XRR_ITS ---
PROCEDURE INFORMATION: Exam: XR Chest Exam date and time: 04/27/2023 11:47 PM Age: 62 years old Clinical indication: Shortness of breath; Prior surgery; Surgery date: 6+ months; Surgery type: Chest port; Patient HX: C/O SOB. History of colon cancer TECHNIQUE: Imaging protocol: Radiologic exam of the chest. Views: 1 view. COMPARISON: CT chest abdpel w/*[id number] 04/19/2023 8:47 AM FINDINGS: Tubes, catheters and devices: Left chest port with catheter tip near the superior cavoatrial junction. Lungs: Severe emphysema/COPD. Patchy bibasilar opacities, similar to and better characterized on recent CT chest. Pleural spaces: No large pleural effusion. No pneumothorax. Heart/Mediastinum: No cardiomegaly. Bones/joints: No acute abnormality. XR/XR chest 1V portable [id number] IMPRESSION: 1. Patchy bibasilar infiltrate, similar to and better characterized on recent CT chest. 2. Severe emphysema/COPD.
[2023-04-28] VITALS (18 sets, daily range): BP systolic 71–152; BP diastolic 51–89; PULSE 80–124; RESP 16–22; TEMP 36.6–37.1; O2SAT 94–100; BMI 12.8
[2023-04-28] MEDS: sodium chloride 0.9% 1,000 ML 999 ML IV (00:19)
[2023-04-28 00:28] LABS: Basophils # 0.1 10^3/uL (0.0-0.1); Basophils % 0.5 %; Eosinophils # 0.2 10^3/uL (0.0-0.8); Eosinophils % 0.8 %; Hematocrit 31.9 % (36-47); Lymphocytes # 3.2 10^3/uL (0.8-4.8); Lymphocytes % 14.4 %; Mean Corpuscular HGB Conc 30.1 g/dL (30-55); Mean Corpuscular Volume 89.9 fl (85-98); Mean Platelet Volume 8.6 fL (7.4-10.4); Monocytes # 1.7 10^3/uL (0.2-0.9); Monocytes % 7.4 %; Neutrophils # 17.13 10^3/uL (1.8-7.7); Neutrophils % 76.1 %; Nucleated Red Blood Cells % 0 %; Platelet Count 668 10^3/cmm (157-399); Red Blood Count 3.55 10^6/uL (3.85-5.65); Red Cell Distribution Width 18.6 % (12.1-15.1); White Blood Count 22.48 10^3/uL (3.29-11.43)
[2023-04-28 00:28] LABS: Protein Urine 3+ (Negative); Urine Appearance Turbid (CLEAR); Urine Color Amber (Yellow); pH Urine 5 (5-7)
[2023-04-28 00:29] LABS: Add Urine Microscopic? YES; Bilirubin Urine Neg (Negative); Blood Urine 3+ (Negative); Glucose Urine UA Norm (Normal); Ketones Urine Negative (Negative); Leukocyte Esterase Urine 2+ (Negative); Nitrate Urine Negative (Negative); Urobilinogen Urine Norm (Negative)
[2023-04-28 00:31] LABS: Bacteria Urine 1+ /hpf; Mucus Urine 1+ /hpf
[2023-04-28 00:32] LABS: Add Urine Culture? Yes
[2023-04-28 00:33] LABS: RBC Urine TOO NUMEROUS TO CNT /hpf (0-2); WBC Urine TOO NUMEROUS TO CNT /hpf (0-5)
[2023-04-28 00:39] LABS: Lactic Sepsis W/Reflex 1.2 mmol/L (0.5-2.2)
[2023-04-28] MEDS: LORazepam 2 mg/mL INJ 10 mL MDV 0.5 MG IVP (00:39)
[2023-04-28 00:40] LABS: Alanine Aminotransferase 12 U/L (0-33); Albumin Level 2.9 g/dL (3.5-5.2); Alkaline Phosphatase 117 U/L (35-105); Aspartate Amino Transferase 18 U/L (0-32); Blood Urea Nitrogen 15 mg/dL (8-23); C Reactive Protein 12.6 mg/L (0.0-4.9); Carbon Dioxide 24 mmol/L (22-29); Chloride 103 mmol/L (98-107); Creatine Phosphokinase 29 U/L (26-192); Creatinine Clr Calc Pharmacy 71.0055; Globulin 4.3 g/dL (1.3-4.6); Glomerular Filtration Rate 161.7 mL/min (90-130); Glucose 108 mg/dL (65-115); Osmolality Calculated 283 mOsm/kg (285-295); Sodium 136 mmol/L (136-145); Total Bilirubin 0.2 mg/dL (0.15-1.2); Total Protein 7.2 g/dL (6.6-8.7)
[2023-04-28 00:46] LABS: Procalcitonin 0.11 ng/mL (0-0.5)
[2023-04-28] MEDS: piperacillin-tazobactam 4.5 GM in sodium chloride 0.9% (plus) 50 ML IV (02:34)
--- NOTE | 2023-04-28 03:27 | CTR_ITS ---
PROCEDURE INFORMATION: Exam: CT Chest With Contrast; Diagnostic Exam date and time: 04/28/2023 3:30 AM Age: 62 years old Clinical indication: Abnormal findings; Abnormal lab test; Elevated wbc; Other: Uti/hematuria; Other: N/a; Shortness of breath; Prior surgery; Surgery date: 6+ months; Surgery type: Chest port. Ileostomy. Tubal; Patient HX: SOB with hematuria and UTI. Wbc of 22k. History of colonic adenocarcinoma. TECHNIQUE: Imaging protocol: Diagnostic computed tomography of the chest with contrast. Radiation optimization: All CT scans at this facility use at least one of these dose optimization techniques: automated exposure control; mA and/or kV adjustment per patient size (includes targeted exams where dose is matched to clinical indication); or iterative reconstruction. Contrast material: OMNI 350; Contrast volume: 68 ml; Contrast route: INTRAVENOUS (IV); COMPARISON: CT chest abdpel w/*[id number] 04/19/2023 8:47 AM RADIATION DOSE METRICS: Total DLP (mGy-cm): 394.04 FINDINGS: Tubes, catheters and devices: Left chest port tip terminates in the right atrium. Lungs: Severe centrilobular emphysema. Pulmonary hyperexpansion. No significant interval change in right middle lobe and left lower lobe consolidative opacities. Similar basilar predominant interstitial thickening. Pleural spaces: Unremarkable. No pneumothorax. No pleural effusion. Heart: Unremarkable. No cardiomegaly. No pericardial effusion. Coronary arteries: Mild coronary artery calcification. Lymph nodes: Calcified mediastinal lymph nodes, likely sequela of prior granulomatous disease. Vasculature: Mild atherosclerotic calcifications. 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 Bones/joints: Unremarkable. No acute fracture. Soft tissues: Unremarkable. COMMENTS: The presence of pulmonary emphysema on CT is an independent risk factor for lung cancer. In the absence of a history or active diagnosis of lung cancer, it is recommended that this patient with emphysema be evaluated for enrollment in a low dose CT lung cancer screening program. PROCEDURE INFORMATION: Exam: CT Abdomen And Pelvis With Contrast Exam date and time: 04/28/2023 3:30 AM Age: 62 years old Clinical indication: Abnormal findings; Abnormal lab test; Elevated wbc; Other: Uti/hematuria; Other: N/a; Shortness of breath; Prior surgery; Surgery date: 6+ months; Surgery type: Chest port. Ileostomy. Tubal; Patient HX: SOB with hematuria and UTI. Wbc of 22k. History of colonic adenocarcinoma. TECHNIQUE: Imaging protocol: Computed tomography of the abdomen and pelvis with contrast. Radiation optimization: All CT scans at this facility use at least one of these dose optimization techniques: automated exposure control; mA and/or kV adjustment per patient size (includes targeted exams where dose is matched to clinical indication); or iterative reconstruction. Contrast material: OMNI 350; Contrast volume: 68 ml; Contrast route: INTRAVENOUS (IV); COMPARISON: CT chest abdpel w/*[id number] 04/19/2023 8:47 AM RADIATION DOSE METRICS: Total DLP (mGy-cm): 394.04 FINDINGS: Liver: Similar subcentimeter hypoattenuating lesions in the right hepatic lobe. No new lesions. Gallbladder and bile ducts: No calcified stones. No ductal dilation. Pancreas: No ductal dilation. Spleen: Unremarkable. Adrenal glands: Unremarkable. Kidneys and ureters: No hydronephrosis. Punctate nonobstructing bilateral renal calculi. Similar area of hypoattenuation in the anterior right kidney (series 6, image 31), which may reflect scarring. Stomach and bowel: Limited evaluation of the GI tract due to lack interloop fat. No dilated bowel loops to suggest obstruction. Distension of the stomach with enteric contents. Right upper quadrant ileostomy. Appendix: No evidence of appendicitis. Intraperitoneal space: Unchanged appearance heterogeneously enhancing large pelvic mass with involvement of the colon, bladder, and small bowel. Vasculature: Unremarkable. No abdominal aortic aneurysm. Lymph nodes: Unremarkable. No enlarged lymph nodes. Urinary bladder: Soft tissue invading the bladder dome adjacent to the large pelvic mass (series 11, image 16). Reproductive: No normal uterus and ovaries are identified. Bones/joints: Unremarkable. No acute fracture. Soft tissues: Unremarkable. CT/CT chest abdpel w/*[id number] IMPRESSION: No interval change in severe emphysema and patchy bibasilar consolidations concerning for infection. IMPRESSION: 1. No interval change in large necrotic pelvic mass with invasion of the GI tract and urinary bladder. 2. Similar indeterminate subcentimeter hepatic lesions, which may reflect metastatic disease.
[2023-04-28] MEDS: iohexol 350 mg/mL 500 mL Btl (per mL) IV (03:35)
--- NOTE | 2023-04-28 03:37 | P.HP_ITS ---
Providers/Chief Complaint 2 Admitting Physician: Keaton Guillaume MD Primary Care Provider: Darwin Reaves MD Chief Complaint: low O2 History of Present Illness Liliana Monroy is a 62 year old female with a past medical history of colon cancer, with ileostomy, with large pelvic necrotic mass with invasion to bladder, and GI tract, recent hospitalization for pneumonia and pulmonary emboli, low BMI 12.9, severe protein calorie malnutrition, cancer cachexia, who presents to [facility] due to increased shortness of breath, weakness, fatigue patient tells me that since getting home from the hospital on 04/23/2023, she continued to have shortness of breath, fatigue, malaise, significant dysuria, hematuria Review of Systems 2 Card: Denies: chest pain Resp: Reports: dyspnea GI: Denies: abdominal pain or nausea : Reports: dysuria; Denies: flank pain Medications/Allergies Home Medications Medication Instructions Recorded Confirmed Last Taken Type melatonin 3 mg tablet 3 mg PO BEDTIME 01/08/23 04/26/23 02/17/23 History naloxone 4 mg/actuation nasal 4 mg intranasal Q2M PRN Opioid 02/07/23 04/26/23 Unknown History spray (Narcan) Overdose acetaminophen 500 mg capsule 1,000 mg (2 x 500 mg) PO Q6H #300 03/13/23 04/26/23 Unknown Rx caps aspirin 81 mg tablet,delayed 81 mg PO DAILY #90 tabs 03/13/23 04/26/23 Unknown Rx release ferrous sulfate 325 mg (65 mg 325 mg PO ONCE #100 tabs 03/13/23 04/26/23 Unknown Rx iron) tablet prochlorperazine maleate 10 mg 10 mg PO Q6H PRN nausea and 03/13/23 04/26/23 Unknown Rx tablet (Compazine) vomiting #30 tabs loperamide 2 mg tablet 2 mg PO .COMPLEX PRN loose stool 03/18/23 04/26/23 Unknown Rx #30 tabs phenazopyridine 200 mg tablet 200 mg PO TID bladder pain #90 tabs 03/21/23 04/26/23 Unknown Rx (Pyridium) ondansetron 4 mg disintegrating 4 mg PO Q8H PRN nausea and 03/27/23 04/26/23 Unknown Rx tablet vomiting #20 tabs lidocaine-prilocaine 2.5 %-2.5 % 1 applic topical .COMPLEX #30 grams 03/28/23 04/26/23 Unknown Rx topical cream baclofen 10 mg tablet 10 mg PO Q6H PRN muscle spasm 04/08/23 04/26/23 Unknown History pantoprazole 20 mg tablet,delayed 20 mg PO DAILY ACID REFLUX 04/08/23 04/26/23 Unknown History release oxybutynin chloride 5 mg tablet 5 mg PO TID 04/16/23 04/26/23 Unknown History albuterol sulfate 2.5 mg/0.5 mL 2.5 mg (0.5 mL) inhalation Q6H PRN 04/23/23 04/26/23 Unknown Rx solution for nebulization shortness of breath or wheezing 30 days #30 ea apixaban 5 mg tablet (Eliquis) 5 mg PO BID 90 days #180 tabs 04/23/23 04/26/23 Unknown Rx budesonide 0.5 mg/2 mL suspension 0.5 mg (2 mL) inhalation 04/23/23 04/26/23 Unknown Rx for nebulization BID.RESPIRATORY 30 days #120 mL alprazolam 0.25 mg tablet (Xanax) 0.25 mg PO BID PRN anxiety/panic 04/26/23 04/26/23 Unknown Rx attacks 30 days #60 tabs mirtazapine 7.5 mg tablet 7.5 mg PO BID 30 days #60 tabs 04/26/23 04/26/23 Unknown Rx oxycodone-acetaminophen 5 mg-325 1 tab PO Q8H PRN cancer pain 30 04/26/23 04/26/23 Unknown Rx mg tablet days #90 tabs Allergies Allergy/AdvReac Type Severity Reaction Status Date / Time paroxetine [From Paxil] Allergy Unknown Verified 04/26/23 13:47 PFSH Acute 2 PFSH: Medical History (Updated 04/28/23 @ 03:42 by Keaton Guillaume MD) Urinary tract infection On antineoplastic chemotherapy Colon adenocarcinoma Pelvic Mass, RLQ, Surg. Path 01/16/2023 mod differentiated, open ileostomy Dr. Liao, [facility]; small bowel and bladder noted via PET 02/26/23; mFOLFOX started 03/18/23 Hypoxia Presence of ileostomy Nicotine dependence, cigarettes, uncomplicated Generalized weakness Moderate protein-calorie malnutrition Left lower lobe pneumonia Iron deficiency anemia Weight loss of more than 10% body weight 8 Para 7 (1 miscarriage, 1 ectopic, 1 twin ) Chronic constipation Pyelonephritis of right kidney Painful bladder spasm Cyanosis of tip of finger Surgical History Port-A-Cath in place Hx of ileostomy History of bilateral ligation of fallopian tubes Family History Father Heart attack Mother Bipolar 1 disorder CAD (coronary artery disease) Social History Smoking and tobacco/nicotine status: current every day tobacco/nicotine user Quit status (tobacco/nicotine): not considering quitting Alcohol intake: former Substance/Drug Use: never Vitals/I&O/Wt Last Vital Signs Temp 98 F 04/27/23 21:24 Pulse 121 H 04/28/23 00:57 Resp 22 H 04/28/23 00:57 BP 71/51 04/28/23 02:12 Pulse Ox 100 04/28/23 00:57 O2 Del Method Nasal Cannula 04/28/23 00:57 O2 Flow Rate 3 04/28/23 00:57 04/27/23 04/27/23 04/28/23 14:59 22:59 06:59 Intake Total 1000 / 1000 Balance 1000 / 1000 Weight last 48 hrs Weight 30.844 kg Physical Exam 2 Const: COMMON NORMALS: no acute distress and patient oriented x3 OTHER: Cancer cachexia, BMI 12.8 HENMT: COMMON NORMALS: normocephalic HEAD & SCALP: normocephalic Eye: COMMON NORMALS: Equal, round and reactive pupils present and EOMs intact bilaterally Resp: COMMON NORMALS: normal respiratory effort, No retractions, No use of accessory muscles and clear to auscultation bilaterally AUSCULTATION: clear to auscultation bilaterally Cardio: COMMON NORMALS: regular rate, regular rhythm, S1 normal heart sound present and S2 normal heart sound present RATE: regular rate RHYTHM: r egular rhythm HEART SOUNDS: S1 normal heart sound present and S2 normal heart sound present GI: COMMON NORMALS: Normal to inspection, nondistended, normoactive bowel sounds present, Soft to palpation and non-tender OTHER: Ileostomy in place Extremity: COMMON NORMALS: no calf tenderness and no pedal edema Neuro: COMMON NORMALS: patient oriented x3, CN's II-XII intact bilaterally and moves all extremities Psych: COMMON NORMALS: mental status grossly normal Data 04/27/23 00:15 04/27/23 00:15 A&P Assessment and plan (1) Pulmonary embolism: Qualifiers: Pulmonary embolism type: multiple subsegmental (without acute cor pulmonale) Qualified Code(s): I26.94 - Multiple subsegmental pulmonary emboli without acute cor pulmonale (2) PNA (pneumonia): (3) Urinary tract infection: Qualifiers: Hematuria presence: without hematuria Urinary tract infection type: a cute cystitis Qualified Code(s): N30.00 - Acute cystitis without hematuria (4) Sepsis: Plan Sepsis -Due to leukocytosis, tachycardia, hypotension -Multiple sources including pneumonia, UTI -For pneumonia, continue vancomycin with Zosyn, CT chest, recent hospitalization for pneumonia, has right middle lobe collapse, likely persistent obstructive pneumonia and/or healthcare associated pneumonia -UTI, follow urine cultures, blood cultures, her prior CT scan shows a large pelvic necrotic mass invading bladder, order CT scan abdomen pelvis -Patient's 1 3 beta D glucan was positive, 176, possible fungal infection? Sputum cultures, blood cultures negative during last hospitalization -Continue normal saline 75 cc an hour -Lactic acid within normal limits -On 3 L -Telemetry monitoring UTI, as above Pneumonia as above Pulmonary embolism, continue Eliquis Cancer cachexia, protein calorie malnutrition, physical deconditioning DNR/DNI Eliquis for DVT prophylaxis pulmonary Attestations 2 Medical Necessity Statement*: Patient requires hospitalization, inpatient, greater than 2 minutes, for sepsis secondary to UTI, pneumonia Diagnoses Pulmonary embolism I26.94 Pulmonary embolism type: multiple subsegmental (without acute cor pulmonale) PNA (pneumonia) J18.9 Acute cystitis without hematuria N30.00 Hematuria presence: without hematuria Urinary tract infection type: acute cystitis Sepsis A41.9
[2023-04-28] MEDS: vancomycin 1,000 MG in sodium chloride 0.9% 250 ML 250 MG IV (04:17)
[2023-04-28] MEDS: sodium chloride 0.9% 1,000 ML 75 ML IV ×2 (05:35→22:20)
[2023-04-28 05:41] LABS: Phosphorus 3.6 mg/dL (2.5-4.5); Thyroid Stimulating Hormone 0.76 uIU/mL (0.27-4.20)
[2023-04-28] MEDS: pantoprazole 40 mg SDV IVP (06:04)
[2023-04-28 07:10] LABS: INR 1.03 (0.8-1.2)
[2023-04-28] MEDS: budesonide 0.5 mg/2 mL Neb INHALATION ×2 (09:12→20:14)
[2023-04-28] MEDS: ipratropium-albuterol 3 mL Neb INHALATION (09:12)
[2023-04-28] MEDS: mirtazapine 15 mg Tablet 7.5 MG PO ×2 (09:24→17:59)
[2023-04-28] MEDS: nicotine 14 mg Patch 1 PATCH TRANSDERMA (09:25)
[2023-04-28] MEDS: aspirin 81 mg EC Tablet PO (09:25)
[2023-04-28] MEDS: apixaban 5 mg Tablet PO ×2 (09:25→17:59)
[2023-04-28] MEDS: baclofen 10 mg Tablet PO ×2 (09:28→17:59)
[2023-04-28] MEDS: ALPRAZolam 0.5 mg Tablet 0.25 MG PO ×2 (09:28→17:59)
[2023-04-28] MEDS: piperacillin-tazobactam 3.375 GM in sodium chloride 0.9% (plus) 50 ML IV ×2 (14:52→22:20)
--- NOTE | 2023-04-28 15:41 | ED_ITS ---
HPI - SOB/Dyspnea 2 General: Chief Complaint: Shortness of Breath/Dyspnea Stated Complaint: low O2 Time Seen by Provider: 04/27/23 23:24 Source: patient History of Present Illness: HPI Narrative: 62 year old frail female with multiple v isits lately. She was hospitalized recently and discharged around 5 days ago after having had pneumonia. She was sent home on oxygen. She notes that she is more short of breath today. prior to today, she had felt improved after hospitalization. Shortness of breath has increased today. Oxygen saturations at home were in the mid 80s she says on her oxygen. She's improved on oxygen here. She is afraid to be at home, with progressive shortness of breath. She is also found to be tachycardic here. Related Data: Home oxygen amount: 3 liters [facility] ED 2 PFS: Medical History (Updated 04/28/23 @ 15:49 by Kamari Jimenez, ) Urinary tract infection On antineoplastic chemotherapy Colon adenocarcinoma Pelvic Mass, RLQ, Surg. Path 01/16/2023 mod differentiated, open ileostomy Dr. Liao [facility]; small bowel and bladder noted via PET 02/26/23; mFOLFOX started 03/18/23 Hypoxia Presence of ileostomy Nicotine dependence, cigarettes, uncomplicated Generalized weakness Moderate protein-calorie malnutrition Left lower lobe pneumonia Iron deficiency anemia Weight loss of more than 10% body weight 8 Para 7 (1 miscarriage, 1 ectopic, 1 twin ) Chronic constipation Pyelonephritis of right kidney Painful bladder spasm Cyanosis of tip of finger Surgical History Port-A-Cath in place Hx of ileostomy History of bilateral ligation of fallopian tubes Family History Father Heart attack Mother Bipolar 1 disorder CAD (coronary artery disease) Social History Smoking and tobacco/nicotine status: current every day tobacco/nicotine user Quit status (tobacco/nicotine): not considering quitting Alcohol intake: former Substance/Drug Use: never Physical Exam 2 Const: GENERAL APPEARANCE: cooperative, ill appearing and frail appearing N UTRITIONAL APPEARANCE: cachectic HENMT: COMMON NORMALS: normocephalic, atraumatic and Normal external nose present HEAD & SCALP: normocephalic and atraumatic FACE & SINUS: normal facial exam and face symmetric NOSE: Normal external nose present Eye: COMMON NORMALS: Equal, round and reactive pupils present and EOMs intact bilaterally PUPIL: Yes Equal, round and reactive pupils present Neck/C-Spine: GENERAL: Yes trachea midline Chest: CHEST: Yes Symmetrical chest wall rise Resp: EFFORT & INSPECTION: Yes symmetric chest movement, Yes tachypneic and Yes labored AUSCULTATION: wheezes and diminished lung sounds Cardio: COMMON NORMALS: regular rhythm RATE: tachycardic RHYTHM: regular rhythm GI: COMMON NORMALS: Normal to inspection, nondistended, normoactive bowel sounds present Extremity: COMMON NORMALS: no pedal edema Neuro: ANN COMA SCALE: document GCS findings Ann coma scale eye opening: Spontaneous Alva coma scale verbal response: Orientated Ann coma scale motor response: Obey commands Ann coma scale total score: 15 S ENSORY EXAM: Yes extremities (intact) Psych: COMMON NORMALS: speech normal SPEECH: Yes normal speech Skin: COMMON NORMALS: no rashes or lesions noted GENERAL SKIN EXAM: no rashes or lesions noted Course 2 Vital Signs: Vital signs: Vital Signs Temperature 98.6 F 04/28/23 12:00 Pulse Rate 117 H 04/28/23 12:00 Respiratory Rate 20 H 04/28/23 12:00 Blood Pressure 122/71 04/28/23 12:00 Pulse Oximetry 96 04/28/23 12:00 Oxygen Delivery Me thod Nasal Cannula 04/28/23 12:00 Oxygen Flow Rate 2 04/28/23 09:16 MDM - SOB/Dyspnea Medical Decision Making Frail 62 year old cancer patient. She presents with shortness of breath, tachycardia, and at times hypotension. She's given a fluid bolus with improvement in her blood pressure. She has had an increase in oxygen requirement. Also, her white blood cell count is 22.5, with hemoglobin 9.6. She has patchy bibasilar infiltrates on chest X-ray, similar to her prior hospitalization. She also has severe COPD slash emphysema findings. Her lactic acid is 1.2. Her urinalysis is significantly positive for urinary tract infection, although her pelvic mass does appear to invade her bladder wall, which could complicate findings and urinalysis. She is covered with vancomycin and zosyn. Should be admitted. Hospitalist has seen the patient in the ER. She may require SNF placement on discharge. Lab Data 04/27/23 00:15 04/27/23 00:15 Labs/Radiology: Radiology Impressions Chest X-Ray 04/27/23 23:43 IMPRESSION: 1. Patchy bibasilar infiltrate, similar to and better characterized on recent CT chest. 2. Severe emphysema/COPD. Chest/Abdomen/Pelvis CT 04/28/23 03:27 IMPRESSION: No interval change in severe emphysema and patchy bibasilar consolidations concerning for infection. IMPRESSION: 1. No interval change in large necrotic pelvic mass with invasion of the GI tract and urinary bladder. 2. Similar indeterminate subcentimeter hepatic lesions, which may reflect metastatic disease. Laboratory Results WBC 22.48 10^3/uL (3.29-11.43) H 04/27/23 00:15 RBC 3.55 10^6/uL (3.85-5.65) L 04/27/23 00:15 Hgb 9.60 g/dL (11.27-16.99) L 04/27/23 00:15 Hct 31.9 % (36-47) L 04/27/23 00:15 MCV 89.9 fl (85-98) 04/27/23 00:15 MCH 27.0 pg (27-33) 04/27/23 00:15 MCHC 30.1 g/dL (30-55) 04/27/23 00:15 RDW 18.6 % (12.1-15.1) H 04/27/23 00:15 Plt Count 668 10^3/cmm (157-399) H 04/27/23 00:15 MPV 8.6 fL (7.4-10.4) 04/27/23 00:15 Neut % (Auto) 76.1 % 04/27/23 00:15 Lymph % (Auto) 14.4 % 04/27/23 00:15 Craven % (Auto) 7.4 % 04/27/23 00:15 Eos % (Auto) 0.8 % 04/27/23 00:15 Baso % (Auto) 0.5 % 04/27/23 00:15 Neut # (Auto) 17.13 10^3/uL (1.8-7.7) H 04/27/23 00:15 Lymph # (Auto) 3.2 10^3/uL (0.8-4.8) 04/27/23 00:15 Craven # (Auto) 1.7 10^3/uL (0.2-0.9) H 04/27/23 00:15 Eos # (Auto) 0.2 10^3/uL (0.0-0.8) 04/27/23 00:15 Baso # (Auto) 0.1 10^3/uL (0.0-0.1) 04/27/23 00:15 Nucleated RBC % (auto) 0 % 04/27/23 00:15 Nucleated RBCs # 0.0 /100WBC 04/27/23 00:15 Sodium 136 mmol/L (136-145) 04/27/23 00:15 Potassium 4.0 mmol/L (3.5-5.1) 04/27/23 00:15 Chloride 103 mmol/L (98-107) 04/27/23 00:15 Carbon Dioxide 24 mmol/L (22-29) 04/27/23 00:15 Anion Gap 13.0 (5-19) 04/27/23 00:15 BUN 15 mg/dL (8-23) 04/27/23 00:15 Creatinine 0.4 mg/dL (0.5-0.9) L 04/27/23 00:15 GFR Calculation 161.7 mL/min (90-130) H 04/27/23 00:15 Glucose 108 mg/dL (65-115) 04/27/23 00:15 Calculated Osmolality 283 mOsm/kg (285-295) L 04/27/23 00:15 Lactic Acid 1.2 mmol/L (0.5-2.2) 04/27/23 00:15 Calcium 9.0 mg/dL (8.5-10.5) 04/27/23 00:15 Phosphorus 3.6 mg/dL (2.5-4.5) 04/28/23 00:13 Magnesium 2.0 mg/dL (1.7-2.3) 04/28/23 00:13 Total Bilirubin 0.2 mg/dL (0.15-1.2) 04/27/23 00:15 AST 18 U/L (0-32) 04/27/23 00:15 ALT 12 U/L (0-33) 04/27/23 00:15 Alkaline Phosphatase 117 U/L (35-105) H 04/27/23 00:15 Creatine Kinase 29 U/L (26-192) 04/27/23 00:15 C-Reactive Protein 12.6 mg/L (0.0-4.9) H 04/27/23 00:15 Total Protein 7.2 g/dL (6.6-8.7) 04/27/23 00:15 Albumin 2.9 g/dL (3.5-5.2) L 04/27/23 00:15 Globulin 4.3 g/dL (1.3-4.6) 04/27/23 00:15 Procalcitonin 0.11 ng/mL (0-0.5) 04/27/23 00:15 TSH 0.76 uIU/mL (0.27-4.20) 04/28/23 00:13 Urine Color Amaris (Yellow) 04/28/23 00:17 Urine Appearance Turbid (CLEAR) A 04/28/23 00:17 Urine pH 5 (5-7) 04/28/23 00:17 Ur Specific Payette 1.020 (1.005-1.030) 04/28/23 00:17 Urine Protein 3+ (Negative) H 04/28/23 00:17 Urine Glucose (UA) Norm (Normal) 04/28/23 00:17 Urine Ketones Negative (Negative) 04/28/23 00:17 Urine Blood 3+ (Negative) H 04/28/23 00:17 Urine Nitrate Negative (Negative) 04/28/23 00:17 Urine Bilirubin Neg (Negative) 04/28/23 00:17 Urine Urobilinogen Norm mg/dL (Negative) 04/28/23 00:17 Ur Leukocyte Esterase 2+ (Negative) H 04/28/23 00:17 Urine RBC Too numerous to cnt /hpf (0-2) H 04/28/23 00:17 Urine WBC Too numerous to cnt /hpf (0-5) H 04/28/23 00:17 Ur Squamous Epith Cells 5-10 /hpf (0-5) H 04/28/23 00:17 Amorphous Sediment Not Reportable 04/28/23 00:17 Urine Bacteria 1+ /hpf (NONE) H 04/28/23 00:17 Urine Mucus 1+ /hpf 04/28/23 00:17 All radiology interpretation(s) finalized by discharge Discharge Plan Discharge Patient Disposition: Admitted As Inpatient Admit Provider: Keaton Guillaume Clinical Impression: PNA (pneumonia), Chronic hypoxemic respiratory failure Condition: Stable Coding Level of Care Code ED Administration Clerk for So Lowery
--- NOTE | 2023-04-28 16:27 | P.MISC_ITS ---
Miscellaneous Note Purpose of Documentation: Overnight labs and H&P reviewed. Patient was recently discharged after eleni atment for PE, adenovirus pneumonitis, possibility of superadded pneumonia. She was optimized from a respiratory standpoint, however is chronically sick, chiefly due to colon cancer which is locally invasive into the bladder and surrounding structures, has liver metastases. She also has severe emphysema with a history of chronic smoking. Her son and daughter are at bedside today. Had an extensive goals of care discussion with the patient and her family that is currently at bedside. Patient has had 2 cycles of FOLFOX chemotherapy, CT of the abdomen shows that the abdominal necrotic mass is overall unchanged. She was considered to be started on immunotherapy with bevacizumab however this was later not started due to bladder invasion as is my understanding from reading oncology notes. Patient was recommended adjuvant therapy with surgical intervention with resection of the mass and possibly bladder reconstruction, however at her last visit at [facility] in January 2023, she was thought to be too frail to be able to withstand major surgery of this nature. Plan was to reassess after a few cycles of chemotherapy. She has put on 3 pounds since January 2023. Patient's course has now been complicated by PE and recent pneumonia/pneumonitis. Patient is extremely anxious with regards to her prognosis and wants to know if no change in her mass after 2 cycles of chemot herapy would be considered a treatment failure. I told her that we would need to discuss this with her oncologist Dr. Chamberlain as I do not have the oncology expertise to know the answer to this question. She wants to know if she is able to withstand further chemotherapy and if she will ever be a candidate for surgery. We will plan to discuss patient's prognosis and response to therapy with her oncologist in the a.m. tomorrow. Patient's oncologist is not available over the weekend. Based on my assessment, patient currently has a body weight of only 30 kg with a BMI of 12.8. Given her severe emphysema and overall frailty, in her present state I do not see her as being able to withstand surgery. Patient has been ambulating with the assistance of a wheelchair, feels too weak to ambulate, uses a bedside commode currently and shows dependence with regards to her ADLs. With her poor BMI and cancer cachexia, would also anticipate poor tolerance for chemotherapy, but defer the final decision to oncology expertise. ECOG score per my estimate is at 3. I do not anticipate her life expectancy to be > 6 months at this point in time. Discussed with patient transition to hospice would be a potential consideration, and patient and family would like more information regarding hospice both at home versus at a intermediate facility. Hospice referral has been generated to provide patient more information in this regard. With regards to active issues, patient CT of the chest shows unchanged infiltrates compared to past admission. She had a positive BD glucan ~167 which was reported after she had discharged from the hospital. Low Suspicion for pneumocystis pneumonia at this point as her current chemotherapy regimen is not typically associated with the same, BDG is not significantly elevated, however PJP PCR was ordered as outpatient to look for this possibility. Results are currently awaited. Would not start patient on presumptive treatment for pneumocystis as high-dose Bactrim is more likely to cause complications with renal function, electrolyte abnormalities, benefits do not outweigh the risks at this time. Her respiratory status is stable, same as time of discharge. Her known necrotic abdominal mass is unchanged likely that leukocytosis is contributed by necrotizing mass UA is showing signs of a UTI, feasibly patient could have fistulization related to cancer invasion. Continue piperacillin/tazobactam and vancomycin until results of urine and blood culture are obtained. Unlikely to benefit from long- term antibiotics. Continue mirtazipine 7.5mg BID and xanax prn Add short course of oral steroids for cancer cachexia Other Coding Information Focused coding review requested Prolonged care (total time indicated above or notated here) GOC discussion, new orders placed
[2023-04-28] MEDS: dexamethasone 4 mg/mL INJ 2 MG PO (17:58)
[2023-04-29] VITALS (15 sets, daily range): BP systolic 101–118; BP diastolic 60–77; PULSE 90–110; RESP 16–20; TEMP 36.3–36.9; O2SAT 95–98
[2023-04-29] MEDS: ALPRAZolam 0.5 mg Tablet 0.25 MG PO ×4 (00:28→23:08)
[2023-04-29] MEDS: oxyCODONE-APAP 5-325 mg Tablet 1 TAB PO ×4 (00:29→23:48)
[2023-04-29] MEDS: vancomycin 750 MG in sodium chloride 0.9% 250 ML 250 MG IV (04:13)
[2023-04-29] MEDS: piperacillin-tazobactam 3.375 GM in sodium chloride 0.9% (plus) 50 ML IV ×3 (05:19→21:38)
[2023-04-29] MEDS: mirtazapine 15 mg Tablet 7.5 MG PO ×2 (07:57→17:15)
[2023-04-29] MEDS: nicotine 14 mg Patch 1 PATCH TRANSDERMA (07:57)
[2023-04-29] MEDS: pantoprazole DR 40 mg Tablet PO (07:57)
[2023-04-29] MEDS: apixaban 5 mg Tablet PO ×2 (07:58→17:15)
[2023-04-29] MEDS: baclofen 10 mg Tablet PO ×2 (07:58→15:33)
[2023-04-29] MEDS: aspirin 81 mg EC Tablet PO (07:58)
[2023-04-29] MEDS: budesonide 0.5 mg/2 mL Neb INHALATION ×2 (08:36→20:08)
[2023-04-29] MEDS: ipratropium-albuterol 3 mL Neb INHALATION (08:36)
[2023-04-29] MEDS: dexamethasone 4 mg/mL INJ 2 MG PO ×2 (08:47→17:31)
--- NOTE | 2023-04-29 14:21 | P.PN_ITS ---
Subjective 2 Subjective: seen today patient not interested in hospice at this time States she is mainly existing and not living. She would like to know what oncology has to say regarding her future treatment before she makes any kind of decisions. She is also open to looking into palliative chemotherapy because she really wants bladder spasms to go away. She also understands she cannot stay in the hospital longer as this is an acute care facility particularly for chemotherapy. Right now she is being treated for UTI and that is why she is admitted. Patient is asked me several questions which only her oncologist will be able to answer. I have discussed her care with oncology over the phone. They are requesting for CEA and MRI abdomen and pelvis to further decide on her treatment. Vitals/I&O/Wt Last Vital Signs Temp 97.4 F L 04/29/23 12:42 Pulse 99 04/29/23 12:42 Resp 18 04/29/23 12:42 BP 103/73 04/29/23 12:42 Pulse Ox 95 04/29/23 12:42 O2 Del Method Nasal Cannula 04/29/23 12:42 O2 Flow Rate 2 04/29/23 08:36 04/28/23 04/29/23 04/29/23 22:59 06:59 14:59 Intake Total 597.50 / 1893.75 505 / 2398.75 1010 / 1010 Output Total 975 / 975 800 / 1775 Balance -377.50 / 918.75 -295 / 623.75 1010 / 1010 Weight last 48 hrs Weight 30.844 kg Weight 30.844 kg Weight 30.844 kg Weight 30.844 kg Physical Exam 2 Const: COMMON NORMALS: no acute distress and patient oriented x3 OTHER: Cancer cachexia, 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 HENMT: COMMON NORMALS: normocephalic HEAD & SCALP: normocephalic Eye: COMMON NORMALS: Equal, round and reactive pupils present and EOMs intact bilaterally PUPIL: Yes Equal, round and reactive pupils present Resp: COMMON NORMALS: normal respiratory effort, No retractions, No use of accessory muscles and clear to auscultation bilaterally AUSCULTATION: clear to auscultation bilaterally Cardio: COMMON NORMALS: regular rate, regular rhythm, S1 normal heart sound present and S2 normal heart sound present RATE: regular rate RHYTHM: r egular rhythm HEART SOUNDS: S1 normal heart sound present and S2 normal heart sound present GI: COMMON NORMALS: Normal to inspection, nondistended, normoactive bowel sounds present, Soft to palpation and non-tender PALPATION: Yes Soft to palpation OTHER: Ileostomy in place Extremity: COMMON NORMALS: no calf tenderness and no pedal edema Neuro: COMMON NORMALS: patient oriented x3, CN's II-XII intact bilaterally and moves all extremities Psych: COMMON NORMALS: mental status grossly normal Data 04/27/23 00:15 04/27/23 00:15 A&P Assessment and plan (1) Pulmonary embolism: Qualifiers: Pulmonary embolism type: multiple subsegmental (without acute cor pulmonale) Qualified Code(s): I26.94 - Multiple subsegmental pulmonary emboli without acute cor pulmonale (2) PNA (pneumonia): (3) Urinary tract infection: Qualifiers: Hematuria presence: without hematuria Urinary tract infection type: a cute cystitis Qualified Code(s): N30.00 - Acute cystitis without hematuria (4) Sepsis: Plan Sepsis secondary to UTI most likely. -Due to leukocytosis, tachycardia, hypotension -Multiple sources including pneumonia, UTI -For pneumonia, continue vancomycin with Zosyn, CT chest, recent hospitalization for pneumonia, has right middle lobe collapse, likely persistent obstructive pneumonia and/or healthcare associated pneumonia -UTI, follow urine cultures, blood cultures, her prior CT scan shows a large pelvic necrotic mass invading bladder, order CT scan abdomen pelvis -Patient's 1 3 beta D glucan was positive, 176, possible fungal infection? Sputum cultures, blood cultures negative during last hospitalization -Continue normal saline 75 cc an hour -Lactic acid within normal limits -On 3 L -Telemetry monitoring ?Continue Vanco and Zosyn at this time. Will await further sensitivity. Pneumonia as above Pulmonary embolism, continue Eliquis Cancer cachexia, protein calorie malnutrition, physical deconditioning Adenocarcinoma ? Discussed with oncology over the phone they are requesting for MRI abdomen and pelvis. We will set this up as an outpatient. ? Will check CEA as well ? Patient to follow-up with oncology as an outpatient for further treatment options. Discussed with patient and she is on board with the plan. DNR/DNI Eliquis for DVT prophylaxis pulmonary Disposition: Once culture sensitivities back for her urine infection we will prescribe oral antibiotics and send patient home. Most likely discharge by tomorrow. Attestations 2 Medical Necessity Statement*: Most likely discharge by tomorrow. Diagnoses Pulmonary embolism I26.94 Pulmonary embolism type: multiple subsegmental (without acute cor pulmonale) PNA (pneumonia) J18.9 Acute cystitis without hematuria N30.00 Hematuria presence: without hematuria Urinary tract infection type: acute cystitis Sepsis A41.9
[2023-04-29 15:21] LABS: Carcinoembryonic Antigen 36.9 ng/mL (0.0-4.7)
--- NOTE | 2023-04-29 19:57 | PC.NURSE ---
Patient's current code status order is AND. Patient states she talked to her kids and that she would like to be a full code. I educated patient on chest compressions, intubated and mechanical ventilation, defibrillation, medications, and everything involved with being a full code to verify that patient understood full code . Patient states she wants us to do everything we can to try to resuscitate her. Dr. Guillaume notified.
[2023-04-30] VITALS (8 sets, daily range): BP systolic 126–137; BP diastolic 77–83; PULSE 84–103; RESP 16–20; TEMP 36.4; O2SAT 95–98
[2023-04-30] MEDS: baclofen 10 mg Tablet PO ×2 (00:29→07:37)
[2023-04-30] MEDS: sodium chloride 0.9% 1,000 ML 75 ML IV (01:03)
[2023-04-30] MEDS: vancomycin 750 MG in sodium chloride 0.9% 250 ML 250 MG IV (04:34)
[2023-04-30] MEDS: piperacillin-tazobactam 3.375 GM in sodium chloride 0.9% (plus) 50 ML IV (05:39)
[2023-04-30] MEDS: ALPRAZolam 0.5 mg Tablet 0.25 MG PO (07:37)
[2023-04-30] MEDS: mirtazapine 15 mg Tablet 7.5 MG PO (07:38)
[2023-04-30] MEDS: nicotine 14 mg Patch 1 PATCH TRANSDERMA (07:38)
[2023-04-30] MEDS: aspirin 81 mg EC Tablet PO (07:39)
[2023-04-30] MEDS: dexamethasone 4 mg/mL INJ 2 MG PO (07:39)
[2023-04-30] MEDS: pantoprazole DR 40 mg Tablet PO (07:39)
[2023-04-30] MEDS: apixaban 5 mg Tablet PO (07:39)
[2023-04-30] MEDS: budesonide 0.5 mg/2 mL Neb INHALATION (08:37)
--- NOTE | 2023-04-30 09:57 | PC.CHAP ---
Pastoral Care Encounter/Spiritual Assessment Type of Contact [] Declined speech teacher visit [] Patient/Family/Request visit [] Outpatient visit [] Follow-up visit [] Physician referral [] Code/Alert [] Routine visit [] Staff referral [] Actively dying [] Patient sleeping [] Family support [] [] Out of room [] Palliative care [] [x] Receiving care in room [] Pre-surgical visit [] Trauma [] Long length of stay [] ICU visit [] Other: Relational/Emotional Strength [] Patient feels connected with others/family/visitors/staff [] Distress [] Loneliness/isolation [] Abandonment Spirituality of Patient [] Person of Ifeoma [] Attends Jew of their Ifeoma [] Believes in Prayer [] Reads Bible or Alevism materials [] There are Spiritual issues to be addressed Coal Cager Interventions [] Prayer [] Active listening [] Non-anxious presence [] Spiritual/emotional support [] Crisis/trauma care [] Spiritual counseling [] Bereavement support [] Provided bereavement packet [] Provided Bible/devotional materials [] Provided toy/stuffed animal, coloring book to patient or family member [] Provided Communion [] Anointing/[place] [] Salvation [] Completed spiritual assessment [] Other: Impact on Illness or Injury [] Angry [] Fearful [] Anxious [] Often cries [] Exhaustion [] Unable to work [] Unable to attend pentecostal [] Unable to walk/stand [] Unable to read [] Unable to drive [] Unable to eat/drink [] Unable to sleep [] Unable to be with family [] Patient intubated [] Other: Summary Time spent with patient
--- NOTE | 2023-04-30 11:40 | P.DS_ITS ---
Discharge Providers Date of Admission: 04/28/23 02:50 Date of Discharge: April 30, 2023 Attending Provider at Admission: Keaton Guillaume MD Attending Provider at Discharge: Courtney Tomlin MD Primary Care Provider: Darwin Reaves MD Diagnoses at Discharge Discharge Diagnosis (1) Pulmonary embolism: Status: Acute Qualifiers: Pulmonary embolism type: multiple subsegmental (without acute cor pulmonale) Qualified Code(s): I26.94 - Multiple subsegmental pulmonary emboli without acute cor pulmonale (2) PNA (pneumonia): Status: Acute (3) Urinary tract infection: Status: Acute Qualifiers: Hematuria presence: without hematuria Urinary tract infection type: acute cystitis Qualified Code(s): N30.00 - Acute cystitis without hematuria (4) Sepsis: Status: Acute Reason for Visit Reason for Visit: low O2 Hospital Course Hospital Course Please see previous discharge summaries and previous progress notes for further details This is a patient with known colon cancer with invasion into bladder surrounding structures and has liver metastases. Also with a history of chronic smoking and severe emphysema complicated by pneumonia, pulmonary embolism, adenovirus most recently who has had recurrent UTIs and presented this time with the same. She is chronically ill, has cancer cachexia as well. ? Patient was admitted for sepsis secondary to UTI. Urine culture growing Enterococcus faecium VRE. Sensitive to linezolid. Most likely patient has fistulization at this point. We will treat with linezolid for total of 7 days. Patient unlikely to benefit from long-term antibiotics. Discussed with ID doctor over the phone. Please see note by Dr. Hurt dated 04/28. Hospice palliative care has been discussed with the patient as a potential consideration however she is not interested at this time. Discussed with oncology. Patient to have MRI abdomen pelvis done as an outpatient and follow-up with oncology. I personally discussed with Dr. Chamberlain over the phone. Patient would like to discuss further chemo options whether it be palliative or treatment dose chemotherapy. She would also like to be full code. She switched her CODE STATUS from DNR/DNI to full code during hospital stay. Discussed all the above with the patient and she is going to be discharged today and to follow-up outpatient. She has verbalized understanding and agreement with the plan. Patient will be given short course of oral steroids for cancer cachexia. Patient does have high risk of readmissions. 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 HENMT: COMMON NORMALS: normocephalic HEAD & SCALP: normocephalic Eye: COMMON NORMALS: Equal, round and reactive pupils present and EOMs intact bilaterally PUPIL: Yes Equal, round and reactive pupils present Resp: COMMON NORMALS: normal respiratory effort, No retractions, No use of accessory muscles and clear to auscultation bilaterally AUSCULTATION: clear to auscultation bilaterally Cardio: COMMON NORMALS: regular rate, regular rhythm, S1 normal heart sound present and S2 normal heart sound present RATE: regular rate RHYTHM: re gular rhythm HEART SOUNDS: S1 normal heart sound present and S2 normal heart sound present GI: COMMON NORMALS: Normal to inspection, nondistended, normoactive bowel sounds present, Soft to palpation and non-tender PALPATION: Yes Soft to palpation OTHER: Ileostomy in place Extremity: COMMON NORMALS: no calf tenderness and no pedal edema Neuro: COMMON NORMALS: patient oriented x3, CN's II-XII intact bilaterally and moves all extremities Psych: COMMON NORMALS: mental status grossly normal Discharge Data Studies Completed and Pending Completed Studies During Hospitalization Category Date Time Status CT chest abdpel w/*[id number] Stat Cat Scan 04/28/23 03:27 Completed XR chest 1V portable [id number] Stat Exams 04/27/23 23:43 Completed Pending at discharge Category Date Time Status Blood Cultures ([facility]) Routine Lab 04/28/23 06:15 Received Blood Cultures ([facility]) Routine Lab 04/28/23 06:21 Received Clostridium Difficile PCR Routine Lab 04/28/23 08:21 Received Radiology Impressions Chest X-Ray 04/27/23 23:43 IMPRESSION: 1. Patchy bibasilar infiltrate, similar to and better characterized on recent CT chest. 2. Severe emphysema/COPD. Chest/Abdomen/Pelvis CT 04/28/23 03:27 IMPRESSION: No interval change in severe emphysema and patchy bibasilar consolidations concerning for infection. IMPRESSION: 1. No interval change in large necrotic pelvic mass with invasion of the GI tract and urinary bladder. 2. Similar indeterminate subcentimeter hepatic lesions, which may reflect metastatic disease. Laboratory Results WBC 22.48 10^3/uL (3.29-11.43) H 04/27/23 00:15 RBC 3.55 10^6/uL (3.85-5.65) L 04/27/23 00:15 Hgb 9.60 g/dL (11.27-16.99) L 04/27/23 00:15 Hct 31.9 % (36-47) L 04/27/23 00:15 MCV 89.9 fl (85-98) 04/27/23 00:15 MCH 27.0 pg (27-33) 04/27/23 00:15 MCHC 30.1 g/dL (30-55) 04/27/23 00:15 RDW 18.6 % (12.1-15.1) H 04/27/23 00:15 Plt Count 668 10^3/cmm (157-399) H 04/27/23 00:15 MPV 8.6 fL (7.4-10.4) 04/27/23 00:15 Neut % (Auto) 76.1 % 04/27/23 00:15 Lymph % (Auto) 14.4 % 04/27/23 00:15 [place] % (Auto) 7.4 % 04/27/23 00:15 Eos % (Auto) 0.8 % 04/27/23 00:15 Baso % (Auto) 0.5 % 04/27/23 00:15 Neut # (Auto) 17.13 10^3/uL (1.8-7.7) H 04/27/23 00:15 Lymph # (Auto) 3.2 10^3/uL (0.8-4.8) 04/27/23 00:15 [place]le # (Auto) 1.7 10^3/uL (0.2-0.9) H 04/27/23 00:15 Eos # (Auto) 0.2 10^3/uL (0.0-0.8) 04/27/23 00:15 Baso # (Auto) 0.1 10^3/uL (0.0-0.1) 04/27/23 00:15 Nucleated RBC % (auto) 0 % 04/27/23 00:15 Nucleated RBCs # 0.0 /100WBC 04/27/23 00:15 PT 13.90 SECONDS (12.1-14.9) 04/28/23 06:21 INR 1.03 (0.8-1.2) 04/28/23 06:21 Sodium 136 mmol/L (136-145) 04/27/23 00:15 Potassium 4.0 mmol/L (3.5-5.1) 04/27/23 00:15 Chloride 103 mmol/L (98-107) 04/27/23 00:15 Carbon Dioxide 24 mmol/L (22-29) 04/27/23 00:15 Anion Gap 13.0 (5-19) 04/27/23 00:15 BUN 15 mg/dL (8-23) 04/27/23 00:15 Creatinine 0.4 mg/dL (0.5-0.9) L 04/27/23 00:15 GFR Calculation 161.7 mL/min (90-130) H 04/27/23 00:15 Glucose 108 mg/dL (65-115) 04/27/23 00:15 Calculated Osmolality 283 mOsm/kg (285-295) L 04/27/23 00:15 Lactic Acid 1.2 mmol/L (0.5-2.2) 04/27/23 00:15 Calcium 9.0 mg/dL (8.5-10.5) 04/27/23 00:15 Phosphorus 3.6 mg/dL (2.5-4.5) 04/28/23 00:13 Magnesium 2.0 mg/dL (1.7-2.3) 04/28/23 00:13 Total Bilirubin 0.2 mg/dL (0.15-1.2) 04/27/23 00:15 AST 18 U/L (0-32) 04/27/23 00:15 ALT 12 U/L (0-33) 04/27/23 00:15 Alkaline Phosphatase 117 U/L (35-105) H 04/27/23 00:15 Creatine Kinase 29 U/L (26-192) 04/27/23 00:15 C-Reactive Protein 12.6 mg/L (0.0-4.9) H 04/27/23 00:15 Total Protein 7.2 g/dL (6.6-8.7) 04/27/23 00:15 Albumin 2.9 g/dL (3.5-5.2) L 04/27/23 00:15 Globulin 4.3 g/dL (1.3-4.6) 04/27/23 00:15 Carcinoembryonic Ag 36.9 ng/mL (0.0-4.7) H 04/29/23 14:20 Procalcitonin 0.11 ng/mL (0-0.5) 04/27/23 00:15 TSH 0.76 uIU/mL (0.27-4.20) 04/28/23 00:13 Urine Color [place] (Yellow) 04/28/23 00:17 Urine Appearance Turbid (CLEAR) A 04/28/23 00:17 Urine pH 5 (5-7) 04/28/23 00:17 Ur Specific [place] 1.020 (1.005-1.030) 04/28/23 00:17 Urine Protein 3+ (Negative) H 04/28/23 00:17 Urine Glucose (UA) Norm (Normal) 04/28/23 00:17 Urine Ketones Negative (Negative) 04/28/23 00:17 Urine Blood 3+ (Negative) H 04/28/23 00:17 Urine Nitrate Negative (Negative) 04/28/23 00:17 Urine Bilirubin Neg (Negative) 04/28/23 00:17 Urine Urobilinogen Norm mg/dL (Negative) 04/28/23 00:17 Ur Leukocyte Esterase 2+ (Negative) H 04/28/23 00:17 Urine RBC Too numerous to cnt /hpf (0-2) H 04/28/23 00:17 Urine WBC Too numerous to cnt /hpf (0-5) H 04/28/23 00:17 Ur Squamous Epith Cells 5-10 /hpf (0-5) H 04/28/23 00:17 Amorphous Sediment Not Reportable 04/28/23 00:17 Urine Bacteria 1+ /hpf (NONE) H 04/28/23 00:17 Urine Mucus 1+ /hpf 04/28/23 00:17 Vitals Last Vital Signs Temp 97.5 F L 04/30/23 08:12 Pulse 101 H 04/30/23 08:45 Resp 18 04/30/23 08:35 BP 128/81 04/30/23 08:12 Pulse Ox 98 04/30/23 08:35 O2 Del Method Nasal Cannula 04/30/23 08:35 O2 Flow Rate 2 04/30/23 08:35 Discharge Plan Discharge Patient Disposition: Home Condition: Stable Prescriptions: New dexamethasone sodium phosphate 4 mg/mL Solution 2 mg PO BID 3 Days Qty: 3 0RF linezolid 600 mg tablet 600 mg PO BID 7 Days Qty: 14 0RF Continued loperamide 2 mg tablet 2 mg PO .COMPLEX PRN (Reason: loose stool) Qty: 30 1RF Rx Instructions: take 2 tabs after first loose stool then 1 tab after each loose stool, no more than 4 tablets in 24 hours naloxone [Narcan] 4 mg/actuation spray,non-aerosol 4 mg intranasal Q2M PRN (Reason: Opioid Overdose) Rx Instructions: spray 1 dose into ONE nostril; alternate nostrils w each dose until help arrives Xanax 0.25 mg tablet 0.25 mg PO BID PRN (Reason: anxiety/panic attacks) 30 Days Qty: 60 0RF mirtazapine 7.5 mg tablet 7.5 mg PO BID 30 Days Qty: 60 0RF oxycodone-acetaminophen 5-325 mg tablet 1 tab PO Q8H PRN (Reason: cancer pain) 30 Days Qty: 90 0RF ferrous sulfate 325 mg (65 mg iron) tablet 325 mg PO ONCE Qty: 100 3RF aspirin 81 mg tablet,delayed release (DR/EC) 81 mg PO DAILY Qty: 90 3RF acetaminophen 500 mg capsule 1,000 mg PO Q6H Qty: 300 5RF prochlorperazine maleate [Compazine] 10 mg tablet 10 mg PO Q6H PRN (Reason: nausea and vomiting) Qty: 30 3RF Pyridium 200 mg tablet 200 mg PO TID Qty: 90 2RF ondansetron 4 mg tablet,disintegrating 4 mg PO Q8H PRN (Reason: nausea and vomiting) Qty: 20 1RF lidocaine-prilocaine 2.5-2.5 % cream 1 applic topical .COMPLEX Qty: 30 3RF Rx Instructions: Apply quarter size amount 30-45 minutes prior to port access, cover with cellophane pantoprazole 20 mg tablet,delayed release (DR/EC) 20 mg PO DAILY baclofen 10 mg tablet 10 mg PO Q6H PRN (Reason: muscle spasm) oxybutynin chloride 5 mg tablet 5 mg PO TID albuterol sulfate 2.5 mg/0.5 mL solution for nebulization 2.5 mg inhalation Q6H PRN (Reason: shortness of breath or wheezing) 30 Days Qty: 30 2RF budesonide 0.5 mg/2 mL Suspension For Nebulization 0.5 mg inhalation BID.RESPIRATORY 30 Days Qty: 120 0RF Eliquis 5 mg tablet 5 mg PO BID 90 Days Qty: 180 0RF melatonin 3 mg Tablet 3 mg PO BEDTIME Discharge Orders: Discharge Order (Routine); Ordered 04/30/23 Ordered By: Courtney Tomlin Other Ambulatory Orders: MR abdomen wo/w con* [id number] (Routine) Timeframe: 1 Day Facility: [facility] - Location: Radiology [facility] Ordered By: Courtney Tomlin MR pelvis wo/w con [id number] (Routine) Timeframe: 1 Day Facility: [facility] - Location: Radiology [facility] Ordered By: Courtney Tomlin Referrals: Darwin Reaves MD [Primary Care Provider] - 05/07/23 2:45 pm Rehana Chamberlain MD [Hospitalist] - 05/08/23 7:30 am Discharge Diet: As Directed Discharge Activity: Resume usual activity Patient Instructions: Opioid Safety Discharge Attestations Time Spent in Discharge Care*: greater than 30 min Quality Metrics Clinical Quality Measures [ No reported AMI, CVA or VTE this stay] Coding Level of Care Code 75364 Total time (in minutes) for Discharge: 30 Diagnoses Pulmonary embolism I26.94 Pulmonary embolism type: multiple subsegmental (without acute cor pulmonale) PNA (pneumonia) J18.9 Acute cystitis without hematuria N30.00 Hematuria presence: without hematuria Urinary tract infection type: acute cystitis Sepsis A41.9
--- NOTE | 2023-04-30 13:45 | PC.NURSE ---
Discharge instructions provided to pt and daughter with no questions or concerns at this time. Meds delivered to bedside. PAC deaccessed by this nurse. Bandaid applied to left anterior chest wall.
[2023-04-30] MEDS: oxyCODONE-APAP 5-325 mg Tablet 1 TAB PO (13:48)
--- NOTE | 2023-04-30 13:58 | PC.NURSE ---
Pt to private vehicle with daughter at side. All belongings with pt.
[2023-05-02 06:58] LABS: Clostridium Difficile PCR NOT DETECTED (NOT DETECTED)
== END 2023-04-30 14:01 | disposition home or self-care (01) | DRG 871 ==
LOC: ER 23:24 → MEDSURG 04-28 03:19
PROVIDERS: Admitting Provider Family Medicine; Emergency Provider Emergency Medicine; PCP Family Medicine Adult Medicine; Visit Provider Internal Medicine
DX: A41.9 Sepsis, unspecified organism (principal); I26.94 Multiple subsegmental thrombotic pulmonary emboli without acute cor pulmonale; J18.9 Pneumonia, unspecified organism; J96.11 Chronic respiratory failure with hypoxia; N30.00 Acute cystitis without hematuria; C18.9 Malignant neoplasm of colon, unspecified; C78.7 Secondary malignant neoplasm of liver and intrahepatic bile duct; Z68.1 Body mass index [BMI] 19.9 or less, adult; E46 Unspecified protein-calorie malnutrition; F17.210 Nicotine dependence, cigarettes, uncomplicated; Y95 Nosocomial condition; B95.2 Enterococcus as the cause of diseases classified elsewhere; J43.9 Emphysema, unspecified; Z66 Do not resuscitate; K59.09 Other constipation; E88.A Wasting disease (syndrome) due to underlying condition; Z87.01 Personal history of pneumonia (recurrent); Z87.440 Personal history of urinary (tract) infections; Z93.2 Ileostomy status; Z95.828 Presence of other vascular implants and grafts; R19.03 Right lower quadrant abdominal swelling, mass and lump
CPT/HCPCS: 36415; 71045; 71260; 74177; 80053; 81001; 82378; 82550; 83605; 83735; 84100; 84145; 84443; 85025; 85610; 86140; 87040; 87077; 87086; 87186; 87493; 93005; 94640; 94664; 96365; 96367; 96375; 99285; C9113; J1100; J2060; J2543; J3370; J7030; J7050; J7626; Q3014; Q9967

== ENCOUNTER 2023-05-03 20:42 | Emergency (ER) | payer BC, MEDICAID, SELFPAY ==
[2023-05-03 20:54] VITALS: BP 109/77; PULSE 129; RESP 20; TEMP 36.6; O2SAT 97; BMI 12.8
--- NOTE | 2023-05-03 23:07 | ECG_ITS ---
[facility] Test Date: 2023-05-04 Pat Name: Liliana Monroy Department: Room: Gender: Female Corporate Director Of Human Resources: : 1960 Requested By: Zaira Cutler Order Number: [id number] Emili MD: Alessio Sanchez M.D. Measurements Intervals [place] Rate: 110 P: 14 NC: 98 QRS: 70 QRSD: 64 T: 57 QT: 316 QTc: 429 Interpretive Statements SINUS TACHYCARDIA WITH SHORT NC INTERVAL Compared to ECG 04/27/2023 22:08:17 ST (T wave) deviation no longer present Electronically Signed On 05-04-2023 23:12:15 SALES AND MARKETING AGENT by Alessio Sanchez M.D. [email or web address]
--- NOTE | 2023-05-03 23:21 | W.ED.GENADLT ---
Documented by User: [email or web address] Zee-Wilfred 05/04/23 01:16 HPI - General Adult General: Chief complaint: General Medical Stated complaint: sample from rectum needs checked Time Seen by Provider: 05/03/23 22:29 History of Present Illness: Patient is in today with concerns of a mass that came out of her ileostomy. Patient reports that she has colon cancer that has spread and she has an ileostomy. She reports that her doctor told her that tissue would expel from the ileostomy however she did not think anything this large would come out. Patient reports that this happened approximately 8:00 and she wants the doctor to have it should they need to biopsy it. She also reports that she recently was discharged from this hospital where she was treated for pneumonia, pulmonary embolism. She reports that she has been struggling with her air a little bit today and notices that her heart rate is much higher than typical. Patient is on continuous O2. Associated symptoms: Reports dyspnea and palpitations; Deny chest pain Review of Systems Const: Denies: fever(s) or chills Card: Reports: palpitations; Denies: chest pain Resp: Reports: dyspnea GI: Reports: other (Ileostomy with tissue passed past into her bag) PFSH ED PFSH: Medical History Urinary tract infection On antineoplastic chemotherapy Colon adenocarcinoma Pelvic Mass, RLQ, Surg. Path 01/16/2023 mod differentiated, open ileostomy Dr. Liao, [facility]; small bowel and bladder noted via PET 02/26/23; mFOLFOX started 03/18/23 Hypoxia Presence of ileostomy Nicotine dependence, cigarettes, uncomplicated Generalized weakness Moderate protein-calorie malnutrition Left lower lobe pneumonia Iron deficiency anemia Weight loss of more than 10% body weight 8 Para 7 (1 miscarriage, 1 ectopic, 1 twin ) Chronic constipation Pyelonephritis of right kidney Painful bladder spasm Cyanosis of tip of finger Surgical History Port-A-Cath in place Hx of ileostomy History of bilateral ligation of fallopian tubes Family History Father Heart attack Mother Bipolar 1 disorder CAD (coronary artery disease) Social History Smoking and tobacco/nicotine status: current every day tobacco/nicotine user Quit status (tobacco/nicotine): not considering quitting Alcohol intake: former Substance/Drug Use: never Physical Exam Const: OTHER: This is a cachectic frail-appearing 62-year-old female. She is sitting in a wheelchair on continuous oxygen Resp: OTHER: On continuous oxygen. Appears to use accessory muscles to breathe. States that she is more short of breath today. Cardio: OTHER: Tachycardic with a heart rate of 129 regular rhythm on auscultation. Course Vital Signs: Vital signs: Vital Signs Temperature 98 F 05/03/23 20:54 Pulse Rate 129 H 05/03/23 20:54 Respiratory Rate 20 H 05/03/23 20:54 Blood Pressure 109/77 05/03/23 20:54 Pulse Oximetry 97 05/03/23 20:54 MDM - General Adult Medical Decision Making Cachectic female with colon cancer. She is currently receiving treatment by oncology. She is concerned about tissue that has passed through her illeostomy. Patient is only here regarding the tissue that is passed through her illeostomy however her heart rate is elevated and she is very ill-appearing. Patient was recently discharged from the hospital only a couple of days ago. Lab workup is ordered with an EKG given her tachycardia and increased shortness of breath today. Tissue specimen that patient brings in is mucoid. desktop technician has concerns that there may be parasitic remnants. I will order ova and parasite testing. Lab is trying to figure out how to order pathology testing on the tissue sample. Patient did initially refuse blood work and EKG; however, she later decided that she would have the blood drawn. Her labs came back with leukocytosis and elevated platelet count. Consistently, per her history, she has had leukocytosis and an elevated platelet count. She acknowledges that this is a chronic problem for her. She was also recently given steroids with her inpatient admission. The patient does not want to be admitted to the hospital again. She states that her symptoms are resolved and she just wants to go home. She denies any shortness of breath, outside of the ordinary, at this time. She states that she is ready to be discharged home. She assures me that she will return for any new or worsening symptoms. She assures me that she will continue follow-up with primary care provider and oncology next week. Lab Data 05/04/23 00:00 05/04/23 00:00 Laboratory Results WBC 26.07 10^3/uL (3.29-11.43) H 05/04/23 00:00 RBC 3.45 10^6/uL (3.85-5.65) L 05/04/23 00:00 Hgb 9.50 g/dL (11.27-16.99) L 05/04/23 00:00 Hct 31.3 % (36-47) L 05/04/23 00:00 MCV 90.7 fl (85-98) 05/04/23 00:00 MCH 27.5 pg (27-33) 05/04/23 00:00 MCHC 30.4 g/dL (30-55) 05/04/23 00:00 RDW 21.8 % (12.1-15.1) H 05/04/23 00:00 Plt Count 803 10^3/cmm (157-399) H 05/04/23 00:00 MPV 8.8 fL (7.4-10.4) 05/04/23 00:00 Neut % (Auto) 73.2 % 05/04/23 00:00 Lymph % (Auto) 15.5 % 05/04/23 00:00 Converse % (Auto) 9.5 % 05/04/23 00:00 Eos % (Auto) 0.2 % 05/04/23 00:00 Baso % (Auto) 0.1 % 05/04/23 00:00 Neut # (Auto) 19.11 10^3/uL (1.8-7.7) H 05/04/23 00:00 Lymph # (Auto) 4.0 10^3/uL (0.8-4.8) 05/04/23 00:00 Converse # (Auto) 2.5 10^3/uL (0.2-0.9) H 05/04/23 00:00 Eos # (Auto) 0.0 10^3/uL (0.0-0.8) 05/04/23 00:00 Baso # (Auto) 0.0 10^3/uL (0.0-0.1) 05/04/23 00:00 Nucleated RBC % (auto) 0 % 05/04/23 00:00 Nucleated RBCs # 0.0 /100WBC 05/04/23 00:00 Sodium 144 mmol/L (136-145) 05/04/23 00:00 Potassium 3.8 mmol/L (3.5-5.1) 05/04/23 00:00 Chloride 106 mmol/L (98-107) 05/04/23 00:00 Carbon Dioxide 24 mmol/L (22-29) 05/04/23 00:00 Anion Gap 17.8 (5-19) 05/04/23 00:00 BUN 23 mg/dL (8-23) 05/04/23 00:00 Creatinine 0.5 mg/dL (0.5-0.9) 05/04/23 00:00 GFR Calculation 125.0 mL/min (90-130) 05/04/23 00:00 Glucose 114 mg/dL (65-115) 05/04/23 00:00 Calculated Osmolality 303 mOsm/kg (285-295) H 05/04/23 00:00 Calcium 9.3 mg/dL (8.5-10.5) 05/04/23 00:00 Total Bilirubin 0.2 mg/dL (0.15-1.2) 05/04/23 00:00 AST 14 U/L (0-32) 05/04/23 00:00 ALT 13 U/L (0-33) 05/04/23 00:00 Alkaline Phosphatase 99 U/L (35-105) 05/04/23 00:00 Total Protein 6.9 g/dL (6.6-8.7) 05/04/23 00:00 Albumin 3.3 g/dL (3.5-5.2) L 05/04/23 00:00 Globulin 3.6 g/dL (1.3-4.6) 05/04/23 00:00 No radiology studies performed this visit Discharge Plan Discharge Patient Disposition: Home Clinical Impression: Colon adenocarcinoma, Chronic hypoxemic respiratory failure, Tachycardia, Leukocytosis Condition: Stable Prescriptions: No Action loperamide 2 mg tablet 2 mg PO .COMPLEX PRN (Reason: loose stool) Qty: 30 1RF Rx Instructions: take 2 tabs after first loose stool then 1 tab after each loose stool, no more than 4 tablets in 24 hours naloxone [Narcan] 4 mg/actuation spray,non-aerosol 4 mg intranasal Q2M PRN (Reason: Opioid Overdose) Rx Instructions: spray 1 dose into ONE nostril; alternate nostrils w each dose until help arrives mirtazapine 7.5 mg tablet 7.5 mg PO BID 30 Days Qty: 60 0RF oxycodone-acetaminophen 5-325 mg tablet 1 tab PO Q8H PRN (Reason: cancer pain) 30 Days Qty: 90 0RF ferrous sulfate 325 mg (65 mg iron) tablet 325 mg PO ONCE Qty: 100 3RF aspirin 81 mg tablet,delayed release (DR/EC) 81 mg PO DAILY Qty: 90 3RF acetaminophen 500 mg capsule 1,000 mg PO Q6H Qty: 300 5RF prochlorperazine maleate [Compazine] 10 mg tablet 10 mg PO Q6H PRN (Reason: nausea and vomiting) Qty: 30 3RF Pyridium 200 mg tablet 200 mg PO TID Qty: 90 2RF ondansetron 4 mg tablet,disintegrating 4 mg PO Q8H PRN (Reason: nausea and vomiting) Qty: 20 1RF lidocaine-prilocaine 2.5-2.5 % cream 1 applic topical .COMPLEX Qty: 30 3RF Rx Instructions: Apply quarter size amount 30-45 minutes prior to port access, cover with cellophane pantoprazole 20 mg tablet,delayed release (DR/EC) 20 mg PO DAILY baclofen 10 mg tablet 10 mg PO Q6H PRN (Reason: muscle spasm) oxybutynin chloride 5 mg tablet 5 mg PO TID albuterol sulfate 2.5 mg/0.5 mL solution for nebulization 2.5 mg inhalation Q6H PRN (Reason: shortness of breath or wheezing) 30 Days Qty: 30 2RF budesonide 0.5 mg/2 mL Suspension For Nebulization 0.5 mg inhalation BID.RESPIRATORY 30 Days Qty: 120 0RF Eliquis 5 mg tablet 5 mg PO BID 90 Days Qty: 180 0RF linezolid 600 mg tablet 600 mg PO BID 7 Days Qty: 14 0RF diltiazem HCl 60 mg capsule,extended release 12 hr 60 mg PO BID Qty: 14 0RF Rx Instructions: It is important to check your blood pressure before taking this medication if your systolic blood pressure is below 100 do not take this medication. melatonin 3 mg Tablet 3 mg PO BEDTIME meclizine 25 mg tablet 25 mg PO TID PRN (Reason: dizziness) Qty: 20 0RF Discharge Orders: Discharge ED (Routine); Ordered 05/04/23 Ordered By: Zaira Cutler Referrals: Darwin Reaves MD [Primary Care Provider] - Discharge Diet: Usual diet Discharge Activity: Resume usual activity Activity Restrictions/Additional Instructions: I am still concerned about your heart rate being so elevated. Your labs are fairly consistent with your previous lab results. Please return to the ER for any new or worsening symptoms. Continue follow-up with your primary care provider and oncologist next week as already scheduled. 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 Path 01/16/2023 mod differentiated, open ileostomy Dr. Liao, [facility]; small bowel and bladder noted via PET 02/26/23; mFOLFOX started 03/18/23 Hypoxia Presence of ileostomy Nicotine dependence, cigarettes, uncomplicated Generalized weakness Moderate protein-calorie malnutrition Left lower lobe pneumonia Iron deficiency anemia Weight loss of more than 10% body weight 8 Para 7 (1 miscarriage, 1 ectopic, 1 twin ) Chronic constipation Pyelonephritis of right kidney Painful bladder spasm Cyanosis of tip of finger Surgical History Port-A-Cath in place Hx of ileostomy History of bilateral ligation of fallopian tubes Family History Father Heart attack Mother Bipolar 1 disorder CAD (coronary artery disease) Social History Smoking and tobacco/nicotine status: current every day tobacco/nicotine user Quit status (tobacco/nicotine): not considering quitting Alcohol intake: former Substance/Drug Use: never Course Vital Signs: Vital signs: Vital Signs Temperature 98 F 05/03/23 20:54 Pulse Rate 129 H 05/03/23 20:54 Respiratory Rate 20 H 05/03/23 20:54 Blood Pressure 109/77 05/03/23 20:54 Pulse Oximetry 97 05/03/23 20:54 MDM - General Adult Medical Decision Making Cachectic female with colon cancer. She is currently receiving treatment by oncology. She is concerned about tissue that has passed through her illeostomy. Patient is only here regarding the tissue that is passed through her illeostomy however her heart rate is elevated and she is very ill-appearing. Patient was recently discharged from the hospital only a couple of days ago. Lab workup is ordered with an EKG given her tachycardia and increased shortness of breath today. Tissue specimen that patient brings in is mucoid. desktop technician has concerns that there may be parasitic remnants. I will order ova and parasite testing. Lab is trying to figure out how to order pathology testing on the tissue sample. Patient did initially refuse blood work and EKG; however, she later decided that she would have the blood drawn. Her labs came back with leukocytosis and elevated platelet count. Consistently, per her history, she has had leukocytosis and an elevated platelet count. She acknowledges that this is a chronic problem for her. She was also recently given steroids with her inpatient admission. The patient does not want to be admitted to the hospital again. She states that her symptoms are resolved and she just wants to go home. She denies any shortness of breath, outside of the ordinary, at this time. She states that she is ready to be discharged home. She assures me that she will return for any new or worsening symptoms. She assures me that she will continue follow-up with primary care provider and oncology next week. Chart reviewed and patient discussed with midlevel. Agree with assessment and plan. Lab Data 05/04/23 00:00 05/04/23 00:00 Laboratory Results WBC 26.07 10^3/uL (3.29-11.43) H 05/04/23 00:00 RBC 3.45 10^6/uL (3.85-5.65) L 05/04/23 00:00 Hgb 9.50 g/dL (11.27-16.99) L 05/04/23 00:00 Hct 31.3 % (36-47) L 05/04/23 00:00 MCV 90.7 fl (85-98) 05/04/23 00:00 MCH 27.5 pg (27-33) 05/04/23 00:00 MCHC 30.4 g/dL (30-55) 05/04/23 00:00 RDW 21.8 % (12.1-15.1) H 05/04/23 00:00 Plt Count 803 10^3/cmm (157-399) H 05/04/23 00:00 MPV 8.8 fL (7.4-10.4) 05/04/23 00:00 Neut % (Auto) 73.2 % 05/04/23 00:00 Lymph % (Auto) 15.5 % 05/04/23 00:00 Converse % (Auto) 9.5 % 05/04/23 00:00 Eos % (Auto) 0.2 % 05/04/23 00:00 Baso % (Auto) 0.1 % 05/04/23 00:00 Neut # (Auto) 19.11 10^3/uL (1.8-7.7) H 05/04/23 00:00 Lymph # (Auto) 4.0 10^3/uL (0.8-4.8) 05/04/23 00:00 Converse # (Auto) 2.5 10^3/uL (0.2-0.9) H 05/04/23 00:00 Eos # (Auto) 0.0 10^3/uL (0.0-0.8) 05/04/23 00:00 Baso # (Auto) 0.0 10^3/uL (0.0-0.1) 05/04/23 00:00 Nucleated RBC % (auto) 0 % 05/04/23 00:00 Nucleated RBCs # 0.0 /100WBC 05/04/23 00:00 Sodium 144 mmol/L (136-145) 05/04/23 00:00 Potassium 3.8 mmol/L (3.5-5.1) 05/04/23 00:00 Chloride 106 mmol/L (98-107) 05/04/23 00:00 Carbon Dioxide 24 mmol/L (22-29) 05/04/23 00:00 Anion Gap 17.8 (5-19) 05/04/23 00:00 BUN 23 mg/dL (8-23) 05/04/23 00:00 Creatinine 0.5 mg/dL (0.5-0.9) 05/04/23 00:00 GFR Calculation 125.0 mL/min (90-130) 05/04/23 00:00 Glucose 114 mg/dL (65-115) 05/04/23 00:00 Calculated Osmolality 303 mOsm/kg (285-295) H 05/04/23 00:00 Calcium 9.3 mg/dL (8.5-10.5) 05/04/23 00:00 Total Bilirubin 0.2 mg/dL (0.15-1.2) 05/04/23 00:00 AST 14 U/L (0-32) 05/04/23 00:00 ALT 13 U/L (0-33) 05/04/23 00:00 Alkaline Phosphatase 99 U/L (35-105) 05/04/23 00:00 Total Protein 6.9 g/dL (6.6-8.7) 05/04/23 00:00 Albumin 3.3 g/dL (3.5-5.2) L 05/04/23 00:00 Globulin 3.6 g/dL (1.3-4.6) 05/04/23 00:00 Discharge Plan Discharge Patient Disposition: Home Clinical Impression: Colon adenocarcinoma, Chronic hypoxemic respiratory failure, Tachycardia, Leukocytosis Condition: Stable Prescriptions: No Action loperamide 2 mg tablet 2 mg PO .COMPLEX PRN (Reason: loose stool) Qty: 30 1RF Rx Instructions: take 2 tabs after first loose stool then 1 tab after each loose stool, no more than 4 tablets in 24 hours naloxone [Narcan] 4 mg/actuation spray,non-aerosol 4 mg intranasal Q2M PRN (Reason: Opioid Overdose) Rx Instructions: spray 1 dose into ONE nostril; alternate nostrils w each dose until help arrives mirtazapine 7.5 mg tablet 7.5 mg PO BID 30 Days Qty: 60 0RF oxycodone-acetaminophen 5-325 mg tablet 1 tab PO Q8H PRN (Reason: cancer pain) 30 Days Qty: 90 0RF ferrous sulfate 325 mg (65 mg iron) tablet 325 mg PO ONCE Qty: 100 3RF aspirin 81 mg tablet,delayed release (DR/EC) 81 mg PO DAILY Qty: 90 3RF acetaminophen 500 mg capsule 1,000 mg PO Q6H Qty: 300 5RF prochlorperazine maleate [Compazine] 10 mg tablet 10 mg PO Q6H PRN (Reason: nausea and vomiting) Qty: 30 3RF Pyridium 200 mg tablet 200 mg PO TID Qty: 90 2RF ondansetron 4 mg tablet,disintegrating 4 mg PO Q8H PRN (Reason: nausea and vomiting) Qty: 20 1RF lidocaine-prilocaine 2.5-2.5 % cream 1 applic topical .COMPLEX Qty: 30 3RF Rx Instructions: Apply quarter size amount 30-45 minutes prior to port access, cover with cellophane pantoprazole 20 mg tablet,delayed release (DR/EC) 20 mg PO DAILY baclofen 10 mg tablet 10 mg PO Q6H PRN (Reason: muscle spasm) oxybutynin chloride 5 mg tablet 5 mg PO TID albuterol sulfate 2.5 mg/0.5 mL solution for nebulization 2.5 mg inhalation Q6H PRN (Reason: shortness of breath or wheezing) 30 Days Qty: 30 2RF budesonide 0.5 mg/2 mL Suspension For Nebulization 0.5 mg inhalation BID.RESPIRATORY 30 Days Qty: 120 0RF Eliquis 5 mg tablet 5 mg PO BID 90 Days Qty: 180 0RF linezolid 600 mg tablet 600 mg PO BID 7 Days Qty: 14 0RF diltiazem HCl 60 mg capsule,extended release 12 hr 60 mg PO BID Qty: 14 0RF Rx Instructions: It is important to check your blood pressure before taking this medication if your systolic blood pressure is below 100 do not take this medication. melatonin 3 mg Tablet 3 mg PO BEDTIME meclizine 25 mg tablet 25 mg PO TID PRN (Reason: dizziness) Qty: 20 0RF Discharge Orders: Discharge ED (Routine); Ordered 05/04/23 Ordered By: Zaira Cutler Referrals: Darwin Reaves MD [Primary Care Provider] - Discharge Diet: Usual diet Discharge Activity: Resume usual activity Activity Restrictions/Additional Instructions: I am still concerned about your heart rate being so elevated. Your labs are fairly consistent with your previous lab results. Please return to the ER for any new or worsening symptoms. Continue follow-up with your primary care provider and oncologist next week as already scheduled. 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
--- NOTE | 2023-05-03 23:39 | PC.NURSE ---
Patient refused bloodwork and EKG at this time, stating I did not come in here to be tested. Patient was educated the importance of bloodwork and other tests, but declined tests once again.
[2023-05-04 00:08] LABS: Basophils % 0.1 %; Eosinophils % 0.2 %; Hematocrit 31.3 % (36-47); Lymphocytes % 15.5 %; Mean Corpuscular HGB Conc 30.4 g/dL (30-55); Mean Corpuscular Hemoglobin 27.5 pg (27-33); Mean Corpuscular Volume 90.7 fl (85-98); Mean Platelet Volume 8.8 fL (7.4-10.4); Monocytes # 2.5 10^3/uL (0.2-0.9); Monocytes % 9.5 %; Neutrophils # 19.11 10^3/uL (1.8-7.7); Neutrophils % 73.2 %; Nucleated Red Blood Cells % 0 %; Platelet Count 803 10^3/cmm (157-399); Red Blood Count 3.45 10^6/uL (3.85-5.65); Red Cell Distribution Width 21.8 % (12.1-15.1); White Blood Count 26.07 10^3/uL (3.29-11.43)
[2023-05-04 00:26] LABS: Alanine Aminotransferase 13 U/L (0-33); Albumin Level 3.3 g/dL (3.5-5.2); Alkaline Phosphatase 99 U/L (35-105); Anion Gap 17.8 (5-19); Aspartate Amino Transferase 14 U/L (0-32); Blood Urea Nitrogen 23 mg/dL (8-23); Calcium 9.3 mg/dL (8.5-10.5); Carbon Dioxide 24 mmol/L (22-29); Chloride 106 mmol/L (98-107); Globulin 3.6 g/dL (1.3-4.6); Glucose 114 mg/dL (65-115); Osmolality Calculated 303 mOsm/kg (285-295); Potassium 3.8 mmol/L (3.5-5.1); Sodium 144 mmol/L (136-145); Total Bilirubin 0.2 mg/dL (0.15-1.2); Total Protein 6.9 g/dL (6.6-8.7)
== END 2023-05-04 01:26 | disposition home or self-care (01) ==
PROVIDERS: Emergency Provider Nurse Practitioner Family; PCP Family Medicine Adult Medicine
DX: C18.9 Malignant neoplasm of colon, unspecified (principal); R00.0 Tachycardia, unspecified; J96.11 Chronic respiratory failure with hypoxia; D72.829 Elevated white blood cell count, unspecified; Z79.01 Long term (current) use of anticoagulants; Z79.82 Long term (current) use of aspirin; Z72.0 Tobacco use; Z93.2 Ileostomy status
CPT/HCPCS: 36415; 80053; 85025; 87040; 87177; 87209; 88307; 93005; 99284

== ENCOUNTER 2023-05-04 02:47 | Emergency (ER) | payer BC, MEDICAID, SELFPAY ==
[2023-05-04 02:55] VITALS: BP 104/69; PULSE 117; RESP 16; TEMP 36.9; O2SAT 96
[2023-05-04] MEDS: meclizine 25 mg tablet PO (03:11)
--- NOTE | 2023-05-04 03:26 | ED_ITS ---
HPI - Dizziness General: Chief Complaint: Dizziness Stated Complaint: Dizzyness Time Seen by Provider: 05/04/23 02:56 History of Present Illness: HPI Narrative: Patient was recently discharged from the ER and was out in the waiting room waiting on a ride to go home. When she felt dizzy and decided to be checked back in ER. Patient then said she had not ate much today and asked for sandwich and a Sprite. Patient denies any other problems at this time. Denies headaches chest pains shortness of breath fever chills coughs colds congestion vision hearing changes patient ambulated back to the room without difficulty. Review of Systems General: Reports: 10 or more systems reviewed and unremarkable except in HPI and below PFSH ED PFSH: Medical History Urinary tract infection On antineoplastic chemotherapy Colon adenocarcinoma Pelvic Mass, RLQ, Surg. Path 01/16/2023 mod differentiated, open ileostomy Dr. Liao, [facility]; small bowel and bladder noted via PET 02/26/23; mFOLFOX started 03/18/23 Hypoxia Presence of ileostomy Nicotine dependence, cigarettes, uncomplicated Generalized weakness Moderate protein-calorie malnutrition Left lower lobe pneumonia Iron deficiency anemia Weight loss of more than 10% body weight 8 Para 7 (1 miscarriage, 1 ectopic, 1 twin ) Chronic constipation Pyelonephritis of right kidney Painful bladder spasm Cyanosis of tip of finger Surgical History Port-A-Cath in place Hx of ileostomy History of bilateral ligation of fallopian tubes Family History Father Heart attack Mother Bipolar 1 disorder CAD (coronary artery disease) Social History Smoking and tobacco/nicotine status: current every day tobacco/nicotine user Quit status (tobacco/nicotine): not considering quitting Alcohol intake: former Substance/Drug Use: never Physical Exam Const: COMMON NORMALS: no acute distress, average body habitus, patient oriented x3, no limitations, healthy appearing, alert and well nourished HENMT: COMMON NORMALS: normocephalic, atraumatic, hearing grossly normal bilaterally, EAC's normal, Normal external nose present, moist oral mucous membranes and oropharynx normal HEAD & SCALP: normocephalic and atraumatic NOSE: Normal external nose present EXTERNAL AUDITORY CANAL: EAC's normal Neck/C-Spine: COMMON NORMALS: no JVD Chest: COMMONS NORMALS: normal inspection of the chest and normal palpation of entire chest wall Resp: COMMON NORMALS: normal respiratory effort, No retractions and No use of accessory muscles Cardio: COMMON NORMALS: no JVD, regular rate, regular rhythm, S1 normal heart sound present, S2 normal heart sound present, No gallops present (Cardio) and No murmurs present (Cardio) RATE: regular rate RHYTHM: regular rhythm HEART SOUNDS: S1 normal heart sound present and S2 normal heart sound present GI: COMMON NORMALS: Normal to inspection, nondistended, normoactive bowel sounds present, Soft to palpation, non-tender and No hepatosplenomegaly present PALPATION: Yes Soft to palpation and Yes No hepatosplenomegaly present Neuro: COMMON NORMALS: patient oriented x3 SENSORIUM/ORIENTATION: Yes alert Course Vital Signs: Vital signs: Vital Signs Temperature 98.5 F 05/04/23 02:55 Pulse Rate 117 H 05/04/23 02:55 Respiratory Rate 16 05/04/23 02:55 Blood Pressure 104/69 05/04/23 02:55 Pulse Oximetry 96 05/04/23 02:55 Oxygen Delivery Me thod Nasal Cannula 05/04/23 02:55 Oxygen Flow Rate 3 05/04/23 02:55 MDM - Dizziness Medical Decision Making Previous note from earlier today was reviewed along with labs. Patient was given meclizine 25 mg, a sandwich and a Sprite, patient ate and drank the food without difficulty and was observed for approximately 1 hour. Patient's dizziness improved patient be discharged home. Differential Diagnosis Unlikely adverse reaction to drug, benign paroxysmal positional vertigo, orthostatic hypotension, vertebral basilar insufficiency, cerebrovascular accident, acute vestibular neuronitis or transient cerebral ischemia Medical Records I reviewed the patient's medical records. Lab Data I reviewed the patient's lab results. Laboratory Results POC Glucose 114 mg/dL (70-110) H 05/04/23 03:18 No radiology studies performed this visit Discharge Plan Discharge Patient Disposition: Home Clinical Impression: Vertigo Condition: Stable Prescriptions: New meclizine 25 mg tablet 25 mg PO TID PRN (Reason: dizziness) Qty: 20 0RF No Action loperamide 2 mg tablet 2 mg PO .COMPLEX PRN (Reason: loose stool) Qty: 30 1RF Rx Instructions: take 2 tabs after first loose stool then 1 tab after each loose stool, no more than 4 tablets in 24 hours naloxone [Narcan] 4 mg/actuation spray,non-aerosol 4 mg intranasal Q2M PRN (Reason: Opioid Overdose) Rx Instructions: spray 1 dose into ONE nostril; alternate nostrils w each dose until help arrives mirtazapine 7.5 mg tablet 7.5 mg PO BID 30 Days Qty: 60 0RF oxycodone-acetaminophen 5-325 mg tablet 1 tab PO Q8H PRN (Reason: cancer pain) 30 Days Qty: 90 0RF ferrous sulfate 325 mg (65 mg iron) tablet 325 mg PO ONCE Qty: 100 3RF aspirin 81 mg tablet,delayed release (DR/EC) 81 mg PO DAILY Qty: 90 3RF acetaminophen 500 mg capsule 1,000 mg PO Q6H Qty: 300 5RF prochlorperazine maleate [Compazine] 10 mg tablet 10 mg PO Q6H PRN (Reason: nausea and vomiting) Qty: 30 3RF Pyridium 200 mg tablet 200 mg PO TID Qty: 90 2RF ondansetron 4 mg tablet,disintegrating 4 mg PO Q8H PRN (Reason: nausea and vomiting) Qty: 20 1RF lidocaine-prilocaine 2.5-2.5 % cream 1 applic topical .COMPLEX Qty: 30 3RF Rx Instructions: Apply quarter size amount 30-45 minutes prior to port access, cover with cellophane pantoprazole 20 mg tablet,delayed release (DR/EC) 20 mg PO DAILY baclofen 10 mg tablet 10 mg PO Q6H PRN (Reason: muscle spasm) oxybutynin chloride 5 mg tablet 5 mg PO TID albuterol sulfate 2.5 mg/0.5 mL solution for nebulization 2.5 mg inhalation Q6H PRN (Reason: shortness of breath or wheezing) 30 Days Qty: 30 2RF budesonide 0.5 mg/2 mL Suspension For Nebulization 0.5 mg inhalation BID.RESPIRATORY 30 Days Qty: 120 0RF Eliquis 5 mg tablet 5 mg PO BID 90 Days Qty: 180 0RF linezolid 600 mg tablet 600 mg PO BID 7 Days Qty: 14 0RF melatonin 3 mg Tablet 3 mg PO BEDTIME Discharge Orders: Discharge ED (Routine); Ordered 05/04/23 Ordered By: Davi Johnson Referrals: Darwin Reaves MD [Primary Care Provider] - 1 week Patient Instructions: Vertigo (ED) Activity Restrictions/Additional Instructions: Please sure you drink enough fluids and eat enough small meals throughout the day. Please take your medicine as prescribed. Please follow-up with your family practice physician for further evaluation testing. 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
--- NOTE | 2023-05-04 03:27 | PC.NURSE ---
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 Pt. states that she needs to pee! . I unhook the patient from blood pressure cuff and SpO2 cords and patient states it's too late, I am peeing already. Pt. states that she wears pads due to incontinence. I provided patient with a pull up pad.
== END 2023-05-04 03:49 | disposition home or self-care (01) ==
PROVIDERS: Emergency Provider Emergency Medicine; PCP Family Medicine Adult Medicine
DX: R42 Dizziness and giddiness (principal); Z79.01 Long term (current) use of anticoagulants; Z79.82 Long term (current) use of aspirin; Z72.0 Tobacco use; Z92.21 Personal history of antineoplastic chemotherapy; Z85.038 Personal history of other malignant neoplasm of large intestine
CPT/HCPCS: 99283; J8597

== ENCOUNTER 2023-05-04 17:08 | Emergency (ER) | payer BC, MEDICAID, SELFPAY ==
[2023-05-04 17:11] VITALS: BP 111/74; PULSE 125; RESP 18; TEMP 36.6; O2SAT 95; BMI 12.8
--- NOTE | 2023-05-04 17:21 | ECG_ITS ---
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 Measurements Intervals [place] Rate: 106 P: 23 NC: 81 QRS: 81 QRSD: 69 T: 74 QT: 328 QTc: 437 Interpretive Statements SINUS TACHYCARDIA WITH SHORT NC INTERVAL ABNORMAL RHYTHM ECG Compared to ECG 05/04/2023 00:35:12 No significant changes Electronically Signed On 05-04-2023 23:09:38 PLUG OVERWRAP MACHINE TENDER by Alessio Sanchez M.D. [email or web address] medical [id number]
[2023-05-04 17:47] VITALS: BP 88/59; PULSE 120; RESP 16; O2SAT 97
[2023-05-04 18:03] LABS: Basophils # 0.1 10^3/uL (0.0-0.1); Basophils % 0.2 %; Eosinophils # 0.3 10^3/uL (0.0-0.8); Eosinophils % 1.2 %; Hematocrit 29.6 % (36-47); Lymphocytes # 3.3 10^3/uL (0.8-4.8); Lymphocytes % 15.5 %; Mean Corpuscular HGB Conc 30.7 g/dL (30-55); Mean Corpuscular Hemoglobin 27.7 pg (27-33); Mean Corpuscular Volume 90.2 fl (85-98); Mean Platelet Volume 8.8 fL (7.4-10.4); Monocytes # 1.7 10^3/uL (0.2-0.9); Monocytes % 8.1 %; Neutrophils # 15.56 10^3/uL (1.8-7.7); Neutrophils % 73.9 %; Nucleated Red Blood Cells % 0 %; Platelet Count 707 10^3/cmm (157-399); Red Blood Count 3.28 10^6/uL (3.85-5.65); Red Cell Distribution Width 22.2 % (12.1-15.1); White Blood Count 21.06 10^3/uL (3.29-11.43)
[2023-05-04 18:32] LABS: Troponin(5th) Baseline 11 ng/L (0-10)
[2023-05-04 18:40] LABS: Alanine Aminotransferase 11 U/L (0-33); Albumin Level 3.1 g/dL (3.5-5.2); Alkaline Phosphatase 96 U/L (35-105); Anion Gap 14.3 (5-19); Aspartate Amino Transferase 15 U/L (0-32); Blood Urea Nitrogen 23 mg/dL (8-23); Calcium 8.9 mg/dL (8.5-10.5); Carbon Dioxide 26 mmol/L (22-29); Chloride 105 mmol/L (98-107); Globulin 2.8 g/dL (1.3-4.6); Glomerular Filtration Rate 101.3 mL/min (90-130); Glucose 85 mg/dL (65-115); NT Pro B Type Natriuretic Pept 199 pg/mL (0-125); Osmolality Calculated 295 mOsm/kg (285-295); Potassium 4.3 mmol/L (3.5-5.1); Sodium 141 mmol/L (136-145); Total Bilirubin 0.2 mg/dL (0.15-1.2); Total Protein 5.9 g/dL (6.6-8.7)
[2023-05-04] MEDS: sodium chloride 0.9% 1,000 ML 999 ML IV (19:08)
[2023-05-04] MEDS: dilTIAZem 5 mg/mL SDV 5 mL IVP (19:37)
[2023-05-04 19:48] VITALS: BP 114/72; PULSE 120; RESP 16; O2SAT 96
[2023-05-04 19:54] LABS: Troponin 5 2HR 9.59 ng/L (0-10)
[2023-05-04 19:55] LABS: Troponin 5 2HR Delta -1.41 ABS# (0-10)
--- NOTE | 2023-05-04 20:36 | W.ED.ARRPALP ---
HPI - Arrhythmia/Palpitations General: Chief Complaint: Arrhythmia/Palpitations Stated Complaint: elevated hr Time Seen by Provider: 05/04/23 17:20 History of Present Illness: 62-year-old female presents emergency department feeling like she has increased heart rate. She states she was seen earlier this morning in the emergency department treated and discharged home and recommended follow-up with her primary care provider. She states she is still feeling like her heart is racing and wants to have some medication to help slow her heart rate down. She does have significant anxiety. She states she has not seen a funeral home general manager but does see her primary care doctor on a regular basis. She denies chest pain dizziness or lightheaded feeling at present. She denies nausea vomiting fever chills or night sweats. Review of Systems General: Reports: 10 or more systems reviewed and unremarkable except in HPI and below Card: Reports: palpitations [facility] ED PFSH: Medical History Urinary tract infection On antineoplastic chemotherapy Colon adenocarcinoma Pelvic Mass, RLQ, Surg. Path 01/16/2023 mod differentiated, open ileostomy Dr. Liao, [facility]; small bowel and bladder noted via PET 02/26/23; mFOLFOX started 03/18/23 Hypoxia Presence of ileostomy Nicotine dependence, cigarettes, uncomplicated Generalized weakness Moderate protein-calorie malnutrition Left lower lobe pneumonia Iron deficiency anemia Weight loss of more than 10% body weight 8 Para 7 (1 miscarriage, 1 ectopic, 1 twin ) Chronic constipation Pyelonephritis of right kidney Painful bladder spasm Cyanosis of tip of finger Surgical History Port-A-Cath in place Hx of ileostomy History of bilateral ligation of fallopian tubes Family History Father Heart attack Mother Bipolar 1 disorder CAD (coronary artery disease) Social History Smoking and tobacco/nicotine status: current every day tobacco/nicotine user Quit status (tobacco/nicotine): not considering quitting Alcohol intake: former Substance/Drug Use: never Physical Exam Narrative: EXAM NARRATIVE: Constitutional: the patient appears well nourished and of normal development. Vital signs as documented. No acute distress at present. Alert and oriented-to person, place, time and situation. Head, eyes, ears, nose, mouth, throat: Normocephalic, atraumatic. Pupils-equal, round, reactive to light. No scleral icterus. Normal-appearing external ears. Normal appearing nasal turbinates, no drainage. No obvious oral lesions, posterior oropharynx without erythema or exudates. Neck: Supple, trachea is midline, no lymphadenopathy, no jugular venous distension, thyromegaly, or carotid bruits. Carotid upstrokes are brisk bilaterally. Lungs: clear to auscultation to all lung verdin. Symmetrical rise and fall of chest, no obvious signs of increased work of breathing at present. Cardiac: Regular rate and rhythm, positive S1, S2. No murmurs, rubs or gallops that I can appreciate Abdomen: Soft, non-tender to palpation, normal active bowel sounds to all quadrants. No palpable masses, no organomegaly and abdominal bruits. Extremities: 2+ pulses in the upper extremities that are equal bilaterally, 2+ pulses in the lower extremities that are equal bilaterally. Non-edematous. Moves all extremities well, sensation to all extremities are noted. Skin: Warm, dry, intact. Course Vital Signs: Vital signs: Vital Signs Temperature 97.9 F 05/04/23 17:11 Pulse Rate 120 H 05/04/23 19:48 Respiratory Rate 16 05/04/23 19:48 Blood Pressure 114/72 05/04/23 19:48 Pulse Oximetry 96 05/04/23 19:48 Oxygen Delivery Me thod Room Air 05/04/23 17:11 MDM - Arrhythmia/Palpitations Medical Decision Making Physical exam completed and documented I we will provide her IV fluid rehydration as well as obtain a CBC, CMP EKG and provide her Cardizem IV as well as a written prescription for Cardizem and recommend she follow-up with her primary care provider and cardiology. I will provide her contact information for the cardiology office. Medical Records I reviewed the patient's medical records. Lab Data I reviewed the patient's lab results. 05/04/23 17:52 05/04/23 17:52 Laboratory Results WBC 21.06 10^3/uL (3.29-11.43) H 05/04/23 17:52 RBC 3.28 10^6/uL (3.85-5.65) L 05/04/23 17:52 Hgb 9.10 g/dL (11.27-16.99) L 05/04/23 17:52 Hct 29.6 % (36-47) L 05/04/23 17:52 MCV 90.2 fl (85-98) 05/04/23 17:52 MCH 27.7 pg (27-33) 05/04/23 17:52 MCHC 30.7 g/dL (30-55) 05/04/23 17:52 RDW 22.2 % (12.1-15.1) H 05/04/23 17:52 Plt Count 707 10^3/cmm (157-399) H 05/04/23 17:52 MPV 8.8 fL (7.4-10.4) 05/04/23 17:52 Neut % (Auto) 73.9 % 05/04/23 17:52 Lymph % (Auto) 15.5 % 05/04/23 17:52 [place] % (Auto) 8.1 % 05/04/23 17:52 Eos % (Auto) 1.2 % 05/04/23 17:52 Baso % (Auto) 0.2 % 05/04/23 17:52 Neut # (Auto) 15.56 10^3/uL (1.8-7.7) H 05/04/23 17:52 Lymph # (Auto) 3.3 10^3/uL (0.8-4.8) 05/04/23 17:52 [place] # (Auto) 1.7 10^3/uL (0.2-0.9) H 05/04/23 17:52 Eos # (Auto) 0.3 10^3/uL (0.0-0.8) 05/04/23 17:52 Baso # (Auto) 0.1 10^3/uL (0.0-0.1) 05/04/23 17:52 Nucleated RBC % (auto) 0 % 05/04/23 17:52 Nucleated RBCs # 0.0 /100WBC 05/04/23 17:52 Sodium 141 mmol/L (136-145) 05/04/23 17:52 Potassium 4.3 mmol/L (3.5-5.1) 05/04/23 17:52 Chloride 105 mmol/L (98-107) 05/04/23 17:52 Carbon Dioxide 26 mmol/L (22-29) 05/04/23 17:52 Anion Gap 14.3 (5-19) 05/04/23 17:52 BUN 23 mg/dL (8-23) 05/04/23 17:52 Creatinine 0.6 mg/dL (0.5-0.9) 05/04/23 17:52 GFR Calculation 101.3 mL/min (90-130) 05/04/23 17:52 Glucose 85 mg/dL (65-115) 05/04/23 17:52 Calculated Osmolality 295 mOsm/kg (285-295) 05/04/23 17:52 Calcium 8.9 mg/dL (8.5-10.5) 05/04/23 17:52 Total Bilirubin 0.2 mg/dL (0.15-1.2) 05/04/23 17:52 AST 15 U/L (0-32) 05/04/23 17:52 ALT 11 U/L (0-33) 05/04/23 17:52 Alkaline Phosphatase 96 U/L (35-105) 05/04/23 17:52 Troponin T Baseline 11 ng/L (0-10) H 05/04/23 17:52 Troponin T 120 Minute 9.59 ng/L (0-10) 05/04/23 19:32 Delta Troponin T -1.41 ABS# (0-10) L 05/04/23 19:32 NT-Pro-B Natriuret Pep 199 pg/mL (0-125) H 05/04/23 17:52 Total Protein 5.9 g/dL (6.6-8.7) L 05/04/23 17:52 Albumin 3.1 g/dL (3.5-5.2) L 05/04/23 17:52 Globulin 2.8 g/dL (1.3-4.6) 05/04/23 17:52 No radiology studies performed this visit EKG Data EKG 1: Interpretation: Twelve-lead EKG obtained at 1804 and reviewed at 1806 demonstrates sinus tachycardia ventricular rate 106 MN interval 81 QRS duration 69 QT 328 QTc [address] elevation or depression to demonstrate acute ischemia or infarction at present. Discharge Plan Discharge Patient Disposition: Home Clinical Impression: Tachycardia Condition: Stable Prescriptions: New diltiazem HCl 60 mg capsule,extended release 12 hr 60 mg PO BID Qty: 14 0RF Rx Instructions: It is important to check your blood pressure before taking this medication if your systolic blood pressure is below 100 do not take this medication. No Action loperamide 2 mg tablet 2 mg PO .COMPLEX PRN (Reason: loose stool) Qty: 30 1RF Rx Instructions: take 2 tabs after first loose stool then 1 tab after each loose stool, no more than 4 tablets in 24 hours naloxone [Narcan] 4 mg/actuation spray,non-aerosol 4 mg intranasal Q2M PRN (Reason: Opioid Overdose) Rx Instructions: spray 1 dose into ONE nostril; alternate nostrils w each dose until help arrives mirtazapine 7.5 mg tablet 7.5 mg PO BID 30 Days Qty: 60 0RF oxycodone-acetaminophen 5-325 mg tablet 1 tab PO Q8H PRN (Reason: cancer pain) 30 Days Qty: 90 0RF ferrous sulfate 325 mg (65 mg iron) tablet 325 mg PO ONCE Qty: 100 3RF aspirin 81 mg tablet,delayed release (DR/EC) 81 mg PO DAILY Qty: 90 3RF acetaminophen 500 mg capsule 1,000 mg PO Q6H Qty: 300 5RF prochlorperazine maleate [Compazine] 10 mg tablet 10 mg PO Q6H PRN (Reason: nausea and vomiting) Qty: 30 3RF Pyridium 200 mg tablet 200 mg PO TID Qty: 90 2RF ondansetron 4 mg tablet,disintegrating 4 mg PO Q8H PRN (Reason: nausea and vomiting) Qty: 20 1RF lidocaine-prilocaine 2.5-2.5 % cream 1 applic topical .COMPLEX Qty: 30 3RF Rx Instructions: Apply quarter size amount 30-45 minutes prior to port access, cover with cellophane pantoprazole 20 mg tablet,delayed release (DR/EC) 20 mg PO DAILY baclofen 10 mg tablet 10 mg PO Q6H PRN (Reason: muscle spasm) oxybutynin chloride 5 mg tablet 5 mg PO TID albuterol sulfate 2.5 mg/0.5 mL solution for nebulization 2.5 mg inhalation Q6H PRN (Reason: shortness of breath or wheezing) 30 Days Qty: 30 2RF budesonide 0.5 mg/2 mL Suspension For Nebulization 0.5 mg inhalation BID.RESPIRATORY 30 Days Qty: 120 0RF Eliquis 5 mg tablet 5 mg PO BID 90 Days Qty: 180 0RF linezolid 600 mg tablet 600 mg PO BID 7 Days Qty: 14 0RF melatonin 3 mg Tablet 3 mg PO BEDTIME meclizine 25 mg tablet 25 mg PO TID PRN (Reason: dizziness) Qty: 20 0RF Discharge Orders: Discharge ED (Routine); Ordered 05/04/23 Ordered By: Kris Beltran Referrals: Darwin Reaves MD [Primary Care Provider] - Discharge Diet: Usual diet Discharge Activity: Resume usual activity Patient Instructions: Opioid Safety, Pain Management Activity Restrictions/Additional Instructions: Activity Restrictions/Additional Instructions: Thank you for choosing [facility] for your healthcare needs today. Please realize that you were seen in the Emergency Department and that we are providing you with an emergency medical screening exam and this may not be a complete and all inclusive of all the testing and or medical work-up that you may need to determine your ailment or severity of your illness. It is very important that you follow-up as instructed with your Primary care provider or Specialist for additional evaluation and to discuss your medical treatment plan. Coding Level of Care Code ED Nuclear Weapons Mechanical Specialist for So Lowery
[2023-05-04 20:47] VITALS: BP 97/79; PULSE 114; O2SAT 95
== END 2023-05-04 21:00 | disposition home or self-care (01) ==
PROVIDERS: Emergency Provider Internal Medicine; PCP Family Medicine Adult Medicine
DX: R00.0 Tachycardia, unspecified (principal); Z79.82 Long term (current) use of aspirin; Z79.01 Long term (current) use of anticoagulants; Z72.0 Tobacco use; Z85.038 Personal history of other malignant neoplasm of large intestine; Z92.21 Personal history of antineoplastic chemotherapy
CPT/HCPCS: 36415; 80053; 83880; 84484; 85025; 93005; 96374; 99284; J3490; J7030

== ENCOUNTER 2023-05-10 03:06 | Emergency (ER) | payer BC, MEDICAID, SELFPAY ==
[2023-05-10 03:13] VITALS: BP 94/60; PULSE 115; RESP 21; TEMP 36.7; O2SAT 92; BMI 13.0
--- NOTE | 2023-05-10 03:47 | ED_ITS ---
HPI - Weakness 2 General: Chief complaint: Weakness Stated complaint: weakness Time Seen by Provider: 05/10/23 03:12 History of Present Illness: Patient presents to the ER with complaining of weakness and bladder pain and spasm. Patient says she has been feeling weak all over. She did have an iron infusion at Dr. Orellana's office yesterday. Patient says this has not helped yet. Patient also says she is on pain medicine and bladder spasm medicine and neither of those are helping either. Review of Systems 2 General: Reports: 10 or more systems reviewed and unremarkable except in HPI and below PFSH ED 2 PFSH: Medical History (Updated 05/10/23 @ 16:32 by Darwin Reaves MD) Adenocarcinoma of colon metastatic to liver Pelvic Mass, RLQ, Surg. Path 01/16/2023 mod differentiated, open ileostomy Dr. Liao, [facility]; small bowel and bladder noted via PET 02/26/23; mFOLFOX started 03/18/23 Other iron deficiency anemias COPD (chronic obstructive pulmonary disease) Pulmonary embolism Urinary tract infection Hypoxia Presence of ileostomy Nicotine dependence, cigarettes, uncomplicated Moderate protein-calorie malnutrition Left lower lobe pneumonia Iron deficiency anemia Weight loss of more than 10% body weight Chronic constipation Pyelonephritis of right kidney Painful bladder spasm Cyanosis of tip of finger Surgical History Port-A-Cath in place Hx of ileostomy History of bilateral ligation of fallopian tubes Family History Father Heart attack Mother Bipolar 1 disorder CAD (coronary artery disease) Social History Smoking and tobacco/nicotine status: current every day tobacco/nicotine user cigarettes Packs smoked per day: 0.25 Years cigarettes smoked: 45 Quit status (tobacco/nicotine): not considering quitting Alcohol intake: former Substance/Drug Use: never Physical Exam 2 Const: COMMON NORMALS: no acute distress, average body habitus, patient oriented x3, no limitations, healthy appearing, alert and well nourished Neck/C-Spine: COMMON NORMALS: no JVD Chest: COMMONS NORMALS: normal inspection of the chest and normal palpation of entire chest wall Resp: COMMON NORMALS: normal respiratory effort, No retractions, No use of accessory muscles and clear to auscultation bilaterally AUSCULTATION: clear to auscultation bilaterally Cardio: COMMON NORMALS: no JVD, regular rhythm, S1 normal heart sound present, S2 normal heart sound present, No gallops present (Cardio), No clicks present (Cardio), No murmurs present (Cardio) and No rub (Cardio); negative for regular rate (Tachycardic) RATE: abnormal rate (Tachycardic) RHYTHM: regular rhythm HEART SOUNDS: S1 normal heart sound present and S2 normal heart sound present GI: COMMON NORMALS: Normal to inspection, nondistended, normoactive bowel sounds present, Soft to palpation and No hepatosplenomegaly present; negative for non-tender (Mildly diffusely tender) PALPATION: Yes Soft to palpation and Yes No hepatosplenomegaly present Neuro: COMMON NORMALS: patient oriented x3 SENSORIUM/ORIENTATION: Yes alert Course 2 ED course: Upon recheck of the patient patient was sleeping soundly. Vital Signs: Vital signs: Vital Signs Temperature 98.1 F 05/10/23 03:13 Pulse Rate 114 H 05/10/23 05:49 Respiratory Rate 20 H 05/10/23 05:49 Blood Pressure 105/69 05/10/23 05:49 Pulse Oximetry 95 05/10/23 05:49 Oxygen Delivery Me thod Nasal Cannula 05/10/23 05:03 Oxygen Flow Rate 2.5 05/10/23 05:03 MDM - Weakness Medical Decision Making Labs were performed which revealed a hemoglobin of 7.2 with hematocrit 23.5 these are down from 9.0 and 29.2 the previous day. Some of this may be dilutional anemia because she received multiple liters of fluid with her iron transfusion. Patient's white count has improved from 16-14. Rest of the labs are essentially unremarkable for the patient. Patient was given a total of 50 mcg of fentanyl, 4 mg of Zofran and 1 L normal saline. Patient was resting comfortably. Patient be discharged home. Patient be instructed to recheck her labs in approximately 24 hours to check her hemoglobin. Differential Diagnosis Unlikely acute myocardial infarction, anemia, hypoglycemia, hypothyroidism, rhabdomyolysis, sepsis or dehydration Medical Records I reviewed the patient's medical records. Lab Data I reviewed the patient's lab results. 05/10/23 03:45 05/10/23 03:45 Laboratory Results WBC 14.04 10^3/uL (3.29-11.43) H 05/10/23 03:45 RBC 2.49 10^6/uL (3.85-5.65) L 05/10/23 03:45 Hgb 7.20 g/dL (11.27-16.99) L 05/10/23 03:45 Hct 23.5 % (36-47) L 05/10/23 03:45 MCV 94.4 fl (85-98) 05/10/23 03:45 MCH 28.9 pg (27-33) 05/10/23 03:45 MCHC 30.6 g/dL (30-55) 05/10/23 03:45 RDW 24.3 % (12.1-15.1) H 05/10/23 03:45 Plt Count 320 10^3/cmm (157-399) D 05/10/23 03:45 MPV 8.4 fL (7.4-10.4) 05/10/23 03:45 Neut % (Auto) 73.0 % 05/10/23 03:45 Lymph % (Auto) 13.9 % 05/10/23 03:45 [place] % (Auto) 11.1 % 05/10/23 03:45 Eos % (Auto) 1.2 % 05/10/23 03:45 Baso % (Auto) 0.4 % 05/10/23 03:45 Neut # (Auto) 10.25 10^3/uL (1.8-7.7) H 05/10/23 03:45 Lymph # (Auto) 2.0 10^3/uL (0.8-4.8) 05/10/23 03:45 [place] # (Auto) 1.6 10^3/uL (0.2-0.9) H 05/10/23 03:45 Eos # (Auto) 0.2 10^3/uL (0.0-0.8) 05/10/23 03:45 Baso # (Auto) 0.1 10^3/uL (0.0-0.1) 05/10/23 03:45 Nucleated RBC % (auto) 0 % 05/10/23 03:45 Nucleated RBCs # 0.0 /100WBC 05/10/23 03:45 Sodium 141 mmol/L (136-145) 05/10/23 03:45 Potassium 3.6 mmol/L (3.5-5.1) 05/10/23 03:45 Chloride 108 mmol/L (98-107) H 05/10/23 03:45 Carbon Dioxide 23 mmol/L (22-29) 05/10/23 03:45 Anion Gap 13.6 (5-19) 05/10/23 03:45 BUN 17 mg/dL (8-23) 05/10/23 03:45 Creatinine 0.4 mg/dL (0.5-0.9) L 05/10/23 03:45 GFR Calculation 161.7 mL/min (90-130) H 05/10/23 03:45 Glucose 107 mg/dL (65-115) 05/10/23 03:45 Calculated Osmolality 294 mOsm/kg (285-295) 05/10/23 03:45 Calcium 8.5 mg/dL (8.5-10.5) 05/10/23 03:45 Total Bilirubin 0.2 mg/dL (0.15-1.2) 05/10/23 03:45 AST 17 U/L (0-32) 05/10/23 03:45 ALT 8 U/L (0-33) 05/10/23 03:45 Alkaline Phosphatase 78 U/L (35-105) 05/10/23 03:45 Total Protein 5.7 g/dL (6.6-8.7) L 05/10/23 03:45 Albumin 2.9 g/dL (3.5-5.2) L 05/10/23 03:45 Globulin 2.8 g/dL (1.3-4.6) 05/10/23 03:45 No radiology studies performed this visit Discharge Plan Discharge Patient Disposition: Home Clinical Impression: Bladder spasm, Other iron deficiency anemias Abdominal pain Qualifiers: Abdominal location: generalized Qualified Code(s): R10.84 - Generalized abdominal pain Condition: Stable Prescriptions: No Action loperamide 2 mg tablet 2 mg PO .COMPLEX PRN (Reason: loose stool) Qty: 30 1RF Rx Instructions: take 2 tabs after first loose stool then 1 tab after each loose stool, no more than 4 tablets in 24 hours oxycodone 10 mg tablet 10 mg PO Q6H PRN (Reason: pain) 90 Days Qty: 120 0RF Eliquis 5 mg tablet 2.5 mg PO BID 30 Days Qty: 30 0RF naloxone [Narcan] 4 mg/actuation spray,non-aerosol 4 mg intranasal Q2M PRN (Reason: Opioid Overdose) Rx Instructions: spray 1 dose into ONE nostril; alternate nostrils w each dose until help arrives ferrous sulfate 325 mg (65 mg iron) tablet 325 mg PO ONCE Qty: 100 3RF aspirin 81 mg tablet,delayed release (DR/EC) 81 mg PO DAILY Qty: 90 3RF acetaminophen 500 mg capsule 1,000 mg PO Q6H Qty: 300 5RF prochlorperazine maleate [Compazine] 10 mg tablet 10 mg PO Q6H PRN (Reason: nausea and vomiting) Qty: 30 3RF Pyridium 200 mg tablet 200 mg PO TID Qty: 90 2RF ondansetron 4 mg tablet,disintegrating 4 mg PO Q8H PRN (Reason: nausea and vomiting) Qty: 20 1RF lidocaine-prilocaine 2.5-2.5 % cream 1 applic topical .COMPLEX Qty: 30 3RF Rx Instructions: Apply quarter size amount 30-45 minutes prior to port access, cover with cellophane pantoprazole 20 mg tablet,delayed release (DR/EC) 20 mg PO DAILY baclofen 10 mg tablet 10 mg PO Q6H PRN (Reason: muscle spasm) oxybutynin chloride 5 mg tablet 5 mg PO TID albuterol sulfate 2.5 mg/0.5 mL solution for nebulization 2.5 mg inhalation Q6H PRN (Reason: shortness of breath or wheezing) 30 Days Qty: 30 2RF budesonide 0.5 mg/2 mL Suspension For Nebulization 0.5 mg inhalation BID.RESPIRATORY 30 Days Qty: 120 0RF diltiazem HCl 60 mg capsule,extended release 12 hr 60 mg PO BID Qty: 14 0RF Rx Instructions: It is important to check your blood pressure before taking this medication if your systolic blood pressure is below 100 do not take this medication. melatonin 3 mg Tablet 3 mg PO BEDTIME meclizine 25 mg tablet 25 mg PO TID PRN (Reason: dizziness) Qty: 20 0RF Discharge Orders: Discharge ED (Routine); Ordered 05/10/23 Ordered By: Davi Johnson Referrals: Darwin Reaves MD [Primary Care Provider] - 1-3 days Patient Instructions: Anemia - Oncology, Abdominal Pain (ED) Activity Restrictions/Additional Instructions: Your lab work in ER showed your hemoglobin had decreased from 9.0-7.2. Some of this may be due to the dilutional anemia to the fluid you received while getting your iron transfusion however you should have your hemoglobin rechecked in the next 1 to 2 days to make for sure that it stabilizes and does not continue to decrease. Coding Level of Care Code ED Naprapath for So Lowery
[2023-05-10 03:50] LABS: Basophils # 0.1 10^3/uL (0.0-0.1); Basophils % 0.4 %; Eosinophils # 0.2 10^3/uL (0.0-0.8); Eosinophils % 1.2 %; Hematocrit 23.5 % (36-47); Lymphocytes % 13.9 %; Mean Corpuscular HGB Conc 30.6 g/dL (30-55); Mean Corpuscular Hemoglobin 28.9 pg (27-33); Mean Corpuscular Volume 94.4 fl (85-98); Mean Platelet Volume 8.4 fL (7.4-10.4); Monocytes # 1.6 10^3/uL (0.2-0.9); Monocytes % 11.1 %; Neutrophils # 10.25 10^3/uL (1.8-7.7); Nucleated Red Blood Cells % 0 %; Platelet Count 320 10^3/cmm (157-399); Red Blood Count 2.49 10^6/uL (3.85-5.65); Red Cell Distribution Width 24.3 % (12.1-15.1); White Blood Count 14.04 10^3/uL (3.29-11.43)
[2023-05-10 03:52] VITALS: RESP 20; O2SAT 92
[2023-05-10] MEDS: fentaNYL 50 mcg/mL INJ 2mL 25 MCG IVP ×2 (03:52→05:11)
[2023-05-10] MEDS: ondansetron 2 mg/ML SDV 2 mL 4 MG IVP (03:53)
[2023-05-10] MEDS: sodium chloride 0.9% 1,000 ML 999 ML IV (03:53)
--- NOTE | 2023-05-10 04:00 | PC.NURSE ---
Port accessed at this time in sterile fashion.
[2023-05-10 04:07] LABS: Alanine Aminotransferase 8 U/L (0-33); Albumin Level 2.9 g/dL (3.5-5.2); Alkaline Phosphatase 78 U/L (35-105); Aspartate Amino Transferase 17 U/L (0-32); Blood Urea Nitrogen 17 mg/dL (8-23); Calcium 8.5 mg/dL (8.5-10.5); Carbon Dioxide 23 mmol/L (22-29); Chloride 108 mmol/L (98-107); Globulin 2.8 g/dL (1.3-4.6); Glomerular Filtration Rate 161.7 mL/min (90-130); Glucose 107 mg/dL (65-115); Osmolality Calculated 294 mOsm/kg (285-295); Sodium 141 mmol/L (136-145); Total Bilirubin 0.2 mg/dL (0.15-1.2); Total Protein 5.7 g/dL (6.6-8.7)
[2023-05-10 04:13] LABS: Anion Gap 13.6 (5-19); Potassium 3.6 mmol/L (3.5-5.1)
[2023-05-10 05:03] VITALS: PULSE 109; RESP 18; O2SAT 96
[2023-05-10 05:11] VITALS: RESP 18; O2SAT 95
[2023-05-10 05:49] VITALS: BP 105/69; PULSE 114; RESP 20; O2SAT 95
== END 2023-05-10 05:50 | disposition home or self-care (01) ==
PROVIDERS: Emergency Provider Emergency Medicine; PCP Family Medicine Adult Medicine
DX: R10.84 Generalized abdominal pain (principal); N32.89 Other specified disorders of bladder; D50.8 Other iron deficiency anemias; Z79.01 Long term (current) use of anticoagulants; Z79.82 Long term (current) use of aspirin; F17.210 Nicotine dependence, cigarettes, uncomplicated; Z85.038 Personal history of other malignant neoplasm of large intestine; Z85.05 Personal history of malignant neoplasm of liver; J44.9 Chronic obstructive pulmonary disease, unspecified
CPT/HCPCS: 80053; 85025; 96361; 96374; 96375; 96376; 99284; J1642; J2405; J3010; J7030

== ENCOUNTER 2023-05-15 10:00 | Oncology outpatient (recurring) (ONCR) | payer BC, MEDICAID, SELFPAY ==
[2023-05-09 08:05] LABS: Basophils # 0.1 10^3/uL (0.0-0.1); Basophils % 0.5 %; Eosinophils # 0.2 10^3/uL (0.0-0.8); Eosinophils % 1.1 %; Hematocrit 29.2 % (36-47); Lymphocytes # 2.7 10^3/uL (0.8-4.8); Lymphocytes % 16.5 %; Mean Corpuscular HGB Conc 30.8 g/dL (30-55); Mean Corpuscular Hemoglobin 28.8 pg (27-33); Mean Corpuscular Volume 93.3 fl (85-98); Mean Platelet Volume 8.7 fL (7.4-10.4); Monocytes # 1.2 10^3/uL (0.2-0.9); Monocytes % 7.2 %; Neutrophils # 12.29 10^3/uL (1.8-7.7); Neutrophils % 74.2 %; Nucleated Red Blood Cells % 0 %; Platelet Count 484 10^3/cmm (157-399); Red Blood Count 3.13 10^6/uL (3.85-5.65); Red Cell Distribution Width 24.5 % (12.1-15.1); White Blood Count 16.57 10^3/uL (3.29-11.43)
[2023-05-09 08:26] LABS: Chloride 107 mmol/L (98-107); Potassium 4.7 mmol/L (3.5-5.1); Sodium 143 mmol/L (136-145)
[2023-05-09 08:46] LABS: Alanine Aminotransferase 11 U/L (0-33); Alkaline Phosphatase 86 U/L (35-105); Anion Gap 18.7 (5-19); Aspartate Amino Transferase 18 U/L (0-32); Blood Urea Nitrogen 22 mg/dL (8-23); Calcium 8.9 mg/dL (8.5-10.5); Carbon Dioxide 22 mmol/L (22-29); Glucose 112 mg/dL (65-115); Osmolality Calculated 300 mOsm/kg (285-295); Total Bilirubin 0.2 mg/dL (0.15-1.2); Total Protein 6.7 g/dL (6.6-8.7)
[2023-05-09 09:16] LABS: Albumin Level 3.4 g/dL (3.5-5.2); Globulin 3.3 g/dL (1.3-4.6)
[2023-05-09 10:00] VITALS: BP 96/72; PULSE 100; RESP 16; TEMP 36.4; O2SAT 94
[2023-05-09] MEDS: acetaminophen 325 mg Tablet 650 MG PO (10:10)
[2023-05-09] MEDS: diphenhydrAMINE 50 mg/mL SDV 1mL 25 MG IVP (10:10)
[2023-05-09] MEDS: iron dextran 25 MG in SYRINGE 1 EACH 30 MG IVP (10:30)
[2023-05-09] MEDS: sodium chloride 0.9% 250 ML 25 ML IV (10:30)
[2023-05-09 10:38] VITALS: BMI 13.0
[2023-05-09] MEDS: IRON DEXTRAN IV (11:26)
[2023-05-09] MEDS: SODIUM CHLORIDE 0.9% IV (11:26)
[2023-05-09 16:23] VITALS: BP 110/62; PULSE 111; RESP 20; TEMP 36.1; O2SAT 94
[2023-05-13 08:15] VITALS: BP 84/63; PULSE 114; RESP 20; TEMP 37.1; O2SAT 94
[2023-05-13] MEDS: dextrose 5% 250 ML 75 ML IV (08:23)
[2023-05-13] MEDS: palonosetron 0.25 mg/5 mL SDV IVP (08:26)
[2023-05-13] MEDS: DEXTROSE 5% IV (09:05)
[2023-05-13] MEDS: LEUCOVORIN IV (09:05)
[2023-05-13] MEDS: fluorouraciL 2,850 MG, elastomeric pump 1 PUMP in sodium chloride 0.9% (100 ml) 35 ML IV (11:56)
== END 2023-05-30 23:59 | disposition home or self-care (01) ==
PROVIDERS: Internal Medicine Medical Oncology; PCP Family Medicine Adult Medicine; Visit Provider Internal Medicine
DX: Z53.9 Procedure and treatment not carried out, unspecified reason; Z45.1 Encounter for adjustment and management of infusion pump
CPT/HCPCS: 80053; 85025; 96365; 96366; 96367; 96368; 96374; 96375; 96413; 96415; 96416; 96523; J0640; J1100; J1200; J1642; J1750; J2469; J7030; J7050; J7060; J9190; J9263

== ENCOUNTER 2023-05-15 17:18 | Emergency (ER) | payer BC, MEDICAID, SELFPAY ==
[2023-05-15] VITALS (12 sets, daily range): BP systolic 72–139; BP diastolic 54–82; PULSE 92–113; RESP 13–15; TEMP 36.2–36.6; O2SAT 91–100; BMI 13.6
--- NOTE | 2023-05-15 17:20 | ECG_ITS ---
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 Measurements Intervals [place] Rate: 100 P: -14 NC: 113 QRS: 70 QRSD: 77 T: 53 QT: 334 QTc: 431 Interpretive Statements SINUS TACHYCARDIA WITH SHORT NC INTERVAL Compared to ECG 05/04/2023 18:04:47 No significant changes Electronically Signed On 05-16-2023 12:05:21 POWDER CUTTING OPERATOR by Alessio Sanchez M.D. [id number]
--- NOTE | 2023-05-15 17:21 | XRR_ITS ---
PROCEDURE INFORMATION: Exam: XR Chest Exam date and time: 05/15/2023 5:30 PM Age: 62 years old Clinical indication: Other: AMS; Prior surgery; Surgery date: 6+ months; Surgery type: Port; Additional info: Dyspnea/cough TECHNIQUE: Imaging protocol: Radiologic exam of the chest. Views: 1 view. COMPARISON: CT chest abdpel [id number]/*[id number] 04/28/2023 3:30 AM FINDINGS: Tubes, catheters and devices: Stable left Mediport catheter. Lungs: Mild left basilar pneumonia. Stable severe COPD . Pleural spaces: Unremarkable. No pleural effusion. No pneumothorax. Heart/Mediastinum: Unremarkable. No cardiomegaly. Bones/joints: Unremarkable. XR/XR chest 1V portable [id number] IMPRESSION: 1. Stable left Mediport catheter. 2. Mild left basilar pneumonia. 3. Stable severe COPD .
--- NOTE | 2023-05-15 17:35 | ED_ITS ---
Documented by User: Watson Corona DO 05/21/23 06:21 HPI - Altered Mental Status 2 General: Chief Complaint: Altered Mental Status Stated Complaint: AMS Time Seen by Provider: 05/15/23 17:20 Source: patient Mode of arrival: ambulatory History of Present Illness: 62-year-old female presents emergency ro om with altered mental status confused at home she been progressively more confused the last few days. Her daughter is with her. She has a known history of colon cancer with localized metastasis and possible dialysis to the liver. No known metastasis to the brain. She is on apixaban for previous pulmonary embolism. She receives infusions for oncology recently had her pump disconnected evidently the medicine infuses over a few days. Her last oncology visit was on 212 her ECOG score was 3. MD complaint: altered mental status and confusion Onset (ago): day(s) Severity: severe Consistency of symptoms: Getting Worse Context: other (Colon cancer with metastasis localized) Review of Systems 2 Const: Denies: fever(s) or chills Card: Denies: chest pain Resp: Denies: dyspnea GI: Denies: abdominal pain : Denies: dysuria, urinary frequency or urinary urgency Musc: Denies: neck pain or back pain Skin/Breast: Denies: rash PFSH ED 2 PFSH: Medical History Adenocarcinoma of colon metastatic to liver Pelvic Mass, RLQ, Surg. Path 01/16/2023 mod differentiated, open ileostomy Dr. Liao [facility]; small bowel and bladder noted via PET 02/26/23; mFOLFOX started 03/18/23 Other iron deficiency anemias COPD (chronic obstructive pulmonary disease) Pulmonary embolism Urinary tract infection Hypoxia Presence of ileostomy Nicotine dependence, cigarettes, uncomplicated Moderate protein-calorie malnutrition Left lower lobe pneumonia Iron deficiency anemia Weight loss of more than 10% body weight Chronic constipation Pyelonephritis of right kidney Painful bladder spasm Cyanosis of tip of finger Surgical History Port-A-Cath in place Hx of ileostomy History of bilateral ligation of fallopian tubes Family History Father Heart attack Mother Bipolar 1 disorder CAD (coronary artery disease) Social History Smoking and tobacco/nicotine status: current every day tobacco/nicotine user cigarettes Packs smoked per day: 0.25 Years cigarettes smoked: 45 Quit status (tobacco/nicotine): not considering quitting Alcohol intake: former Substance/Drug Use: never Physical Exam 2 Const: GENERAL APPEARANCE: cooperative and comfortable O RIENTATION/CONSCIOUSNESS: Yes awake HENMT: COMMON NORMALS: normocephalic, atraumatic and hearing grossly normal bilaterally HEAD & SCALP: normocephalic and atraumatic Resp: COMMON NORMALS: normal respiratory effort, No retractions, No use of accessory muscles and clear to auscultation bilaterally AUSCULTATION: clear to auscultation bilaterally Cardio: COMMON NORMALS: regular rhythm and No murmurs present (Cardio) R ATE: tachycardic RHYTHM: regular rhythm GI: COMMON NORMALS: Soft to palpation and No hepatosplenomegaly present A USCULTATION: Yes normoactive bowel sounds PALPATION: Yes Soft to palpation, No Tenderness to palpation present (GI), No Guarding due to palpation present (GI) and Yes No hepatosplenomegaly present OTHER: Hemoccult negative on stool from colostomy bag : COMMON NORMALS: Yes no CVA tenderness BLADDER/KIDNEY EXAM: Yes no CVA tenderness Back/Pelvis: COMMON NORMALS: no CVA tenderness Extremity: COMMON NORMALS: normal to inspection, capillary refill normal, no clubbing, cyanosis or edema, no calf tenderness and no pedal edema Skin: COMMON NORMALS: no rashes or lesions noted GENERAL SKIN EXAM: no rashes or lesions noted Course 2 Vital Signs: Vital signs: Vital Signs Temperature 97.6 F 05/15/23 21:13 Pulse Rate 113 H 05/16/23 09:10 Respiratory Rate 14 05/16/23 09:10 Blood Pressure 125/87 05/16/23 07:56 Pulse Oximetry 96 05/16/23 06:37 Oxygen Delivery Me thod Room Air 05/16/23 06:37 Oxygen Flow Rate 2 05/15/23 17:20 MDM - Altered Mental Status Medical Decision Making Care signed out to Dr. Beltran at change of shift. See final notes for diagnosis and disposition. 18:45 assumed care of the patient from Dr. Corona and did see the patient and evaluate the patient. I did provide patient with morphine after discussing the patient's increased pain with Viola the [employer]. 19:50 I contacted the hospitalist to discuss the patient's case and request admission after reviewing the patient's presentation and CT scan findings as well as reviewing the patient's history with her malignancy and concerns for enteric fistula the hospitalist advised transfer for possible concern and need for nephrostomy tubes or stenting given the hydroureter and hydronephrosis which may be a result of tumor burden. We have contacted [facility] to request transfer and acceptance of the patient for higher level of care due to lack of urology, and interventional radiology at this time. We are currently awaiting a return phone call from the transfer center regarding acceptance of the patient. 05/16/2023 7:11 AM Assumed care of patient from Dr. Beltran again this morning we are awaiting transfer to [facility]. She is delusional and complaining of abdominal pain will give a half a milligram of Ativan and 2 mg of morphine. Labs that were pending from last night were reviewed. Patient appears to have significant advancement of her cancer on CT. Medical Records I reviewed the patient's medical records. Lab Data I reviewed the patient's lab results. 05/16/23 00:56 05/15/23 17:00 Radiology Impressions Chest X-Ray 05/15/23 17:21 IMPRESSION: 1. Stable left Mediport catheter. 2. Mild left basilar pneumonia. 3. Stable severe COPD . Abdomen/Pelvis CT 05/15/23 17:54 IMPRESSION: 1. Usif-sa-yyascpai bilateral hydronephrosis and hydroureter with a necrotic pelvic mass, measuring up to at least 10.9 cm in size, somewhat more prominent compared to prior exam which appears to involve the colon, bladder and small bowel, likely reflecting a malignant process. The mass likely results in the hydronephrosis and hydroureter. 2. Emphysematous changes. 3. Bibasilar atelectasis versus infiltrate. 4. Several low-density lesions seen throughout the liver, concerning for metastatic disease, measuring up to 12 mm in the right hepatic lobe. 5. Right-sided ostomy. Laboratory Results WBC 13.67 10^3/uL (3.29-11.43) H 05/16/23 00:56 RBC 2.81 10^6/uL (3.85-5.65) L 05/16/23 00:56 Hgb 8.30 g/dL (11.27-16.99) L 05/16/23 00:56 Hct 26.6 % (36-47) L 05/16/23 00:56 MCV 94.7 fl (85-98) 05/16/23 00:56 MCH 29.5 pg (27-33) 05/16/23 00:56 MCHC 31.2 g/dL (30-55) 05/16/23 00:56 RDW 21.7 % (12.1-15.1) H 05/16/23 00:56 Plt Count 391 10^3/cmm (157-399) 05/16/23 00:56 MPV 8.7 fL (7.4-10.4) 05/16/23 00:56 Neut % (Auto) 86.5 % 05/16/23 00:56 Lymph % (Auto) 10.6 % 05/16/23 00:56 [place] % (Auto) 1.5 % 05/16/23 00:56 Eos % (Auto) 0.9 % 05/16/23 00:56 Baso % (Auto) 0.1 % 05/16/23 00:56 Neut # (Auto) 11.83 10^3/uL (1.8-7.7) H 05/16/23 00:56 Lymph # (Auto) 1.5 10^3/uL (0.8-4.8) 05/16/23 00:56 [place] # (Auto) 0.2 10^3/uL (0.2-0.9) 05/16/23 00:56 Eos # (Auto) 0.1 10^3/uL (0.0-0.8) 05/16/23 00:56 Baso # (Auto) 0.0 10^3/uL (0.0-0.1) 05/16/23 00:56 Nucleated RBC % (auto) 0 % 05/16/23 00:56 Nucleated RBCs # 0.0 /100WBC 05/16/23 00:56 Sodium 134 mmol/L (136-145) L 05/15/23 17:00 Potassium 4.7 mmol/L (3.5-5.1) 05/15/23 17:00 Chloride 98 mmol/L (98-107) 05/15/23 17:00 Carbon Dioxide 20 mmol/L (22-29) L 05/15/23 17:00 Anion Gap 20.7 (5-19) H 05/15/23 17:00 BUN 29 mg/dL (8-23) H 05/15/23 17:00 Creatinine 0.6 mg/dL (0.5-0.9) 05/15/23 17:00 GFR Calculation 101.3 mL/min (90-130) 05/15/23 17:00 Glucose 146 mg/dL (65-115) H 05/15/23 17:00 Calculated Osmolality 286 mOsm/kg (285-295) 05/15/23 17:00 Calcium 8.8 mg/dL (8.5-10.5) 05/15/23 17:00 Total Bilirubin 0.2 mg/dL (0.15-1.2) 05/15/23 17:00 AST 28 U/L (0-32) 05/15/23 17:00 ALT 13 U/L (0-33) 05/15/23 17:00 Alkaline Phosphatase 97 U/L (35-105) 05/15/23 17:00 Total Protein 6.1 g/dL (6.6-8.7) L 05/15/23 17:00 Albumin 3.3 g/dL (3.5-5.2) L 05/15/23 17:00 Globulin 2.8 g/dL (1.3-4.6) 05/15/23 17:00 Urine Color Yellow (Yellow) 05/15/23 19:30 Urine Appearance Cloudy (CLEAR) A 05/15/23 19:30 Urine pH 5 (5-7) 05/15/23 19:30 Ur Specific [place] 1.010 (1.005-1.030) 05/15/23 19:30 Urine Protein 2+ (Negative) H 05/15/23 19:30 Urine Glucose (UA) Norm (Normal) 05/15/23 19:30 Urine Ketones Negative (Negative) 05/15/23 19:30 Urine Blood 3+ (Negative) H 05/15/23 19:30 Urine Nitrate Positive (Negative) H 05/15/23 19:30 Urine Bilirubin Neg (Negative) 05/15/23 19:30 Urine Urobilinogen Norm mg/dL (Negative) 05/15/23 19:30 Ur Leukocyte Esterase 2+ (Negative) H 05/15/23 19:30 Urine RBC 40-50 /hpf (0-2) H 05/15/23 19:30 Urine WBC Too numerous to cnt /hpf (0-5) H 05/15/23 19:30 Ur Squamous Epith Cells 0-4 /hpf (0-5) H 05/15/23 19:30 Amorphous Sediment Not Reportable 05/15/23 19:30 Urine Bacteria 2+ /hpf (NONE) H 05/15/23 19:30 Hyaline Casts 0-4 /lpf H 05/15/23 19:30 Urine Mucus Trace /hpf 05/15/23 19:30 Adenovirus (PCR) Not detected (NOT DETECT) 05/15/23 18:48 C. pneumoniae DNA (PCR) Not detected (NOT DETECT) 05/15/23 18:48 Coronavirus 229E (PCR) Not detected (NOT DETECT) 05/15/23 18:48 Human Metapneumovir PCR Not detected (NOT DETECT) 05/15/23 18:48 Influenza A (H1) PCR Not detected (NOT DETECT) 05/15/23 18:48 Influ A (H1/09) PCR Not detected (NOT DETECT) 05/15/23 18:48 Influenza A (H3) PCR Not detected (NOT DETECT) 05/15/23 18:48 Influenza Type A (PCR) Not detected (NOT DETECT) 05/15/23 18:48 Influenza Type B (PCR) Not detected (NOT DETECT) 05/15/23 18:48 M. pneumoniae (PCR) Not detected (NOT DETECT) 05/15/23 18:48 Parainfluenza 1 (PCR) Not detected (NOT DETECT) 05/15/23 18:48 Parainfluenza 2 (PCR) Not detected (NOT DETECT) 05/15/23 18:48 Parainfluenza 3 (PCR) Not detected (NOT DETECT) 05/15/23 18:48 Parainfluenza 4 (PCR) Not detected (NOT DETECT) 05/15/23 18:48 RSV Type A (PCR) Not detected (NOT DETECT) 05/15/23 18:48 RSV Type B (PCR) Not detected (NOT DETECT) 05/15/23 18:48 Entero/Rhino (PCR) Not detected (NOT DETECT) 05/15/23 18:48 SARS-CoV-2 (PCR) Not detected (NOT DETECT) 05/15/23 18:48 Blood Type O Negative 05/15/23 18:05 Rho(D) Type Negative 05/15/23 18:05 Antibody Screen Negative 05/15/23 18:05 Crossmatch See Detail 05/15/23 18:05 Discharge Plan Discharge Patient Disposition: Xfer Short-Term Hosp Clinical Impression: Hydroureter, left, Hydroureter on right, Abdominal mass Condition: Stable Referrals: Darwin Reaves MD [Primary Care Provider] - Patient Instructions: Altered Mental Status (ED) Coding Level of Care Code ED Wrapper Hand for Chg Fwd Documented by User: Kris Beltran MD 05/17/23 07:51 HPI - Altered Mental Status 2 General: Chief Complaint: Altered Mental Status Stated Complaint: AMS Time Seen by Provider: 05/15/23 17:20 PFSH ED 2 PFSH: Medical History Adenocarcinoma of colon metastatic to liver Pelvic Mass, RLQ, Surg. Path 01/16/2023 mod differentiated, open ileostomy Dr. Liao, [facility]; small bowel and bladder noted via PET 02/26/23; mFOLFOX started 03/18/23 Other iron deficiency anemias COPD (chronic obstructive pulmonary disease) Pulmonary embolism Urinary tract infection Hypoxia Presence of ileostomy Nicotine dependence, cigarettes, uncomplicated Moderate protein-calorie malnutrition Left lower lobe pneumonia Iron deficiency anemia Weight loss of more than 10% body weight Chronic constipation Pyelonephritis of right kidney Painful bladder spasm Cyanosis of tip of finger Surgical History Port-A-Cath in place Hx of ileostomy History of bilateral ligation of fallopian tubes Family History Father Heart attack Mother Bipolar 1 disorder CAD (coronary artery disease) Social History Smoking and tobacco/nicotine status: current every day tobacco/nicotine user cigarettes Packs smoked per day: 0.25 Years cigarettes smoked: 45 Quit status (tobacco/nicotine): not considering quitting Alcohol intake: former Substance/Drug Use: never Course 2 Vital Signs: Vital signs: Vital Signs Temperature 97.6 F 05/15/23 21:13 Pulse Rate 113 H 05/16/23 09:10 Respiratory Rate 14 05/16/23 09:10 Blood Pressure 125/87 05/16/23 07:56 Pulse Oximetry 96 05/16/23 06:37 Oxygen Delivery Me thod Room Air 05/16/23 06:37 Oxygen Flow Rate 2 05/15/23 17:20 MDM - Altered Mental Status Medical Decision Making Care signed out to Dr. Beltran at change of shift. See final notes for diagnosis and disposition. 18:45 assumed care of the patient from Dr. Corona and did see the patient and evaluate the patient. I did provide patient with morphine after discussing the patient's increased pain with Viola the [employer]. 19:50 I contacted the hospitalist to discuss the patient's case and request admission after reviewing the patient's presentation and CT scan findings as well as reviewing the patient's history with her malignancy and concerns for enteric fistula the hospitalist advised transfer for possible concern and need for nephrostomy tubes or stenting given the hydroureter and hydronephrosis which may be a result of tumor burden. We have contacted [facility] to request transfer and acceptance of the patient for higher level of care due to lack of urology, and interventional radiology at this time. We are currently awaiting a return phone call from the transfer center regarding acceptance of the patient. Lab Data 05/16/23 00:56 05/15/23 17:00 Radiology Impressions Chest X-Ray 05/15/23 17:21 IMPRESSION: 1. Stable left Mediport catheter. 2. Mild left basilar pneumonia. 3. Stable severe COPD . Abdomen/Pelvis CT 05/15/23 17:54 IMPRESSION: 1. Taxc-zc-itqlfwhx bilateral hydronephrosis and hydroureter with a necrotic pelvic mass, measuring up to at least 10.9 cm in size, somewhat more prominent compared to prior exam which appears to involve the colon, bladder and small bowel, likely reflecting a malignant process. The mass likely results in the hydronephrosis and hydroureter. 2. Emphysematous changes. 3. Bibasilar atelectasis versus infiltrate. 4. Several low-density lesions seen throughout the liver, concerning for metastatic disease, measuring up to 12 mm in the right hepatic lobe. 5. Right-sided ostomy. Laboratory Results WBC 13.67 10^3/uL (3.29-11.43) H 05/16/23 00:56 RBC 2.81 10^6/uL (3.85-5.65) L 05/16/23 00:56 Hgb 8.30 g/dL (11.27-16.99) L 05/16/23 00:56 Hct 26.6 % (36-47) L 05/16/23 00:56 MCV 94.7 fl (85-98) 05/16/23 00:56 MCH 29.5 pg (27-33) 05/16/23 00:56 MCHC 31.2 g/dL (30-55) 05/16/23 00:56 RDW 21.7 % (12.1-15.1) H 05/16/23 00:56 Plt Count 391 10^3/cmm (157-399) 05/16/23 00:56 MPV 8.7 fL (7.4-10.4) 05/16/23 00:56 Neut % (Auto) 86.5 % 05/16/23 00:56 Lymph % (Auto) 10.6 % 05/16/23 00:56 [place] % (Auto) 1.5 % 05/16/23 00:56 Eos % (Auto) 0.9 % 05/16/23 00:56 Baso % (Auto) 0.1 % 05/16/23 00:56 Neut # (Auto) 11.83 10^3/uL (1.8-7.7) H 05/16/23 00:56 Lymph # (Auto) 1.5 10^3/uL (0.8-4.8) 05/16/23 00:56 [place] # (Auto) 0.2 10^3/uL (0.2-0.9) 05/16/23 00:56 Eos # (Auto) 0.1 10^3/uL (0.0-0.8) 05/16/23 00:56 Baso # (Auto) 0.0 10^3/uL (0.0-0.1) 05/16/23 00:56 Nucleated RBC % (auto) 0 % 05/16/23 00:56 Nucleated RBCs # 0.0 /100WBC 05/16/23 00:56 Sodium 134 mmol/L (136-145) L 05/15/23 17:00 Potassium 4.7 mmol/L (3.5-5.1) 05/15/23 17:00 Chloride 98 mmol/L (98-107) 05/15/23 17:00 Carbon Dioxide 20 mmol/L (22-29) L 05/15/23 17:00 Anion Gap 20.7 (5-19) H 05/15/23 17:00 BUN 29 mg/dL (8-23) H 05/15/23 17:00 Creatinine 0.6 mg/dL (0.5-0.9) 05/15/23 17:00 GFR Calculation 101.3 mL/min (90-130) 05/15/23 17:00 Glucose 146 mg/dL (65-115) H 05/15/23 17:00 Calculated Osmolality 286 mOsm/kg (285-295) 05/15/23 17:00 Calcium 8.8 mg/dL (8.5-10.5) 05/15/23 17:00 Total Bilirubin 0.2 mg/dL (0.15-1.2) 05/15/23 17:00 AST 28 U/L (0-32) 05/15/23 17:00 ALT 13 U/L (0-33) 05/15/23 17:00 Alkaline Phosphatase 97 U/L (35-105) 05/15/23 17:00 Total Protein 6.1 g/dL (6.6-8.7) L 05/15/23 17:00 Albumin 3.3 g/dL (3.5-5.2) L 05/15/23 17:00 Globulin 2.8 g/dL (1.3-4.6) 05/15/23 17:00 Urine Color Yellow (Yellow) 05/15/23 19:30 Urine Appearance Cloudy (CLEAR) A 05/15/23 19:30 Urine pH 5 (5-7) 05/15/23 19:30 Ur Specific [place] 1.010 (1.005-1.030) 05/15/23 19:30 Urine Protein 2+ (Negative) H 05/15/23 19:30 Urine Glucose (UA) Norm (Normal) 05/15/23 19:30 Urine Ketones Negative (Negative) 05/15/23: Urine Blood 3+ (Negative) H 05/15/23 19:30 Urine Nitrate Positive (Negative) H 05/15/23 19:30 Urine Bilirubin Neg (Negative) 05/15/23 19: Urine Urobilinogen Norm mg/dL (Negative) 05/15/23 19: Ur Leukocyte Esterase 2+ (Negative) H 05/15/23 19:30 Urine RBC 40-50 /hpf (0-2) H 05/15/23 19:30 Urine WBC Too numerous to cnt /hpf (0-5) H 05/15/23 19:30 Ur Squamous Epith Cells 0-4 /hpf (0-5) H 05/15/23 19:30 Amorphous Sediment Not Reportable 05/15/23 19:30 Urine Bacteria 2+ /hpf (NONE) H 05/15/23 19:30 Hyaline Casts 0-4 /lpf H 05/15/23 19:30 Urine Mucus Trace /hpf 05/15/23 19:30 Adenovirus (PCR) Not detected (NOT DETECT) 05/15/23 18:48 C. pneumoniae DNA (PCR) Not detected (NOT DETECT) 05/15/23 18:48 Coronavirus 229E (PCR) Not detected (NOT DETECT) 05/15/23 18:48 Human Metapneumovir PCR Not detected (NOT DETECT) 05/15/23 18:48 Influenza A (H1) PCR Not detected (NOT DETECT) 05/15/23 18:48 Influ A (H1/09) PCR Not detected (NOT DETECT) 05/15/23 18:48 Influenza A (H3) PCR Not detected (NOT DETECT) 05/15/23 18:48 Influenza Type A (PCR) Not detected (NOT DETECT) 05/15/23 18:48 Influenza Type B (PCR) Not detected (NOT DETECT) 05/15/23 18:48 M. pneumoniae (PCR) Not detected (NOT DETECT) 05/15/23 18:48 Parainfluenza 1 (PCR) Not detected (NOT DETECT) 05/15/23 18:48 Parainfluenza 2 (PCR) Not detected (NOT DETECT) 05/15/23 18:48 Parainfluenza 3 (PCR) Not detected (NOT DETECT) 05/15/23 18:48 Parainfluenza 4 (PCR) Not detected (NOT DETECT) 05/15/23 18:48 RSV Type A (PCR) Not detected (NOT DETECT) 05/15/23 18:48 RSV Type B (PCR) Not detected (NOT DETECT) 05/15/23 18:48 Entero/Rhino (PCR) Not detected (NOT DETECT) 05/15/23 18:48 SARS-CoV-2 (PCR) Not detected (NOT DETECT) 05/15/23 18:48 Blood Type O Negative 05/15/23 18:05 Rho(D) Type Negative 05/15/23 18:05 Antibody Screen Negative 05/15/23 18:05 Crossmatch See Detail 05/15/23 18:05 All radiology interpretation(s) finalized by discharge Discharge Plan Discharge Patient Disposition: Xfer Short-Term Hosp Clinical Impression: Hydroureter, left, Hydroureter on right, Abdominal mass Condition: Stable Referrals: Darwin Reaves MD [Primary Care Provider] - Patient Instructions: Altered Mental Status (ED) Coding Level of Care Code ED Wrapper Hand for So Lowery
[2023-05-15 17:43] LABS: Basophils % 0.1 %; Eosinophils # 0.1 10^3/uL (0.0-0.8); Eosinophils % 0.3 %; Lymphocytes # 1.4 10^3/uL (0.8-4.8); Lymphocytes % 8.3 %; Mean Corpuscular HGB Conc 30.5 g/dL (30-55); Mean Corpuscular Hemoglobin 29.9 pg (27-33); Mean Corpuscular Volume 98.2 fl (85-98); Monocytes # 0.4 10^3/uL (0.2-0.9); Monocytes % 2.5 %; Neutrophils % 88.4 %; Nucleated Red Blood Cells % 0 %; Platelet Count 490 10^3/cmm (157-399); Red Blood Count 2.24 10^6/uL (3.85-5.65); Red Cell Distribution Width 25.5 % (12.1-15.1); White Blood Count 16.17 10^3/uL (3.29-11.43)
--- NOTE | 2023-05-15 17:54 | CTR_ITS ---
PROCEDURE INFORMATION: Exam: CT Abdomen And Pelvis With Contrast Exam date and time: 05/15/2023 6:59 PM Age: 62 years old Clinical indication: Abdominal pain; Generalized; Additional info: Abd pain TECHNIQUE: Imaging protocol: Computed tomography of the abdomen and pelvis with contrast. Radiation optimization: All CT scans at this facility use at least one of these dose optimization techniques: automated exposure control; mA and/or kV adjustment per patient size (includes targeted exams where dose is matched to clinical indication); or iterative reconstruction. Contrast material: OMNI 350; Contrast volume: 100 ml; Contrast route: INTRAVENOUS (IV); COMPARISON: CT chest abdpel w/*[id number] 04/28/2023 3:30 AM RADIATION DOSE METRICS: Total DLP (mGy-cm): 298 FINDINGS: Lungs: Emphysematous changes. Bibasilar atelectasis versus infiltrate. Liver: Several low-density lesions seen throughout the liver, concerning for metastatic disease, measuring up to 12 mm in the right hepatic lobe. Gallbladder and bile ducts: Normal. No calcified stones. No ductal dilation. Pancreas: Normal. No ductal dilation. Spleen: Normal. No splenomegaly. Adrenal glands: Normal. No mass. Kidneys and ureters: See Stomach and bowel finding. Stomach and bowel: Yjko-th-dkjnixql bilateral hydronephrosis and hydroureter with a necrotic pelvic mass, measuring up to at least 10.9 cm in size, somewhat more prominent compared to prior exam which appears to involve the colon, bladder and small bowel, likely reflecting a malignant process. Right-sided ostomy. Appendix: No evidence of appendicitis. Intraperitoneal space: See Stomach and bowel finding. Vasculature: Unremarkable. No abdominal aortic aneurysm. Lymph nodes: Unremarkable. No enlarged lymph nodes. Urinary bladder: See Stomach and bowel finding. Reproductive: Unremarkable as visualized. Bones/joints: Unremarkable. No acute fracture. Soft tissues: Unremarkable. CT/CT abdomen pelvis w con* [id number] IMPRESSION: 1. Nlky-ya-wbdetcxc bilateral hydronephrosis and hydroureter with a necrotic pelvic mass, measuring up to at least 10.9 cm in size, somewhat more prominent compared to prior exam which appears to involve the colon, bladder and small bowel, likely reflecting a malignant process. The mass likely results in the hydronephrosis and hydroureter. 2. Emphysematous changes. 3. Bibasilar atelectasis versus infiltrate. 4. Several low-density lesions seen throughout the liver, concerning for metastatic disease, measuring up to 12 mm in the right hepatic lobe. 5. Right-sided ostomy.
[2023-05-15 18:04] LABS: Alanine Aminotransferase 13 U/L (0-33); Albumin Level 3.3 g/dL (3.5-5.2); Alkaline Phosphatase 97 U/L (35-105); Aspartate Amino Transferase 28 U/L (0-32); Blood Urea Nitrogen 29 mg/dL (8-23); Calcium 8.8 mg/dL (8.5-10.5); Carbon Dioxide 20 mmol/L (22-29); Chloride 98 mmol/L (98-107); Globulin 2.8 g/dL (1.3-4.6); Glomerular Filtration Rate 101.3 mL/min (90-130); Glucose 146 mg/dL (65-115); Osmolality Calculated 286 mOsm/kg (285-295); Sodium 134 mmol/L (136-145); Total Bilirubin 0.2 mg/dL (0.15-1.2); Total Protein 6.1 g/dL (6.6-8.7)
[2023-05-15 18:21] LABS: Anion Gap 20.7 (5-19); Potassium 4.7 mmol/L (3.5-5.1)
[2023-05-15] MEDS: cefepime 1,000 MG in sodium chloride 0.9% (plus) 50 ML 100 MG IV (18:28)
[2023-05-15] MEDS: pantoprazole 40 mg SDV 80 MG IVP (18:30)
[2023-05-15] MEDS: morphine 4 mg/mL SDV 1 mL IVP (18:38)
[2023-05-15 20:06] LABS: Add Urine Microscopic? YES; Bilirubin Urine Neg (Negative); Blood Urine 3+ (Negative); Glucose Urine UA Norm (Normal); Ketones Urine Negative (Negative); Leukocyte Esterase Urine 2+ (Negative); Nitrate Urine Positive (Negative); Protein Urine 2+ (Negative); Urine Appearance Cloudy (CLEAR); Urine Color Yellow (Yellow); Urobilinogen Urine Norm (Negative); pH Urine 5 (5-7)
[2023-05-15 20:17] LABS: Add Urine Culture? Yes; Bacteria Urine 2+ /hpf; Hyaline Casts Urine 0-4 /lpf; Mucus Urine TRACE /hpf; RBC Urine 40-50 /hpf (0-2); Squamous Epithelial Cell Urine 0-4 /hpf (0-5); WBC Urine TOO NUMEROUS TO CNT /hpf (0-5)
[2023-05-15] MEDS: sodium chloride 0.9% 100 mL Bag 50 ML IV (20:51)
[2023-05-15 20:56] LABS: Adenovirus Not Detected (NOT DETECT); Chlamydia Pneumoniae Not Detected (NOT DETECT); Coronavirus 229E,HKU1,NL63,OC4 Not Detected (NOT DETECT); Human Metapneumovirus Not Detected (NOT DETECT); Human Rhinovirus/Enterovirus Not Detected (NOT DETECT); Influenza A Not Detected (NOT DETECT); Influenza A H1 Not Detected (NOT DETECT); Influenza A H1-2009 Not Detected (NOT DETECT); Influenza A H3 Not Detected (NOT DETECT); Influenza B Not Detected (NOT DETECT); Mycoplasma Pneumoniae Not Detected (NOT DETECT); Parainfluenza Virus Type 1 Not Detected (NOT DETECT); Parainfluenza Virus Type 2 Not Detected (NOT DETECT); Parainfluenza Virus Type 3 Not Detected (NOT DETECT); Parainfluenza Virus Type 4 Not Detected (NOT DETECT); Respiratory Syncytial Virus A Not Detected (NOT DETECT); Respiratory Syncytial Virus B Not Detected (NOT DETECT); SARS-COV-2 Not Detected (NOT DETECT)
[2023-05-16] VITALS (9 sets, daily range): BP systolic 74–148; BP diastolic 53–91; PULSE 85–115; RESP 12–17; O2SAT 93–96
[2023-05-16] MEDS: morphine 4 mg/mL SDV 1 mL IVP (00:50)
[2023-05-16 01:00] LABS: Basophils % 0.1 %; Eosinophils # 0.1 10^3/uL (0.0-0.8); Eosinophils % 0.9 %; Hematocrit 26.6 % (36-47); Lymphocytes # 1.5 10^3/uL (0.8-4.8); Lymphocytes % 10.6 %; Mean Corpuscular HGB Conc 31.2 g/dL (30-55); Mean Corpuscular Hemoglobin 29.5 pg (27-33); Mean Corpuscular Volume 94.7 fl (85-98); Mean Platelet Volume 8.7 fL (7.4-10.4); Monocytes # 0.2 10^3/uL (0.2-0.9); Monocytes % 1.5 %; Neutrophils # 11.83 10^3/uL (1.8-7.7); Neutrophils % 86.5 %; Nucleated Red Blood Cells % 0 %; Platelet Count 391 10^3/cmm (157-399); Red Blood Count 2.81 10^6/uL (3.85-5.65); Red Cell Distribution Width 21.7 % (12.1-15.1); White Blood Count 13.67 10^3/uL (3.29-11.43)
[2023-05-16] MEDS: LORazepam 2 mg/mL INJ 10 mL MDV 1 MG IVP (01:45)
--- NOTE | 2023-05-16 01:45 | PC.NURSE ---
transfusion witnessed by franco carter rn.
[2023-05-16] MEDS: lactated ringers 1,000 ML 100 ML IV (02:40)
[2023-05-16] MEDS: LORazepam 2 mg/mL INJ 10 mL MDV 0.5 MG IVP (07:52)
--- NOTE | 2023-05-16 07:53 | PC.NURSE ---
pt can answer name, , year, and place. pt then states you all are trying to kill me. pt took out iv herself. nurse educated pt on why she needs an iv, pt refuses iv. Chloe verbalized ativan IM
--- NOTE | 2023-05-16 08:28 | PC.NURSE ---
pt continues to yell and scream at staff. pt has taken off blood pressure cuff, o2 monitor, and climbing out of bed. Daughter at bed side trying to help deescalate pt. pt refusing iv.
--- NOTE | 2023-05-16 09:59 | PC.NURSE ---
[facility]
== END 2023-05-16 10:00 | disposition short-term general hospital (02) ==
PROVIDERS: Internal Medicine; Emergency Provider Family Medicine; PCP Family Medicine Adult Medicine
DX: N13.4 Hydroureter (principal); R19.00 Intra-abdominal and pelvic swelling, mass and lump, unspecified site; Z85.038 Personal history of other malignant neoplasm of large intestine; Z85.05 Personal history of malignant neoplasm of liver; J44.9 Chronic obstructive pulmonary disease, unspecified; F17.210 Nicotine dependence, cigarettes, uncomplicated
CPT/HCPCS: 36415; 36430; 71045; 74177; 80053; 81001; 85025; 86850; 86900; 86920; 87077; 87086; 87186; 87486; 87581; 87633; 93005; 96374; 96375; 96376; 99285; C9113; J0692; J2060; J2270; J7120; P9016; Q9967